=== PATIENT | female | born 1995 | race Caucasian/White ===

== ENCOUNTER 2023-06-29 14:17 | Outpatient (OUT) | payer OTHER, SELFPAY ==
[2023-06-29 15:53] LABS: Free T4 1.02 ng/dL (0.76-1.46)
[2023-06-29 15:54] LABS: HCG Quantitative <1 mIU/mL; Thyroid Stimulating Hormone 2.218 uIU/mL (0.358-3.740)
[2023-06-29 16:06] LABS: Basophils Percent Auto 0.6 % (0.2-2.0); Eosinophils Absolute Auto 0.1 10^3/uL (0.0-0.7); Estimated Average Glucose 94 mg/dL; Glycohemoglobin A1C 4.9 % (4.5-6.2); Immature Granulocytes Abs Auto 0.01 10^3/uL (0.00-0.03); Immature Granulocytes Pct Auto 0.1 % (0.0-0.5); Lymphocytes Percent Auto 27.1 % (20.5-60.0); Mean Corpuscular HGB Conc 34.2 g/dL (29.9-35.2); Mean Corpuscular Hemoglobin 30.4 pg (26.7-34.0); Mean Corpuscular Volume 88.8 fL (81.0-99.0); Mean Platelet Volume 9.2 fL (9.5-13.5); Monocytes Absolute Auto 0.4 10^3/uL (0.3-0.8); Monocytes Percent Auto 4.8 % (1.7-12.0); Neutrophils Absolute Auto 4.8 10^3/uL (1.4-6.5); Neutrophils Percent Auto 66.4 % (43.0-75.0); Platelet Count 302 10^3/uL (150-450); Red Blood Count 4.28 10^6/uL (4.20-5.40); Red Cell Distribution Width 12.9 % (11.0-15.0); White Blood Count 7.2 10^3/uL (4.0-11.0)
[2023-06-30 04:07] LABS: FSH 1.7 mIU/mL (.); Luteinizing Hormone(LH) 6.8 mIU/mL (.)
[2023-07-05 01:09] LABS: DHEA, Serum 222 ng/dL (31-701)
== END 2023-06-29 14:18 | disposition home or self-care (01) ==
PROVIDERS: PCP Nurse Practitioner Family; Visit Provider Obstetrics & Gynecology
DX: E28.2 Polycystic ovarian syndrome (principal); N93.9 Abnormal uterine and vaginal bleeding, unspecified
CPT/HCPCS: 36415; 82626; 82627; 83001; 83002; 83036; 84439; 84443; 84702; 85025

== ENCOUNTER 2023-07-11 07:53 | Outpatient (OUT) | payer OTHER, SELFPAY ==
--- NOTE | 2023-07-11 07:55 | US_ITS ---
The [address] [address] Patient Name: WILMAN MONTENEGRO MRN: [id number] date: 1995 Sex: F Assigned Patient Location: [facility] Current Patient Location: [facility] Accession/Order Number: [id number] Exam Date: 07/11/2023 07:56 Report Date: 07/11/2023 09:01 At the request of: SANJUANA JOYNER Procedure: US pelvis w/ transvaginal EXAMINATION: US pelvis w/ transvaginal HISTORY: POLYCYSTIC OVARY SYNDROME COMPARISON: No relevant comparison available. FINDINGS: The uterus is normal in size, contour and myometrial echotexture measuring 7.2 x 2.8 x 4.2 cm. The uterus is anteverted, anteflexed. No focal myometrial mass The endometrium measures 5 mm, normal. The right ovary measures 3.5 x 2.5 x 2.3 cm. Normal color and Doppler flow. Multiple subcentimeter follicles The left ovary measures 3.1 x 1.9 x 2.3 cm. Normal color and Doppler flow. Multiple subcentimeter follicles No free fluid US/US pelvis w/ transvaginal IMPRESSION: Normal exam with no findings to suggest polycystic ovarian morphology Electronically authenticated by: GAYATRI BROOKS Date: 07/11/2023 09:01
== END 2023-07-11 07:54 | disposition home or self-care (01) ==
LOC: NOMS 07:54
PROVIDERS: PCP Nurse Practitioner Family; Visit Provider Obstetrics & Gynecology
DX: E28.2 Polycystic ovarian syndrome (principal)
CPT/HCPCS: 76830; 76856

== ENCOUNTER 2023-09-05 13:10 | Outpatient (OUT) | payer OTHER, SELFPAY ==
[2023-09-05 14:58] LABS: HCG Quantitative 2481 mIU/mL
== END 2023-09-05 13:11 | disposition home or self-care (01) ==
LOC: LAB 13:10
PROVIDERS: PCP Nurse Practitioner Family; Visit Provider Obstetrics & Gynecology
DX: N92.6 Irregular menstruation, unspecified (principal)
CPT/HCPCS: 36415; 84702

== ENCOUNTER 2023-09-07 15:12 | Outpatient (OUT) | payer OTHER, SELFPAY ==
[2023-09-07 17:18] LABS: HCG Quantitative 5292 mIU/mL
== END 2023-09-07 15:13 | disposition home or self-care (01) ==
LOC: LAB 15:13
PROVIDERS: PCP Nurse Practitioner Family; Visit Provider Obstetrics & Gynecology
DX: N92.6 Irregular menstruation, unspecified (principal)
CPT/HCPCS: 36415; 84702

== ENCOUNTER 2023-10-06 12:55 | Outpatient (OUT) | payer OTHER, SELFPAY ==
--- NOTE | 2023-10-06 12:57 | US_ITS ---
[address] [address] Patient Name: WILMAN MONTENEGRO MRN: [id number] date: 1995 Sex: F Assigned Patient Location: [facility] Current Patient Location: [facility] Accession/Order Number: [id number] Exam Date: 10/06/2023 12:57 Report Date: 10/06/2023 14:02 At the request of: SANJUANA JOYNER Procedure: US OB transvaginal EXAMINATION: US OB transvaginal HISTORY: MISSED MENSES COMPARISON: No relevant comparison available. FINDINGS: Dove intrauterine gestation Gestational sac: 3.50 cm, 8 weeks 4 days CRL: 2.51 cm, 9 weeks 2 days Yolk sac: 5.5 mm Heart rate: 170 beats minute Uterus is normal, anteverted, anteflexed The ovaries are normal. Right corpus luteal cyst Clinical age: 9 weeks 3 days Clinical MICHELLE: 05/07/2024 Ultrasound age: 9 weeks 2 days Ultrasound MICHELLE: 05/08/2024 US/US OB transvaginal IMPRESSION: Viable dove intrauterine gestation measuring 9 weeks 2 days Electronically authenticated by: GAYATRI BROOKS Date: 10/06/2023 14:02
== END 2023-10-06 12:56 | disposition home or self-care (01) ==
LOC: NOMS 12:56
PROVIDERS: PCP Nurse Practitioner Family; Visit Provider Obstetrics & Gynecology
DX: Z34.91 Encounter for supervision of normal pregnancy, unspecified, first trimester (principal); Z3A.09 9 weeks gestation of pregnancy
CPT/HCPCS: 76817

== ENCOUNTER 2023-10-06 15:22 | Outpatient (OUT) | payer OTHER, SELFPAY ==
--- OUTSIDE RECORDS SUMMARY | 2023-10-06 15:30 | XMS_ITS | CCD ---
Author Organization [facility] Care Team Providers Care Preschool Education Director Name Role Phone Dionne Miller Unavailable SANJUANA JOYNER Attending Unavailable Allergies Allergy Classification Reported Allergen(s) Allergy Type Date of Onset Reaction(s) Facility (1 source) Amoxicillin Drug Allergy rash [facility] Other Problems Problem Classification Problem Date Documented Da te Episodic/Chronic Malaise and fatigue (1 source) Other fatigue Onset: 07-07-2021 Resolved: 07-07-2021 Episodic Other skin disorders (1 source) Other skin changes Onset: 07-07-2021 Resolved: 07-07-2021 Episodic Results Test Name Value Interpretation Reference Range Facil ity Coagulation Profileon 2021 aPTT Coag (Bld) [Time] 31.7 s Normal 25.1-36.5 [facility] Comment on above: Result Comment: PERF ORMED BY: [place] [address] PATHOLOGIST BUTTON FACING MACHINE OPERATOR PERCY ROSEN M.D. Performed By: #### C MP, PP, [id number], [id number], LIPID, TSH3, SCAN CBC, FE PRO #### [facility] [address] INR Coag (PPP) [Relative time] 1.1 {INR} Normal [facility] Comment on above: Result Comment: INR Therapeutic Range A) Pre- and Peroperative OAT started two weeks before surgery. NOT HIP SURGERY: 1.5 - 2.5 HIP SURGERY: 2 - 3 B) Primary and secondary prevention of venous THROMBOSIS: 2 - 3 C) Active venous thrombosis, pulmonary embolism and prevention of recurrent venous thrombosis: 2 - 3 D) Prevention of arterial thromboembolism including patients with mechanical heart valves: 3 - 4.5 Performed By: #### C MP, PP, [id number], [id number], LIPID, TSH3, SCAN CBC, FE PRO #### [address] PT Coag (PPP) [Time] 12.3 s Normal 9.0-12.9 [facility] Comment on above: Performed By: #### C MP, PP, [id number], [id number], LIPID, TSH3, SCAN CBC, FE PRO #### [address] Comprehensive Metabolic Pane chacha 07-07-2021 Albumin [Mass/Vol] 4.1 g/dL Normal 3.2-5.5 [facility] Comment on above: Performed By: #### C MP, PP, [id number], [id number], LIPID, TSH3, SCAN CBC, FE PRO #### [address] Albumin/Globulin [Mass ratio] 1.5 {ratio} Normal [facility] Comment on above: Performed By: #### C MP, PP, [id number], [id number], LIPID, TSH3, SCAN CBC, FE PRO #### [address] ALP [Catalytic activity/Vol] 46 U/L Normal 32-92 [facility] Comment on above: Performed By: #### C MP, PP, [id number], [id number], LIPID, TSH3, SCAN CBC, FE PRO #### [address] ALT [Catalytic activity/Vol] 14 U/L Normal 10-60 [facility] Comment on above: Performed By: #### C MP, PP, [id number], [id number], LIPID, TSH3, SCAN CBC, FE PRO #### [address] AST [Catalytic activity/Vol] 19 U/L Normal 10-42 [facility] Comment on above: Performed By: #### C MP, PP, [id number], [id number], LIPID, TSH3, SCAN CBC, FE PRO #### [address] Bilirubin [Mass/Vol] 0.5 mg/dL Normal 0.3-1.2 [facility] Comment on above: Performed By: #### C MP, PP, [id number], [id number], LIPID, TSH3, SCAN CBC, FE PRO #### [address] Calcium [Mass/Vol] 9.4 mg/dL Normal 8.2-10.2 [facility] Comment on above: Performed By: #### C MP, PP, [id number], [id number], LIPID, TSH3, SCAN CBC, FE PRO #### [address] Chloride [Moles/Vol] 105 mmol/L Normal 95-114 [facility] Comment on above: Performed By: #### C MP, PP, [id number], [id number], LIPID, TSH3, SCAN CBC, FE PRO #### [address] CO2 [Moles/Vol] 25.2 mmol/L Normal 22.0-30.0 [facility] Comment on above: Performed By: #### C MP, PP, [id number], [id number], LIPID, TSH3, SCAN CBC, FE PRO #### [address] Creatinine [Mass/Vol] 0.68 mg/dL Normal 0.44-1.03 [facility] Comment on above: Performed By: #### C MP, PP, [id number], [id number], LIPID, TSH3, SCAN CBC, FE PRO #### [address] Estimated GFR ( Elisha > 60 Normal [facility] Comment on above: Result Comment: GFR estimated reference range: According to KDOQI guidelines, <60 ml/min/1.73m2 is sufficient to diagnose a patient with chronic kidney disease. Performed By: #### C MP, PP, [id number], [id number], LIPID, TSH3, SCAN CBC, FE PRO #### [address] Estimated GFR (Non- Am > 60 Normal [facility] Comment on above: Performed By: #### C MP, PP, [id number], [id number], LIPID, TSH3, SCAN CBC, FE PRO #### [address] Globulin (S) [Mass/Vol] 2.8 g/dL Normal [facility] Comment on above: Performed By: #### C MP, PP, [id number], [id number], LIPID, TSH3, SCAN CBC, FE PRO #### [address] Glucose [Mass/Vol] 84 mg/dL Normal 70-100 [facility] Comment on above: Result Comment: [facility] Glucose Reference Range is dependent on time and content of last meal. Glucose of more than 200 mg/dL in a nonstressed, ambulatory subject supports the diagnosis of Diabetes Mellitus. ADA recommended reference range Performed By: #### C MP, PP, [id number], [id number], LIPID, TSH3, SCAN CBC, FE PRO #### [address] Potassium [Moles/Vol] 4.2 mmol/L Normal 3.5-5.1 [facility] Comment on above: Performed By: #### C MP, PP, [id number], [id number], LIPID, TSH3, SCAN CBC, FE PRO #### [address] Protein [Mass/Vol] 6.9 g/dL Normal 6.1-7.9 [facility] Comment on above: Performed By: #### C MP, PP, [id number], [id number], LIPID, TSH3, SCAN CBC, FE PRO #### [address] Sodium [Moles/Vol] 137 mmol/L Normal 136-146 [facility] Comment on above: Performed By: #### C MP, PP, [id number], [id number], LIPID, TSH3, SCAN CBC, FE PRO #### [address] Urea nitrogen [Mass/Vol] 11 mg/dL Normal 9-23 [facility] Comment on above: Performed By: #### C MP, PP, [id number], [id number], LIPID, TSH3, SCAN CBC, FE PRO #### [address] FE PROon 07-07-2021 % Iron Saturation 35.0 % Normal 20-50 [facility] Comment on above: Performed By: #### C MP, PP, [id number], [id number], LIPID, TSH3, SCAN CBC, FE PRO #### [address] Ferritin [Mass/Vol] 23.8 ng/mL Normal 11-306.8 [facility] Comment on above: Performed By: #### C MP, PP, [id number], [id number], LIPID, TSH3, SCAN CBC, FE PRO #### [address] Iron [Mass/Vol] 104 ug/dL Normal 40-150 [facility] Comment on above: Performed By: #### C MP, PP, [id number], [id number], LIPID, TSH3, SCAN CBC, FE PRO #### [address] Total Iron Binding Capacity 294 ug/dL Normal 255-450 [facility] Comment on above: Performed By: #### C MP, PP, [id number], [id number], LIPID, TSH3, SCAN CBC, FE PRO #### [address] Transferrin [Mass/Vol] 210 mg/dL Normal 180-380 [facility] Comment on above: Performed By: #### C MP, PP, [id number], [id number], LIPID, TSH3, SCAN CBC, FE PRO #### [facility] [address] [place] [id number] [facility] Lipid Panelon 07-07-2021 Cholesterol [Mass/Vol] 156 mg/dL Normal 140-200 [facility] Comment on above: Result Comment: Chol less than 200 mg/dl low risk Chol 201-239 mg/dl borderline risk Chol 240 mg/dl and greater high risk Performed By: #### C MP, PP, [id number], [id number], LIPID, TSH3, SCAN CBC, FE PRO #### [facility] [address] Cholesterol in HDL [Mass/Vol] 76 mg/dL Normal 35-85 [facility] Comment on above: Result Comment: HDL CHOL ATP-III CLASSIFICATION Cardiovascular Risk HDL > or equal to 60 mg/dL LOW HDL < 40 mg/dL HIGH Performed By: #### C MP, PP, [id number], [id number], LIPID, TSH3, SCAN CBC, FE PRO #### [facility] [address] [place] [address] [place] Cholesterol.total/C holesterol in HDL [Mass ratio] 2.1 {ratio} Normal <5.0 [facility] Comment on above: Performed By: #### C MP, PP, [id number], [id number], LIPID, TSH3, SCAN CBC, FE PRO #### [facility] [address] [place] [id number] [facility] LDL Cholesterol,Calcula marcia 75 mg/dL Normal 0-100 [facility] Comment on above: Result Comment: LDL ATP III CLASSIFICATION LDL less than 100 mg/dL Optimal LDL 100-129 mg/dL Near or above optimal LDL 130-159 mg/dL Borderline high LDL 160-189 mg/dL High LDL greater than 189 mg/dL Very high Performed By: #### C MP, PP, [id number], [id number], LIPID, TSH3, SCAN CBC, FE PRO #### [address] Triglyceride w/Reflex 25 mg/dL Low 35-149 [facility] Comment on above: Result Comment: TRIG ATP III CLASSIFICATION TRIG less than 150 mg/dL Normal TRIG 150-199 mg/dL Borderline high TRIG 200-500 mg/dL High TRIG greater than 500 mg/dL Very high Standard traceable to the Center for Disease Conrtrol and Prevention (CDC) test method. Performed By: #### C MP, PP, [id number], [id number], LIPID, TSH3, SCAN CBC, FE PRO #### [address] VLDL CHOLESTEROL 5 mg/dL Normal [facility] Comment on above: Performed By: #### C MP, PP, [id number], [id number], LIPID, TSH3, SCAN CBC, FE PRO #### [address] Scan and CBCon 07-07-2021 Basophils (Bld) [#/Vol] 0.1 10*3/uL Normal 0.0-0.2 [facility] Comment on above: Performed By: #### C MP, PP, [id number], [id number], LIPID, TSH3, SCAN CBC, FE PRO #### [address] Basophils/100 WBC (Bld) 1.1 % Normal . [facility] Comment on above: Performed By: #### C MP, PP, [id number], [id number], LIPID, TSH3, SCAN CBC, FE PRO #### [address] Eosinophils (Bld) [#/Vol] 0.1 10*3/uL Normal 0.0-0.45 [facility] Comment on above: Performed By: #### C MP, PP, [id number], [id number], LIPID, TSH3, SCAN CBC, FE PRO #### [address] Eosinophils/100 WBC (Bld) 2.3 % Normal . [facility] Comment on above: Performed By: #### C MP, PP, [id number], [id number], LIPID, TSH3, SCAN CBC, FE PRO #### [address] Erythrocyte distribution width (RBC) [Ratio] 13.2 % Normal 11.9-15.3 [facility] Comment on above: Performed By: #### C MP, PP, [id number], [id number], LIPID, TSH3, SCAN CBC, FE PRO #### [address] Hematocrit (Bld) [Volume fraction] 40.0 % Normal 34.0-46.4 [facility] Comment on above: Performed By: #### C MP, PP, [id number], [id number], LIPID, TSH3, SCAN CBC, FE PRO #### [address] Hemoglobin (Bld) [Mass/Vol] 14.0 g/dL Normal 11.8-15.4 [facility] Comment on above: Performed By: #### C MP, PP, [id number], [id number], LIPID, TSH3, SCAN CBC, FE PRO #### [address] Hypochromasia Slight Normal [facility] Comment on above: Performed By: #### C MP, PP, [id number], [id number], LIPID, TSH3, SCAN CBC, FE PRO #### [address] Lymphocytes (Bld) [#/Vol] 1.5 10*3/uL Normal 1.00-4.8 [facility] Comment on above: Performed By: #### C MP, PP, [id number], [id number], LIPID, TSH3, SCAN CBC, FE PRO #### [address] Lymphocytes/100 WBC (Bld) 32.4 % Normal . [facility] Comment on above: Performed By: #### C MP, PP, [id number], [id number], LIPID, TSH3, SCAN CBC, FE PRO #### [address] MCH (RBC) [Entitic mass] 30.7 pg Normal 24.7-34.3 [facility] Comment on above: Performed By: #### C MP, PP, [id number], [id number], LIPID, TSH3, SCAN CBC, FE PRO #### [address] MCV (RBC) [Entitic vol] 88.0 fL Normal 80-100 [facility] Comment on above: Performed By: #### C MP, PP, [id number], [id number], LIPID, TSH3, SCAN CBC, FE PRO #### [address] Mean Corpuscular HGB Conc 34.9 g/dL Normal 32.0-35.0 [facility] Comment on above: Performed By: #### C MP, PP, [id number], [id number], LIPID, TSH3, SCAN CBC, FE PRO #### [address] Monocytes (Bld) [#/Vol] 0.2 10*3/uL Normal 0.0-0.8 [facility] Comment on above: Performed By: #### C MP, PP, [id number], [id number], LIPID, TSH3, SCAN CBC, FE PRO #### [address] Monocytes/100 WBC (Bld) 4.9 % Normal . [facility] Comment on above: Performed By: #### C MP, PP, [id number], [id number], LIPID, TSH3, SCAN CBC, FE PRO #### [address] Neutrophils (Bld) [#/Vol] 2.7 10*3/uL Normal 1.8-7.7 [facility] Comment on above: Performed By: #### C MP, PP, [id number], [id number], LIPID, TSH3, SCAN CBC, FE PRO #### [address] Neutrophils/100 WBC (Bld) 59.3 % Normal . [facility] Comment on above: Performed By: #### C MP, PP, [id number], [id number], LIPID, TSH3, SCAN CBC, FE PRO #### [address] Nucleated RBC/100 WBC (Bld) [Ratio] 0.3 % Normal 0-0.5 [facility] Comment on above: Performed By: #### C MP, PP, [id number], [id number], LIPID, TSH3, SCAN CBC, FE PRO #### [address] Platelet Clumps Slight Normal [facility] Comment on above: Result Comment: PERF ORMED BY: [place] [address] PATHOLOGIST BUTTON FACING MACHINE OPERATOR PERCY ROSEN M.D. Performed By: #### C MP, PP, [id number], [id number], LIPID, TSH3, SCAN CBC, FE PRO #### [address] Platelet Estimate Normal Normal Normal [facility] Comment on above: Performed By: #### C MP, PP, [id number], [id number], LIPID, TSH3, SCAN CBC, FE PRO #### [address] Platelet mean volume (Bld) [Entitic vol] 8.1 fL Normal 6.3-10.7 [facility] Comment on above: Performed By: #### C MP, PP, [id number], [id number], LIPID, TSH3, SCAN CBC, FE PRO #### [place] [address] [place] Platelets (Bld) [#/Vol] 297 10*3/uL Normal 150-450 [facility] Comment on above: Performed By: #### C MP, PP, [id number], [id number], LIPID, TSH3, SCAN CBC, FE PRO #### [facility] [address] [place] [address] RBC (Bld) [#/Vol] 4.55 10*6/uL Normal 3.60-5.00 [facility] Comment on above: Performed By: #### C MP, PP, [id number], [id number], LIPID, TSH3, SCAN CBC, FE PRO #### [facility] [address] [place] [address] Reactive Lymphs Few Normal [facility] Comment on above: Performed By: #### C MP, PP, [id number], [id number], LIPID, TSH3, SCAN CBC, FE PRO #### [address] Smudge Cells Few Normal [facility] Comment on above: Performed By: #### C MP, PP, [id number], [id number], LIPID, TSH3, SCAN CBC, FE PRO #### [facility] [address] [place] [address] WBC (Bld) [#/Vol] 4.5 10*3/uL Normal 4.5-11.0 [facility] Comment on above: Performed By: #### C MP, PP, [id number], [id number], LIPID, TSH3, SCAN CBC, FE PRO #### [facility] [address] [place] [address] Thyroid Stimulating Hormoneo n 07-07-2021 TSH Qn 1.61 m[IU]/L Normal 0.45-5.33 [facility] Comment on above: Performed By: #### C MP, PP, [id number], [id number], LIPID, TSH3, SCAN CBC, FE PRO #### [address] Vit. B12/Folate Profileon Cobalamin (Vitamin B12) [Mass/Vol] 358 pg/mL Normal 180-914 [facility] Comment on above: Performed By: #### C MP, PP, [id number], [id number], LIPID, TSH3, SCAN CBC, FE PRO #### [facility] [address] [place] [id number] [facility] Folate 10.9 ng/mL Normal >5.9 [facility] Comment on above: Result Comment: Thea te reference range: >5.9 ng/ml The WHO technical consultation on folate and vitamin b12 deficiencies has determined that folate concentrations less than 4 ng/ml are considered deficient. Performed By: #### C MP, PP, [id number], [id number], LIPID, TSH3, SCAN CBC, FE PRO #### [facility] [address] [place] [id number] [facility] Vitamin D 25 Hydroxy Totalon 07-07-2021 Vitamin D 25 Hydroxy Total 27.5 ng/mL Low 30-100 [facility] Comment on above: Result Comment: MAHOG[place] MIN D STATUS 25(OH)VITAMIN D RANGE (ng/mL) Deficient <20 Insufficient 20 to <30 Sufficient 30 to 100 Reference: Rajeev MF,Nate NC, Justine WILSON, et al. Evaluation,treatment, and prevention of vitamin D deficiency; an Endocrine Society clinical practice guideline. JCEM. 2010; 96(7):1911-30. PERFORMED BY: [place] [address] PATHOLOGIST BUTTON FACING MACHINE OPERATOR PERCY ROSEN M.D. Performed By: #### C MP, PP, [id number], [id number], LIPID, TSH3, SCAN CBC, FE PRO #### [facility] [address] [place] [id number] [facility] Vital Signs Date Time Vital Sign Value Performing Clinician Facility 07-07-2021 11:00-0400 Body height 151.13 cm Dionne Miller Other [facility] Other 07-07-2021 11:00-0400 Body mass index (BMI) [Ratio] 25.18 kg/m2 Dionne Miller Other [facility] Other 07-07-2021 11:00-0400 Body temperature 97 [degF] Dionne Miller Other [facility] Other 07-07-2021 11:00-0400 Body weight 57.52 kg Dionne Angela Other [facility] Other 07-07-2021 11:00-0400 Diastolic blood pressure 60 mm[Hg] Dionne Miller Other [facility] Other 07-07-2021 11:00-0400 Respiratory rate 18 /min Dionne Miller Other [facility] Other 07-07-2021 11:00-0400 SaO2% (BldA) [Mass fraction] 99 % Dionne Miller Other [facility] Other 07-07-2021 11:00-0400 Systolic blood pressure 100 mm[Hg] Dionne Miller Other [facility] Other Encounters Encounter Date Encounter Type Care Provider Facility Start: 06-29-2023 End: 06-29-2023 ambulatory SANJUANA AR Not Available Start: 05-30-2023 End: 05-30-2023 ambulatory SANJUANA AR Not Available Start: 07-07-2021 End: 07-07-2021 ambulatory Dionne Miller Other [facility] Other Start: 07-07-2021 Encounter for genera l adult medical examination without abnormal findings Dionne Miller [facility] [place] Start: 07-07-2021 Periodic preventive med est patient 18-39 yrs Dionne Miller [facility] [place] Immunizations Immunization Date Immunization Notes Care Provider Fa cility 08-05-2010 tetanus toxoid, reduced diphtheria toxoid, and acellular pertussis vaccine, adsorbed Dionne Miller Other [facility] Other Payers Date Payer Category Payer Unknown [id number] 1995 Unknown [id number] 1995 Unknown [id number] Social History Date Type Detail Facility Sex Assigned At [facility] Other Evaluation note 07-07-2021 Note Date & Type Note Facility 07-07-2021 Evaluation note Encounter Date Diagnosis Assessment Notes June, Well adult exam (ICD-10 - Z00.00) Routine lab work ordered today. Continue to follow with eye doctor and dentist, [employer]. Patient is advised to work on healthy diet choices and appropriate servings, weight control, regular exercise as directed, reduced fat intake, and salt avoidance. Patient voiced understanding of this and agrees to this plan. June, Fatigue, unspecified type (ICD-10 - R53.83) Has some generalized fatigue complaints. Does work long hours. Will check lab work to rule out abnormality. Further treatment pending results of testing. June, Easy bruising (ICD-10 - R23.8) Does have some complaints of easy bruising at times. Does move a lot of large items at work and there is the potential that she bumps herself on items. Will check lab work to rule out abnormality. Further treatment pending results of testing. June, Other [employer] referral sent today so that she is able to discuss control options with them. Discussed referral process with patient. [facility] Other History general Narrative - Reported Note Date & Type Note Facility History general Narrative - Reported Type Surgical History No know Surgical history Hospitalization History No know Hospitalization history [facility] Other Summary Purpose Family History No Family History Records FoundNo Family History Records Found Advance Directives No Advanced Directives Records FoundNo Advanced Directives Records Found Additional Source Comments INFORMATION SOURCE (unrecogn ized section and content) DATE CREATED AUTHOR 07/25/2021 [facility] DATE CREATED AUTHOR AUTHOR'S FABIOLA PÉREZ 07/01/2023 [facility] EPIC REASON FOR VISIT (unrecogniz ed section and content) 1 year Follow up FOR RECORDS PERTAINING TO PATIENTS WHO ARE OR HAVE BEEN ENROLLED IN A CHEMICAL DEPENDENCY/SUBSTANCEABUSE PROGRAM, SOME INFORMATION MAY BE OMITTED. This clinical summary was aggregated from multiple sources. Caution should be exercised in using it in the provision of clinical care. This summary normalizes information from multiple sources, and as a consequence, information in this document may materially change the coding, format and clinical context of patient data. In addition, data may be omitted in some cases. CLINICAL DECISIONS SHOULD BE BASED ON THE PRIMARY CLINICAL RECORDS. [facility]. provides no warranty or guarantee of the accuracy or completeness of information in this document.
[2023-10-06 15:54] LABS: Basophils Percent Auto 0.5 % (0.2-2.0); Eosinophils Absolute Auto 0.1 10^3/uL (0.0-0.7); Eosinophils Percent Auto 1.2 % (0.9-7.0); Hematocrit 36.1 % (36.0-48.0); Hemoglobin 12.6 g/dL (12.0-16.0); Immature Granulocytes Abs Auto 0.01 10^3/uL (0.00-0.03); Immature Granulocytes Pct Auto 0.1 % (0.0-0.5); Lymphocytes Absolute Auto 2.1 10^3/uL (1.2-3.8); Mean Corpuscular HGB Conc 34.9 g/dL (29.9-35.2); Mean Corpuscular Hemoglobin 30.7 pg (26.7-34.0); Mean Corpuscular Volume 87.8 fL (81.0-99.0); Mean Platelet Volume 8.6 fL (9.5-13.5); Monocytes Absolute Auto 0.5 10^3/uL (0.3-0.8); Monocytes Percent Auto 5.9 % (1.7-12.0); Neutrophils Absolute Auto 5.4 10^3/uL (1.4-6.5); Neutrophils Percent Auto 66.3 % (43.0-75.0); Platelet Count 266 10^3/uL (150-450); Red Blood Count 4.11 10^6/uL (4.20-5.40); Red Cell Distribution Width 12.4 % (11.0-15.0); White Blood Count 8.2 10^3/uL (4.0-11.0)
[2023-10-06 16:05] LABS: Estimated Average Glucose 94 mg/dL; Glycohemoglobin A1C 4.9 % (4.5-6.2)
[2023-10-08 06:10] LABS: HBsAg Screen Negative (Negative); HIV Ab/p24 Ag Screen Non Reactive (Non Reactive)
[2023-10-08 07:08] LABS: HCV Ab Non Reactive (Non Reactive)
[2023-10-08 08:12] LABS: Rubella Antibodies, IgG 2.39 index (Immune >0.99)
[2023-10-08 11:10] LABS: Rapid Plasma Reagin, Quant Non Reactive titer (NonRea<1:1)
== END 2023-10-06 15:23 | disposition home or self-care (01) ==
LOC: LAB 15:23
PROVIDERS: PCP Nurse Practitioner Family; Visit Provider Obstetrics & Gynecology
DX: Z34.91 Encounter for supervision of normal pregnancy, unspecified, first trimester (principal); Z3A.09 9 weeks gestation of pregnancy; N92.6 Irregular menstruation, unspecified
CPT/HCPCS: 36415; 76817; 83036; 85025; 86592; 86762; 86803; 86850; 86900; 86901; 87086; 87340; 87389

== ENCOUNTER 2023-12-05 20:33 | Outpatient (REF) | payer OTHER, SELFPAY ==
--- OUTSIDE RECORDS SUMMARY | 2023-12-05 20:36 | XMS_ITS | CCD ---
Author Organization [facility] Care Team Providers Care Staff Appraiser Name Role Phone AngelaDionne Unavailable SANJUANA JOYNER Attending Unavailable SANJUANA JOYNER Attending Unavailable Allergies Allergy Classification Reported Allergen(s) Allergy Type Date of Onset Reaction(s) Facility (1 source) Amoxicillin Drug Allergy rash [facility] Other Problems Problem Classification Problem Date Documented Da te Episodic/Chronic Malaise and fatigue (1 source) Other fatigue Onset: 07-07-2021 Resolved: 07-07-2021 Episodic Other skin disorders (1 source) Other skin changes Onset: 07-07-2021 Resolved: 07-07-2021 Episodic Results Test Name Value Interpretation Reference Range Facil ity Coagulation Profileon 2021 aPTT Coag (Bld) [Time] 31.7 s Normal 25.1-36.5 [facility] Comment on above: Result Comment: PERF ORMED BY: [place] [address] PATHOLOGIST GREENHOUSE OR NURSERY TRANSPLANTER PERCY ROSEN M.D. Performed By: #### C MP, PP, [id number], [id number], LIPID, TSH3, SCAN CBC, FE PRO #### [facility] [address] INR Coag (PPP) [Relative time] 1.1 {INR} Normal [facility] Comment on above: Result Comment: INR Therapeutic [...] 4.5 Performed By: #### C MP, PP, [id number], [id number], LIPID, TSH3, SCAN CBC, FE PRO #### [address] PT Coag (PPP) [Time] 12.3 s Normal 9.0-12.9 [facility] Comment on above: Performed By: #### C MP, PP, [id number], [id number], LIPID, TSH3, SCAN CBC, FE PRO #### [address] Comprehensive Metabolic Pane chacha 07-07-2021 Albumin [Mass/Vol] 4.1 g/dL Normal 3.2-5.5 [facility] Comment on above: Performed By: #### C MP, PP, [id number], [id number], LIPID, TSH3, SCAN CBC, FE PRO #### [address] Albumin/Globulin [Mass ratio] 1.5 {ratio} Normal [facility] Comment on above: Performed By: #### C MP, PP, [id number], [id number], LIPID, TSH3, SCAN CBC, FE PRO #### [address] ALP [Catalytic activity/Vol] 46 U/L Normal 32-92 [facility] Comment on above: Performed By: #### C MP, PP, [id number], [id number], LIPID, TSH3, SCAN CBC, FE PRO #### [address] ALT [Catalytic activity/Vol] 14 U/L Normal 10-60 [facility] Comment on above: Performed By: #### C MP, PP, [id number], [id number], LIPID, TSH3, SCAN CBC, FE PRO #### [address] AST [Catalytic activity/Vol] 19 U/L Normal 10-42 [facility] Comment on above: Performed By: #### C MP, PP, [id number], [id number], LIPID, TSH3, SCAN CBC, FE PRO #### [address] Bilirubin [Mass/Vol] 0.5 mg/dL Normal 0.3-1.2 [facility] Comment on above: Performed By: #### C MP, PP, [id number], [id number], LIPID, TSH3, SCAN CBC, FE PRO #### [address] Calcium [Mass/Vol] 9.4 mg/dL Normal 8.2-10.2 [facility] Comment on above: Performed By: #### C MP, PP, [id number], [id number], LIPID, TSH3, SCAN CBC, FE PRO #### [address] Chloride [Moles/Vol] 105 mmol/L Normal 95-114 [facility] Comment on above: Performed By: #### C MP, PP, [id number], [id number], LIPID, TSH3, SCAN CBC, FE PRO #### [address] CO2 [Moles/Vol] 25.2 mmol/L Normal 22.0-30.0 [facility] Comment on above: Performed By: #### C MP, PP, [id number], [id number], LIPID, TSH3, SCAN CBC, FE PRO #### [address] Creatinine [Mass/Vol] 0.68 mg/dL Normal 0.44-1.03 [facility] Comment on above: Performed By: #### C MP, PP, [id number], [id number], LIPID, TSH3, SCAN CBC, FE PRO #### [facility] [address] [place] [address] Estimated GFR ( Elisha > 60 Normal [facility] Comment on above: Result Comment: GFR estimated reference range: According to KDOQI guidelines, <60 ml/min/1.73m2 is sufficient to diagnose a patient with chronic kidney disease. Performed By: #### C MP, PP, [id number], [id number], LIPID, TSH3, SCAN CBC, FE PRO #### [address] Estimated GFR (Non- Am > 60 Normal [facility] Comment on above: Performed By: #### C MP, PP, [id number], [id number], LIPID, TSH3, SCAN CBC, FE PRO #### [address] Globulin (S) [Mass/Vol] 2.8 g/dL Normal [facility] Comment on above: Performed By: #### C MP, PP, [id number], [id number], LIPID, TSH3, SCAN CBC, FE PRO #### [address] Glucose [Mass/Vol] 84 mg/dL Normal 70-100 [facility] Comment on above: Result Comment: [place] Glucose Reference Range is dependent on time and content of last meal. Glucose of more than 200 mg/dL in a nonstressed, ambulatory subject supports the diagnosis of Diabetes Mellitus. ADA recommended reference range Performed By: #### C MP, PP, [id number], [id number], LIPID, TSH3, SCAN CBC, FE PRO #### [address] Potassium [Moles/Vol] 4.2 mmol/L Normal 3.5-5.1 [facility] Comment on above: Performed By: #### C MP, PP, [id number], [id number], LIPID, TSH3, SCAN CBC, FE PRO #### [address] Protein [Mass/Vol] 6.9 g/dL Normal 6.1-7.9 [facility] Comment on above: Performed By: #### C MP, PP, [id number], [id number], LIPID, TSH3, SCAN CBC, FE PRO #### [address] Sodium [Moles/Vol] 137 mmol/L Normal 136-146 [facility] Comment on above: Performed By: #### C MP, PP, [id number], [id number], LIPID, TSH3, SCAN CBC, FE PRO #### [address] Urea nitrogen [Mass/Vol] 11 mg/dL Normal 9-23 [facility] Comment on above: Performed By: #### C MP, PP, [id number], [id number], LIPID, TSH3, SCAN CBC, FE PRO #### [address] FE PROon 07-07-2021 % Iron Saturation 35.0 % Normal 20-50 [facility] Comment on above: Performed By: #### C MP, PP, [id number], [id number], LIPID, TSH3, SCAN CBC, FE PRO #### [address] Ferritin [Mass/Vol] 23.8 ng/mL Normal 11-306.8 [facility] Comment on above: Performed By: #### C MP, PP, [id number], [id number], LIPID, TSH3, SCAN CBC, FE PRO #### [address] Iron [Mass/Vol] 104 ug/dL Normal 40-150 [facility] Comment on above: Performed By: #### C MP, PP, [id number], [id number], LIPID, TSH3, SCAN CBC, FE PRO #### [address] Total Iron Binding Capacity 294 ug/dL Normal 255-450 [facility] Comment on above: Performed By: #### C MP, PP, [id number], [id number], LIPID, TSH3, SCAN CBC, FE PRO #### [address] Transferrin [Mass/Vol] 210 mg/dL Normal 180-380 [facility] Comment on above: Performed By: #### C MP, PP, [id number], [id number], LIPID, TSH3, SCAN CBC, FE PRO #### [facility] [address] Lipid Panelon 07-07-2021 Cholesterol [Mass/Vol] 156 mg/dL Normal 140-200 [facility] Comment on above: Result Comment: Chol less than 200 mg/dl low risk Chol 201-239 mg/dl borderline risk Chol 240 mg/dl and greater high risk Performed By: #### C MP, PP, [id number], [id number], LIPID, TSH3, SCAN CBC, FE PRO #### [facility] [address] Cholesterol in HDL [Mass/Vol] 76 mg/dL Normal 35-85 [facility] Comment on above: Result Comment: HDL CHOL ATP-III CLASSIFICATION Cardiovascular Risk HDL > or equal to 60 mg/dL LOW HDL < 40 mg/dL HIGH Performed By: #### C MP, PP, [id number], [id number], LIPID, TSH3, SCAN CBC, FE PRO #### [facility] [address] Cholesterol.total/C holesterol in HDL [Mass ratio] 2.1 {ratio} Normal <5.0 [facility] Comment on above: Performed By: #### C MP, PP, [id number], [id number], LIPID, TSH3, SCAN CBC, FE PRO #### [facility] [address] [place] [id number] [facility] LDL Cholesterol,Calcula marcia 75 mg/dL Normal 0-100 [facility] Comment on above: Result Comment: LDL ATP III CLASSIFICATION LDL less than 100 mg/dL Optimal LDL 100-129 mg/dL Near or above optimal LDL 130-159 mg/dL Borderline high LDL 160-189 mg/dL High LDL greater than 189 mg/dL Very high Performed By: #### C MP, PP, [id number], [id number], LIPID, TSH3, SCAN CBC, FE PRO #### [address] Triglyceride w/Reflex 25 mg/dL Low 35-149 [facility] Comment on above: Result Comment: TRIG ATP III CLASSIFICATION TRIG less than 150 mg/dL Normal TRIG 150-199 mg/dL Borderline high TRIG 200-500 mg/dL High TRIG greater than 500 mg/dL Very high Standard traceable to the Center for Disease Conrtrol and Prevention (CDC) test method. Performed By: #### C MP, PP, [id number], [id number], LIPID, TSH3, SCAN CBC, FE PRO #### [address] VLDL CHOLESTEROL 5 mg/dL Normal [facility] Comment on above: Performed By: #### C MP, PP, [id number], [id number], LIPID, TSH3, SCAN CBC, FE PRO #### [address] Scan and CBCon 07-07-2021 Basophils (Bld) [#/Vol] 0.1 10*3/uL Normal 0.0-0.2 [facility] Comment on above: Performed By: #### C MP, PP, [id number], [id number], LIPID, TSH3, SCAN CBC, FE PRO #### [address] Basophils/100 WBC (Bld) 1.1 % Normal . [facility] Comment on above: Performed By: #### C MP, PP, [id number], [id number], LIPID, TSH3, SCAN CBC, FE PRO #### [address] Eosinophils (Bld) [#/Vol] 0.1 10*3/uL Normal 0.0-0.45 [facility] Comment on above: Performed By: #### C MP, PP, [id number], [id number], LIPID, TSH3, SCAN CBC, FE PRO #### [address] Eosinophils/100 WBC (Bld) 2.3 % Normal . [facility] Comment on above: Performed By: #### C MP, PP, [id number], [id number], LIPID, TSH3, SCAN CBC, FE PRO #### [address] Erythrocyte distribution width (RBC) [Ratio] 13.2 % Normal 11.9-15.3 [facility] Comment on above: Performed By: #### C MP, PP, [id number], [id number], LIPID, TSH3, SCAN CBC, FE PRO #### [address] Hematocrit (Bld) [Volume fraction] 40.0 % Normal 34.0-46.4 [facility] Comment on above: Performed By: #### C MP, PP, [id number], [id number], LIPID, TSH3, SCAN CBC, FE PRO #### [address] Hemoglobin (Bld) [Mass/Vol] 14.0 g/dL Normal 11.8-15.4 [facility] Comment on above: Performed By: #### C MP, PP, [id number], [id number], LIPID, TSH3, SCAN CBC, FE PRO #### [address] Hypochromasia Slight Normal [facility] Comment on above: Performed By: #### C MP, PP, [id number], [id number], LIPID, TSH3, SCAN CBC, FE PRO #### [address] Lymphocytes (Bld) [#/Vol] 1.5 10*3/uL Normal 1.00-4.8 [facility] Comment on above: Performed By: #### C MP, PP, [id number], [id number], LIPID, TSH3, SCAN CBC, FE PRO #### [address] Lymphocytes/100 WBC (Bld) 32.4 % Normal . [facility] Comment on above: Performed By: #### C MP, PP, [id number], [id number], LIPID, TSH3, SCAN CBC, FE PRO #### [address] MCH (RBC) [Entitic mass] 30.7 pg Normal 24.7-34.3 [facility] Comment on above: Performed By: #### C MP, PP, [id number], [id number], LIPID, TSH3, SCAN CBC, FE PRO #### [address] MCV (RBC) [Entitic vol] 88.0 fL Normal 80-100 [facility] Comment on above: Performed By: #### C MP, PP, [id number], [id number], LIPID, TSH3, SCAN CBC, FE PRO #### [address] Mean Corpuscular HGB Conc 34.9 g/dL Normal 32.0-35.0 [facility] Comment on above: Performed By: #### C MP, PP, [id number], [id number], LIPID, TSH3, SCAN CBC, FE PRO #### [address] Monocytes (Bld) [#/Vol] 0.2 10*3/uL Normal 0.0-0.8 [facility] Comment on above: Performed By: #### C MP, PP, [id number], [id number], LIPID, TSH3, SCAN CBC, FE PRO #### [address] Monocytes/100 WBC (Bld) 4.9 % Normal . [facility] Comment on above: Performed By: #### C MP, PP, [id number], [id number], LIPID, TSH3, SCAN CBC, FE PRO #### [address] Neutrophils (Bld) [#/Vol] 2.7 10*3/uL Normal 1.8-7.7 [facility] Comment on above: Performed By: #### C MP, PP, [id number], [id number], LIPID, TSH3, SCAN CBC, FE PRO #### [address] Neutrophils/100 WBC (Bld) 59.3 % Normal . [facility] Comment on above: Performed By: #### C MP, PP, [id number], [id number], LIPID, TSH3, SCAN CBC, FE PRO #### [address] Nucleated RBC/100 WBC (Bld) [Ratio] 0.3 % Normal 0-0.5 [facility] Comment on above: Performed By: #### C MP, PP, [id number], [id number], LIPID, TSH3, SCAN CBC, FE PRO #### [address] Platelet Clumps Slight Normal [facility] Comment on above: Result Comment: PERF ORMED BY: [place] [address] PATHOLOGIST [employer]SE OR NURSERY TRANSPLANTER PERCY ROSEN M.D. Performed By: #### C MP, PP, [id number], [id number], LIPID, TSH3, SCAN CBC, FE PRO #### [address] Platelet Estimate Normal Normal Normal [facility] Comment on above: Performed By: #### C MP, PP, [id number], [id number], LIPID, TSH3, SCAN CBC, FE PRO #### [address] Platelet mean volume (Bld) [Entitic vol] 8.1 fL Normal 6.3-10.7 [facility] Comment on above: Performed By: #### C MP, PP, [id number], [id number], LIPID, TSH3, SCAN CBC, FE PRO #### [place] [address] [place] Platelets (Bld) [#/Vol] 297 10*3/uL Normal 150-450 [facility] Comment on above: Performed By: #### C MP, PP, [id number], [id number], LIPID, TSH3, SCAN CBC, FE PRO #### [address] RBC (Bld) [#/Vol] 4.55 10*6/uL Normal 3.60-5.00 [facility] Comment on above: Performed By: #### C MP, PP, [id number], [id number], LIPID, TSH3, SCAN CBC, FE PRO #### [facility] [address] [place] [address] Reactive Lymphs Few Normal [facility] Comment on above: Performed By: #### C MP, PP, [id number], [id number], LIPID, TSH3, SCAN CBC, FE PRO #### [address] Smudge Cells Few Normal [facility] Comment on above: Performed By: #### C MP, PP, [id number], [id number], LIPID, TSH3, SCAN CBC, FE PRO #### [facility] [address] [place] [address] WBC (Bld) [#/Vol] 4.5 10*3/uL Normal 4.5-11.0 [facility] Comment on above: Performed By: #### C MP, PP, [id number], [id number], LIPID, TSH3, SCAN CBC, FE PRO #### [address] Thyroid Stimulating Hormoneo n 07-07-2021 TSH Qn 1.61 m[IU]/L Normal 0.45-5.33 [facility] Comment on above: Performed By: #### C MP, PP, [id number], [id number], LIPID, TSH3, SCAN CBC, FE PRO #### [address] Vit. B12/Folate Profileon Cobalamin (Vitamin B12) [Mass/Vol] 358 pg/mL Normal 180-914 [facility] Comment on above: Performed By: #### C MP, PP, [id number], [id number], LIPID, TSH3, SCAN CBC, FE PRO #### [facility] [address] [place] [id number] [facility] Folate 10.9 ng/mL Normal >5.9 [facility] Comment on above: Result Comment: Thea te reference range: >5.9 ng/ml The WHO technical consultation on folate and vitamin b12 deficiencies has determined that folate concentrations less than 4 ng/ml are considered deficient. Performed By: #### C MP, PP, [id number], [id number], LIPID, TSH3, SCAN CBC, FE PRO #### [facility] [address] [place] [id number] [facility] Vitamin D 25 Hydroxy Totalon 07-07-2021 Vitamin D 25 Hydroxy Total 27.5 ng/mL Low 30-100 [facility] Comment on above: Result Comment: [place] MIN D STATUS 25(OH)VITAMIN D RANGE (ng/mL) Deficient <20 Insufficient 20 to <30 Sufficient 30 to 100 Reference: Rajeev MF,Nate NC, Justine WILSON, et al. Evaluation,treatment, and prevention of vitamin D deficiency; an Endocrine Society clinical practice guideline. JCEM. 2010; 96(7):1911-30. PERFORMED BY: [place] [address] PATHOLOGIST [employer] OR NURSERY TRANSPLANTER PERCY ROSEN M.D. Performed By: #### C MP, PP, [id number], [id number], LIPID, TSH3, SCAN CBC, FE PRO #### [facility] [address] [place] [id number] [facility] Vital Signs Date Time Vital Sign Value Performing Clinician Facility 07-07-2021 11:00-0400 Body height 151.13 cm Dionne Miller Other [facility] Other 07-07-2021 11:00-0400 Body mass index (BMI) [Ratio] 25.18 kg/m2 Dionne Miller Other [facility] Other 07-07-2021 11:00-0400 Body temperature 97 [degF] Dionne Miller Other [facility] Other 07-07-2021 11:00-0400 Body weight 57.52 kg Dionne Angela Other [facility] Other 07-07-2021 11:00-0400 Diastolic blood pressure 60 mm[Hg] Dionne Miller Other [facility] Other 07-07-2021 11:00-0400 Respiratory rate 18 /min Dionne Miller Other [facility] Other 07-07-2021 11:00-0400 SaO2% (BldA) [Mass fraction] 99 % Dionne Miller Other [facility] Other 07-07-2021 11:00-0400 Systolic blood pressure 100 mm[Hg] Dionne Miller Other [facility] Other Encounters Encounter Date Encounter Type Care Provider Facility Start: 11-07-2023 End: 11-07-2023 ambulatory SANJUANA AR Not Available Start: 10-06-2023 End: 10-06-2023 ambulatory SANJUANA AR Not Available Start: 06-29-2023 End: 06-29-2023 ambulatory SANJUANA AR Not Available Start: 05-30-2023 End: 05-30-2023 ambulatory SANJUANA AR Not Available Start: 07-07-2021 End: 07-07-2021 ambulatory Dionne Miller Other [facility] Other Start: 07-07-2021 Encounter for genera l adult medical examination without abnormal findings Dionne Angela [facility] [place] Start: 07-07-2021 Periodic preventive med est patient 18-39 yrs Dionne Angela [facility] Immunizations Immunization Date Immunization Notes Care Provider Cordell pandey 08-05-2010 tetanus toxoid, reduced diphtheria toxoid, and acellular pertussis vaccine, adsorbed Dionne Gracetiago Other [facility] nooked Other Payers Date Payer Category Payer Unknown [id number] 1997 Unknown [id number] 1997 Unknown [id number] 1997 Unknown [id number] 1997 Unknown [id number] Social History Date Type Detail Facility Sex Assigned At [facility] nooked Other Evaluation note 07-07-2021 Note Date & Type Note Facility 07-07-2021 Evaluation note Encounter Date Diagnosis Assessment Notes June, Well adult exam (ICD-10 - Z00.00) Routine lab work ordered today. Continue to follow with eye doctor and dentist, CELL OPERATOR. Patient is advised to work on healthy [...] treatment pending results of testing. June, Other CELL OPERATOR referral sent today so that she is able to discuss control options with them. Discussed referral process with patient. [facility] Other History general Narrative - Reported Note Date & Type Note Facility History general Narrative - Reported Type Surgical History No know Surgical history Hospitalization History No know Hospitalization history [facility] Other Summary Purpose Family History No Family History Records FoundNo Family History Records Found Advance Directives No Advanced Directives Records FoundNo Advanced Directives Records Found Additional Source Comments INFORMATION SOURCE (unrecogn ized section and content) DATE CREATED AUTHOR 07/25/2021 [facility] DATE CREATED AUTHOR AUTHOR'S ORGANIZ ATION 11/08/2023 [facility] dical Specialists EPIC REASON FOR VISIT (unrecogniz [...] BE BASED ON THE PRIMARY CLINICAL RECORDS. [employer] [facility] provides no warranty or guarantee of the accuracy or completeness of information in this document.
== END 2023-12-05 20:34 | disposition home or self-care (01) ==
LOC: LAB 20:33
PROVIDERS: PCP Nurse Practitioner Family; Visit Provider Physician Assistant
DX: Z01.419 Encounter for gynecological examination (general) (routine) without abnormal findings (principal)
CPT/HCPCS: 88175

== ENCOUNTER 2023-12-20 09:55 | Outpatient (OUT) | payer OTHER, SELFPAY ==
--- NOTE | 2023-12-20 09:54 | US_ITS ---
[address] [address] Patient Name: WILMAN MONTENEGRO MRN: [id number] date: 1995 Sex: F Assigned Patient Location: [facility] Current Patient Location: [facility] Accession/Order Number: [id number] Exam Date: 12/20/2023 09:54 Report Date: 12/20/2023 11:34 At the request of: ELTON ALSTON Procedure: US OB anatomy EXAMINATION: US OB anatomy, US OB transvaginal HISTORY: ANATOMY COMPARISON: No relevant comparison available. TECHNIQUE: Transabdominal sonographic examination was performed for obstetrical and evaluation. FINDINGS: Number: 1 Heart Rate: 142 bpm H.B. /min Amniotic Fluid Volume: Subjectively normal position: Cephalic presentation, longitudinal lie Placental Location: ANTERIOR, the placental edge is 3.3 cm from the internal os Cervix Length: 3.93 cm , closed Normal anatomy: Lateral ventricles, cerebellum, posterior fossa, nose, lips, orbits, four-chamber heart, RVOT, LVOT, diaphragm, stomach, kidneys, abdominal cord insertion, bladder, umbilical arteries, three-vessel cord, spine, extremities BIOMETRY: BPD: 4.62 cm; 20 weeks 0 days; 42.10 % HC: 17.71 cm; 20 weeks 1 day; 44 % AC: 15.06 cm; 20 weeks 2 days; 49.40 % FL: 3.30 cm; 20 weeks 2 days; 48.50 % EFW:336.03 g; 53.40 %, 12 ounces FL/AC: 21.91 FL/BPD: 71.43 HC/AC: 1.18 GESTATIONAL AGE: Age by EDC: 20 weeks 1 day MICHELLE by EDC: 2024-05-07 Age by current US: 20 weeks 1 day MICHELLE by current US: 2024-05-07 US/US OB anatomy IMPRESSION: Low lying placenta, otherwise normal anatomy scan *Reference: [employer] Practice Guideline for the performance of Obstetric Ultrasound Examinations, November 28, 2006. Electronically authenticated by: GAYATRI BROOKS Date: 12/20/2023 11:34
--- NOTE | 2023-12-20 09:54 | US_ITS ---
[address] [address] Patient Name: WILMAN MONTENEGRO MRN: [id number] date: 1995 Sex: F Assigned Patient Location: [facility] Current Patient Location: [facility] Accession/Order Number: [id number] Exam Date: 12/20/2023 09:54 Report Date: 12/20/2023 11:34 At the request of: ELTON ALSTON Procedure: US OB transvaginal EXAMINATION: US OB anatomy, US OB transvaginal HISTORY: ANATOMY COMPARISON: No relevant comparison available. TECHNIQUE: Transabdominal sonographic examination was performed for obstetrical and evaluation. FINDINGS: Number: 1 Heart Rate: 142 bpm H.B. /min Amniotic Fluid Volume: Subjectively normal position: Cephalic presentation, longitudinal lie Placental Location: ANTERIOR, the placental edge is 3.3 cm from the internal os Cervix Length: 3.93 cm , closed Normal anatomy: Lateral ventricles, cerebellum, posterior fossa, nose, lips, orbits, four-chamber heart, RVOT, LVOT, diaphragm, stomach, kidneys, abdominal cord insertion, bladder, umbilical arteries, three-vessel cord, spine, extremities BIOMETRY: BPD: 4.62 cm; 20 weeks 0 days; 42.10 % HC: 17.71 cm; 20 weeks 1 day; 44 % AC: 15.06 cm; 20 weeks 2 days; 49.40 % FL: 3.30 cm; 20 weeks 2 days; 48.50 % EFW:336.03 g; 53.40 %, 12 ounces FL/AC: 21.91 FL/BPD: 71.43 HC/AC: 1.18 GESTATIONAL AGE: Age by EDC: 20 weeks 1 day MICHELLE by EDC: 2024-05-07 Age by current US: 20 weeks 1 day MICHELLE by current US: 2024-05-07 US/US OB transvaginal IMPRESSION: Low lying placenta, otherwise normal anatomy scan *Reference: [employer] Practice Guideline for the performance of Obstetric Ultrasound Examinations, November 28, 2006. Electronically authenticated by: GAYATRI BROOKS Date: 12/20/2023 11:34
--- OUTSIDE RECORDS SUMMARY | 2023-12-20 10:12 | XMS_ITS | CCD ---
Author Organization [facility] InformFormerly [facility] Care Team Providers Care Siebel Consultant Name Role Phone Dionne Miller Unavailable SANJUANA LOVE Attending Unavailable SANJUAAN LOVE Attending Unavailable NATACHA ALSTON Attending Unavailable Dionne Miller NP Primary Care Provider DO Alexandra Kemp Primary Care Provider PAT Alston Attending Provider Natacha Alston Admitting Unavailable Natacha Alston Attending Unavailable Alexandra Kemp Primary Care Unavailable Allergies Allergy Classification Reported Allergen(s) Allergy Type Date of Onset Reaction(s) Facility (6 sources) Amoxicillin Drug Allergy 05-30-2023 rash, Hives [facility] Healthcare (1 source) Amoxicillin Drug Allergy 07-07-2021 [facility] Repository Medications Current Medications Medication Drug Class(es) Dates Sig (Normalized) Sig (Original) multivitamin () 27-0.8 MG tablet (5 sources) Start: 05-30-2023 End: 05-29-2024 take 1 tablet by mouth once daily multivitamin () 27-0.8 MG tablet Indications: Encounter for supervision of normal first in first trimester Take 1 tablet by mouth Daily 30 tablet 11 05/30/2023 05/29/2024 Active Vit-Fe Fumarate-FA (PNV Plus Multivitamin) 27-1 MG tablet (5 sources) Start: 09-20-2023 take 1 tablet by mouth once daily Vit-Fe Fumarate-FA (PNV Plus Multivitamin) 27-1 MG tablet Take 1 tablet by mouth Daily 09/20/2023 Active Problems Active Problems Problem Classification Problem Date Documented Date Episodic/Chronic Immunizations and screening for infectious disease (4 sources) Patient encounter status; Translations: [Encounter for screening for infections with a predominantly sexual mode of transmission] 12-05-2023 Episodic Other female genital disorders (2 sources) Vaginal discharge; Translations: [Other specified noninflammatory disorders of vagina] 12-05-2023 Episodic Other and delivery including normal (3 sources) Second trimester ; Translations: [Encounter for supervision of normal , unspecified, second trimester] Onset: 12-05-2023 12-05-2023 Episodic Residual codes; unclassified (2 sources) Gestation period, 18 weeks; Translations: [18 weeks gestation of ] 12-05-2023 Episodic Past or Other Problems Problem Classification Problem Date Documented Da te Episodic/Chronic Malaise and fatigue (1 source) Other fatigue Onset: 07-07-2021 Resolved: 07-07-2021 Episodic Other skin disorders (1 source) Other skin changes Onset: 07-07-2021 Resolved: 07-07-2021 Episodic Results Test Name Value Interpretation Reference Range Facility IGP,APTIMA HPV,AGE GDLNon AGE GDLN ACOG TESTING Note . [facility] Comment on above: TESTS RESULT FLAG UN ITS REF RANGE LAB Clinician Provided Cytology Information Source.............Cervix Other.............. No. of containers..01 ThinPrep Vial Age Algo ACOG Seble... FLAG LEGEND: L-Low Normal,H-High Normal,LL-Alert Low,HH-Alert High <-Panic Low,>-Panic High,A-Abnormal,AA-Critical Abnormal Performed at: 01 =G [facility] [place] [address] [facility] [place] [address] Norah Samuels MD, IGP, RFX APTIMA HPV ASCU Note . [facility] Comment on above: TESTS RESULT FLAG UN ITS REF RANGE LAB DIAGNOSIS: 02 NEGATIVE FOR INTRAEPITHELIAL LESION OR MALIGNANCY. Specimen adequacy: 02 Satisfactory for evaluation. No endocervical component is identified. An endocervical component is not commonly seen in the patient. Performed by: 02 Denise Watson, Biogeographer ([facility]) . 02 Note: Note 02 The Pap smear is a screening test designed to aid in the detection of premalignant and malignant conditions of the uterine cervix. It is not a diagnostic procedure and should not be used as the sole means of detecting cervical cancer. Both false-positive and false-negative reports do occur. Test Methodology: Note 02 This liquid based ThinPrep(R) pap test was screened with the use of an image guided system. . 02 The HPV DNA reflex criteria were not met with this specimen result therefore, no HPV testing was performed. FLAG LEGEND: L-Low Normal,H-High Normal,LL-Alert Low,HH-Alert High <-Panic Low,>-Panic High,A-Abnormal,AA-Critical Abnormal Performed at: 02 [address] [facility] [address] [place], [place] [address] Norah Samuels MD, Performed at: =[address] [id number] Patient Manager: Norah Samuels MD, Phone: [phone] Performed at: [address] [id number] Patient Manager: Norah Samuels MD, Phone: [phone] SPATULA-ALONE CERVIX [facility] URETHRITIS/DISCHARGE PLUS VA GINITIS (HTRX)on 12-06-2023 ATOPOBIUM VAGINAE 0.000 [facility] ATOPOBIUM VAGINAE Not detected [facility] BVAB 2,3 (BACTERIAL VAGINOSIS ASSOCIATED BACTERIA 2, 3); MOBILUNCUS SPP 0.000 [facility] BVAB 2,3 (BACTERIAL VAGINOSIS ASSOCIATED BACTERIA 2, 3); MOBILUNCUS SPP Not detected [facility] RAMONE ALBICANS, PARAPSILOSIS, TROPICALIS 0.000 [facility] RAMONE ALBICANS, PARAPSILOSIS, TROPICALIS Not detected [facility] RAMONE GLABRATA 0.000 [facility] RAMONE GLABRATA Not detected [facility] RAMONE KRUSEI 0.000 [facility] RAMONE KRUSEI Not detected [facility] CHLAMYDIA TRACHOMATIS 0.000 [facility] CHLAMYDIA TRACHOMATIS Not detected [facility] GARDNERELLA VAGINALIS 0.000 [facility] GARDNERELLA VAGINALIS Not detected [facility] MEGASPHAERA (TYPES 1, 2) 0.000 [facility] MEGASPHAERA (TYPES 1, 2) Not detected [facility] MYCOPLASMA GENITALIUM 0.000 [facility] MYCOPLASMA GENITALIUM Not detected [facility] NEISSERIA GONORRHOEAE 0.000 [facility] NEISSERIA GONORRHOEAE Not detected [facility] TRICHOMONAS VAGINALIS 0.000 [facility] TRICHOMONAS VAGINALIS Not detected [facility] Urinalysis macro (dipstick) panel (U)on 12-05-2023 Bilirubin, UA Negative Negative - 4(70) +++ mg/dL [facility] Blood, UA Negative Negative - 50 Jeremiah/mcL [facility] Clarity, UA Clear [facility] Color, UA Yellow [facility] Glucose, UA Negative Negative - 1999(110) ++++ mg/dL [facility] Interpretation and review of laboratory results Normal [facility] re Ketones, UA Negative Negative - 160(16) ++++ mg/dL [facility] Leukocytes, UA Negative Negative - 500+++ Hitesh/mcL [facility] Nitrite, UA Negative Negative - Positive [facility] pH, UA 7.5 5 - 9 [facility] e Protein, UA Negative Negative - 1999(20) ++++ mg/dL [facility] Spec Grav, UA 1.020 1 - 1.03 [facility] Urobilinogen, UA 0.2 0.2 - 12 mg/dL [facility] Basophils Auto (Bld) [#/Vol] on 10-06-2023 Basophils (Bld) [#/Vol] 0.0 10 3/uL 0.0-0.1 [facility] Basophils/100 WBC Auto (Bld) on 10-06-2023 Basophils/100 WBC (Bld) 0.5 % 0.2-2.0 [facility] Eosinophils/100 WBC Auto (Bl d)on 10-06-2023 Eosinophils/100 WBC (Bld) 1.2 % 0.9-7.0 [facility] Erythrocyte distribution wid th Auto (RBC) [Ratio]on 10-06-2023 Erythrocyte distribution width (RBC) [Ratio] 12.4 % 11.0-15.0 [facility] Glucose mean value [Mass/vol ume] in Blood Estimated from glycated hemoglobinon 10-06-2023 Average glucose Estimated from glycated hemoglobin (Bld) [Mass/Vol] 94 mg/dL [facility] HBV surface Ag IA Qlon 10-05 Hepatitis B Surface Antigen Negative Negative [facility] Comment on above: Performed at: [employer] [address] [id number] Director: Pieter Tyler PhD, Phone: [phone] Performed at: [employer] [id number] Director: Pieter Tyler PhD, Phone: [phone] HCV Ab Signal/Cutoff IA [Rel units/Vol]on 10-06-2023 Hepatitis C Antibody Non-Reactive Non Reactive [facility] HIV 1+2 Ab+HIV1 p24 Ag IA Ql on 10-06-2023 HIV (1&2) Antibody Screen Non-Reactive Non Reactive [facility] Comment on above: HIV-1/HIV-2 antibodi es and HIV-1 p24 antigen were NOTdetected. There is no laboratory evidence of HIV infection.HIV NegativePerformed at: [facility] [id number] Director: Pieter Tyler PhD, Phone: [phone] HIV-1/HIV-2 antibodi es and HIV-1 p24 antigen were NOTdetected. There is no laboratory evidence of HIV infection.HIV NegativePerformed at: [employer] [facility] [id number] Director: Pieter Tyler PhD, Phone: [phone] Hematocrit Auto (Bld) [Volum e fraction]on 10-06-2023 Hematocrit (Bld) [Volume fraction] 36.1 % 36.0-48.0 [facility] Hemoglobin [Mass/volume] in Bloodon 10-06-2023 Hemoglobin (Bld) [Mass/Vol] 12.6 g/dL 12.0-16.0 [facility] Laboratory - Hematology and Cell countson 10-06-2023 HbA1c (Bld) [Mass fraction] 4.9 % 4.5-6.2 [facility] Comment on above: ADA RECOMMENDED LIMI T 4.0 - 6.0ADA THERAPEUTIC TARGET < 7.0ACTION SUGGESTED> 7.0 Immature granulocytes/100 WBC (Bld) 0.1 % 0.0-0.5 [facility] Leukocytes [#/volume] correc marcia for nucleated erythrocytes in Blood by Automated counon 10-06-2023 WBC corrected for nucl RBC Auto (Bld) [#/Vol] 8.2 10 3/uL 4.0-11.0 [facility] Lymphocytes Auto (Bld) [#/Vo l]on 10-06-2023 Lymphocytes (Bld) [#/Vol] 2.1 10 3/uL 1.2-3.8 [facility] Lymphocytes/100 WBC Auto (Bl d)on 10-06-2023 Lymphocytes/100 WBC (Bld) 26.0 % 20.5-60.0 [facility] MCH Auto (RBC) [Entitic mass ]on 10-06-2023 MCH (RBC) [Entitic mass] 30.7 pg 26.7-34.0 [facility] MCHC Auto (RBC) [Mass/Vol]on 10-06-2023 MCHC (RBC) [Mass/Vol] 34.9 g/dL 29.9-35.2 [facility] MCV Auto (RBC) [Entitic vol] on 10-06-2023 MCV (RBC) [Entitic vol] 87.8 fL 81.0-99.0 [facility] Monocytes Auto (Bld) [#/Vol] on 10-06-2023 Monocytes (Bld) [#/Vol] 0.5 10 3/uL 0.3-0.8 [facility] Monocytes/100 WBC Auto (Bld) on 10-06-2023 Monocytes/100 WBC (Bld) 5.9 % 1.7-12.0 [facility] Neutrophils Auto (Bld) [#/Vo l]on 10-06-2023 Neutrophils (Bld) [#/Vol] 5.4 10 3/uL 1.4-6.5 [facility] Neutrophils/100 WBC Auto (Bl d)on 10-06-2023 Neutrophils/100 WBC (Bld) 66.3 % 43.0-75.0 [facility] No Panel Informationon 10-05 Eosinophils # (Auto) 0.1 10 3/uL 0.0-0.7 [facility] Hepatitis C Interpretation Comment . [facility] Comment on above: Not infected with HC V unless early or acute infection issuspected (which may be delayed in an immunocompromisedindividual), or other evidence exists to indicate HCVinfection.Performed at: [employer] [address] [id number] Director: Pieter Tyler PhD, Phone: [phone] Not infected with HC V unless early or acute infection issuspected (which may be delayed in an immunocompromisedindividual), or other evidence exists to indicate HCVinfection.Performed at: [facility] [place], [place] [id number] Director: Pieter Tyler PhD, Phone: [phone] Immature Granulocyte # (Auto) 0.01 10 3/uL 0.00-0.03 [facility] RPR Quantitative Confirmation Non Reactive titer NonRea<1:1 [facility] Comment on above: Please Note: This te st does not meet current guidelines forscreening and diagnosis of syphilis. This test isintended for following treatment response in patients beingtreated for syphilis infection. To screen for syphilisinfection, a reflex cascade that includes both RPR and atreponema-specific assay should be utilized, such asTreponema pallidum (Syphilis) Screening [place] (659081) orRapid Plasma Reagin (RPR) Test With Reflex to QuantitativeRPR and Confirmatory Treponema pallidum Antibodies(550649).Performed at: [employer] [address] [place] [id number] Director: Pieter Tyler PhD, Phone: [phone] Rubella IgG Antibody 2.39 index Immune >0.99 [facility] Comment on above: Non-immune <0.90 Equ ivocal 0.90 - 0.99 Immune >0.99Performed at: [employer] [address] [place], [place] [id number] Director: Pieter Tyler PhD, Phone: [phone] Platelet mean volume Auto (B ld) [Entitic vol]on 10-06-2023 Platelet mean volume (Bld) [Entitic vol] 8.6 fL Low 9.5-13.5 [facility] Platelets Auto (Bld) [#/Vol] on 10-06-2023 Platelets (Bld) [#/Vol] 266 10 3/uL 150-450 [facility] RBC Auto (Bld) [#/Vol]on RBC (Bld) [#/Vol] 4.11 10 6/uL Low 4.20-5.40 [facility] No Panel Informationon 09-06 Human Chorionic Gonadotropin, Quant 5292 mIU/mL [facility] Comment on above: 5-50 0.2-1 PDIS65-04 0 1-2 DEVCN530-9,000 2-3 PUOCJ370-00,000 3-4 WEEKS1,000-50,000 4-5 WEEKS10,000-100,000 5-6 WEEKS15,000-200,000 6-8 WEEKS10,000-100,000 2-3 MONTHS Vital Signs Date Time Vital Sign Value Performing Clinician Facility 12-05-2023 09:41-0400 Body mass index (BMI) [Ratio] 29.33 kg/m2 Natacha DENNEY Work Phone: [facility] 12-05-2023 09:41-0400 Body weight 64.75 kg Natacha DENNEY Work Phone: [facility] 12-05-2023 09:41-0400 Diastolic blood pressure 66 mm[Hg] Natacha DENNEY Work Phone: [facility] 12-05-2023 09:41-0400 Systolic blood pressure 100 mm[Hg] Natacha DENNEY Work Phone: [facility] 07-07-2021 11:00-0400 Body height 151.13 cm Dionne Miller Other [employer] Other 07-07-2021 11:00-0400 Body mass index (BMI) [Ratio] 25.18 kg/m2 Dionne Miller Other [employer] Other 07-07-2021 11:00-0400 Body temperature 97 [degF] Dionne Miller Other [employer] Other 07-07-2021 11:00-0400 Body weight 57.52 kg Dionne Miller Other [employer] Other 07-07-2021 11:00-0400 Diastolic blood pressure 60 mm[Hg] Dionne Miller Other [employer] Other 07-07-2021 11:00-0400 Respiratory rate 18 /min Dionne Miller Other [employer] Other 07-07-2021 11:00-0400 SaO2% (BldA) [Mass fraction] 99 % Dionne Miller Other [employer] Other 07-07-2021 11:00-0400 Systolic blood pressure 100 mm[Hg] Dionne Miller Other [employer] Other Encounters Encounter Date Encounter Type Care Provider Facility Start: 12-05-2023 End: 12-05-2023 Bamboo flowsheet Natacha DENNEY Work Phone: [facility] Start: 12-05-2023 End: 12-10-2023 Bamboo flowsheet Natacha DENNEY Work Phone: [facility] Start: 12-05-2023 End: 12-10-2023 [facility] Result Encounter Natacha DENNEY Work Phone: [facility] Unsolicited Start: 12-05-2023 End: 12-06-2023 External Result Encounter Natacha DENNEY Work Phone: [facility]solicited Start: 12-05-2023 End: 12-05-2023 Patient encounter procedure DO Alexandra DeMeñolde Work Phone: [facility] Start: 12-05-2023 End: 12-05-2023 ambulatory DO Alexandra DeWilde Work Phone: [facility] Work Phone: Start: 12-05-2023 End: 12-05-2023 Patient encounter procedure Natacha DENNEY Work Phone: [facility] Start: 12-05-2023 End: 12-05-2023 Periodic preventive med est patient 18-39 yrs Natacha DENNEY Work Phone: [facility] Comment on above: Screening, , for anatomic survey; 18 weeks gestation of ; Second trimester ; Vaginal discharge; Screen for STD (sexually transmitted disease); Well woman exam with routine gynecological exam Start: 12-05-2023 End: 12-05-2023 ambulatory NATACHA ALSTON Not Available Start: 11-07-2023 End: 11-07-2023 ambulatory SANJUANA AR Not Available Start: 10-06-2023 Non-patient / Non-visit DO Morena Kemp Work Phone: [facility] Work Phone: Start: 10-06-2023 End: 10-06-2023 ambulatory SANJUANA AR Not Available Start: 09-07-2023 Non-patient / Non-visit DO Morena Kemp Work Phone: [facility] Work Phone: Start: 06-29-2023 End: 06-29-2023 ambulatory SANJUANA AR Not Available Start: 05-30-2023 End: 05-30-2023 ambulatory SANJUANA AR Not Available Start: 07-07-2021 End: 07-07-2021 ambulatory Dionne Miller Other [facility] [employer] Other Start: 07-07-2021 Encounter for genera l adult medical examination without abnormal findings Dionne Miller [facility] Start: 07-07-2021 Periodic preventive med est patient 18-39 yrs Dionne Miller [facility] Procedures Date Procedure Procedure Detail Performing Clinician Start: 12-05-2023 Urnls dip stick/tabl et rgnt non-auto w/o micrscp Natacha DENNEY Work Phone: Start: 12-05-2023 IGP,APTIMA HPV,AGE GDLN Natacha DENNEY Work Phone: Start: 12-05-2023 URETHRITIS/DISCHARGE PLUS VAGINITIS (HTRX) Natacha DENNEY Work Phone: Plan of Treatment Date Care Activity Detail Author Start: 01-03-2024 End: 01-03-2024 Patient encounter procedure 01/03/2024 9:40 AM EST Routine [facility] [address] [place] [id number] Sanjuana Love DO [address] [place], [place] [id number] [facility] Start: 12-20-2023 End: 12-20-2023 Professional / ancillary services management 12/20/2023 10:00 AM EDT Ancillary Procedure [facility] [address] [place] [address] [facility] Start: 12-05-2023 End: 12-04-2024 Alpha fetoprotein, maternal Alpha fetoprotein, maternal Lab Routine 18 weeks gestation of Second trimester Expected: 12/05/2023 (Approximate), Expires: 12/04/2024 [facility] Comment on above: Expected: 12/05/2023 (Approximate), Expires: 12/04/2024 Start: 12-05-2023 End: 12-04-2024 US for US OB ANATOMY SINGLE W US OB CERVICAL LENGTH Imaging Routine Screening, , for anatomic survey Expected: 12/05/2023 (Approximate), Expires: 12/04/2024 [facility] Comment on above: Expected: 12/05/2023 (Approximate), Expires: 12/04/2024 Start: 12-05-2023 [facility] Start: 12-05-2023 End: 12-05-2023 Patient encounter procedure 12/05/2023 9:30 AM EDT Routine [facility] [address] [place] [address] Natacha Alston PA [address] [place], [place] [id number] Arrived [facility] Comment on above: Arrived Zntuz-3-Jinqmojmrln [Mass/volume] in Serum or Plasma [facility] Assessment of gestational age [facility] Body weight [facility] CHLAMYDIA TRACHOMATI S (GENITO/STI) CHLAMYDIA TRACHOMATIS (GENITO/STI) Lab Routine Vaginal discharge Screen for STD (sexually transmitted disease) Ordered: 12/05/2023 [facility] Comment on above: Ordered: 12/05/2023 Choriogonadotropin.i ntac t+Beta subunit [Units/volume] in Serum or Plasma [facility] Cytology Cervical or vaginal smear or scraping study Pap Smear Pathology and Cytology Routine Well woman exam with routine gynecological exam Ordered: 12/05/2023 [facility] Work Phone: Comment on above: Ordered: 12/05/2023 Diabetes mellitus screening [facility] Estriol (E3).unconjugated [Mass/volume] in Serum or Plasma [facility] Human chorionic gonadotropin measurement [facility] Inhibin A [Mass/volu me] in Serum or Plasma [facility] Inhibin measurement [facility] Laboratory data interpretation [facility] Neisseria gonorrhoea e DNA [Presence] in Unspecified specimen by ARMAND with probe detection Neisseria gonorrhea DNA probe, direct Lab Routine Vaginal discharge Screen for STD (sexually transmitted disease) Ordered: 12/05/2023 [facility] Comment on above: Ordered: 12/05/2023 Risk assessment [facility] Risk identification: genetic [facility] Serum alpha-fetoprot ein multiple of median measurement [facility] SURESWAB(R) ADVANCED VAGINITIS PLUS, TMA SURESWAB(R) ADVANCED VAGINITIS PLUS, TMA Pathology and Cytology Routine Vaginal discharge Screen for STD (sexually transmitted disease) Ordered: 12/05/2023 [facility] Comment on above: Ordered: 12/05/2023 Unconjugated estriol measurement [facility] Immunizations Immunization Date Immunization Notes Care Provider Cordell pandey 08-05-2010 tetanus toxoid, redu bobby diphtheria toxoid, and acellular pertussis vaccine, adsorbed Dionne Miller Other [facility] Payers Date Payer Category Payer Self-pay [id number] 2022 Unknown [employer] [id number] 2022-Present [address] [place] [address] [id number] 2021 Unknown [id number] 1997 Unknown [id number] 1997 Unknown [id number] 1997 Unknown [id number] 1997 Unknown [id number] 1997 Unknown [id number] Unknown [id number] Social History Date Type Detail Facility Start: 05-30-2023 Sex Assigned At [employer] Other Start: 03-29-2018 End: 05-30-2023 Tobacco smoking status NHIS Never smoked tobacco [facility] Start: 05-30-2023 Tobacco use and exposure Smokeless tobacco non-user [facility] Start: 11-07-2023 End: 12-05-2023 Alcoholic beverage intake Ex-drinker (finding) [facility] Start: 05-30-2023 History of Social function [facility] Start: 11-07-2023 Alcohol Comment Prior to 1-2 drinks per month [facility] Start: 08-15-2023 [facility] Start: 1995 Sex assigned at Female [facility] Start: 05-29-2023 Gender identity Identifies as female gender (finding) [facility] Start: 05-29-2023 Sexual orientation Heterosexual (finding) [facility] History of Present illness Narrative 12-05-2023 JUMANA Trotter - 12/05/2023 9:30 AM EDT Note Date & Type Note Facility 12-05-2023 History of Presen t illness Narrative Reason for Appointment: Patient ID: Sarahi Zhu is a 28 y.o. female who presents for Routine Visit Patient presents today for Return OB appointment. MEDICATIONS Current Outpatient Medications Medication Instructions multivitamin () 27-0.8 MG tablet 1 tablet, Oral, Daily Vit-Fe Fumarate-FA (PNV Plus Multivitamin) 27-1 MG tablet 1 tablet, Oral, Daily ALLERGIES Allergies Allergen Reactions Amoxicillin Hives and Rash PROBLEMS Active Ambulatory Problems Diagnosis Date Noted No Active Ambulatory Problems Resolved Ambulatory Problems Diagnosis Date Noted No Resolved Ambulatory Problems No Additional Past Medical History HISTORY PAST MEDICAL HISTORY SOCIAL HISTORY History reviewed. No pertinent past medical history. Social History Tobacco Use Smoking status: Never Smokeless tobacco: Never Vaping Use Vaping status: Never Used Substance Use Topics Alcohol use: Not Currently Comment: Prior to 1-2 drinks per month Drug use: Never FAMILY HISTORY Family History Problem Relation Name Age of Onset Hyperthyroidism Mother Hypertension Father SURGICAL HISTORY Past Surgical History: Procedure Laterality Date WISDOM TOOTH EXTRACTION REVIEW OF SYSTEMS Review of Systems: Review of Systems Constitutional: Negative. HENT: Negative. Eyes: Negative. Respiratory: Negative. Cardiovascular: Negative. Gastrointestinal: Negative. Genitourinary: Negative. Musculoskeletal: Negative. Skin: Negative. Neurological: Negative. All other systems reviewed and are negative. Hematological: Negative. Endocrine: Negative. Allergic/Immunologic: Negative. OBJECTIVE Objective: Physical Exam Constitutional: Appearance: Normal appearance. She is normal weight. HENT: Head: Normocephalic. Cardiovascular: Rate and Rhythm: Normal rate. Pulses: Normal pulses. Pulmonary: Effort: Pulmonary effort is normal. Breath sounds: Normal breath sounds. Abdominal: Palpations: Abdomen is soft. Musculoskeletal: General: Normal range of motion. Neurological: General: No focal deficit present. Mental Status: She is alert and oriented to person, place, and time. Psychiatric: Mood and Affect: Mood normal. Behavior: Behavior normal. Thought Content: Thought content normal. Judgment: Judgment normal. Vitals and nursing note reviewed. Vitals: Estimated body mass index is 29.33 kg/m as calculated from the following: Height as of 05/24/18: 4' 10.5 . Weight as of this encounter: 142 lb 12 oz. BP: 100/66 Patient's last menstrual period was 08/01/2023. ASSESSMENT & PLAN ICD-10-CM 1. Screening, , for anatomic survey Z36.89 US OB ANATOMY SINGLE W US OB CERVICAL LENGTH 2. 18 weeks gestation of Z3A.18 POCT urinalysis dipstick manually resulted Alpha fetoprotein, maternal Alpha fetoprotein, maternal 3. Second trimester Z34.92 POCT urinalysis dipstick manually resulted Alpha fetoprotein, maternal Alpha fetoprotein, maternal 4. Vaginal discharge N89.8 SURESWAB(R) ADVANCED VAGINITIS PLUS, TMA CHLAMYDIA TRACHOMATIS (GENITO/STI) Neisseria gonorrhea DNA probe, direct 5. Screen for STD (sexually transmitted disease) Z11.3 SURESWAB(R) ADVANCED VAGINITIS PLUS, TMA CHLAMYDIA TRACHOMATIS (GENITO/STI) Neisseria gonorrhea DNA probe, direct 6. Well woman exam with routine gynecological exam Z01.419 Pap Smear Return OB/Annual Exam: Patient presents today for an annual exam/routine obstetrics appointment. Patient is currently 18w0d . Patient is doing well and states she has no complaints. Pap/cultures was obtained without difficulty and patient was given msAFP order to have obtained. Orders Placed This Encounter Procedures US OB ANATOMY SINGLE W US OB CERVICAL LENGTH CHLAMYDIA TRACHOMATIS (GENITO/STI) Neisseria gonorrhea DNA probe, direct Alpha fetoprotein, maternal POCT urinalysis dipstick manually resulted Follow Up: Patient is to return to our office in 4 weeks for routine OB appointment Orders Placed This Encounter Procedures US OB ANATOMY SINGLE W US OB CERVICAL LENGTH CHLAMYDIA TRACHOMATIS (GENITO/STI) Neisseria gonorrhea DNA probe, direct Alpha fetoprotein, maternal POCT urinalysis dipstick manually resulted Follow Up: Patient is to return to office in 4 week for routine OB appointment. Documented by Jane Mustafa on behalf of: JUMANA Trotter documented in this encounter [facility] Evaluation note 07-07-2021 Note Date & Type Note Facility 07-07-2021 Evaluation note Encounter Date Diagnosis Assessment Notes June, Well adult exam (ICD-10 - Z00.00) Routine lab work ordered today. Continue to follow with eye doctor and dentist, [employer]. Patient is advised to work on healthy [...] treatment pending results of testing. June, Other [employer] referral sent today so that she is able to discuss control options with them. Discussed referral process with patient. [employer] Other Evaluation note Note Date & Type Note Facility Evaluation note Diagnosis Screening, , for anatomic survey Encounter for anatomic survey 18 weeks gestation of Second trimester state, incidental Vaginal discharge Leukorrhea, not specified as infective Screen for STD (sexually transmitted disease) Screening examination for venereal disease Well woman exam with routine gynecological exam Routine gynecological examination documented in this encounter [facility] Evaluation note Note Date & Type Note Facility Evaluation note No assessment information availa [facility] Work Phone: History general Narrative - Reported Note Date & Type Note Facility History general Narrative - Reported Type Surgical History No know Surgical history Hospitalization History No know Hospitalization history [employer] Other Summary Purpose Family History No Family History Records Found Relationship Condition Age at Onset Recorded Date/T ce grandparent Hyperlipidemia Unknown grandparent Family history of kidney disease Unknown Unknown grandparent Dementia Unknown Advance Directives No Advanced Directives Records Found Advance Directive Response Recorded Date/ Time Advance Directives No July 07 10:43am Chief Complaint and Reason for Visit Chief Complaint Z3A.92 Additional Source Comments REASON FOR VISIT (unrecogniz ed section and content) Reason Comments Routine Visit INFORMATION SOURCE (unrecogn ized section and content) DATE CREATED AUTHOR 12/06/2023 [facility] EPIC DATE CREATED AUTHOR AUTHOR'S ORGANIZ ATION 12/[facility]2023 [facility] Care Teams (unrecognized sec tion and content) [employer] Consultant Relationship Specialty Start Date End Date Dionne Miller NP [address] [place] [address] PCP - General 05/29/23 [employer] Consultant Relationship Specialty Start Date End Date Dionne Miller [facility] [address] [facility] [place] [address] PCP - General 05/29/23 Team Status: Active Member Role Status Dates Alexandra Kemp DO Primary Care Provider Active Team Status: Active Member Role Status Dates Dionne Miller DNP Primary Care Provider Active Start: September 07, 2023 Sanjuana Love DO Attending Provider Active Start : September 07, 2023 Team Status: Active Member Role Status Dates Dionne Miller DNP Primary Care Provider Active Start: October 06, 2023 Sanjuana Love DO Attending Provider Active Start : October 06, 2023 Team Status: Inactive Member Role Status Dates Alexandra Kemp DO Primary Care Provider Active Start: December 05, 2023 End: December 05, 2023 Natacha Alston PA-C Attending Provider Active Sta rt: December 05, 2023 End: December 05, 2023 [employer] Consultant Relationship Specialty Start Date End Date Dionne Miller NP [address] [facility] [place] [address] PCP - General 05/29/23 Goals (unrecognized section and content) Goals may be documented in a n alternate section FOR RECORDS PERTAINING TO PATIENTS WHO ARE [...] BE BASED ON THE PRIMARY CLINICAL RECORDS. [facility] [employer] [facility]. provides no warranty or guarantee of the accuracy or completeness of information in this document.
== END 2023-12-20 09:56 | disposition home or self-care (01) ==
LOC: NOMS 09:55
PROVIDERS: PCP Nurse Practitioner Family; Visit Provider Physician Assistant
DX: O44.42 Low lying placenta NOS or without hemorrhage, second trimester (principal); Z36.89 Encounter for other specified antenatal screening; Z3A.20 20 weeks gestation of pregnancy
CPT/HCPCS: 76805; 76817

== ENCOUNTER 2024-01-23 08:44 | Outpatient (OUT) | payer OTHER, SELFPAY ==
--- OUTSIDE RECORDS SUMMARY | 2024-01-23 08:56 | XMS_ITS | CCD ---
Author Organization [facility] Inform [facility] Partnership [facility] Care Team Providers Care Revenue Cycle Administrator Name Role Phone Dionne Miller Unavailable DO Alexandra Kemp Primary Care Provider PAT Alston Attending Provider Dionne Miller NP Primary Care Provider [phone] Alexandra Kemp Primary Care Unavailable Natacha Alston Attending Unavailable Natacha Alston Admitting Unavailable SANJUANA LOVE Attending Unavailable SANJUANA LOVE Attending Unavailable NATACHA ALSTON Unavailable SANJUANA LOVE Attending Unavailable Allergies Allergy Classification Reported Allergen(s) Allergy Type Date of Onset Reaction(s) Facility (9 sources) Amoxicillin Drug Allergy 05-30-2023 rash, Hives [facility] (1 source) Amoxicillin Drug Allergy 07-07-2021 [facility] Repository Medications Current Medications Medication Drug Class(es) Dates Sig (Normalized) Sig (Original) multivitamin () 27-0.8 MG tablet (8 sources) Start: 05-30-2023 End: 05-29-2024 take 1 tablet by mouth once daily multivitamin () 27-0.8 MG tablet Indications: Encounter for supervision of normal first in first trimester Take 1 tablet by mouth Daily 30 tablet 11 05/30/2023 05/29/2024 Active Vit-Fe Fumarate-FA (PNV Plus Multivitamin) 27-1 MG tablet (8 sources) Start: 09-20-2023 take 1 tablet by mouth once daily Vit-Fe Fumarate-FA (PNV Plus Multivitamin) 27-1 MG tablet Take 1 tablet by mouth Daily 09/20/2023 Active Problems Active Problems Problem Classification Problem Date Documented Date Episodic/Chronic Immunizations and screening for infectious disease (6 sources) Patient encounter status; Translations: [Encounter for screening for infections with a predominantly sexual mode of transmission] 12-05-2023 Episodic Other female genital disorders (2 sources) Vaginal discharge; Translations: [Other specified noninflammatory disorders of vagina] 12-05-2023 Episodic Other and delivery including normal (5 sources) Second trimester ; Translations: [Encounter for supervision of normal , unspecified, second trimester] Onset: 12-05-2023 12-05-2023 Episodic Residual codes; unclassified (2 sources) Gestation period, 18 weeks; Translations: [18 weeks gestation of ] 12-05-2023 Episodic Residual codes; unclassified (2 sources) Gestation period, 22 weeks; Translations: [22 weeks gestation of ] 01-03-2024 Episodic Past or Other Problems Problem Classification Problem Date Documented Da te Episodic/Chronic Malaise and fatigue (1 source) Other fatigue Onset: 07-07-2021 Resolved: 07-07-2021 Episodic Other skin disorders (1 source) Other skin changes Onset: 07-07-2021 Resolved: 07-07-2021 Episodic Results Test Name Value Interpretation Reference Range Facility Urinalysis macro (dipstick) panel (U)on 01-03-2024 Bilirubin, UA Negative Negative - 4(70) +++ mg/dL [facility] Blood, UA Negative Negative - 50 Jeremiah/mcL [facility] Clarity, UA Clear [facility] re Color, UA Yellow [facility] e Glucose, UA Negative Negative - 1999(110) ++++ mg/dL [facility] Interpretation and review of laboratory results Normal [facility] re Ketones, UA Negative Negative - 160(16) ++++ mg/dL [facility] Leukocytes, UA Negative Negative - 500+++ Hitesh/mcL [facility] Nitrite, UA Negative Negative - Positive [facility] pH, UA 6.5 5 - 9 [facility] Protein, UA Negative Negative - 1999(20) ++++ mg/dL [facility] Spec Grav, UA 1.02 1 - 1.03 [facility] Urobilinogen, UA 1.0 0.2 - 12 mg/dL [facility] IGP,APTIMA HPV,AGE GDLNon AGE GDLN ACOG TESTING Note . [facility] Comment on above: TESTS RESULT FLAG UN ITS REF RANGE LAB Clinician Provided Cytology Information Source.............Cervix Other.............. No. of containers..01 ThinPrep Vial Age Algo ACOG Seble... FLAG LEGEND: L-Low Normal,H-High Normal,LL-Alert Low,HH-Alert High <-Panic Low,>-Panic High,A-Abnormal,AA-Critical Abnormal Performed at: 01 =G [address] [id number] Norah Samuels MD, IGP, RFX APTIMA HPV ASCU Note . [facility] Comment on above: TESTS RESULT FLAG UN ITS REF RANGE LAB DIAGNOSIS: 02 NEGATIVE FOR INTRAEPITHELIAL LESION OR MALIGNANCY. Specimen adequacy: 02 Satisfactory for evaluation. No endocervical component is identified. An endocervical component is not commonly seen in the patient. Performed by: 02 Denise Watson Zoology Teacher ([facility]) . 02 Note: Note 02 [...] <-Panic Low,>-Panic High,A-Abnormal,AA-Critical Abnormal Performed at: [address] [id number] Norah Samuels MD, Performed at: = - [facility] [id number] Manager Support Services: Norah Samuels MD, Phone: [phone] Performed at: [address] [id number] Manager Support Services: Norah Samuels MD, Phone: [phone] [facility] e URETHRITIS/DISCHARGE PLUS VA GINITIS (HTRX)on 12-06-2023 ATOPOBIUM VAGINAE 0.000 [facility] ATOPOBIUM VAGINAE Not detected [facility] BVAB 2,3 (BACTERIAL VAGINOSIS ASSOCIATED BACTERIA 2, 3); MOBILUNCUS SPP 0.000 [facility] BVAB 2,3 (BACTERIAL VAGINOSIS ASSOCIATED BACTERIA 2, 3); MOBILUNCUS SPP Not detected [facility] RAMONE ALBICANS, PARAPSILOSIS, TROPICALIS 0.000 [facility] RAMONE ALBICANS, PARAPSILOSIS, TROPICALIS Not detected [facility] RAMONE GLABRATA 0.000 [facility] RAMONE GLABRATA Not detected [facility] RAMONE KRUSEI 0.000 [facility] RAMONE KRUSEI Not detected [facility] CHLAMYDIA TRACHOMATIS 0.000 [facility] CHLAMYDIA TRACHOMATIS Not detected [facility] GARDNERELLA VAGINALIS 0.000 [facility] GARDNERELLA VAGINALIS Not detected [facility] MEGASPHAERA (TYPES 1, 2) 0.000 [facility] MEGASPHAERA (TYPES 1, 2) Not detected [facility] MYCOPLASMA GENITALIUM 0.000 [facility] MYCOPLASMA GENITALIUM Not detected [facility] NEISSERIA GONORRHOEAE 0.000 [facility] NEISSERIA GONORRHOEAE Not detected [facility] TRICHOMONAS VAGINALIS 0.000 [facility] TRICHOMONAS VAGINALIS Not detected [facility] Alpha Fetoprotein Quad Testo n 12-05-2023 AFP Comments: Comment Normal . The Counts Include 234 Beds At [facility] Comment on above: Order Comment: 18 WE EKS. JKW Is patient >15 week ?: Y Is extra paperwork completed?: Y Result Comment: Iona Carpio, Ph.D., [facility] Director References: Available Upon Request. Multiples Of Median Cutoffs Abbreviation Definitions For AFP Elevations IDD- Insulin Dep Diabetes [place] 2.5 Black 2.8 OSBR- Open Spina Bifida IDD 2.0 Twins 4.5 Risk DSR Cutoff 1:270 DSR- Down Syndrome Risk T18 Cutoff 1:100 T18- Trisomy 18 For further inquiries contact [email or web address] at [phone]. This test was developed and its performance characteristics determined by [email or web address]. It has not been cleared or approved by the Food and Drug Administration. Performed at: - [facility] [address], [place], [place] [id number] Manager Support Services: Jenniffer Veliz [facility], Phone: [phone] PERFORMED BY: [place] [address] [place] [address] PATHOLOGIST MOTOR VEHICLE EMISSIONS INSPECTOR PERCY ROSEN M.D. Performed By: #### A FPQUAD #### [facility] , AFP Interpretation Comment Normal . The [facility] Comment on above: Order Comment: 18 WE EKS. JKW Is patient >15 week ?: Y Is extra paperwork completed?: Y Result Comment: Inte rpretation: An interpretation CANNOT be provided for this patient because necessary patient information was not provided (one or more of: gestational age, weight, or patient age). Please call us with new clinical information. Recalculations are not recommended when gestational dating by LMP and ultrasound are within 10 days. Interpretation: Screen Negative This result is screen negative for OSB, Down Syndrome and Trisomy 18. The AFP MoM and patient specific risks calculated are based on the gestational age and the clinical information provided. This test can identify up to 80% of open neural tube defects. Closed neural tube defects and some open defects may not be detected by this test. The combination of maternal age, AFP, hCG, uE3, and SHAHBAZ identifies 75-80% of Down Syndrome. The combination of maternal age, AFP, hCG and uE3 identifies 60% of Trisomy 18 pregnancies. The [employer] recommends amniocentesis be offered to women age 35 and older. This is a corrected report. The previously reported result(s) were: Test Result Date First Reported Updates reported on: 12/28/2023 2:35 PM AFP MOM VALUE 12/08/2023 10:55 PM See interpretation. DSR (BY AGE) 1 IN 12/08/2023 10:55 PM See interpretation. SHAHBAZ MOM VALUE 12/08/2023 10:55 PM See interpretation. DSR (SECOND TRIMESTER) 1 IN 12/08/2023 10:55 PM See interpretation. HCG MOM 12/08/2023 10:55 PM See interpretation. . 12/08/2023 10:55 PM Interpretation: An interpretation CANNOT be provided for this patient because necessary patient information was not provided (one or more of: gestational age, weight, or patient age). Please call us with new clinical information. OSBR RISK 1 IN 12/08/2023 10:55 PM See interpretation. TEST RESULTS: SCREEN 12/08/2023 10:55 PM See interpretation. T18 RISK 1 IN 12/08/2023 10:55 PM See interpretation. T18 (BY AGE) 1 IN 12/08/2023 10:55 PM UE3 MOM 12/08/2023 10:55 PM See interpretation. Recalculations are not recommended when gestational dating by LMP and ultrasound are within 10 days. --- 12/28/23 150 --- AFP Interpret previously reported as: Comment Interpretation: An interpretation CANNOT be provided for this patient because necessary patient information was not provided (one or more of: gestational age, weight, or patient age). Please call us with new clinical information. Recalculations are not recommended when gestational dating by LMP and ultrasound are within 10 days. Performed By: #### A FPQUAD #### [facility] , AFP Mom 0.94 Normal . The [facility] Comment on above: Order Comment: 18 WE EKS. ShadiaKW Is patient >15 week ?: Y Is extra paperwork completed?: Y Result Comment: --- 12/28/231507 --- AFP Mom previously reported as: See interpretation. Performed By: #### A FPQUAD #### [facility] , AFP Test Results: Negative Normal . The [facility] Comment on above: Order Comment: 18 WE EKS. JKW Is patient >15 week ?: Y Is extra paperwork completed?: Y Result Comment: --- 12/28/231507 --- Test Results: previously reported as: See interpretation. Performed By: #### A FPQUAD #### [facility] , AFP Value 41.5 ng/mL Normal . [facility] Comment on above: Order Comment: 18 WE EKS. JKW Is patient >15 week ?: Y Is extra paperwork completed?: Y Performed By: #### A FPQUAD #### [facility] , SHAHBAZ Mom 1.27 Normal . [facility] Comment on above: Order Comment: 18 WE EKS. JKW Is patient >15 week ?: Y Is extra paperwork completed?: Y Result Comment: --- 12/28/231507 --- SHAHBAZ Mom previously reported as: See interpretation. Performed By: #### A FPQUAD #### [facility] , SHAHBAZ Value 213.50 pg/mL Normal . The [facility] Comment on above: Order Comment: 18 WE EKS. DEEPAKW Is patient >15 week ?: Y Is extra paperwork completed?: Y Performed By: #### A FPQUAD #### [facility] , DSR 2nd Trimester 1 In 1706 Normal . [facility] Comment on above: Order Comment: 18 WE EKS. ShadiaKW Is patient >15 week ?: Y Is extra paperwork completed?: Y Result Comment: --- 12/28/23 1508 --- DSR2nd Tri 1 In previously reported as: See interpretation. Performed By: #### A FPQUAD #### [facility] , DSR By Age 1 In 911 Normal . The [facility] Comment on above: Order Comment: 18 WE EKS. DEEPAKW Is patient >15 week ?: Y Is extra paperwork completed?: Y Result Comment: --- 12/28/23 1508 --- DSR By Age 1 In previously reported as: See interpretation. Performed By: #### A FPQUAD #### [facility] , Gest. Age Based On MICHELLE Normal . [facility] Comment on above: Order Comment: 18 WE EKS. DEEPAKW Is patient >15 week ?: Y Is extra paperwork completed?: Y Result Comment: 04/28 --- 12/28/23 1508 --- Gest Age Based previously reported as: As provided Performed By: #### A FPQUAD #### [facility] , Gest. Age On Collection Date 18.0 Normal . [facility] Comment on above: Order Comment: 18 WE EKS. ShadiaKW Is patient >15 week ?: Y Is extra paperwork completed?: Y Performed By: #### A FPQUAD #### [facility] , HCG Mom 1.09 Normal . [facility] Comment on above: Order Comment: 18 WE EKS. JKW Is patient >15 week ?: Y Is extra paperwork completed?: Y Result Comment: --- 12/28/23 1508 --- HCG Mom previously reported as: See interpretation. Performed By: #### A FPQUAD #### [facility] , HCG Value 05106 m[iU]/mL Normal . The [facility] Comment on above: Order Comment: 18 WE EKS. JKW Is patient >15 week ?: Y Is extra paperwork completed?: Y Performed By: #### A FPQUAD #### [facility] , Insulin Dependent Diabetes No Normal . [facility] Comment on above: Order Comment: 18 WE EKS. JKW Is patient >15 week ?: Y Is extra paperwork completed?: Y Result Comment: Not provided. --- 12/28/23 1508 --- Insulin Dep Shahbaz previously reported as: Comment Not provided. Performed By: #### A FPQUAD #### [facility] , Maternal Age At MICHELLE 27.2 Normal . The [facility] Comment on above: Order Comment: 18 WE EKS. JKW Is patient >15 week ?: Y Is extra paperwork completed?: Y Performed By: #### A FPQUAD #### [facility] , Multiple Gestation No Normal . [facility] Comment on above: Order Comment: 18 WE EKS. JKW Is patient >15 week ?: Y Is extra paperwork completed?: Y Result Comment: Not provided. --- 12/28/23 1508 --- Mult Gest previously reported as: Comment Not provided. Performed By: #### A FPQUAD #### [facility] , OSBR Risk 1 In [address] Normal . The [facility] Comment on above: Order Comment: 18 WE EKS. JKW Is patient >15 week ?: Y Is extra paperwork completed?: Y Result Comment: --- 12/28/23 1508 --- OSBR Risk 1 In previously reported as: See interpretation. Performed By: #### A FPQUAD #### [facility] , Race Normal . [facility] Comment on above: Order Comment: 18 WE EKS. ShadiaKW Is patient >15 week ?: Y Is extra paperwork completed?: Y Result Comment: Not provided. --- 12/28/23 1508 --- Race previously reported as: Comment Not provided. Performed By: #### A FPQUAD #### [facility] , Results Comment Normal . [facility] Comment on above: Order Comment: 18 WE EKSJuan RenoKW Is patient >15 week ?: Y Is extra paperwork completed?: Y Result Comment: The MOM and risk factors of this report have been modified based on new information supplied to us by the client or their designated livestock sales representative. Note that the gestational ages on the original report and this recalculated report differ by less than 10 days. Recalculations are not recommended when gestational dating by LMP and ultrasound are within 10 days. The Gestational Age Based On was changed from As provided to MICHELLE 05/07/2024. The Insulin Dependent Diabetes was changed from Not provided. to No. The Multiple Gestation was changed from Not provided. to No. The Race was changed from Not provided. to . The Weight was changed from Not provided. to 143. --- 12/28/23 1508 --- Results previously reported as: Report Performed By: #### A FPQUAD #### [facility] , T18 By Age 1:3551 Normal . [facility] Comment on above: Order Comment: 18 WE EKSJuan SOTELOW Is patient >15 week ?: Y Is extra paperwork completed?: Y Performed By: #### A FPQUAD #### [facility] , T18 Risk Not increased Normal . The [facility] Comment on above: Order Comment: 18 WE EKS. ShadiaKW Is patient >15 week ?: Y Is extra paperwork completed?: Y Result Comment: --- 12/28/23 1508 --- T18 Risk previously reported as: See interpretation. Performed By: #### A FPQUAD #### [facility] , UE3 Mom 0.77 Normal . The [facility] Comment on above: Order Comment: 18 WE EKS. JKW Is patient >15 week ?: Y Is extra paperwork completed?: Y Result Comment: --- 12/28/23 1508 --- UE3 Mom previously reported as: See interpretation. Performed By: #### A FPQUAD #### [facility] , UE3 Value 1.05 ng/mL Normal . [facility] Comment on above: Order Comment: 18 WE EKS. JKW Is patient >15 week ?: Y Is extra paperwork completed?: Y Performed By: #### A FPQUAD #### [facility] , Weight 143 Normal . [facility] Comment on above: Order Comment: 18 WE EKS. JKW Is patient >15 week ?: Y Is extra paperwork completed?: Y Result Comment: Not provided. --- 12/28/23 1508 --- Weight previously reported as: Comment lbs Not provided. Performed By: #### A FPQUAD #### [facility] , Urinalysis macro (dipstick) panel (U)on 12-05-2023 Bilirubin, UA Negative Negative - 4(70) +++ mg/dL [facility] Blood, UA Negative Negative - 50 Jeremiah/mcL [facility] Clarity, UA Clear [facility] re Color, UA Yellow [facility] e Glucose, UA Negative Negative - 1999(110) ++++ mg/dL [facility] Interpretation and review of laboratory results Normal [facility] re Ketones, UA Negative Negative - 160(16) ++++ mg/dL [facility] Leukocytes, UA Negative Negative - 500+++ Hitesh/mcL [facility] Nitrite, UA Negative Negative - Positive [facility] pH, UA 7.5 5 - 9 [facility] Healthcar e Protein, UA Negative Negative - 1999(20) ++++ mg/dL [facility] Spec Grav, UA 1.020 1 - 1.03 [facility] Urobilinogen, UA 0.2 0.2 - 12 mg/dL [facility] Basophils Auto (Bld) [#/Vol] on 10-06-2023 Basophils (Bld) [#/Vol] 0.0 10 3/uL 0.0-0.1 [facility] Basophils/100 WBC Auto (Bld) on 10-06-2023 Basophils/100 WBC (Bld) 0.5 % 0.2-2.0 [facility] Eosinophils/100 WBC Auto (Bl d)on 10-06-2023 Eosinophils/100 WBC (Bld) 1.2 % 0.9-7.0 [facility] Erythrocyte distribution wid th Auto (RBC) [Ratio]on 10-06-2023 Erythrocyte distribution width (RBC) [Ratio] 12.4 % 11.0-15.0 [facility] Glucose mean value [Mass/vol ume] in Blood Estimated from glycated hemoglobinon 10-06-2023 Average glucose Estimated from glycated hemoglobin (Bld) [Mass/Vol] 94 mg/dL [facility] HBV surface Ag IA Qlon 10-05 Hepatitis B Surface Antigen Negative Negative [facility] Comment on above: Performed at: [address] [place], [place] [id number] Director: Pieter Tyler PhD, Phone: [phone] Performed at: [facility], [place] [id number] Director: Pieter Tyler PhD, Phone: [phone] HCV Ab Signal/Cutoff IA [Rel units/Vol]on 10-06-2023 Hepatitis C Antibody Non-Reactive Non Reactive [facility] HIV 1+2 Ab+HIV1 p24 Ag IA Ql on 10-06-2023 HIV (1&2) Antibody Screen Non-Reactive Non Reactive [facility] Comment on above: HIV-1/HIV-2 antibodi es and HIV-1 p24 antigen were NOTdetected. There is no laboratory evidence of HIV infection.HIV NegativePerformed at: [employer] [place], [place] [id number] Director: Pieter Tyelr PhD, Phone: [phone] HIV-1/HIV-2 antibodi es and HIV-1 p24 antigen were NOTdetected. There is no laboratory evidence of HIV infection.HIV NegativePerformed at: [address], [place], [place] [id number] Director: Pieter Tyler PhD, Phone: [phone] Hematocrit Auto (Bld) [Volum e fraction]on 10-06-2023 Hematocrit (Bld) [Volume fraction] 36.1 % 36.0-48.0 [facility] Hemoglobin [Mass/volume] in Bloodon 10-06-2023 Hemoglobin (Bld) [Mass/Vol] 12.6 g/dL 12.0-16.0 [facility] Laboratory - Hematology and Cell countson 10-06-2023 HbA1c (Bld) [Mass fraction] 4.9 % 4.5-6.2 [facility] Comment on above: ADA RECOMMENDED LIMI T 4.0 - 6.0ADA THERAPEUTIC TARGET < 7.0ACTION SUGGESTED> 7.0 Immature granulocytes/100 WBC (Bld) 0.1 % 0.0-0.5 [facility] Leukocytes [#/volume] correc marcia for nucleated erythrocytes in Blood by Automated counon 10-06-2023 WBC corrected for nucl RBC Auto (Bld) [#/Vol] 8.2 10 3/uL 4.0-11.0 [facility] Lymphocytes Auto (Bld) [#/Vo l]on 10-06-2023 Lymphocytes (Bld) [#/Vol] 2.1 10 3/uL 1.2-3.8 [facility] Lymphocytes/100 WBC Auto (Bl d)on 10-06-2023 Lymphocytes/100 WBC (Bld) 26.0 % 20.5-60.0 [facility] MCH Auto (RBC) [Entitic mass ]on 10-06-2023 MCH (RBC) [Entitic mass] 30.7 pg 26.7-34.0 [facility] MCHC Auto (RBC) [Mass/Vol]on 10-06-2023 MCHC (RBC) [Mass/Vol] 34.9 g/dL 29.9-35.2 [facility] MCV Auto (RBC) [Entitic vol] on 10-06-2023 MCV (RBC) [Entitic vol] 87.8 fL 81.0-99.0 [facility] Monocytes Auto (Bld) [#/Vol] on 10-06-2023 Monocytes (Bld) [#/Vol] 0.5 10 3/uL 0.3-0.8 [facility] Monocytes/100 WBC Auto (Bld) on 10-06-2023 Monocytes/100 WBC (Bld) 5.9 % 1.7-12.0 [facility] Neutrophils Auto (Bld) [#/Vo l]on 10-06-2023 Neutrophils (Bld) [#/Vol] 5.4 10 3/uL 1.4-6.5 [facility] Neutrophils/100 WBC Auto (Bl d)on 10-06-2023 Neutrophils/100 WBC (Bld) 66.3 % 43.0-75.0 [facility] No Panel Informationon 10-05 Eosinophils # (Auto) 0.1 10 3/uL 0.0-0.7 [facility] Hepatitis C Interpretation Comment . [facility] Comment on above: Not infected with HC V unless early or acute infection issuspected (which may be delayed in an immunocompromisedindividual), or other evidence exists to indicate HCVinfection.Performed at: [facility] [id number] Director: Pieter Tyler PhD, Phone: [phone] Not infected with HC V unless early or acute infection issuspected (which may be delayed in an immunocompromisedindividual), or other evidence exists to indicate HCVinfection.Performed at: [facility] [id number] Director: Pieter Tyler PhD, Phone: [phone] Immature Granulocyte # (Auto) 0.01 10 3/uL 0.00-0.03 [facility] RPR Quantitative Confirmation Non Reactive titer NonRea<1:1 [facility] Comment on above: Please Note: This te st does not meet current guidelines forscreening and diagnosis of syphilis. This test isintended for following treatment response in patients beingtreated for syphilis infection. To screen for syphilisinfection, a reflex cascade that includes both RPR and atreponema-specific assay should be utilized, such asTreponema pallidum (Syphilis) Screening [place] (535546) orRapid Plasma Reagin (RPR) Test With Reflex to QuantitativeRPR and Confirmatory Treponema pallidum Antibodies(501345).Performed at: [facility] [id number] [place] [id number] Director: Pieter Tyler PhD, Phone: [phone] Rubella IgG Antibody 2.39 index Immune >0.99 [facility] Comment on above: Non-immune <0.90 Equ ivocal 0.90 - 0.99 Immune >0.99Performed at: [facility] [id number] [place], [place] [id number] Director: Pieter Tyler PhD, Phone: [phone] Platelet mean volume Auto (B ld) [Entitic vol]on 10-06-2023 Platelet mean volume (Bld) [Entitic vol] 8.6 fL Low 9.5-13.5 [facility] Platelets Auto (Bld) [#/Vol] on 10-06-2023 Platelets (Bld) [#/Vol] 266 10 3/uL 150-450 [facility] RBC Auto (Bld) [#/Vol]on RBC (Bld) [#/Vol] 4.11 10 6/uL Low 4.20-5.40 [facility] [facility] No Panel Informationon 09-06 Human Chorionic Gonadotropin, Quant 5292 mIU/mL [facility] Comment on above: 5-50 0.2-1 [id number] 0 1-2 HRSIE678-4,000 2-3 NGJGQ775-32,000 3-4 WEEKS1,000-50,000 4-5 WEEKS10,000-100,000 5-6 WEEKS15,000-200,000 6-8 WEEKS10,000-100,000 2-3 MONTHS Vital Signs Date Time Vital Sign Value Performing Clinician Facility 01-03-2024 10:23-0500 Body mass index (BMI) [Ratio] 31.39 kg/m2 [employer] Phone: [facility] 01-03-2024 10:23-0500 Body weight 69.31 kg [employer] Work Phone: [facility] 11-05-2024 10:23-0500 Diastolic blood pressure 68 mm[Hg] Sanjuana Ivan DO Work Phone: [facility] 01-03-2024 10:23-0500 Systolic blood pressure 102 mm[Hg] Sanjuana Ivan DO Work Phone: [facility] 12-05-2023 09:41-0400 Body mass index (BMI) [Ratio] 29.33 kg/m2 Natacha Alston PA Work Phone: [facility] 12-05-2023 09:41-0400 Body weight 64.75 kg Natacha Gill PA Work Phone: [facility] 12-05-2023 09:41-0400 Diastolic blood pressure 66 mm[Hg] Natacha Gill PA Work Phone: [facility] 12-05-2023 09:41-0400 Systolic blood pressure 100 mm[Hg] Natacha Alston PA Work Phone: [facility] 07-07-2021 11:00-0400 Body height 151.13 cm Dionne Miller Other [employer] Other 07-07-2021 11:00-0400 Body mass index (BMI) [Ratio] 25.18 kg/m2 Dionne Miller Other [employer] Other 07-07-2021 11:00-0400 Body temperature 97 [degF] Dionne Miller Other [employer] Other 07-07-2021 11:00-0400 Body weight 57.52 kg Dionne Miller Other [employer] Other 07-07-2021 11:00-0400 Diastolic blood pressure 60 mm[Hg] Dionne Miller Other [employer] Other 07-07-2021 11:00-0400 Respiratory rate 18 /min Dionne Gracetiago Other [employer] Other 07-07-2021 11:00-0400 SaO2% (BldA) [Mass fraction] 99 % Dionne Miller Other [employer] Other 07-07-2021 11:00-0400 Systolic blood pressure 100 mm[Hg] Dionne Miller Other [employer] Other Encounters Encounter Date Encounter Type Care Provider Facility Start: 01-03-2024 End: 01-03-2024 Bamboo flowsheet Sanjuana Ivan DO Work Phone: [facility] Start: 01-03-2024 End: 01-03-2024 Bamboo flowsheet Sanjuana Ivan DO Work Phone: [facility] Start: 01-03-2024 End: 01-03-2024 ambulatory SANJUANA IVAN Not Available Start: 01-03-2024 End: 01-03-2024 flow sheet Sanjuana Ivan DO Work Phone: [facility] Comment on above: Second trimester pre gnancy; 22 weeks gestation of ; Diabetes mellitus screening Start: 12-05-2023 End: 12-05-2023 Bamboo flowsheet Natacha [...] End: 12-05-2023 Patient encounter procedure DO Alexandra Kemp Work Phone: [facility] Start: 12-05-2023 End: 12-05-2023 ambulatory DO Alexandra Kemp Work Phone: [facility] Work Phone: Start: 12-05-2023 End: 12-05-2023 Patient encounter procedure Natacha DENNEY Work Phone: [facility] Start: 12-05-2023 End: 12-05-2023 Periodic preventive med est patient 18-39 yrs Natacha DENNEY Work Phone: [facility] Comment on above: Screening, , for anatomic survey; 18 weeks gestation of ; Second trimester ; Vaginal discharge; Screen for STD (sexually transmitted disease); Well woman exam with routine gynecological exam Start: 12-05-2023 End: 12-05-2023 ambulatory NATACHA ALSTON Not Available Start: 11-07-2023 End: 11-07-2023 ambulatory SANJUANA IVAN Not Available Start: 10-06-2023 Non-patient / Non-visit DO Morena Kemp Work Phone: [facility] [employer] Work Phone: Start: 10-06-2023 End: 10-06-2023 ambulatory SANJUANA IVAN Not Available Start: 09-07-2023 Non-patient / Non-visit DO Morena Kemp Work Phone: [facility] [employer] Work Phone: Start: 06-29-2023 End: 06-29-2023 ambulatory SANJUANA IVAN Not Available Start: 05-30-2023 End: 05-30-2023 ambulatory SANJUANA IVAN Not Available Start: 07-07-2021 End: 07-07-2021 ambulatory Dionne Miller Other [employer] Other Start: 07-07-2021 Encounter for genera l adult medical examination without abnormal findings Dionne Miller [facility] [place] Start: 07-07-2021 Periodic preventive med est patient 18-39 yrs Dionne Miller [facility] Procedures Date Procedure Procedure Detail Performing Clinician Start: 01-03-2024 Urnls dip stick/tabl et rgnt non-auto w/o micrscp Sanjuana Love DO Work Phone: Start: 12-05-2023 Urnls dip stick/tabl et rgnt non-auto w/o micrscp Natacha DENNEY Work Phone: Start: 12-05-2023 IGP,APTIMA HPV,AGE GDLN Natacha DENNEY Work Phone: Start: 12-05-2023 URETHRITIS/DISCHARGE PLUS VAGINITIS (HTRX) Natacha DENNEY Work Phone: Plan of Treatment Date Care Activity Detail Author Start: 01-31-2024 End: 01-31-2024 Patient encounter procedure 01/31/2024 8:30 AM EST Routine [facility] [address] [place] [address] Natacha Alston PA [address] [place], [place] [id number] [facility] Start: 01-24-2024 End: 01-24-2024 Professional / ancillary services management 01/24/2024 8:30 AM EST Ancillary Procedure [facility] [address] [place] [id number] [facility] Start: 01-03-2024 End: 01-02-2025 CBC panel - Blood by Automated count CBC Lab Routine Diabetes mellitus screening Expected: 01/03/2024 (Approximate), Expires: 01/02/2025 [facility] Work Phone: Comment on above: Expected: 01/03/2024 (Approximate), Expires: 01/02/2025 Start: 01-03-2024 End: 01-02-2025 Measurement of glucose 1 hour after glucose challenge for glucose tolerance test Glucose tolerance, 1 hour Lab Routine Diabetes mellitus screening Expected: 01/03/2024 (Approximate), Expires: 01/02/2025 [facility] Comment on above: Expected: 01/03/2024 (Approximate), Expires: 01/02/2025 Start: 01-03-2024 End: 01-03-2024 Patient encounter procedure 01/03/2024 9:40 AM EST Routine [facility] [address] [place] [phone] Sanjuana Love DO [address] [place], [place] [id number] [facility] Start: 12-20-2023 End: 12-20-2023 Professional / ancillary services management 12/20/2023 10:00 AM EDT Ancillary Procedure [facility] [address] [place] [address] [facility] Start: 12-05-2023 End: 12-04-2024 Alpha fetoprotein, maternal Alpha fetoprotein, maternal Lab Routine 18 weeks gestation of Second trimester Expected: 12/05/2023 (Approximate), Expires: 12/04/2024 [facility] Comment on above: Expected: 12/05/2023 (Approximate), Expires: 12/04/2024 Start: 12-05-2023 End: 12-04-2024 US for US OB ANATOMY SINGLE W US OB CERVICAL LENGTH Imaging Routine Screening, , for anatomic survey Expected: 12/05/2023 (Approximate), Expires: 12/04/2024 [facility] Comment on above: Expected: 12/05/2023 (Approximate), Expires: 12/04/2024 Start: 12-05-2023 [facility] Start: 12-05-2023 End: 12-05-2023 Patient encounter procedure 12/05/2023 9:30 AM EDT Routine [facility] [address] [place] [address] Natacha Alston PA [address] [place] [address] Arrived [facility] Comment on above: Arrived Rjifd-5-Rkgmynejrkt [Mass/volume] in Serum or Plasma [facility] Assessment of gestational age [facility] Body weight [facility] CHLAMYDIA TRACHOMATI S (GENITO/STI) CHLAMYDIA TRACHOMATIS (GENITO/STI) Lab Routine Vaginal discharge Screen for STD (sexually transmitted disease) Ordered: 12/05/2023 [facility] Comment on above: Ordered: 12/05/2023 Choriogonadotropin.i ntac t+Beta subunit [Units/volume] in Serum or Plasma [facility] Cytology Cervical or vaginal smear or scraping study Pap Smear Pathology and Cytology Routine Well woman exam with routine gynecological exam Ordered: 12/05/2023 [facility] Work Phone: Comment on above: Ordered: 12/05/2023 Diabetes mellitus screening [facility] Estriol (E3).unconjugated [Mass/volume] in Serum or Plasma [facility] Human chorionic gonadotropin measurement [facility] Inhibin A [Mass/volu me] in Serum or Plasma [facility] Inhibin measurement [facility] Laboratory data interpretation [facility] Neisseria gonorrhoea e DNA [Presence] in Unspecified specimen by ARMAND with probe detection Neisseria gonorrhea DNA probe, direct Lab Routine Vaginal discharge Screen for STD (sexually transmitted disease) Ordered: 12/05/2023 [facility] Comment on above: Ordered: 12/05/2023 Risk assessment [facility] Risk identification: genetic [facility] Serum alpha-fetoprot ein multiple of median measurement [facility] SURESWAB(R) ADVANCED VAGINITIS PLUS, TMA SURESWAB(R) ADVANCED VAGINITIS PLUS, TMA Pathology and Cytology Routine Vaginal discharge Screen for STD (sexually transmitted disease) Ordered: 12/05/2023 [facility] Comment on above: Ordered: 12/05/2023 Unconjugated estriol measurement [facility] Immunizations Immunization Date Immunization Notes Care Provider Cordell pandey 08-05-2010 tetanus toxoid, redu bobby diphtheria toxoid, and acellular pertussis vaccine, adsorbed Dionne Miller Other [facility] Payers Date Payer Category Payer Self-pay [id number] 2022 Private Health Insurance [employer] [id number] 2022 Unknown [employer] [id number] 2022-Present [address] [place] [address] [id number] 2021 Unknown [id number] 1997 Unknown [id number] 1259 1997 Unknown [id number] 1259 1997 Unknown [id number] 1259 1997 Unknown [id number] 1259 1997 Unknown [id number] 1259 1997 Unknown [id number] 1259 Unknown [id number] 531 Social History Date Type Detail Facility Start: 05-30-2023 Sex Assigned At [employer] Other Start: 03-29-2018 End: 05-30-2023 Tobacco smoking status NHIS Never smoked tobacco [facility] Start: 05-30-2023 Tobacco use and exposure Smokeless tobacco non-user [facility] Start: 11-07-2023 End: 01-03-2024 Alcoholic beverage intake Ex-drinker (finding) [facility] Start: 05-30-2023 History of Social function [facility] Start: 11-07-2023 Alcohol Comment Prior to 1-2 drinks per month [facility] Start: 08-15-2023 [facility] Start: 1995 Sex assigned at Female [facility] Start: 05-29-2023 Gender identity Identifies as female gender (finding) [facility] Start: 05-29-2023 Sexual orientation Heterosexual (finding) [facility] History of Present illness Narrative 01-03-2024 Shira Villa LPN - 01/03/2024 9:40 AM EST Note Date & Type Note Facility 01-03-2024 History of Presen t illness Narrative Reason [...] Exam Constitutional: Appearance: Normal appearance. She is well-developed. Cardiovascular: Rate and Rhythm: Normal rate and regular rhythm. Pulmonary: Effort: Pulmonary effort is normal. Breath sounds: Normal breath sounds. Abdominal: General: Bowel sounds are normal. There is no distension. Palpations: Abdomen is soft. Tenderness: There is no abdominal tenderness. There is no guarding or rebound. Musculoskeletal: General: No swelling. Normal range of motion. Right lower leg: No edema. Left lower leg: No edema. Neurological: Mental Status: She is alert and oriented to person, place, and time. Skin: General: Skin is warm and dry. Psychiatric: Mood and Affect: Mood normal. Behavior: Behavior normal. Vitals and nursing note reviewed. Exam conducted with a senior payroll administrator present. Vitals: Estimated body mass index is 31.39 kg/m as calculated from the following: Height as of 05/24/18: 4' 10.5 . Weight as of this encounter: 152 lb 12.8 oz. BP: 102/68 Patient's last menstrual period was 08/01/2023. ASSESSMENT & PLAN ICD-10-CM 1. Second trimester Z34.92 Urine dip 2. 22 weeks gestation of Z3A.22 Urine dip 3. Diabetes mellitus screening Z13.1 CBC Glucose tolerance, 1 hour Patient presents today for a routine obstetrics appointment. Patient is currently 22w1d with a Estimated Date of Delivery: 05/07/24. Pt given glucola order with instructions to have obtained at 24-28 weeks. Pt to return in 4 weeks for scheduled OB appt. Documented by Shira Villa LPN on behalf of: Sanjuana Love DO documented in this encounter [facility] History of Present illness Narrative 12-05-2023 [...] obtained without difficulty and patient was given [facility] order to have obtained. Orders Placed This [...] of: JUMANA Trotter documented in this encounter [facility] Evaluation note 07-07-2021 Note Date & Type Note Facility 07-07-2021 Evaluation note Encounter Date Diagnosis Assessment Notes June, Well adult exam (ICD-10 - Z00.00) Routine lab work ordered today. Continue to follow with eye doctor and dentist, [employer]. Patient is advised to work on healthy [...] treatment pending results of testing. June, Other [employer] referral sent today so that she is able to discuss control options with them. Discussed referral process with patient. [employer] Other Evaluation note Note Date & Type Note Facility Evaluation note Diagnosis Screening, , for anatomic survey Encounter for anatomic survey 18 weeks gestation of Second trimester state, incidental Vaginal discharge Leukorrhea, not specified as infective Screen for STD (sexually transmitted disease) Screening examination for venereal disease Well woman exam with routine gynecological exam Routine gynecological examination documented in this encounter [facility] Evaluation note Note Date & Type Note Facility Evaluation note [facility] Work Phone: Evaluation note Note Date & Type Note Facility Evaluation note Diagnosis Second trimester state, incidental 22 weeks gestation of Diabetes mellitus screening Screening for diabetes mellitus documented in this encounter [facility] History general Narrative - Reported Note Date & Type Note Facility History general Narrative - Reported Type Surgical History No know Surgical history Hospitalization History No know Hospitalization history [employer] Other Chief Complaint and Reason for Visit Chief Complaint Z3A.92 Family History Relationship Condition Age at Onset Recorded Date/T ce grandparent Hyperlipidemia Unknown grandparent Family history of kidney disease Unknown Unknown grandparent Dementia Unknown Advance Directives Advance Directive Response Recorded Date/ Time Advance Directives No July 07 10:43am Summary Purpose Additional Source Comments REASON FOR VISIT (unrecogniz ed section and content) Reason Comments Routine Visit Care Teams (unrecognized sec tion and content) Revenue [employer] Relationship Specialty Start Date End Date Dionne Miller NP [address] [facility] [address] [place] [address] PCP - General 05/29/23 Revenue Cycle Administrator Relationship Specialty Start Date End Date Dionne Miller NP [address] [place] [address] PCP - General 05/29/23 Team Status: Active [...] December 05, 2023 End: December 05, 2023 Revenue Cycle Administrator Relationship Specialty Start Date End Date Dionne Miller NP [address] [place] [address] PCP - General 05/29/23 Revenue Cycle Administrator Relationship Specialty Start Date End Date Dionne Miller NP [address] [place] [address] PCP - General 05/29/23 Goals (unrecognized section and content) Goals may be documented in a n alternate section INFORMATION SOURCE (unrecogn ized section and content) DATE CREATED AUTHOR 12/30/2023 [facility] DATE CREATED AUTHOR 'S FABIOLA PÉREZ 01/04/2024 [facility] EPIC FOR RECORDS PERTAINING TO PATIENTS WHO ARE [...] BE BASED ON THE PRIMARY CLINICAL RECORDS. [facility] [employer] [facility]. provides no warranty or guarantee of the accuracy or completeness of information in this document.
[2024-01-23 10:02] LABS: Basophils Percent Auto 0.3 % (0.2-2.0); Eosinophils Absolute Auto 0.1 10^3/uL (0.0-0.7); Eosinophils Percent Auto 1.3 % (0.9-7.0); Hematocrit 34.1 % (36.0-48.0); Hemoglobin 11.8 g/dL (12.0-16.0); Immature Granulocytes Abs Auto 0.03 10^3/uL (0.00-0.03); Immature Granulocytes Pct Auto 0.4 % (0.0-0.5); Lymphocytes Absolute Auto 1.5 10^3/uL (1.2-3.8); Lymphocytes Percent Auto 21.1 % (20.5-60.0); Mean Corpuscular HGB Conc 34.6 g/dL (29.9-35.2); Mean Corpuscular Hemoglobin 31.6 pg (26.7-34.0); Mean Corpuscular Volume 91.4 fL (81.0-99.0); Mean Platelet Volume 8.6 fL (9.5-13.5); Monocytes Absolute Auto 0.3 10^3/uL (0.3-0.8); Monocytes Percent Auto 4.6 % (1.7-12.0); Neutrophils Absolute Auto 5.1 10^3/uL (1.4-6.5); Neutrophils Percent Auto 72.3 % (43.0-75.0); Platelet Count 212 10^3/uL (150-450); Red Blood Count 3.73 10^6/uL (4.20-5.40); Red Cell Distribution Width 13.8 % (11.0-15.0)
[2024-01-23 10:08] LABS: Glucose 1 Hour 98 mg/dL (<130)
== END 2024-01-23 08:45 | disposition home or self-care (01) ==
LOC: LAB 08:44
PROVIDERS: PCP Nurse Practitioner Family; Visit Provider Obstetrics & Gynecology
DX: Z13.1 Encounter for screening for diabetes mellitus (principal)
CPT/HCPCS: 36415; 82950; 85025

== ENCOUNTER 2024-02-14 07:44 | Outpatient (RCR) | payer OTHER, SELFPAY ==
[2024-02-14 13:50] VITALS: BP 109/72; PULSE 98; TEMP 36.6; O2SAT 100
[2024-02-14] MEDS: RHO(D) IMMUNE GLOBULIN 1,500 UNIT SYRINGE 1500 UNIT IM (14:25)
== END 2024-02-15 08:21 | disposition home or self-care (01) ==
LOC: INF 07:44
PROVIDERS: PCP Nurse Practitioner Family; Visit Provider Obstetrics & Gynecology
DX: O26.893 Other specified pregnancy related conditions, third trimester (principal); Z67.91 Unspecified blood type, Rh negative; Z3A.00 Weeks of gestation of pregnancy not specified
CPT/HCPCS: 36415; 86850; 86900; 86901; 96372; J2791

== ENCOUNTER 2024-04-10 20:43 | Outpatient (OUT) | payer OTHER, SELFPAY ==
--- OUTSIDE RECORDS SUMMARY | 2024-04-10 20:47 | XMS_ITS | CCD ---
Author Organization [facility] Care Team Providers Care Water And Fire Technician Name Role Phone Dionne Miller Unavailable DO Alexandra Kemp Primary Care Provider PAT Alston Attending Provider [phone] Dionne Miller NP Primary Care Provider [phone] Alexandra Kemp Primary Care Unavailable Natacha Alston Attending Unavailable Natacha Alston Admitting Unavailable Natacha Stafford Unavailable NATACHA ALSTON Attending Unavailable IVANSANJUANA LOCKHART Attending Unavailable IVAN, SANJUANA Attending Unavailable IVAN, SANJUANA Attending Unavailable NATACHA ALSTON Attending Unavailable IVAN, SANJUANA Attending Unavailable NATACHA ALSTON Attending Unavailable IVAN, SANJUANA Attending Unavailable IVAN, SANJUANA Attending Unavailable NATACHA ALSTON Referring Unavailable Allergies Allergy Classification Reported Allergen(s) Allergy Type Date of Onset Reaction(s) Facility (20 sources) Amoxicillin Drug Allergy 05-30-2023 rash, Hives [facility] (1 source) Amoxicillin Drug Allergy 07-07-2021 [facility] Repository Medications Current Medications Medication Drug Class(es) Dates Sig (Normalized) Sig (Original) Vit-Fe Fumarate-FA (PNV Plus Multivitamin) 27-1 MG tablet (20 sources) Start: 09-20-2023 take 1 tablet by mouth once daily Vit-Fe Fumarate-FA (PNV Plus Multivitamin) 27-1 MG tablet Take 1 tablet by mouth Daily 09/20/2023 Active Completed/Discontinued Medications Medication Drug Class(es) Dates Sig (Normalized) Sig (Original) multivitamin () 27-0.8 MG tablet (18 sources) Start: 05-30-2023 End: 02-14-2024 take 1 tablet by mouth once daily multivitamin () 27-0.8 MG tablet Indications: Encounter for supervision of normal first in first trimester Take 1 tablet by mouth Daily 30 tablet 11 05/30/2023 02/14/2024 Discontinued Start: 05-30-2023 End: 05-29-2024 take 1 tablet by mouth once daily multivitamin () 27-0.8 MG tablet Indications: Encounter for supervision of normal first in first trimester Take 1 tablet by mouth Daily 30 tablet 11 05/30/2023 05/29/2024 Active Problems Active Problems Problem Classification Problem Date Documented Date Episodic/Chronic Immunizations and screening for infectious disease (6 sources) Patient encounter status; Translations: [Encounter for screening for infections with a predominantly sexual mode of transmission] 12-05-2023 Episodic Other complications of (2 sources) RhD negative; Translations: [Other specified related conditions, unspecified trimester] 02-14-2024 Episodic Other complications of (2 sources) size does not accord with dates; Translations: [Uterine size-date discrepancy, unspecified trimester] 03-05-2024 Episodic Other female genital disorders (2 sources) Vaginal discharge; Translations: [Other specified noninflammatory disorders of vagina] 12-05-2023 Episodic Other and delivery including normal (20 sources) Second trimester ; Translations: [Encounter for supervision of normal , unspecified, second trimester] Onset: 12-05-2023 12-05-2023 Episodic Residual codes; unclassified (2 sources) Gestation period, 18 weeks; Translations: [18 weeks gestation of ] 12-05-2023 Episodic Residual codes; unclassified (2 sources) Gestation period, 22 weeks; Translations: [22 weeks gestation of ] 01-03-2024 Episodic Residual codes; unclassified (2 sources) Gestation period, 26 weeks; Translations: [26 weeks gestation of ] 01-30-2024 Episodic Residual codes; unclassified (12 sources) Gestation period, 28 weeks; Translations: [28 weeks gestation of ] Onset: 02-14-2024 02-14-2024 Episodic Residual codes; unclassified (2 sources) Gestation period, 31 weeks; Translations: [31 weeks gestation of ] 03-05-2024 Episodic Residual codes; unclassified (2 sources) Gestation period, 33 weeks; Translations: [33 weeks gestation of ] 03-20-2024 Episodic Unclassified (14 sources) OB Reminders Onset: 01-25-2024 01-25-2024 Past or Other Problems Problem Classification Problem Date Documented Da te Episodic/Chronic Malaise and fatigue (1 source) Other fatigue Onset: 07-07-2021 Resolved: 07-07-2021 Episodic Other skin disorders (1 source) Other skin changes Onset: 07-07-2021 Resolved: 07-07-2021 Episodic Results Test Name Value Interpretation Reference Range Facility Urinalysis macro (dipstick) panel (U)on 03-20-2024 Bilirubin, UA Negative Negative - 4(70) +++ mg/dL [facility] Blood, UA Negative Negative - 50 Jeremiah/mcL [facility] Clarity, UA Clear [facility] Color, UA Yellow [facility] Glucose, UA Negative Negative - 2000(110) ++++ mg/dL [facility] Interpretation and review of laboratory results Abnormal [facility] re Ketones, UA Negative Negative - 160(16) ++++ mg/dL [facility] Leukocytes, UA Trace Negative - 500+++ Hitesh/mcL [facility] Nitrite, UA Negative Negative - Positive [facility] pH, UA 7.5 5 - 9 [facility] Protein, UA Negative Negative - 2000(20) ++++ mg/dL [facility] Spec Grav, UA 1.015 1 - 1.03 [facility] Urobilinogen, UA 0.2 0.2 - 12 mg/dL [facility] US OB FOLLOW UP TRANSABDOMIN AL APPROACHon 03-12-2024 US OB FOLLOW UP TRANSABDOMINAL APPROACH TITLE OF EXAM: OB Ultrasound: REASON FOR EXAM: Inconsistent size. COMPARISON: None TECHNIQUE: Grayscale and M-mode Doppler imaging is performed. FINDINGS: heart rate: 176 bpm ROGER: 9.4 cm (8.3-24.5) BPD: 8.3 cm HC: 31.2 cm AC: 28.1 cm FL: 6.1 cm GA for sonogram: 33.0 wk (30.0-36.0) MICHELLE: 04/30/2024 Weight Estimate: Weight: 1956 gm / 4 lbs, 5 oz (9569-2188 gm) [place] Normal: 2162 gm (9200-8278 gm) [place] Wt%: 23% for 33.0 wks Limited for: Growth Presentation: Cephalic Lie: Longitudinal Amniotic Fluid: 9.4 cm Between 5th and 95 percentile. Largest Fluid Pocket: 2.8 cm Placental Location: Anterior Heart Rate: 176 bpm IMPRESSION: 1. Single live intrauterine gestation in cephalic position estimated at 33.0 weeks. 2. Dilated right renal pelvis with AP separation of 9 mm on the right and 7 mm on the left. Ultrasound in 4 weeks would be useful. Ultimately, a renal ultrasound is recommended. Dictated and transcribed 03/12/24/dplucero This report has been electronically signed and approved by the interpreting radiologist. Normal Not Available Comment on above: Order Comment: US OB SCAN FOR GROWTH Estimated Date of Delivery: 05/07/24 Gestational Age as of 03/05/2024: 31w0d Urinalysis macro (dipstick) panel (U)on 03-05-2024 Bilirubin, UA Negative Negative - 4(70) +++ mg/dL [facility] Blood, UA Negative Negative - 50 Jeremiah/mcL [facility] Healthcare Clarity, UA Clear [facility] Color, UA Yellow [facility] Glucose, UA Negative Negative - 1999(110) ++++ mg/dL [facility] Interpretation and review of laboratory results Abnormal [facility] Ketones, UA Positive Negative - 160(16) ++++ mg/dL [facility] Leukocytes, UA Negative Negative - 500+++ Hitesh/mcL [facility] Nitrite, UA Negative Negative - Positive [facility] pH, UA 6.5 5 - 9 [facility] e Protein, UA Negative Negative - 1999(20) ++++ mg/dL [facility] Spec Grav, UA 1.015 1 - 1.03 [facility] care Urobilinogen, UA 0.2 0.2 - 12 mg/dL [facility] Urinalysis macro (dipstick) panel (U)on 02-14-2024 Bilirubin, UA Negative Negative - 4(70) +++ mg/dL [facility] Blood, UA Negative Negative - 50 Jeremiah/mcL [facility] Clarity, UA Clear [facility] Color, UA Yellow [facility] Glucose, UA Negative Negative - 2000(110) ++++ mg/dL [facility] Interpretation and review of laboratory results Normal [facility] Ketones, UA Negative Negative - 160(16) ++++ mg/dL [facility] Leukocytes, UA Negative Negative - 500+++ Hitesh/mcL [facility] Nitrite, UA Negative Negative - Positive [facility] pH, UA 7 5 - 9 [facility] Protein, UA Negative Negative - 1999(20) ++++ mg/dL [facility] Spec Grav, UA 1.02 1 - 1.03 [facility] Urobilinogen, UA 0.2 0.2 - 12 mg/dL [facility] Urinalysis macro (dipstick) panel (U)on 01-30-2024 Bilirubin, UA Negative Negative - 4(70) +++ mg/dL [facility] Blood, UA Negative Negative - 50 Jeremiah/mcL [facility] Clarity, UA Clear [facility] Color, UA Yellow [facility] Glucose, UA Negative Negative - 1999(110) ++++ mg/dL [facility] Interpretation and review of laboratory results Normal [facility] Ketones, UA Negative Negative - 160(16) ++++ mg/dL [facility] Leukocytes, UA Negative Negative - 500+++ Hitesh/mcL [facility] Nitrite, UA Negative Negative - Positive [facility] pH, UA 7 5 - 9 [facility] Protein, UA Negative Negative - 1999(20) ++++ mg/dL [facility] Spec Grav, UA 1.015 1 - 1.03 [facility] Urobilinogen, UA 0.2 0.2 - 12 mg/dL [facility] GLUCOSE 1 HOURon 01-23-2024 Glucose [Mass/Vol] 98 mg/dL NINF - 13 0 mg/dL [facility] Urinalysis macro (dipstick) panel (U)on 01-03-2024 Bilirubin, UA Negative Negative - 4(70) +++ mg/dL [facility] Blood, UA Negative Negative - 50 Jeremiah/mcL [facility] Clarity, UA Clear [facility] Color, UA Yellow [facility] Glucose, UA Negative Negative - 1999(110) ++++ mg/dL [facility] Interpretation and review of laboratory results Normal [facility] re Ketones, UA Negative Negative - 160(16) ++++ mg/dL [facility] Leukocytes, UA Negative Negative - 500+++ Hitesh/mcL [facility] Nitrite, UA Negative Negative - Positive [facility] pH, UA 6.5 5 - 9 [facility] Protein, UA Negative Negative - 2000(20) ++++ mg/dL [facility] Spec Grav, UA 1.02 1 - 1.03 [facility] Urobilinogen, UA 1.0 0.2 - 12 mg/dL [facility] IGP,APTIMA HPV,AGE GDLNon AGE GDLN ACOG TESTING Note . [facility] Comment on above: TESTS RESULT FLAG UN ITS REF RANGE LAB Clinician Provided Cytology Information Source.............Cervix Other.............. No. of containers..01 ThinPrep Vial Age Algo ACOG Seble... -28 03 FLAG LEGEND: L-Low Normal,H-High Normal,LL-Alert Low,HH-Alert High <-Panic Low,>-Panic High,A-Abnormal,AA-Critical Abnormal Performed at: 01 =G [facility] [address] [place] [address] Norah Samuels MD, IGP, RFX APTIMA HPV ASCU Note . [facility] Comment on above: TESTS RESULT FLAG UN ITS REF RANGE LAB DIAGNOSIS: 02 NEGATIVE FOR INTRAEPITHELIAL LESION OR MALIGNANCY. Specimen adequacy: 02 Satisfactory for evaluation. No endocervical component is identified. An endocervical component is not commonly seen in the patient. Performed by: 02 Denise Watson Screedman ([facility]) . 02 Note: Note 02 The Pap [...] High <-Panic Low,>-Panic High,A-Abnormal,AA-Critical Abnormal Performed at: [facility] [place] [address] Norah Samuels MD, Performed at: =[facility] [id number] Care Transport Nurse: Norah Samuels MD, Phone: [phone] Performed at: [address] [id number] Care Transport Nurse: Norah Samuels MD, Phone: [phone] [facility] URETHRITIS/DISCHARGE PLUS VA GINITIS (HTRX)on 12-06-2023 ATOPOBIUM VAGINAE 0.000 [facility] ATOPOBIUM VAGINAE Not detected [facility] BVAB 2,3 (BACTERIAL VAGINOSIS ASSOCIATED BACTERIA 2, 3); MOBILUNCUS SPP 0.000 [facility] BVAB 2,3 (BACTERIAL VAGINOSIS ASSOCIATED BACTERIA 2, 3); MOBILUNCUS SPP Not detected [facility] RAMONE ALBICANS, PARAPSILOSIS, TROPICALIS 0.000 [facility] [...] 12-05-2023 AFP Comments: Comment Normal . The [facility] Comment on above: Order Comment: 18 WE EKS. JKW Is patient >15 week ?: Y Is extra paperwork completed?: Y Result Comment: Iona Carpio, Ph.D., [facility] Director References: Available Upon Request. Multiples Of Median Cutoffs Abbreviation Definitions For AFP Elevations IDD- Insulin Dep Diabetes [place] 2.5 Black 2.8 OSBR- Open Spina Bifida IDD 2.0 Twins 4.5 Risk DSR Cutoff 1:270 DSR- Down Syndrome Risk T18 Cutoff 1:100 T18- Trisomy 18 For further inquiries contact [employer] [facility] at [phone]. This test was developed and its performance characteristics determined by [employer]. It has not been cleared or approved by the Food and Drug Administration. Performed at: [facility] [address], [place] [id number] Care Transport Nurse: Jenniffer Veliz [facility], Phone: [phone] PERFORMED BY: [place] [address] [place] [address] PATHOLOGIST DIAMOND DIE DRILLER PERCY ROSEN M.D. Performed By: #### A FPQUAD #### [facility] , AFP Interpretation Comment Normal . The [facility] Comment on above: [...] identifies 60% of Trisomy 18 pregnancies. The [place] [employer] recommends amniocentesis [...] ultrasound are within 10 days. --- 12/28/23 1508 --- AFP Interpret previously reported as: Comment [...] , AFP Mom 0.94 Normal . The [facility] Comment on above: Order Comment: 18 WE EKJeremiah RenoKW Is patient >15 week ?: Y Is extra paperwork completed?: Y Result Comment: --- 12/28/23 1508 --- AFP Mom previously reported as: See interpretation. Performed By: #### A FPQUAD #### [facility] , AFP Test Results: Negative Normal . The [facility] Comment on above: Order Comment: 18 WE EKS. JKW Is patient >15 week ?: Y Is extra paperwork completed?: Y Result Comment: --- 12/28/23 1508 --- Test Results: previously reported as: See interpretation. Performed By: #### A FPQUAD #### [facility] , AFP Value 41.5 ng/mL Normal . The [facility] Comment on above: Order Comment: 18 WE EKS. ShadiaKW Is patient >15 week ?: Y Is extra paperwork completed?: Y Performed By: #### A FPQUAD #### [facility] , SHAHBAZ Mom 1.27 Normal . The [facility] Comment on above: Order Comment: 18 WE EKS. ShadiaKW Is patient >15 week ?: Y Is extra paperwork completed?: Y Result Comment: --- 12/28/23 1508 --- SHAHBAZ Mom previously reported as: See interpretation. Performed By: #### A FPQUAD #### [facility] , SHAHBAZ Value 213.50 pg/mL Normal . The [facility] Comment on above: Order Comment: 18 WE EKS. ShadiaKW Is patient >15 week ?: Y Is extra paperwork completed?: Y Performed By: #### A FPQUAD #### [facility] , DSR 2nd Trimester 1 In 1706 Normal . The [facility] Comment on above: Order Comment: 18 WE EKS. ShadiaKW Is patient >15 week ?: Y Is extra paperwork completed?: Y Result Comment: --- 12/28/23 1508 --- DSR2nd Tri 1 In previously reported as: See interpretation. Performed By: #### A FPQUAD #### [facility] , DSR By Age 1 In 911 Normal . The [facility] Comment on above: Order Comment: 18 WE EKS. ShadiaKW Is patient >15 week ?: Y Is extra paperwork completed?: Y Result Comment: --- 12/28/23 1508 --- DSR By Age 1 In previously reported as: See interpretation. Performed By: #### A FPQUAD #### [facility] , Gest. Age Based On MICHELLE Normal . The [facility] Comment on above: Order Comment: 18 WE EKSJuan RenoKW Is patient >15 week ?: Y Is extra paperwork completed?: Y Result Comment: 04/28 --- 12/28/23 1508 --- Gest Age Based previously reported as: As provided Performed By: #### A FPQUAD #### [facility] , Gest. Age On Collection Date 18.0 Normal . The [facility] Comment on above: Order Comment: 18 WE EKS. JKW Is patient >15 week ?: Y Is extra paperwork completed?: Y Performed By: #### A FPQUAD #### [facility] , HCG Mom 1.09 Normal . The [facility] Comment on above: Order Comment: 18 WE EKS. JKW Is patient >15 week ?: Y Is extra paperwork completed?: Y Result Comment: --- 12/28/23 150 --- HCG Mom previously reported as: See interpretation. Performed By: #### A FPQUAD #### [facility] , HCG Value 66862 m[iU]/mL Normal . The [facility] Comment on above: Order Comment: 18 WE EKS. JKW Is patient >15 week ?: Y Is extra paperwork completed?: Y Performed By: #### A FPQUAD #### [facility] , Insulin Dependent Diabetes No Normal . The [facility] Comment on above: Order Comment: 18 WE EKS. JKW Is patient >15 week ?: Y Is extra paperwork completed?: Y Result Comment: Not provided. --- 12/28/23 1508 --- Insulin Dep Shahbaz previously reported as: Comment Not provided. Performed By: #### A FPQUAD #### [facility] , Maternal Age At MICHELLE 27.2 Normal . The [facility] Comment on above: Order Comment: 18 WE EKS. JKW Is patient >15 week ?: Y Is extra paperwork completed?: Y Performed By: #### A FPQUAD #### [facility] , Multiple Gestation No Normal . The [facility] Comment on above: Order Comment: 18 WE EKS. JKW Is patient >15 week ?: Y Is extra paperwork completed?: Y Result Comment: Not provided. --- 12/28/23 150 --- Mult Gest previously reported as: Comment Not provided. Performed By: #### A FPQUAD #### [facility] , OSBR Risk 1 In [address] Normal . The [facility] Comment on above: Order Comment: 18 WE EKS. JKW Is patient >15 week ?: Y Is extra paperwork completed?: Y Result Comment: --- 12/28/231507 --- OSBR Risk 1 In previously reported as: See interpretation. Performed By: #### A FPQUAD #### [facility] , Race Normal . The [facility] Comment on above: Order Comment: 18 WE EKS. JKW Is patient >15 week ?: Y Is extra paperwork completed?: Y Result Comment: Not provided. --- 12/28/231507 --- Race previously reported as: Comment Not provided. Performed By: #### A FPQUAD #### [facility] , Results Comment Normal . The [facility] Comment on above: Order Comment: 18 WE EKS. JKW Is patient >15 week ?: Y Is extra paperwork completed?: Y Result Comment: The MOM and risk factors of this report have been modified based on new information supplied to us by the client or their designated agency sales representative. Note that the gestational ages [...] changed from Not provided. to 143. --- 12/28/231507 --- Results previously reported as: Report Performed By: #### A FPQUAD #### [facility] , T18 By Age 1:3551 Normal . The [facility] Comment on above: Order Comment: 18 WE EKS. JKW Is patient >15 week ?: Y Is extra paperwork completed?: Y Performed By: #### A FPQUAD #### [facility] , T18 Risk Not increased Normal . The [facility] Comment on above: Order Comment: 18 WE EKS. JKW Is patient >15 week ?: Y Is extra paperwork completed?: Y Result Comment: --- 12/28/23 1508 --- T18 Risk previously reported as: See interpretation. Performed By: #### A FPQUAD #### [facility] , UE3 Mom 0.77 Normal . The [facility] Comment on above: Order Comment: 18 WE EKS. JKW Is patient >15 week ?: Y Is extra paperwork completed?: Y Result Comment: --- 12/28/23 1508 --- UE3 Mom previously reported as: See interpretation. Performed By: #### A FPQUAD #### [facility] , UE3 Value 1.05 ng/mL Normal . [facility] Comment on above: Order Comment: 18 WE EKS. JKW Is patient >15 week ?: Y Is extra paperwork completed?: Y Performed By: #### A FPQUAD #### [facility] , Weight 143 Normal . The [facility] Comment on above: Order Comment: 18 WE EKS. JKW Is patient >15 week ?: Y Is extra paperwork completed?: Y Result Comment: Not provided. --- 12/28/23 1508 --- Weight previously reported as: Comment lbs Not provided. Performed By: #### A FPQUAD #### [facility] , Urinalysis macro (dipstick) panel (U)on 12-05-2023 Bilirubin, UA Negative Negative - 4(70) +++ mg/dL [facility] Blood, UA Negative Negative - 50 Jeremiah/mcL [facility] Clarity, UA Clear [facility] Color, UA Yellow [facility] Glucose, UA Negative Negative - 2000(110) ++++ mg/dL [facility] Interpretation and review of laboratory results Normal [facility] Ketones, UA Negative Negative - 160(16) ++++ mg/dL [facility] Leukocytes, UA Negative Negative - 500+++ Hitesh/mcL [facility] Nitrite, UA Negative Negative - Positive [facility] pH, UA 7.5 5 - 9 [facility] Protein, UA Negative Negative - 1999(20) ++++ mg/dL [facility] Spec Grav, UA 1.020 1 - 1.03 [facility] Urobilinogen, UA 0.2 0.2 - 12 mg/dL [facility] Urinalysis macro (dipstick) panel (U)on 11-07-2023 Bilirubin, UA Negative Negative - 4(70) +++ mg/dL [facility] Blood, UA Positive Negative - 50 Jeremiah/mcL [facility] Comment on above: trace-intact Clarity, UA Clear [facility] Color, UA Yellow [facility] Glucose, UA Negative Negative - 1999(110) ++++ mg/dL [facility] Interpretation and review of laboratory results Abnormal [facility] Ketones, UA Negative Negative - 160(16) ++++ mg/dL [facility] Leukocytes, UA Trace Negative - 500+++ Hitesh/mcL [facility] Nitrite, UA Negative Negative - Positive [facility] pH, UA 7.0 5 - 9 [facility] Protein, UA Negative Negative - 1999(20) ++++ mg/dL [facility] Spec Grav, UA 1.020 1 - 1.03 [facility] Urobilinogen, UA 0.2 0.2 - 12 mg/dL [facility] Basophils Auto (Bld) [#/Vol] on 10-06-2023 Basophils (Bld) [#/Vol] 0.0 10 3/uL 0.0-0.1 [facility] Basophils/100 WBC Auto (Bld) on 10-06-2023 Basophils/100 WBC (Bld) 0.5 % 0.2-2.0 [facility] Eosinophils/100 WBC Auto (Bl d)on 10-06-2023 Eosinophils/100 WBC (Bld) 1.2 % 0.9-7.0 [facility] Erythrocyte distribution wid th Auto (RBC) [Ratio]on 10-06-2023 Erythrocyte distribution width (RBC) [Ratio] 12.4 % 11.0-15.0 [facility] Glucose mean value [Mass/vol ume] in Blood Estimated from glycated hemoglobinon 10-06-2023 Average glucose Estimated from glycated hemoglobin (Bld) [Mass/Vol] 94 mg/dL [facility] HBV surface Ag IA Qlon 10-05 Hepatitis B Surface Antigen Negative Negative [facility] Comment on above: Performed at: [facility] [place], [place] [id number] Director: Pieter Tyler PhD, Phone: [phone] Performed at: [facility] [place], [place] [id number] Director: Pieter Tyler PhD, Phone: [phone] HCV Ab Signal/Cutoff IA [Rel units/Vol]on 10-06-2023 Hepatitis C Antibody Non-Reactive Non Reactive [facility] HIV 1+2 Ab+HIV1 p24 Ag IA Ql on 10-06-2023 HIV (1&2) Antibody Screen Non-Reactive Non Reactive [facility] Comment on above: HIV-1/HIV-2 antibodi es and HIV-1 p24 antigen were NOTdetected. There is no laboratory evidence of HIV infection.HIV NegativePerformed at: [facility] [place], [place] [id number] Director: Pieter Tyler PhD, Phone: [phone] HIV-1/HIV-2 antibodi es and HIV-1 p24 antigen were NOTdetected. There is no laboratory evidence of HIV infection.HIV NegativePerformed at: [facility] [place], [place] [id number] Director: Pieter Tyler PhD, Phone: [phone] Hematocrit Auto (Bld) [Volum e fraction]on 10-06-2023 Hematocrit (Bld) [Volume fraction] 36.1 % 36.0-48.0 [facility] Hemoglobin [Mass/volume] in Bloodon 10-06-2023 Hemoglobin (Bld) [Mass/Vol] 12.6 g/dL 12.0-16.0 [facility] Laboratory - Hematology and Cell countson 10-06-2023 HbA1c (Bld) [Mass fraction] 4.9 % 4.5-6.2 [facility] Comment on above: ADA RECOMMENDED LIMI T 4.0 - 6.0ADA THERAPEUTIC TARGET < 7.0ACTION SUGGESTED> 7.0 Immature granulocytes/100 WBC (Bld) 0.1 % 0.0-0.5 [facility] Leukocytes [#/volume] correc marcia for nucleated erythrocytes in Blood by Automated counon 10-06-2023 WBC corrected for nucl RBC Auto (Bld) [#/Vol] 8.2 10 3/uL 4.0-11.0 [facility] Lymphocytes Auto (Bld) [#/Vo l]on 10-06-2023 Lymphocytes (Bld) [#/Vol] 2.1 10 3/uL 1.2-3.8 [facility] Lymphocytes/100 WBC Auto (Bl d)on 10-06-2023 Lymphocytes/100 WBC (Bld) 26.0 % 20.5-60.0 [facility] MCH Auto (RBC) [Entitic mass ]on 10-06-2023 MCH (RBC) [Entitic mass] 30.7 pg 26.7-34.0 [facility] MCHC Auto (RBC) [Mass/Vol]on 10-06-2023 MCHC (RBC) [Mass/Vol] 34.9 g/dL 29.9-35.2 [facility] MCV Auto (RBC) [Entitic vol] on 10-06-2023 MCV (RBC) [Entitic vol] 87.8 fL 81.0-99.0 [facility] Monocytes Auto (Bld) [#/Vol] on 10-06-2023 Monocytes (Bld) [#/Vol] 0.5 10 3/uL 0.3-0.8 [facility] Monocytes/100 WBC Auto (Bld) on 10-06-2023 Monocytes/100 WBC (Bld) 5.9 % 1.7-12.0 [facility] Neutrophils Auto (Bld) [#/Vo l]on 10-06-2023 Neutrophils (Bld) [#/Vol] 5.4 10 3/uL 1.4-6.5 [facility] Neutrophils/100 WBC Auto (Bl d)on 10-06-2023 Neutrophils/100 WBC (Bld) 66.3 % 43.0-75.0 [facility] No Panel Informationon 10-05 Eosinophils # (Auto) 0.1 10 3/uL 0.0-0.7 [facility] Hepatitis C Interpretation Comment . [facility] Comment on above: Not infected with HC V unless early or acute infection issuspected (which may be delayed in an immunocompromisedindividual), or other evidence exists to indicate HCVinfection.Performed at: [facility] [place], [place] [id number] Director: Pieter Tyler PhD, Phone: [phone] Not infected with HC V unless early or acute infection issuspected (which may be delayed in an immunocompromisedindividual), or other evidence exists to indicate HCVinfection.Performed at: [facility] [place], [place] [id number] Director: Pieter Tyler PhD, Phone: [phone] Immature Granulocyte # (Auto) 0.01 10 3/uL 0.00-0.03 [facility] RPR Quantitative Confirmation Non Reactive titer NonRea<1:1 [facility] Comment on above: Please Note: This te st does not meet current guidelines forscreening and diagnosis of syphilis. This test isintended for following treatment response in patients beingtreated for syphilis infection. To screen for syphilisinfection, a reflex cascade that includes both RPR and atreponema-specific assay should be utilized, such asTreponema pallidum (Syphilis) Screening [place] (973887) orRapid Plasma Reagin (RPR) Test With Reflex to QuantitativeRPR and Confirmatory Treponema pallidum Antibodies(358920).Performed at: [facility] [place], [place] [id number] Director: Pieter Tyler PhD, Phone: [phone] Rubella IgG Antibody 2.39 index Immune >0.99 [facility] Comment on above: Non-immune <0.90 Equ ivocal 0.90 - 0.99 Immune >0.99Performed at: [facility] [address] [place], [place] [id number] Director: Pieter Tyler PhD, Phone: [phone] Platelet mean volume Auto (B ld) [Entitic vol]on 10-06-2023 Platelet mean volume (Bld) [Entitic vol] 8.6 fL Low 9.5-13.5 [facility] Platelets Auto (Bld) [#/Vol] on 10-06-2023 Platelets (Bld) [#/Vol] 266 10 3/uL 150-450 [facility] RBC Auto (Bld) [#/Vol]on RBC (Bld) [#/Vol] 4.11 10 6/uL Low 4.20-5.40 [facility] No Panel Informationon 09-06 Human Chorionic Gonadotropin, Quant 5292 mIU/mL [facility] Comment on above: 5-50 0.2-1 EQQF70-26 0 1-2 TQRFE705-7,000 2-3 GEWGM229-91,000 3-4 WEEKS1,000-50,000 4-5 WEEKS10,000-100,000 5-6 WEEKS15,000-200,000 6-8 WEEKS10,000-100,000 2-3 MONTHS Vital Signs Date Time Vital Sign Value Performing Clinician Facility 03-20-2024 09:29-0500 Body mass index (BMI) [Ratio] 34.31 kg/m2 Natacha DENNEY Work Phone: [facility] 03-20-2024 09:29-0500 Body weight 75.75 kg Natacha DENNEY Work Phone: [facility] 03-20-2024 09:29-0500 Diastolic blood pressure 72 mm[Hg] Natacha DENNEY Work Phone: [facility] 03-20-2024 09:29-0500 Systolic blood pressure 120 mm[Hg] Natacha DENNEY Work Phone: [facility] 03-05-2024 14:00-0500 Body mass index (BMI) [Ratio] 34.27 kg/m2 Sanjuana Love DO Work Phone: [facility] 03-05-2024 14:00-0500 Body weight 75.66 kg Sanjuana Ivan DO Work Phone: [facility] 03-05-2024 14:00-0500 Diastolic blood pressure 68 mm[Hg] Sanjuana Ivan DO Work Phone: [facility] 03-05-2024 14:00-0500 Systolic blood pressure 110 mm[Hg] Sanjuana Ivan DO Work Phone: [facility] 02-14-2024 12:48-0500 Body mass index (BMI) [Ratio] 32.87 kg/m2 Sanjuana Ivan DO Work Phone: [facility] 02-14-2024 12:48-0500 Body weight 72.58 kg Sanjuana Ivan DO Work Phone: [facility] 02-14-2024 12:48-0500 Diastolic blood pressure 60 mm[Hg] Sanjuana Ivan DO Work Phone: [facility] 02-14-2024 12:48-0500 Systolic blood pressure 100 mm[Hg] Sanjuana Ivan DO Work Phone: [facility] 01-30-2024 09:03-0500 Body mass index (BMI) [Ratio] 32.07 kg/m2 Natacha DENNEY Work Phone: [facility] 01-30-2024 09:03-0500 Body weight 70.82 kg Natacha DENNEY Work Phone: [facility] 01-30-2024 09:03-0500 Diastolic blood pressure 68 mm[Hg] Natacha DENNEY Work Phone: [facility] 01-30-2024 09:03-0500 Systolic blood pressure 108 mm[Hg] Natacha DENNEY Work Phone: [facility] 01-03-2024 10:23-0500 Body mass index (BMI) [Ratio] 31.39 kg/m2 Sanjuana Ivan DO Work Phone: [facility] 01-03-2024 10:23-0500 Body weight 69.31 kg Sanjuana Ivan DO Work Phone: [facility] 01-03-2024 10:23-0500 Diastolic blood pressure 68 mm[Hg] Sanjuana Ivan DO Work Phone: [facility] 01-03-2024 10:23-0500 Systolic blood pressure 102 mm[Hg] Sanjuana Ivan DO Work Phone: [facility] 12-05-2023 09:41-0400 Body mass index (BMI) [Ratio] 29.33 kg/m2 Natacha DENNEY Work Phone: [facility] 12-05-2023 09:41-0400 Body weight 64.75 kg Natacha DENNEY Work Phone: [facility] 12-05-2023 09:41-0400 Diastolic blood pressure 66 mm[Hg] Natacha Alston PA Work Phone: [facility] 12-05-2023 09:41-0400 Systolic blood pressure 100 mm[Hg] Natacha Alston PA Work Phone: [facility] 11-07-2023 09:53-0400 Body mass index (BMI) [Ratio] 28.45 kg/m2 Sanjuana Ivan DO Work Phone: [facility] 11-07-2023 09:53-0400 Body weight 62.82 kg Sanjuana Ivan DO Work Phone: [facility] 11-07-2023 09:53-0400 Diastolic blood pressure 64 mm[Hg] Sanjuana Ivan DO Work Phone: [facility] 11-07-2023 09:53-0400 Systolic blood pressure 106 mm[Hg] Sanjuana Ivan DO Work Phone: [facility] 07-07-2021 11:00-0400 Body height 151.13 cm Dionne Miller Other [facility] Other 07-07-2021 11:00-0400 Body mass index (BMI) [Ratio] 25.18 kg/m2 Dionne Angela Other [facility] Other 07-07-2021 11:00-0400 Body temperature 97 [degF] Dionne Angela Other [facility] Other 07-07-2021 11:00-0400 Body weight 57.52 kg Dionne Angela Other [facility] Other 07-07-2021 11:00-0400 Diastolic blood pressure 60 mm[Hg] Dionne Angela Other [facility] Other 07-07-2021 11:00-0400 Respiratory rate 18 /min Dionne Angela Other [facility] Other 07-07-2021 11:00-0400 SaO2% (BldA) [Mass fraction] 99 % Dionne Angela Other [facility] Other 07-07-2021 11:00-0400 Systolic blood pressure 100 mm[Hg] Dionne Miller Other [facility] Other Encounters Encounter Date Encounter Type Care Provider Facility Start: 04-10-2024 End: 04-10-2024 Bamboo flowsheet Natacha DENNEY Work Phone: [facility] Start: 04-10-2024 End: 04-10-2024 Bamboo flowsheet Natacha DENNEY Work Phone: [facility] Start: 04-02-2024 End: 04-02-2024 Bamboo flowsheet Sanjuana Ivan DO Work Phone: [facility] Start: 04-02-2024 End: 04-02-2024 Bamboo flowsheet Sanjuana Ivan DO Work Phone: [facility] Start: 04-02-2024 End: 04-02-2024 ambulatory SANJUANA IVAN Not Available Start: 03-20-2024 End: 03-20-2024 Bamboo flowsheet Natacha Alston PA Work Phone: [facility] Start: 03-20-2024 End: 03-20-2024 Bamboo flowsheet Natacha DENNEY Work Phone: [facility] Start: 03-20-2024 End: 03-20-2024 flow sheet Natacha Alston PA Work Phone: [facility] Comment on above: Third trimester preg hortensia; 33 weeks gestation of Start: 03-20-2024 End: 03-20-2024 ambulatory NATACHA ALSTON Not Available Start: 03-12-2024 End: 03-12-2024 ambulatory NATACHA ALSTON Not Available Start: 03-05-2024 End: 03-05-2024 Bamboo flowsheet Sanjuana Ivan DO Work Phone: [facility] Start: 03-05-2024 End: 03-05-2024 Bamboo flowsheet Sanjuana Ivan DO Work Phone: [facility] Start: 03-05-2024 End: 03-05-2024 flow sheet Sanjuana Ivan DO Work Phone: [facility] Comment on above: size inconsist ent with dates (Primary Dx); 31 weeks gestation of ; Third trimester Start: 03-05-2024 End: 03-05-2024 ambulatory SANJUANA IVAN Not Available Start: 02-14-2024 End: 02-14-2024 Bamboo flowsheet Sanjuana Ivan DO Work Phone: [facility] Start: 02-14-2024 End: 02-14-2024 Bamboo flowsheet Sanjuana Ivan DO Work Phone: [facility] Start: 02-14-2024 End: 02-14-2024 flow sheet Sanjuana Ivan DO Work Phone: [facility] Comment on above: 28 weeks gestation o f ; Third trimester ; Rh negative state in antepartum period Start: 02-14-2024 End: 02-14-2024 ambulatory SANJUANA IVAN Not Available Start: 01-30-2024 End: 01-30-2024 Bamboo flowsheet Natacha DENNEY Work Phone: [facility] Start: 01-30-2024 End: 01-30-2024 Bamboo flowsheet Natacha DENNEY Work Phone: [facility] Start: 01-30-2024 End: 01-30-2024 ambulatory NATACHA ALSTON Not Available Start: 01-30-2024 End: 01-30-2024 flow sheet Natacha DENNEY Work Phone: [facility] Comment on above: 26 weeks gestation o f ; Second trimester Start: 01-23-2024 End: 01-23-2024 Clinisync Result Encounter Sanjunaa Ivan DO Work Phone: [facility] Unsolicited Start: 01-23-2024 End: 01-23-2024 Clinisync Result Encounter Sanjuana Ivan DO Work Phone: [facility] Unsolicited Start: 01-03-2024 End: 01-03-2024 Bamboo flowsheet Sanjuana [...] End: 12-05-2023 Patient encounter procedure DO Alexandra Hulle Work Phone: [facility] Start: 12-05-2023 End: 12-05-2023 ambulatory DO Alexandra Kemp Work Phone: [facility] Work Phone: Start: 12-05-2023 End: 12-05-2023 Patient encounter procedure Natacha DENNEY Work Phone: [facility] Start: 12-05-2023 End: 12-05-2023 Periodic preventive med est patient 18-39 yrs Natacha DENNEY Work Phone: [facility] Comment on above: Screening, , for anatomic survey; 18 weeks gestation of ; Second trimester ; Vaginal discharge; Screen for STD (sexually transmitted disease); Well woman exam with routine gynecological exam Start: 12-05-2023 End: 12-05-2023 ambulatory NATACHA ALSTON Not Available Start: 11-07-2023 End: 11-07-2023 Bamboo flowsheet Sanjuana Ivan DO Work Phone: [facility] Start: 11-07-2023 End: 11-07-2023 Bamboo flowsheet Sanjuana Ivan DO Work Phone: [facility] Start: 11-07-2023 End: 11-07-2023 flow sheet Sanjuana Ivan DO Work Phone: [facility] Comment on above: Second trimester pre gnancy Start: 11-07-2023 End: 11-07-2023 ambulatory SANJUANA IVAN Not Available Start: 10-06-2023 Non-patient / Non-visit DO Morena Kemp Work Phone: [facility] [employer] Work Phone: Start: 10-06-2023 End: 10-06-2023 ambulatory NATACHA ALSTON Not Available Start: 09-07-2023 Non-patient / Non-visit DO Morena Kemp Work Phone: [facility] [employer] Work Phone: Start: 06-29-2023 End: 06-29-2023 ambulatory SANJUANA IVAN Not Available Start: 05-30-2023 End: 05-30-2023 ambulatory NATACHA ALSTON Not Available Start: 07-07-2021 End: 07-07-2021 ambulatory Dionne Miller Other [facility] [employer] Other Start: 07-07-2021 Encounter for genera l adult medical examination without abnormal findings Dionne Miller [facility] [place] Start: 07-07-2021 Periodic preventive med est patient 18-39 yrs Dionne Miller [facility] [place] Procedures Date Procedure Procedure Detail Performing Clinician Start: 03-20-2024 Urnls dip stick/tabl et rgnt non-auto w/o micrscp Natacha DENNEY Work Phone: Start: 03-05-2024 Urnls dip stick/tabl et rgnt non-auto w/o micrscp Sanjuana Ivan DO Work Phone: Start: 02-14-2024 Urnls dip stick/tabl et rgnt non-auto w/o micrscp Sanjuana Ivan DO Work Phone: Start: 01-30-2024 Urnls dip stick/tabl et rgnt non-auto w/o micrscp Natacha DENNEY Work Phone: Start: 01-23-2024 GLUCOSE 1 HOUR Sanjuana Fa zio DO Work Phone: Start: 01-03-2024 Urnls dip stick/tabl et rgnt non-auto w/o micrscp Sanjuana Ivan DO Work Phone: Start: 12-05-2023 Urnls dip stick/tabl et rgnt non-auto w/o micrscp Natacha DENNEY Work Phone: Start: 12-05-2023 IGP,APTIMA HPV,AGE GDLN Natacha DENNEY Work Phone: Start: 12-05-2023 URETHRITIS/DISCHARGE PLUS VAGINITIS (HTRX) Natacha DENNEY Work Phone: Start: 11-07-2023 Urnls dip stick/tabl et rgnt non-auto w/o micrscp Sanjuana Ivan DO Work Phone: Plan of Treatment Date Care Activity Detail Author Start: 04-16-2024 End: 04-16-2024 Professional / ancillary services management 04/16/2024 8:30 AM EST Ancillary Procedure [facility] [address] [place] [place] [address] [facility] Start: 04-11-2024 End: 04-11-2024 Professional / ancillary services management 04/11/2024 9:00 AM EST Ancillary Procedure [facility] [address] [place] [place] [id number] [facility] Start: 04-10-2024 End: 04-10-2024 Patient encounter procedure 04/10/2024 11:20 AM EST Routine [facility] [address] [place] [address] Natacha Alston PA [address] [place] [address] Arrived [facility] Comment on above: Arrived Start: 04-02-2024 End: 04-02-2024 Patient encounter procedure [facility] Comment on above: Arrived Start: 03-20-2024 End: 03-20-2024 Patient encounter procedure [facility] Comment on above: Arrived Start: 03-12-2024 End: 03-12-2024 Professional / ancillary services management 03/12/2024 10:00 AM EST Ancillary Procedure [facility] [address] [place] [address] [facility] Start: 03-05-2024 End: 03-05-2025 US for US OB follow up transabdominal approach Imaging Routine size inconsistent with dates Expected: 03/05/2024, Expires: 03/05/2025 [facility] Work Phone: Comment on above: Expected: 03/05/2024 , Expires: 03/05/2025 Start: 03-05-2024 End: 03-05-2024 Patient encounter procedure [facility] Comment on above: Arrived Start: 02-14-2024 End: 02-14-2024 Patient encounter procedure 02/14/2024 1:10 PM EST Routine [facility] [address] [place] [address] Sanjuana Love DO [address] [place] [address] Arrived [facility] Comment on above: Arrived Start: 02-13-2024 End: 02-13-2024 Patient encounter procedure 02/13/2024 8:30 AM EST Routine [facility] [address] [place] [address] Sanjuana Love, [address] [place] [address] [facility] Start: 01-31-2024 End: 01-31-2024 Patient encounter procedure 01/31/2024 8:30 AM EST Routine [facility] [address] [place] [address] Natacha Alston PA [address] [place] [address] [facility] Start: 01-30-2024 End: 01-30-2024 Patient encounter procedure 01/30/2024 8:50 AM EST Routine [facility] [address] [phone] Natacha Alston PA [address] [place] [address] [facility] Start: 01-24-2024 End: 01-24-2024 Professional / ancillary services management 01/24/2024 8:30 AM EST Ancillary Procedure [facility] [address] [id number] [facility] Start: 01-03-2024 End: 01-02-2025 CBC panel - Blood by Automated count CBC Lab Routine Diabetes mellitus screening Expected: 01/03/2024 (Approximate), Expires: 01/02/2025 [facility] Work Phone: Comment on above: Expected: 01/03/2024 (Approximate), Expires: 01/02/2025 Start: 01-03-2024 End: 01-02-2025 Measurement of glucose 1 hour after glucose challenge for glucose tolerance test Glucose tolerance, 1 hour Lab Routine Diabetes mellitus screening Expected: 01/03/2024 (Approximate), Expires: 01/02/2025 [facility] Comment on above: Expected: 01/03/2024 (Approximate), Expires: 01/02/2025 Start: 01-03-2024 End: 01-03-2024 Patient encounter procedure 01/03/2024 9:40 AM EST Routine [facility] [address] [phone] Sanjuana Love DO [address] [place] [address] [facility] Start: 12-20-2023 End: 12-20-2023 Professional / ancillary services management 12/20/2023 10:00 AM EDT Ancillary Procedure [facility] [address] [place] [address] [facility] Start: 12-05-2023 End: 12-04-2024 [...] Expected: 12/05/2023 (Approximate), Expires: 12/04/2024 Start: 12-05-2023 [facility] Start: 12-05-2023 End: 12-05-2023 Patient encounter procedure [facility] Comment on above: Arrived Start: 11-07-2023 End: 11-07-2023 Patient encounter procedure 11/07/2023 9:40 AM EDT Routine [facility] [address] [place] [address] Sanjuana Love, [address] [facility] [place] [address] Arrived [facility] Comment on above: Arrived Start: 10-30-2023 Influenza vaccination Influenza Vacc ine (#1) [facility] Qgwys-3-Erwanxkmjit [Mass/volume] in Serum or Plasma [facility] Assessment of gestational age [facility] Body weight [facility] CHLAMYDIA TRACHOMATI S (GENITO/STI) CHLAMYDIA TRACHOMATIS (GENITO/STI) Lab Routine Vaginal discharge Screen for STD (sexually transmitted disease) Ordered: 12/05/2023 [facility] Comment on above: Ordered: 12/05/2023 Choriogonadotropin.i ntac t+Beta subunit [Units/volume] in Serum or Plasma [facility] Cytology Cervical or vaginal smear or scraping study Pap Smear Pathology and Cytology Routine Well woman exam with routine gynecological exam Ordered: 12/05/2023 [facility] Work Phone: Comment on above: Ordered: 12/05/2023 Diabetes mellitus screening [facility] Estriol (E3).unconjugated [Mass/volume] in Serum or Plasma [facility] Human chorionic gonadotropin measurement [facility] Inhibin A [Mass/volu me] in Serum or Plasma [facility] Inhibin measurement [facility] data interpretation [facility] Neisseria gonorrhoea e DNA [Presence] in Unspecified specimen by ARMAND with probe detection Neisseria gonorrhea DNA probe, direct Lab Routine Vaginal discharge Screen for STD (sexually transmitted disease) Ordered: 12/05/2023 [facility] Comment on above: Ordered: 12/05/2023 Risk assessment [facility] Risk identification: genetic [facility] Serum alpha-fetoprot ein multiple of median measurement [facility] SURESWAB(R) ADVANCED VAGINITIS PLUS, TMA SURESWAB(R) ADVANCED VAGINITIS PLUS, TMA Pathology and Cytology Routine Vaginal discharge Screen for STD (sexually transmitted disease) Ordered: 12/05/2023 [facility] Comment on above: Ordered: 12/05/2023 Unconjugated estriol measurement [facility] Immunizations Immunization Date Immunization Notes Care Provider Cordell pandey 08-05-2010 tetanus toxoid, redu bobby diphtheria toxoid, and acellular pertussis vaccine, adsorbed Dionne Miller Other [facility] Payers Date Payer Category Payer Self-pay [id number] 2022 Private Health Insurance [employer] [id number] 2022 Unknown [employer] [id number] 2022-Present [address] [place] [address] [id number] 2021 Unknown [id number] 1997 Unknown [id number] 2.16.840.1.661535.3.579.2. 1258 1997 Unknown [id number] 2.16.840.1.200569.3.579.2. 1258 1997 Unknown [id number] 2.16.840.1.614016.3.579.2. 1258 1997 Unknown [id number] 2.16.840.1.365115.3.579.2. 1258 1997 Unknown [id number] 2.16.840.1.246085.3.579.2. 1258 1997 Unknown [id number] 2.16.840.1.224597.3.579.2. 1258 1997 Unknown [id number] 2.16.840.1.805583.3.579.2. 1258 1997 Unknown [id number] 2.16.840.1.779097.3.579.2. 9 1997 Unknown [id number] 2.16.840.1.797153.3.579.2. 1258 1997 Unknown [id number] 2.16.840.1.541394.3.579.2. 9 1997 Unknown [id number] 2.16.840.1.061922.3.579.2. 1258 1997 Unknown [id number] 2.16.840.1.904425.3.579.2. 1259 Unknown [id number] 2.16.840.1.541166.3.579.2. 531 Social History Date Type Detail Facility Start: 05-30-2023 Sex Assigned At [facility] Other Start: 03-29-2018 End: 05-30-2023 Tobacco smoking status NHIS Never smoked tobacco [facility] Start: 05-30-2023 Tobacco use and exposure Smokeless tobacco non-user [facility] Start: 11-07-2023 End: 03-05-2024 Alcoholic beverage intake Ex-drinker (finding) [facility] Start: 05-30-2023 History of Social function [facility] Start: 11-07-2023 Alcohol Comment Prior to 1-2 drinks per month [facility] Start: 08-15-2023 [facility] Start: 1995 Sex assigned at Female [facility] Start: 05-29-2023 Gender identity Identifies as female gender (finding) [facility] Start: 05-29-2023 Sexual orientation Heterosexual (finding) [facility] Start: 05-30-2023 Alcohol Comment Caffeine intake: 1-2 cups/day [facility] Goals Date Patient Goal Desired Activity /State Personal health goal Clinical Notes 07-07-2021 to 03-20-2024 JUMANA Trotter - 03/20/2024 9:30 AM Kalyani Root NP - 03/05/2024 1:40 PM Mee Jacobs LPN - 02/14/2024 1:10 PM JUMANA Gonzalez - 01/30/2024 8:50 AM EST Note Date & Type Note Facility 03-20-2024 History of Presen t illness Narrative Reason for Appointment: Patient ID: Sarahi Zhu is a 29 y.o. female who presents for Routine Visit Patient presents today for Return OB appointment. MEDICATIONS Current Outpatient Medications Medication Instructions Vit-Fe Fumarate-FA (PNV Plus Multivitamin) 27-1 MG tablet 1 tablet, Daily ALLERGIES Allergies Allergen Reactions Amoxicillin Hives and Rash PROBLEMS Active Ambulatory Problems Diagnosis Date Noted 28 weeks gestation of 02/14/2024 Third trimester 02/14/2024 Resolved Ambulatory Problems Diagnosis Date Noted No Resolved Ambulatory Problems No Additional Past Medical History HISTORY PAST MEDICAL HISTORY SOCIAL HISTORY No past medical history on file. Social History Tobacco Use Smoking status: Never [...] reviewed. Vitals: Estimated body mass index is 34.31 kg/m as calculated from the following: Height as of 05/24/18: 4' 10.5 . Weight as of this encounter: 167 lb. BP: 120/72 Patient's last menstrual period was 08/01/2023. ASSESSMENT & PLAN ICD-10-CM 1. Third trimester Z34.93 POCT urinalysis dipstick manually resulted 2. 33 weeks gestation of Z3A.33 Return OB: Patient presents today for a routine obstetrics appointment. Patient is currently 33w1d . Patient states she is doing well but has complaints of being tired due to current . Patient has verbalizes frequent movement. labor precautions was discussed/given and patient was instructed to perform kick counts three times a day. Orders Placed This Encounter Procedures POCT urinalysis dipstick manually resulted Follow Up: Patient is to return to office in 2 week for routine OB appointment. Documented by JUMANA Trotter on behalf of: JUMANA Trotter documented in this encounter [facility] 03-05-2024 History of Presen t illness Narrative Reason for Appointment: Patient ID: Sarahi Zhu is a 29 y.o. female who presents for Routine Visit Patient presents today for Return OB appointment. MEDICATIONS Current Outpatient Medications Medication Instructions Vit-Fe Fumarate-FA (PNV Plus Multivitamin) 27-1 MG tablet 1 tablet, Daily ALLERGIES Allergies Allergen Reactions Amoxicillin Hives and Rash PROBLEMS Active Ambulatory Problems Diagnosis Date Noted 28 weeks gestation of 02/14/2024 Third trimester 02/14/2024 Resolved Ambulatory Problems Diagnosis Date Noted No [...] SYSTEMS Review of Systems: Review of Systems OBJECTIVE Objective: OBGyn Exam Vitals: Estimated body mass index is 34.27 kg/m as calculated from the following: Height as of 05/24/18: 4' 10.5 . Weight as of this encounter: 166 lb 12.8 oz. BP: 110/68 Patient's last menstrual period was 08/01/2023. ASSESSMENT & PLAN ICD-10-CM 1. size inconsistent with dates O26.849 US OB follow up transabdominal approach 2. 31 weeks gestation of Z3A.31 POCT urinalysis dipstick manually resulted 3. Third trimester Z34.93 POCT urinalysis dipstick manually resulted Patient presents today for a routine obstetrics appointment. Patient is currently 31w0d with a Estimated Date of Delivery: 05/07/24. Return in 2 weeks. Documented by Jazzy Root NP on behalf of: Sanjuana Love DO documented in this encounter [facility] 02-14-2024 History of Presen t illness Narrative Reason for Appointment: Patient ID: Sarahi Zhu is a 29 y.o. female who presents for Routine Visit Patient presents today for Return OB appointment. MEDICATIONS Current Outpatient Medications Medication Instructions Vit-Fe Fumarate-FA (PNV Plus Multivitamin) 27-1 MG tablet 1 tablet, Daily ALLERGIES Allergies Allergen Reactions Amoxicillin Hives [...] SYSTEMS Review of Systems: Review of Systems All other systems reviewed and are negative. OBJECTIVE Objective: Physical Exam Constitutional: Appearance: Normal [...] nursing note reviewed. Exam conducted with a state wildlife officer present. Vitals: Estimated body mass index is 32.87 kg/m as calculated from the following: Height as of 05/24/18: 4' 10.5 . Weight as of this encounter: 160 lb. BP: 100/60 Patient's last menstrual period was 08/01/2023. ASSESSMENT & PLAN ICD-10-CM 1. 28 weeks gestation of Z3A.28 POCT urinalysis dipstick manually resulted 2. Third trimester Z34.93 POCT urinalysis dipstick manually resulted Patient presents today for a routine obstetrics appointment. Patient is currently 28w1d with a Estimated Date of Delivery: 05/07/24. Patient is going to [facility] for her Rhogam injection. Patient to return to clinic 2-3 weeks. Documented by Yris Jacobs LPN on behalf of: Natacha Alston PA-C/Jazzy Root NP documented in this encounter [facility] 01-30-2024 History of Presen t illness Narrative Reason for Appointment: Patient ID: Sarahi Zhu is a 29 y.o. female who presents for Routine Visit Patient presents today for Return OB appointment. MEDICATIONS Current Outpatient Medications Medication Instructions multivitamin () 27-0.8 MG tablet 1 tablet, Oral, Daily Vit-Fe Fumarate-FA (PNV Plus Multivitamin) 27-1 MG tablet 1 tablet, Daily ALLERGIES Allergies Allergen Reactions Amoxicillin Hives [...] place, and time. Skin: General: Skin is warm. Psychiatric: Mood and Affect: Mood normal. Behavior: Behavior normal. Thought Content: Thought content normal. Judgment: Judgment normal. Vitals and nursing note reviewed. Vitals: Estimated body mass index is 32.07 kg/m as calculated from the following: Height as of 05/24/18: 4' 10.5 . Weight as of this encounter: 156 lb 1.9 oz. BP: 108/68 Patient's last menstrual period was 08/01/2023. ASSESSMENT & PLAN ICD-10-CM 1. 26 weeks gestation of Z3A.26 POCT urinalysis dipstick manually resulted 2. Second trimester Z34.92 POCT urinalysis dipstick manually resulted Return OB: Patient presents today for a routine obstetrics appointment. Patient is currently 26w0d . Patient states she is doing well but has complaints of being tired due to current . Patient has verbalizes frequent movement. Orders Placed This Encounter Procedures POCT urinalysis dipstick manually resulted Follow Up: Patient is to return to office in 2 week for routine OB appointment. Documented by JUMANA Trotter on behalf of: JUMANA Trotter documented in this encounter [facility] 01-03-2024 History of Presen t illness Narrative [...] nursing note reviewed. Exam conducted with a state wildlife officer present. Vitals: Estimated body mass index is [...] Sanjuana Love DO documented in this encounter [facility] 12-05-2023 History of Presen t illness Narrative [...] obtained without difficulty and patient was given [facility] order to have obtained. Orders Placed [...] of: JUMANA Trotter documented in this encounter [facility] 11-07-2023 History of Presen t illness Narrative Reason [...] SYSTEMS Review of Systems: Review of Systems All other systems reviewed and are negative. OBJECTIVE Objective: Physical Exam Constitutional: Appearance: Normal [...] nursing note reviewed. Exam conducted with a state wildlife officer present. Vitals: Estimated body mass index is 28.45 kg/m as calculated from the following: Height as of 05/24/18: 4' 10.5 . Weight as of this encounter: 138 lb 8 oz. BP: 106/64 Patient's last menstrual period was 08/01/2023. ASSESSMENT & PLAN ICD-10-CM 1. Second trimester Z34.92 POCT urinalysis dipstick manually resulted New OB: Patient and spouse presents today for 1st time obstetrics appointment with provider. Patient is currently 14w0d . Patients history has been reviewed in great detail including any potential risks. Patient stated she currently has no complaints. Expectations throughout regarding labs, ultrasounds, and appointments have been discussed with the patient in detail. It was reiterated that the patient is to drink 6-8 glasses of water a day, eat 6 small meals a day, do not consume raw or undercooked meat, and stay away from [facility]. Patient has been consulted regarding any further do's and don'ts of . Patient voiced understanding and all questions and concerns were answered. Discussed that patient is NEGATIVE blood type and will require Rhogam injection at 28 weeks gestation, order has already been faxed to [facility] Scheduling dept. Discussed Tdap and scheduling for that is they desire to have obtained. Orders Placed This Encounter Procedures POCT urinalysis dipstick manually resulted Follow Up: Patient is to return in 4 weeks for routine OB/ANNUAL appointment. Documented by Yris Jacobs LPN on behalf of: Sanjuana Love DO documented in this encounter [facility] 07-07-2021 Evaluation note Encounter Date Diagnosis Assessment Notes June, Well adult exam (ICD-10 - Z00.00) Routine lab work ordered today. Continue to follow with eye doctor and dentist, [employer]. Patient is advised to work on healthy [...] treatment pending results of testing. June, Other [employer] referral sent today so that she is able to discuss control options with them. Discussed referral process with patient. [facility] Other Evaluation note* Diagnosis Screening, , for anatomic survey Encounter for anatomic survey 18 weeks gestation of Second trimester state, incidental Vaginal discharge Leukorrhea, not specified as infective Screen for STD (sexually transmitted disease) Screening examination for venereal disease Well woman exam with routine gynecological exam Routine gynecological examination [facility] Work Phone: Evaluation note* Diagnosis Second trimester state, incidental 22 weeks gestation of Diabetes mellitus screening Screening for diabetes mellitus documented [facility]* Diagnosis 26 weeks gestation of Second trimester state, incidental [facility]* Diagnosis 28 weeks gestation of Third trimester state, incidental Rh negative state in antepartum period [facility]* Diagnosis Second trimester state, incidental [facility]* Diagnosis size inconsistent with dates- Primary 31 weeks gestation of Third trimester state, incidental [facility]* Diagnosis Third trimester state, incidental 33 weeks gestation of documented in this [facility] Narrative - Reported* Type Description Date Surgical History No know Surgical history Hospitalization History No know Hospitalization history [employer] Other Chief Complaint and Reason for Visit Chief Complaint Z3A.92 Family History Relationship Condition Age at Onset Recorded Date/T ce grandparent Hyperlipidemia Unknown grandparent Family history of kidney disease Unknown Unknown grandparent Dementia Unknown Advance Directives Advance Directive Response Recorded Date/ Time Advance Directives No July 07 2 10:43am Summary Purpose Additional Source Comments REASON FOR VISIT (unrecogniz ed section and content) Reason Comments Routine Visit Care Teams (unrecognized sec tion and content) [employer] Relationship Specialty Start Date End Date Dionne Miller NP [address] [facility] [place] [address] PCP - General 05/29/23 Water And Fire Technician Relationship Specialty Start Date End Date Dionne Miller NP [address] [facility] [place] [address] PCP - General 05/29/23 Team Status: Active Member Role Status Dates Alexandrazeynep Crockettmatazachery DO Primary Care Provider Active Team Status: Active Member Role Status Dates Dionne MARION Miller Primary Care Provider Active Start: September 07, 2023 Sanjuana Ivan , DO Attending Provider Active Start : September 07, 2023 Team Status: Active Member Role Status Dates Dionne Miller DNP Primary Care Provider Active Start: October 06, 2023 Sanjuana Ivan , DO Attending Provider Active Start : October 06, 2023 Team Status: Inactive Member Role Status Dates Alexandra DO Justo Primary Care Provider Active Start: December 05, 2023 End: December 05, 2023 DEWAYNE BlackwellC Attending Provider Active Sta rt: December 05, 2023 End: December 05, 2023 Water And Fire Technician Relationship Specialty Start Date End Date Dionne Miller NP [address] [facility] [place] [address] PCP - General 05/29/23 Water And Fire Technician Relationship Specialty Start Date End Date Dionne Miller NP [address] [facility] [place] [address] PCP - General 05/29/23 Water And Fire Technician Relationship Specialty Start Date End Date Dionne Miller NP [address] [facility] [place] [address] PCP - General 05/29/23 Water And Fire Technician Relationship Specialty Start Date End Date Dionne Miller NP [address] [facility] [place] [address] PCP - General 05/29/23 Natacha Alston PA [address] [place] [address] [place] [address] PCP - Medical [employer] 02/28/22 02/27/99 Water And Fire Technician Relationship Specialty Start Date End Date Dionne Miller NP [address] [place] [address] PCP - General 05/29/23 Natacha Alston PA [address] [place] [address] [place] [address] PCP - Medical [employer] 02/28/22 02/27/99 Water And Fire Technician Relationship Specialty Start Date End Date Dionne Miller NP [address] [place] [id number] PCP - General 05/29/23 Water And Fire Technician Relationship Specialty Start Date End Date Dionne Miller NP [address] [place] [address] PCP - General 05/29/23 Natacha Alston PA [address] [place] [address] [place] [address] PCP - Medical [employer] 02/28/22 02/27/99 [employer] And [employer] Technician Relationship Specialty Start Date End Date Dionne Miller NP [address] [place] [address] PCP - General 05/29/23 Natacha Alston PA [address] [place] [address] [place] [address] PCP - Medical [employer] 02/28/22 02/27/99 Goals (unrecognized section and content) Goals may be documented in a n alternate section INFORMATION SOURCE (unrecogn ized section and content) DATE CREATED AUTHOR 12/30/2023 [facility] DATE CREATED AUTHOR 'Alia PÉREZ 04/03/2024 [facility] d[facility] FOR RECORDS PERTAINING TO PATIENTS WHO ARE [...] BE BASED ON THE PRIMARY CLINICAL RECORDS. [facility] [employer] [facility]. provides no warranty or guarantee of the accuracy or completeness of information in this document.
== END 2024-04-10 20:44 | disposition home or self-care (01) ==
LOC: LAB 20:44
PROVIDERS: PCP Nurse Practitioner Family; Visit Provider Physician Assistant
DX: Z34.93 Encounter for supervision of normal pregnancy, unspecified, third trimester (principal)
CPT/HCPCS: 36415; 87081

== ENCOUNTER 2024-04-26 00:37 | Outpatient (OUT) | payer OTHER, SELFPAY ==
--- NOTE | 2024-04-26 | US_ITS ---
[address] [address] Patient Name: WILMAN MONTENEGRO MRN: [id number] date: 1995 Sex: F Assigned Patient Location: [facility] Current Patient Location: [facility] Accession/Order Number: [id number] Exam Date: 04/26/2024 11:28 Report Date: 04/26/2024 11:32 At the request of: SANJUANA JOYNER DO Procedure: US OB BPP w non-stress BIOPHYSICAL PROFILE: CLINICAL INFORMATION: hydronephrosis during O35.EXX1 COMPARISON: OB anatomy scan 12/20/2023 There is a single live intrauterine gestation in cephalic presentation. The reported gestational age is 38 weeks 3 days. The heart rate [id number] beats per minute. Dilatation of the renal pelvis is noted on both sides, right greater than left. FINDINGS: TONE: 1 or more episodes of activity extension and flexion of extremity or opening and closing of the hand [Y] 2/2 GROSS BODY MOVEMENTS: 3 or more discrete body or limb movements [Y] 2/2 BREATHING MOVEMENTS: 1 or more episodes of breathing lasting at least 30 seconds [Y] 2/2 ROGER: A single deepest vertical pocket of amniotic fluid greater than 2 cm [Y] 2/2 ROGER: 11.0 cm . This is in low-normal range. Total score: 8/8 US/US OB BPP w non-stress IMPRESSION: NORMAL BIOPHYSICAL PROFILE. BILATERAL RENAL PELVIECTASIS. Impression dictated by: Shira Bradley M.D.04/26/2024 11:32 AM Dictation Location: [employer] Electronically authenticated by: [id number] Y Date: 04/26/2024 11:32
--- OUTSIDE RECORDS SUMMARY | 2024-04-26 00:40 | XMS_ITS | CCD ---
Author Organization [facility] Care Team Providers Care Drama Professor Name Role Phone Dionne Miller Unavailable DO Alexandra Kemp Primary Care Provider PAT Alston Attending Provider Dionne Miller NP Primary Care Provider Alexandra Kemp Primary Care Unavailable Natacha Alston Attending Unavailable Natacha Alston Admitting Unavailable Natacha Stafford Unavailable NATACHA ALSTON Attending Unavailable IVAN, SANJUANA Attending Unavailable ALECIANATACHA Attending Unavailable IVAN, SANJUANA Referring Unavailable IVAN, SANJUANA Attending Unavailable IVAN, SANJUANA Attending Unavailable IVAN, SANJUANA Attending Unavailable IVAN, SANJUANA Attending Unavailable ALECIA, NATACHA Attending Unavailable IVAN, SANJUANA Attending Unavailable ALECIA, NATACHA Attending Unavailable IVAN, SANJUANA Attending Unavailable IVAN, SANJUANA Attending Unavailable ALECIA, NATACHA Referring Unavailable Allergies Allergy Classification Reported Allergen(s) Allergy Type Date of Onset Reaction(s) Facility (20 sources) Amoxicillin Drug Allergy 05-30-2023 rash, Hives [facility] (1 source) Amoxicillin Drug Allergy 07-07-2021 [facility] Repository Medications Current Medications Medication Drug Class(es) [...] of ] 01-30-2024 Episodic Residual codes; unclassified (20 sources) Gestation period, 28 weeks; Translations: [28 weeks gestation of ] Onset: 02-14-2024 02-14-2024 Episodic Residual codes; unclassified (2 sources) Gestation period, 31 weeks; Translations: [31 weeks gestation of ] 03-05-2024 Episodic Residual codes; unclassified (2 sources) Gestation period, 33 weeks; Translations: [33 weeks gestation of ] 03-20-2024 Episodic Residual codes; unclassified (2 sources) Gestation period, 36 weeks; Translations: [36 weeks gestation of ] 04-10-2024 Episodic Residual codes; unclassified (2 sources) Gestation period, 35 weeks; Translations: [35 weeks gestation of ] 04-02-2024 Episodic Residual codes; unclassified (5 sources) Gestation period, 37 weeks; Translations: [37 weeks gestation of ] Onset: 04-16-2024 04-16-2024 Episodic Unclassified (20 sources) OB Reminders Onset: 01-25-2024 01-25-2024 Past or Other Problems Problem Classification Problem Date Documented Da te Episodic/Chronic Malaise and fatigue (1 source) Other fatigue Onset: 07-07-2021 Resolved: 07-07-2021 Episodic Other skin disorders (1 source) Other skin changes Onset: 07-07-2021 Resolved: 07-07-2021 Episodic Results Test Name Value Interpretation Reference Range Facility US OB FOLLOW UP TRANSABDOMIN AL APPROACHon 04-16-2024 US OB FOLLOW UP TRANSABDOMINAL APPROACH TITLE OF EXAM: OB Ultrasound: REASON FOR EXAM: Inconsistent size. COMPARISON: 03/12/2024 TECHNIQUE: Grayscale and M-mode Doppler imaging is performed. FINDINGS: heart rate: 141 bpm ROGER: 10.3 cm (7.3-23.9) BPD: 9.0 cm HC: 33.7 cm AC: 33.7 cm FL: 7.1 cm GA for sonogram: 36.9 wk (34.6-39.2) MICHELLE: 04/30/2024 Weight Estimate: Weight: 3170 gm / 6 lbs, 15 oz (1059-9130 gm) Hadlock Normal: 3236 gm (2612-4200 gm) Hadlock Wt%: 44% for 38.0 wks Limited for: Growth Presentation: Cephalic Amniotic Fluid: 10.2 cm Between 5th and 95 percentile. Largest Fluid Pocket: 4.0 cm Heart Rate: 141 bpm Somatic motion: Yes There is AP separation of the right renal pelvis now measuring 1.2 cm. AP separation of the left renal pelvis measures 0.6 cm. Fluid-filled stomach is noted. Bladder is not specifically demonstrated. Amnionic fluid volume is subjectively normal. IMPRESSION: 1. Single live intrauterine gestation in cephalic position estimated sonographically at 36.9 weeks. This is approximately 1 week from prior ultrasound dating. 2. Progression in right renal hydronephrosis. Mild distention of the left renal pelvis persists to a lesser degree. renal ultrasound will be required to further assess. Dictated and transcribed 04/16/24/dpd This report has been electronically signed and approved by the interpreting radiologist. Normal Not Available Urinalysis macro (dipstick) panel (U)on 04-16-2024 Bilirubin, UA Negative Negative - 4(70) +++ mg/dL [facility] Blood, UA Negative Negative - 50 Jeremiah/mcL [facility] Clarity, UA Clear [facility] re Color, UA Yellow [facility] e Glucose, UA Negative Negative - 2000(110) ++++ mg/dL [facility] Interpretation and review of laboratory results Abnormal [facility] re Ketones, UA Negative Negative - 160(16) ++++ mg/dL [facility] Leukocytes, UA Trace Negative - 500+++ Hitesh/mcL [facility] Nitrite, UA Negative Negative - Positive [facility] pH, UA 7 5 - 9 [facility] e Protein, UA Negative Negative - 2000(20) ++++ mg/dL [facility] Spec Grav, UA 1.015 1 - 1.03 [facility] Urobilinogen, UA 0.2 0.2 - 12 mg/dL [facility] e ALL MISCELLANEOUS TESTon MISCELLANEOUS TEST COMMENT . [facility] H ealthcare Comment on above: Test Ordered: [id number] Strep Gp B Culture+Rflx Strep Gp B Culture+Rflx Negative CB Reference Range: Negative Centers for Disease Control and Prevention (CDC) and [place] [employer] of [employer]stetric[employer] and Gynecologists (ACOG) guidelines for prevention of group B streptococcal (GBS) disease specify co-collection of a vaginal and rectal swab specimen to maximize sensitivity of GBS detection. Per the CDC and ACOG, swabbing both the lower vagina and rectum substantially increases the yield of detection compared with sampling the vagina alone. Penicillin G, ampicillin, or cefazolin are indicated for intrapartum prophylaxis of GBS colonization. Reflex susceptibility testing should be performed prior to use of clindamycin only on GBS isolates from penicillin- allergic women who are considered a high risk for anaphylaxis. Treatment with vancomycin without additional testing is warranted if resistance to clindamycin is noted. Performed at: [facility] [address] [id number] Museum Docent: Pieter Tyler PhD, Phone: [phone] [id number] Group B Streptococcus Colonization Detection Culture With Re [facility] Urinalysis macro (dipstick) panel (U)on 04-10-2024 Bilirubin, UA Negative Negative - 4(70) +++ mg/dL [facility] Blood, UA Positive Negative - 50 Jeremiah/mcL [facility] Healthcare Clarity, UA Clear [facility] re Color, UA Yellow [facility] e Glucose, UA Negative Negative - 1999(110) ++++ mg/dL [facility] Interpretation and review of laboratory results Abnormal [facility] Health[facility] re Ketones, UA Negative Negative - 160(16) ++++ mg/dL [facility] Leukocytes, UA Trace Negative - 500+++ Hitesh/mcL [facility] Healthcare Nitrite, UA Negative Negative - Positive [facility] pH, UA 7 5 - 9 [facility] e Protein, UA Negative Negative - 1999(20) ++++ mg/dL [facility] Spec Grav, UA 1.015 1 - 1.03 [facility] Urobilinogen, UA 0.2 0.2 - 12 mg/dL [facility] Urinalysis macro (dipstick) panel (U)on 04-02-2024 Bilirubin, UA Negative Negative - 4(70) +++ mg/dL [facility] Blood, UA Negative Negative - 50 Jeremaih/mcL [facility] Healthcare Clarity, UA Clear [facility] re Color, UA Yellow [facility] Glucose, UA Negative Negative - 1999(110) ++++ mg/dL [facility] Interpretation and review of laboratory results Abnormal [facility] re Ketones, UA Negative Negative - 160(16) ++++ mg/dL [facility] Leukocytes, UA Trace Negative - 500+++ Hitesh/mcL [facility] Nitrite, UA Negative Negative - Positive [facility] pH, UA 7 5 - 9 [facility] e Protein, UA Negative Negative - 1999(20) ++++ mg/dL [facility] Spec Grav, UA 1.015 1 - 1.03 [facility] Urobilinogen, UA 0.2 0.2 - 12 mg/dL [facility] Urinalysis macro (dipstick) panel (U)on 03-20-2024 Bilirubin, UA Negative Negative - 4(70) +++ mg/dL [facility] Blood, UA Negative Negative - 50 Jeremiah/mcL [facility] Clarity, UA Clear [facility] re Color, UA Yellow [facility] e Glucose, UA Negative Negative - 1999(110) ++++ mg/dL [facility] Interpretation and review of laboratory results Abnormal [facility] Ketones, UA Negative Negative - 160(16) ++++ mg/dL [facility] Leukocytes, UA Trace Negative - 500+++ Hitesh/mcL [facility] Nitrite, UA Negative Negative - Positive [facility] pH, UA 7.5 5 - 9 [facility] e Protein, UA Negative Negative - 1999(20) ++++ mg/dL [facility] Spec Grav, UA 1.015 1 - 1.03 [facility] Urobilinogen, UA 0.2 0.2 - 12 mg/dL [facility] e US OB FOLLOW UP TRANSABDOMIN [...] 1956 gm / 4 lbs, 5 oz (3258-8967 gm) Hadlock Normal: 2162 gm (0845-1867 gm) Hadlock Wt%: 23% for 33.0 wks [...] renal ultrasound is recommended. Dictated and transcribed 03/12/24/dpd This report has been electronically signed and approved by the interpreting radiologist. Normal Not Available Comment on above: Order Comment: US OB SCAN FOR GROWTH Estimated Date of Delivery: 05/07/24 Gestational Age as of 03/05/2024: 31w0d Urinalysis macro (dipstick) panel (U)on 03-05-2024 Bilirubin, UA Negative Negative - 4(70) +++ mg/dL [facility] Blood, UA Negative Negative - 50 Jeremiah/mcL [facility] Clarity, UA Clear [facility] re Color, UA Yellow [facility] e Glucose, UA Negative Negative - 1999(110) ++++ mg/dL [facility] Interpretation and review of laboratory results Abnormal [facility] re Ketones, UA Positive Negative - 160(16) ++++ mg/dL [facility] Leukocytes, UA Negative Negative - 500+++ Hitesh/mcL [facility] Nitrite, UA Negative Negative - Positive [facility] pH, UA 6.5 5 - 9 [facility] e Protein, UA Negative Negative - 1999(20) ++++ mg/dL [facility] Spec Grav, UA 1.015 1 - 1.03 [facility] Urobilinogen, UA 0.2 0.2 - 12 mg/dL [facility] Urinalysis macro (dipstick) panel (U)on 02-14-2024 Bilirubin, UA Negative Negative - 4(70) +++ mg/dL [facility] Blood, UA Negative Negative - 50 Jeremiah/mcL [facility] Clarity, UA Clear [facility] re Color, UA Yellow [facility] e Glucose, UA Negative Negative - 1999(110) ++++ mg/dL [facility] Interpretation and review of laboratory results Normal [facility] re Ketones, UA Negative Negative - 160(16) ++++ mg/dL [facility] Leukocytes, UA Negative Negative - 500+++ Hitesh/mcL [facility] Healthcare Nitrite, UA Negative Negative - Positive [facility] pH, UA 7 5 - 9 [facility] e Protein, UA Negative Negative - 1999(20) ++++ mg/dL [facility] Spec Grav, UA 1.02 1 - 1.03 [facility] Urobilinogen, UA 0.2 0.2 - 12 mg/dL [facility] Urinalysis macro (dipstick) panel (U)on 01-30-2024 Bilirubin, UA Negative Negative - 4(70) +++ mg/dL [facility] Blood, UA Negative Negative - 50 Jeremiah/mcL [facility] Healthcare Clarity, UA Clear [facility] re Color, UA Yellow [facility] e Glucose, UA Negative Negative - 1999(110) ++++ mg/dL [facility] Interpretation and review of laboratory results Normal [facility] re Ketones, UA Negative Negative - 160(16) ++++ mg/dL [facility] Leukocytes, UA Negative Negative - 500+++ Hitesh/mcL [facility] Nitrite, UA Negative Negative - Positive [facility] pH, UA 7 5 - 9 [facility] e Protein, UA Negative Negative - 1999(20) ++++ mg/dL [facility] Spec Grav, UA 1.015 1 - 1.03 [facility] Urobilinogen, UA 0.2 0.2 - 12 mg/dL [facility] GLUCOSE 1 HOURon 01-23-2024 Glucose [Mass/Vol] 98 mg/dL NINF - 13 0 mg/dL [facility] e Urinalysis macro (dipstick) panel (U)on 01-03-2024 Bilirubin, UA Negative Negative - 4(70) +++ mg/dL [facility] Blood, UA Negative Negative - 50 Jeremiah/mcL [facility] Healthcare Clarity, UA Clear [facility] re Color, UA Yellow [facility] e Glucose, UA Negative Negative - 1999(110) ++++ mg/dL [facility] Interpretation and review of laboratory results Normal [facility] re Ketones, UA Negative Negative - 160(16) ++++ mg/dL [facility] Leukocytes, UA Negative Negative - 500+++ Hitesh/mcL [facility] Nitrite, UA Negative Negative - Positive [facility] pH, UA 6.5 5 - 9 [facility] [employer] e Protein, UA Negative Negative - 1999(20) ++++ mg/dL [facility] Spec Grav, UA 1.02 1 - 1.03 [facility] Urobilinogen, UA 1.0 0.2 - 12 mg/dL [facility] [employer] e IGP,APTIMA HPV,AGE GDLNon AGE GDLN ACOG TESTING Note . [facility] Comment on above: TESTS RESULT FLAG UN [facility] REF RANGE LAB Clinician Provided Cytology Information Source.............Cervix Other.............. No. of containers..01 ThinPrep Vial Age Algo ACOG Seble... - 01 FLAG LEGEND: L-Low Normal,H-High Normal,LL-Alert Low,HH-Alert High <-Panic Low,>-Panic High,A-Abnormal,AA-Critical Abnormal Performed at: 01 =G [facility] [address] [place] [address] Norah Samuels MD, IGP, RFX APTIMA HPV ASCU Note . [facility] Comment on above: TESTS RESULT FLAG UN ITS REF RANGE LAB DIAGNOSIS: 02 NEGATIVE FOR INTRAEPITHELIAL LESION OR MALIGNANCY. Specimen adequacy: 02 Satisfactory for evaluation. No endocervical component is identified. An endocervical component is not commonly seen in the patient. Performed by: Mario Watson Bowling Ball Grader ([facility]) . 02 Note: Note 02 [...] <-Panic Low,>-Panic High,A-Abnormal,AA-Critical Abnormal Performed at: [address] [id number] Norah Samuels MD, Performed at: = - [facility] [id number] Museum Docent: Norah Samuels MD, Phone: [phone] Performed at: [facility] [id number] Museum Docent: Norah Samuels MD, Phone: [phone] SPATULA-ALONE CERVIX [facility] URETHRITIS/DISCHARGE PLUS [facility]on 12-06-2023 ATOPOBIUM VAGINAE 0.000 [facility] He althcare [...] 12-05-2023 AFP Comments: Comment Normal . [facility] Comment on above: Order Comment: 18 WE EKS. JKW Is patient >15 week ?: Y Is extra paperwork completed?: Y Result Comment: Iona Carpio, Ph.D., [facility] Director References: Available Upon Request. Multiples Of Median Cutoffs Abbreviation Definitions For AFP Elevations IDD- Insulin Dep Diabetes [place] 2.5 Black 2.8 OSBR- Open Spina Bifida IDD 2.0 Twins 4.5 Risk DSR Cutoff 1:270 DSR- Down Syndrome Risk T18 Cutoff 1:100 T18- Trisomy 18 For further inquiries contact [facility] at [phone]. This test was developed and its performance characteristics determined by [facility]. It has not been cleared or approved by the Food and Drug Administration. Performed at: - [facility] [address] [place], [place] [id number] Museum Docent: Jenniffer Veliz [facility], Phone: [phone] PERFORMED BY: [facility] [place] [address] PATHOLOGIST SALESPERSON FLORIST [employer] PERCY ROSEN M.D. Performed By: #### A FPQUAD #### [facility] , AFP Interpretation Comment Normal . [facility] Comment on above: Order [...] identifies 60% of Trisomy 18 pregnancies. The [place] [employer] recommends amniocentesis [...] , AFP Mom 0.94 Normal . [facility] Comment on above: Order Comment: 18 WE EKSJuan ShadiaKW Is patient >15 week ?: Y Is extra paperwork completed?: Y Result Comment: --- 12/28/23 1508 --- AFP Mom previously reported as: See interpretation. Performed By: #### A FPQUAD #### [facility] , AFP Test Results: Negative Normal . [facility] Comment on above: Order Comment: 18 WE EKS. JKW Is patient >15 week ?: Y Is extra paperwork completed?: Y Result Comment: --- 12/28/23 1508 --- Test Results: previously reported as: See interpretation. Performed By: #### A FPQUAD #### [facility] , AFP Value 41.5 ng/mL Normal . [facility] Comment on above: Order Comment: 18 WE EKS. JKW Is patient >15 week ?: Y Is extra paperwork completed?: Y Performed By: #### A FPQUAD #### [facility] , SHAHBAZ Mom 1.27 Normal . [facility] Comment on above: Order Comment: 18 WE EKS. ShadiaKW Is patient >15 week ?: Y Is extra paperwork completed?: Y Result Comment: --- 12/28/23 1508 --- SHAHBAZ Mom previously reported as: See interpretation. Performed By: #### A FPQUAD #### [facility] , SHAHBAZ Value 213.50 pg/mL Normal . [facility] Comment on above: Order Comment: 18 WE EKS. ShadiaKW Is patient >15 week ?: Y Is extra paperwork completed?: Y Performed By: #### A FPQUAD #### [facility] , DSR 2nd Trimester 1 In 1706 Normal . [facility] Comment on above: Order Comment: 18 WE EKS. ShadiaKW Is patient >15 week ?: Y Is extra paperwork completed?: Y Result Comment: --- 12/28/23 150 --- DSR2nd Tri 1 In previously reported as: See interpretation. Performed By: #### A FPQUAD #### [facility] , DSR By Age 1 In 911 Normal . The [facility] Comment on above: Order Comment: 18 WE EKS. DEEPAKW Is patient >15 week ?: Y Is extra paperwork completed?: Y Result Comment: --- 12/28/23 150 --- DSR By Age 1 In previously reported as: See interpretation. Performed By: #### A FPQUAD #### [facility] , Gest. Age Based On MICHELLE Normal . [facility] Comment on above: Order Comment: 18 WE EKS. ShadiaKW Is patient >15 week ?: Y Is extra paperwork completed?: Y Result Comment: 04/28 --- 12/28/23 1508 --- Gest Age Based previously reported as: As provided Performed By: #### A FPQUAD #### [facility] , Gest. Age On Collection Date 18.0 Normal . [facility] Comment on above: Order Comment: 18 WE EKS. JKW Is patient >15 week ?: Y Is extra paperwork completed?: Y Performed By: #### A FPQUAD #### [facility] , HCG Mom 1.09 Normal . [facility] Comment on above: Order Comment: 18 WE EKS. JKW Is patient >15 week ?: Y Is extra paperwork completed?: Y Result Comment: --- 12/28/23 1508 --- HCG Mom previously reported as: See interpretation. Performed By: #### A FPQUAD #### [facility] , HCG Value 91458 m[iU]/mL Normal . [facility] Comment on above: Order Comment: 18 WE EKS. JKW Is patient >15 week ?: Y Is extra paperwork completed?: Y Performed By: #### A FPQUAD #### [facility] , Insulin Dependent Diabetes No Normal . [facility] Comment on above: Order [...] , Multiple Gestation No Normal . [facility] Comment on above: Order Comment: 18 WE EKS. JKW Is patient >15 week ?: Y Is extra paperwork completed?: Y Result Comment: Not provided. --- 12/28/23 1508 --- Mult Gest previously reported as: Comment Not provided. Performed By: #### A FPQUAD #### [facility] , OSBR Risk 1 In [id number] Normal . [facility] Comment on above: Order Comment: 18 WE EKJeremiah RenoKW Is patient >15 week ?: Y Is extra paperwork completed?: Y Result Comment: --- 12/28/23 1508 --- OSBR Risk 1 In previously reported as: See interpretation. Performed By: #### A FPQUAD #### [facility] , Race Normal . [facility] Comment on above: Order Comment: 18 WE EKS. ShadiaKW Is patient >15 week ?: Y Is extra paperwork completed?: Y Result Comment: Not provided. --- 12/28/23 150 --- Race previously reported as: Comment Not provided. Performed By: #### A FPQUAD #### [facility] , Results Comment Normal . [facility] Comment on above: Order Comment: 18 WE EKS. ShadiaKW Is patient >15 week ?: Y Is extra paperwork completed?: Y Result Comment: The MOM and risk factors of this report have been modified based on new information supplied to us by the client or their designated merchandising representative. Note that the gestational ages on [...] T18 By Age 1:3551 Normal . [facility] Comment on above: Order Comment: 18 WE EKSJuan RenoKW Is patient >15 week ?: Y Is extra paperwork completed?: Y Performed By: #### A FPQUAD #### [facility] , T18 Risk Not increased Normal . [facility] Comment on above: Order Comment: 18 WE EKS. JKW Is patient >15 week ?: Y Is extra paperwork completed?: Y Result Comment: --- 12/28/23 1508 --- T18 Risk previously reported as: See interpretation. Performed By: #### A FPQUAD #### [facility] , UE3 Mom 0.77 Normal . [facility] Comment on above: Order Comment: 18 WE EKS. JKW Is patient >15 week ?: Y Is extra paperwork completed?: Y Result Comment: --- 12/28/23 1508 --- UE3 Mom previously reported as: See interpretation. Performed By: #### A FPQUAD #### [facility] , UE3 Value 1.05 ng/mL Normal . [facility] Comment on above: Order Comment: 18 WE EKS. ShadiaKW Is patient >15 week ?: Y Is extra paperwork completed?: Y Performed By: #### A FPQUAD #### [facility] , Weight 143 Normal . [facility] Comment on above: Order Comment: 18 WE EKS. ShadiaKW Is patient >15 week ?: Y Is extra paperwork completed?: Y Result Comment: Not provided. --- 12/28/23 1508 --- Weight previously reported as: Comment lbs Not provided. Performed By: #### A FPQUAD #### [facility] , Urinalysis macro (dipstick) panel (U)on 12-05-2023 Bilirubin, UA Negative Negative - 4(70) +++ mg/dL [facility] Blood, UA Negative Negative - 50 Jeremiah/mcL [facility] Clarity, UA Clear [facility] re Color, UA Yellow [facility] Glucose, UA Negative Negative - 2000(110) ++++ mg/dL [facility] Interpretation and review of laboratory results Normal [facility] Ketones, UA Negative Negative - 160(16) ++++ mg/dL [facility] Leukocytes, UA Negative Negative - 500+++ Hitesh/mcL [facility] Nitrite, UA Negative Negative - Positive [facility] pH, UA 7.5 5 - 9 [facility] Protein, UA Negative Negative - 1999(20) ++++ mg/dL [facility] Health Care Spec Grav, UA 1.020 1 - 1.03 [facility] Urobilinogen, UA 0.2 0.2 - 12 mg/dL [facility] macro (dipstick) panel (U)on 11-07-2023 Bilirubin, UA Negative Negative - 4(70) +++ mg/dL [facility] Blood, UA Positive Negative - 50 Jeremiah/mcL [facility] Comment on above: trace-intact Clarity, UA Clear [facility] Color, UA Yellow [facility] Glucose, UA Negative Negative - 1999(110) ++++ mg/dL [facility] Interpretation and review of laboratory results Abnormal [facility] Ketones, UA Negative Negative - 160(16) ++++ mg/dL [facility] Leukocytes, UA Trace Negative - 500+++ Hitesh/mcL [facility] Nitrite, UA Negative Negative - Positive [facility] pH, UA 7.0 5 - 9 [facility] Protein, UA Negative Negative - 1999(20) ++++ mg/dL [facility] Spec Grav, UA 1.020 1 - 1.03 [facility] Urobilinogen, UA 0.2 0.2 - 12 mg/dL [facility] Basophils Auto (Bld) [#/Vol] on 10-06-2023 Basophils (Bld) [#/Vol] 0.0 10 3/uL 0.0-0.1 [facility] Basophils/100 WBC Auto (Bld) on 10-06-2023 Basophils/100 WBC (Bld) 0.5 % 0.2-2.0 [facility] Eosinophils/100 WBC Auto (Bl d)on 10-06-2023 Eosinophils/100 WBC (Bld) 1.2 % 0.9-7.0 [facility] Erythrocyte distribution wid th Auto (RBC) [Ratio]on 10-06-2023 Erythrocyte distribution width (RBC) [Ratio] 12.4 % 11.0-15.0 [facility] Glucose mean value [Mass/vol ume] in Blood Estimated from glycated hemoglobinon 10-06-2023 Average glucose Estimated from glycated hemoglobin (Bld) [Mass/Vol] 94 mg/dL [facility] HBV surface Ag IA Qlon 10-05 Hepatitis B Surface Antigen Negative Negative [facility] Comment on above: Performed at: [facility] [address] [id number] Director: Pieter Tyler PhD, Phone: [phone] Performed at: [facility] [place] [address] [id number] Director: Pieter Tyler PhD, Phone: [phone] HCV Ab Signal/Cutoff IA [Rel units/Vol]on 10-06-2023 Hepatitis C Antibody Non-Reactive Non Reactive [facility] HIV 1+2 Ab+HIV1 p24 Ag IA Ql on 10-06-2023 HIV (1&2) Antibody Screen Non-Reactive Non Reactive [facility] Comment on above: HIV-1/HIV-2 antibodi es and HIV-1 p24 antigen were NOTdetected. There is no laboratory evidence of HIV infection.HIV NegativePerformed at: [facility] [place] [address] [id number] Director: Pieter Tyler PhD, Phone: [phone] HIV-1/HIV-2 antibodi es and HIV-1 p24 antigen were NOTdetected. There is no laboratory evidence of HIV infection.HIV NegativePerformed at: [facility] [place] [address] [id number] Director: Pieter Tyler PhD, Phone: [phone] Hematocrit Auto (Bld) [Volum e fraction]on 10-06-2023 Hematocrit (Bld) [Volume fraction] 36.1 % 36.0-48.0 [facility] Hemoglobin [Mass/volume] in Bloodon 10-06-2023 Hemoglobin (Bld) [Mass/Vol] 12.6 g/dL 12.0-16.0 [facility] Laboratory - Hematology and Cell countson 10-06-2023 HbA1c (Bld) [Mass fraction] 4.9 % 4.5-6.2 [facility] Comment on above: ADA RECOMMENDED LIMI T 4.0 - 6.0ADA THERAPEUTIC TARGET < 7.0ACTION SUGGESTED> 7.0 Immature granulocytes/100 WBC (Bld) 0.1 % 0.0-0.5 [facility] Leukocytes [#/volume] correc marcia for nucleated erythrocytes in Blood by Automated counon 10-06-2023 WBC corrected for nucl RBC Auto (Bld) [#/Vol] 8.2 10 3/uL 4.0-11.0 [facility] Lymphocytes Auto (Bld) [#/Vo l]on 10-06-2023 Lymphocytes (Bld) [#/Vol] 2.1 10 3/uL 1.2-3.8 [facility] Lymphocytes/100 WBC Auto (Bl d)on 10-06-2023 Lymphocytes/100 WBC (Bld) 26.0 % 20.5-60.0 [facility] MCH Auto (RBC) [Entitic mass ]on 10-06-2023 MCH (RBC) [Entitic mass] 30.7 pg 26.7-34.0 [facility] MCHC Auto (RBC) [Mass/Vol]on 10-06-2023 MCHC (RBC) [Mass/Vol] 34.9 g/dL 29.9-35.2 [facility] MCV Auto (RBC) [Entitic vol] on 10-06-2023 MCV (RBC) [Entitic vol] 87.8 fL 81.0-99.0 [facility] Monocytes Auto (Bld) [#/Vol] on 10-06-2023 Monocytes (Bld) [#/Vol] 0.5 10 3/uL 0.3-0.8 [facility] Monocytes/100 WBC Auto (Bld) on 10-06-2023 Monocytes/100 WBC (Bld) 5.9 % 1.7-12.0 [facility] Neutrophils Auto (Bld) [#/Vo l]on 10-06-2023 Neutrophils (Bld) [#/Vol] 5.4 10 3/uL 1.4-6.5 [facility] Neutrophils/100 WBC Auto (Bl d)on 10-06-2023 Neutrophils/100 WBC (Bld) 66.3 % 43.0-75.0 [facility] No Panel Informationon 10-05 Eosinophils # (Auto) 0.1 10 3/uL 0.0-0.7 [facility] Hepatitis C Interpretation Comment . [facility] Comment on above: Not infected with HC V unless early or acute infection issuspected (which may be delayed in an immunocompromisedindividual), or other evidence exists to indicate HCVinfection.Performed at: [address] [id number] Director: Pieter Tyler PhD, Phone: [phone] Not infected with HC V unless early or acute infection issuspected (which may be delayed in an immunocompromisedindividual), or other evidence exists to indicate HCVinfection.Performed at: [address] [id number] Director: Pieter Tyler PhD, Phone: [phone] Immature Granulocyte # (Auto) 0.01 10 3/uL 0.00-0.03 [facility] RPR Quantitative Confirmation Non Reactive titer NonRea<1:1 [facility] Comment on above: Please Note: This te st does not meet current guidelines forscreening and diagnosis of syphilis. This test isintended for following treatment response in patients beingtreated for syphilis infection. To screen for syphilisinfection, a reflex cascade that includes both RPR and atreponema-specific assay should be utilized, such asTreponema pallidum (Syphilis) Screening [place] (830444) orRapid Plasma Reagin (RPR) Test With Reflex to QuantitativeRPR and Confirmatory Treponema pallidum Antibodies(974325).Performed at: [facility] [place] [address] [id number] Director: Pieter Tyler PhD, Phone: [phone] Rubella IgG Antibody 2.39 index Immune >0.99 [facility] Comment on above: Non-immune <0.90 Equ ivocal 0.90 - 0.99 Immune >0.99Performed at: [address] [id number] Director: Pieter Tyler PhD, Phone: [phone] Platelet mean volume Auto (B ld) [Entitic vol]on 10-06-2023 Platelet mean volume (Bld) [Entitic vol] 8.6 fL Low 9.5-13.5 [facility] Platelets Auto (Bld) [#/Vol] on 10-06-2023 Platelets (Bld) [#/Vol] 266 10 3/uL 150-450 [facility] RBC Auto (Bld) [#/Vol]on RBC (Bld) [#/Vol] 4.11 10 6/uL Low 4.20-5.40 [facility] No Panel Informationon 09-06 Human Chorionic Gonadotropin, Quant 5292 mIU/mL [facility] Comment on above: 5-50 0.2-1 OPMD52-87 0 1-2 JLHVF021-2,000 2-3 PRACF437-38,000 3-4 WEEKS1,000-50,000 4-5 WEEKS10,000-100,000 5-6 WEEKS15,000-200,000 6-8 WEEKS10,000-100,000 2-3 MONTHS Vital Signs Date Time Vital Sign Value Performing Clinician Facility 04-16-2024 10:39-0500 Body mass index (BMI) [Ratio] 35.54 kg/m2 [facility] Work Phone: [facility] 04-16-2024 10:39-0500 Body weight 78.47 kg [facility] Work Phone: [facility] 04-16-2024 10:39-0500 Diastolic blood pressure 64 mm[Hg] [facility] Work Phone: [facility] 04-16-2024 10:39-0500 Systolic blood pressure 110 mm[Hg] [facility] Work Phone: [facility] 04-10-2024 11:15-0500 Body mass index (BMI) [Ratio] 35.57 kg/m2 Natacha DENNEY Work Phone: [facility] 04-10-2024 11:15-0500 Body weight 78.53 kg Natacha DENNEY Work Phone: [facility] 04-10-2024 11:15-0500 Diastolic blood pressure 70 mm[Hg] Natacha Alston PA Work Phone: [facility] 04-10-2024 11:15-0500 Systolic blood pressure 112 mm[Hg] Natacha Alston PA Work Phone: [facility] 04-02-2024 09:35-0500 Body mass index (BMI) [Ratio] 34.95 kg/m2 Sanjuana Ivan DO Work Phone: [facility] 04-02-2024 09:35-0500 Body weight 77.17 kg Sanjuana Ivan DO Work Phone: [facility] 04-02-2024 09:35-0500 Diastolic blood pressure 72 mm[Hg] Sanjuana Ivan DO Work Phone: [facility] 04-02-2024 09:35-0500 Systolic blood pressure 98 mm[Hg] Sanjuana Ivan DO Work Phone: [facility] 03-20-2024 09:29-0500 Body mass index (BMI) [Ratio] 34.31 kg/m2 Natacha Alston PA Work Phone: [facility] 03-20-2024 09:29-0500 Body weight 75.75 kg Natacha Alston PA Work Phone: [facility] 03-20-2024 09:29-0500 Diastolic blood pressure 72 mm[Hg] Natacha Alston PA Work Phone: [facility] 03-20-2024 09:29-0500 Systolic blood pressure 120 mm[Hg] Natacha Alston PA Work Phone: [facility] 03-05-2024 14:00-0500 Body mass index (BMI) [Ratio] 34.27 kg/m2 Sanjuana Ivan DO Work Phone: [facility] 03-05-2024 14:00-0500 Body weight 75.66 kg Sanjuana Ivan DO Work Phone: [facility] 03-05-2024 14:00-0500 Diastolic blood pressure 68 mm[Hg] Sanjuana Ivan DO Work Phone: [facility] 03-05-2024 14:00-0500 Systolic blood pressure 110 mm[Hg] Sanjuana Ivan DO Work Phone: [facility] 02-14-2024 12:48-0500 Body mass index (BMI) [Ratio] 32.87 kg/m2 Sanjuana Ivan DO Work Phone: [facility] 02-14-2024 12:48-0500 Body weight 72.58 kg Sanjuana Ivan DO Work Phone: [facility] 02-14-2024 12:48-0500 Diastolic blood pressure 60 mm[Hg] Sanjuana Ivan DO Work Phone: [facility] 02-14-2024 12:48-0500 Systolic blood pressure 100 mm[Hg] Sanjuana Ivan DO Work Phone: [facility] 01-30-2024 09:03-0500 Body mass index (BMI) [Ratio] 32.07 kg/m2 Natacha DENNEY Work Phone: [facility] 01-30-2024 09:03-0500 Body weight 70.82 kg Natacha DENNEY Work Phone: [facility] 01-30-2024 09:03-0500 Diastolic blood pressure 68 mm[Hg] Natacha DENNEY Work Phone: [facility] 01-30-2024 09:03-0500 Systolic blood pressure 108 mm[Hg] Natacha DENNEY Work Phone: [facility] 01-03-2024 10:23-0500 Body mass index (BMI) [Ratio] 31.39 kg/m2 Sanjuana Ivan DO Work Phone: [facility] 01-03-2024 10:23-0500 Body weight 69.31 kg Sanjuana Ivan DO Work Phone: [facility] 01-03-2024 10:23-0500 Diastolic blood pressure 68 mm[Hg] Sanjuana Ivan DO Work Phone: [facility] 01-03-2024 10:23-0500 Systolic blood pressure 102 mm[Hg] Sanjuana Ivan DO Work Phone: [facility] 12-05-2023 09:41-0400 Body mass index (BMI) [Ratio] 29.33 kg/m2 Natacha Alecia PA Work Phone: [facility] 12-05-2023 09:41-0400 Body weight 64.75 kg Natacha Alston PA Work Phone: [facility] 12-05-2023 09:41-0400 Diastolic blood pressure 66 mm[Hg] Natacha Rankin PA Work Phone: [facility] 12-05-2023 09:41-0400 Systolic blood pressure 100 mm[Hg] Natacha Alecia PA Work Phone: [facility] 11-07-2023 09:53-0400 Body mass index (BMI) [Ratio] 28.45 kg/m2 Sanjuana Ivan DO Work Phone: [facility] 11-07-2023 09:53-0400 Body weight 62.82 kg Sanjuana Ivan DO Work Phone: [facility] 11-07-2023 09:53-0400 Diastolic blood pressure 64 mm[Hg] Sanjuana Ivan DO Work Phone: [facility] 11-07-2023 09:53-0400 Systolic blood pressure 106 mm[Hg] Sanjuana Ivan DO Work Phone: [facility] 07-07-2021 11:00-0400 Body height 151.13 cm Dionne Miller Other [facility] Other 07-07-2021 11:00-0400 Body mass index (BMI) [Ratio] 25.18 kg/m2 Dionne Miller Other [facility] Other 07-07-2021 11:00-0400 Body temperature 97 [degF] Dionne Miller Other [facility] Other 07-07-2021 11:00-0400 Body weight 57.52 kg Dionne Angela Other [facility] Other 07-07-2021 11:00-0400 Diastolic blood pressure 60 mm[Hg] Dionne Miller Other [facility] Other 07-07-2021 11:00-0400 Respiratory rate 18 /min Dionne Miller Other [facility] Other 07-07-2021 11:00-0400 SaO2% (BldA) [Mass fraction] 99 % Dionne Miller Other [facility] Other 07-07-2021 11:00-0400 Systolic blood pressure 100 mm[Hg] Dionne Miller Other [facility] Other Encounters Encounter Date Encounter Type Care Provider Facility Start: 04-23-2024 End: 04-23-2024 Bamboo flowsheet Sanjuana Ivan DO Work Phone: [facility] Start: 04-23-2024 End: 04-23-2024 Bamboo flowsheet Sanjuana Ivan DO Work Phone: [facility] Start: 04-23-2024 End: 04-23-2024 ambulatory SANJUANA IVAN Not Available Start: 04-16-2024 End: 04-16-2024 ambulatory SANJUANA IVAN Not Available Start: 04-16-2024 End: 04-16-2024 flow sheet Sanjuana Ivan DO Work Phone: [facility] Comment on above: 37 weeks gestation o f ; Third trimester Start: 04-16-2024 End: 04-16-2024 ambulatory SANJUANA IVAN Not Available Start: 04-10-2024 End: 04-10-2024 Bamboo flowsheet Natacha DENNEY Work Phone: [facility] Start: 04-10-2024 End: 04-15-2024 Bamboo flowsheet Natacha DENNEY Work Phone: [facility] Start: 04-10-2024 End: 04-15-2024 Clinisync Result Encounter Natacha DENNEY Work Phone: [facility] Unsolicited Start: 04-10-2024 End: 04-10-2024 flow sheet Natacha DENNEY Work Phone: [facility] Comment on above: Third trimester preg hortensia; 36 weeks gestation of Start: 04-10-2024 End: 04-10-2024 ambulatory NATACHA ALSTON Not Available Start: 04-02-2024 End: 04-02-2024 Bamboo flowsheet Sanjuana Ivan DO Work Phone: [facility] Start: 04-02-2024 End: 04-02-2024 Bamboo flowsheet Sanjuana Ivan DO Work Phone: [facility] Start: 04-02-2024 End: 04-02-2024 flow sheet Sanjuana Ivan DO Work Phone: [facility] Comment on above: Third trimester preg hortensia; 35 weeks gestation of Start: 04-02-2024 End: 04-02-2024 ambulatory SANJUANA IVAN Not Available Start: 03-20-2024 End: 03-20-2024 Bamboo flowsheet Natacha DENNEY Work Phone: [facility] Start: 03-20-2024 End: 03-20-2024 Bamboo flowsheet Natacha DENNEY Work Phone: [facility] Start: 03-20-2024 End: 03-20-2024 flow sheet Natacha DENNEY Work Phone: [facility] Comment on above: Third trimester preg hortensia; 33 weeks gestation of Start: 03-20-2024 End: 03-20-2024 ambulatory NATACHA ALECIA Not Available Start: 03-12-2024 End: 03-12-2024 ambulatory NATACHA RAMIREZEY Not Available Start: 03-05-2024 End: 03-05-2024 Bamboo [...] encounter procedure DO Alexandra Kemp Work Phone: [facility] Start: 12-05-2023 End: 12-05-2023 ambulatory DO Alexandra Kemp Work Phone: [facility] Work Phone: Start: 12-05-2023 End: 12-05-2023 Patient encounter procedure Natacha DENNEY Work Phone: [facility] Start: 12-05-2023 End: 12-05-2023 Periodic preventive med est patient 18-39 yrs Naatcha DENNEY Work Phone: [facility] Comment [...] / Non-visit DO Morena Kemp Work Phone: [facility] Work Phone: Start: 10-06-2023 End: 10-06-2023 ambulatory NATACHA ALSTON Not Available Start: 09-07-2023 Non-patient / Non-visit DO Morena Kemp Work Phone: [facility] Work Phone: Start: 06-29-2023 End: 06-29-2023 ambulatory SANJUANA IVAN Not Available Start: 05-30-2023 End: 05-30-2023 ambulatory NATACHA ALSTON Not Available Start: 07-07-2021 End: 07-07-2021 ambulatory Dionne Miller Other [place] [facility] Other Start: 07-07-2021 Encounter for genera l adult medical examination without abnormal findings Dionne Miller [facility] [place] Start: 07-07-2021 Periodic preventive med est patient 18-39 yrs Dionne Miller [facility] [place] Procedures Date Procedure Procedure Detail Performing Clinician Start: 04-16-2024 Urnls dip stick/tabl et rgnt non-auto w/o micrscp Sanjuana Ivan DO Work Phone: Start: 04-10-2024 ALL MISCELLANEOUS TEST Natacha DENNEY Work Phone: Start: 04-10-2024 Urnls dip stick/tabl et rgnt non-auto w/o micrscp Natacha DENNEY Work Phone: Start: 04-02-2024 Urnls dip stick/tabl et rgnt non-auto w/o micrscp Sanjuana Ivan DO Work Phone: Start: 03-20-2024 Urnls dip stick/tabl et rgnt [...] Treatment Date Care Activity Detail Author Start: 04-23-2024 End: 04-23-2024 Patient encounter procedure [facility] Comment on above: Arrived Start: 04-16-2024 End: 04-16-2024 Patient encounter procedure 04/16/2024 10:20 AM EST Routine [facility] [address] [facility] [place] [phone] Sanjuana Love, DO [address] [place] [address] [facility] Start: 04-16-2024 End: 04-16-2024 Professional / ancillary services management 04/16/2024 8:30 AM EST Ancillary Procedure [facility] [address] [place] [phone] [facility] Start: 04-11-2024 End: 04-11-2024 Professional / ancillary services management 04/11/2024 9:00 AM EST Ancillary Procedure [facility] [address] [place] [phone] [facility] Start: 04-10-2024 End: 04-10-2025 CULTURE, GROUP B STREP WITH SUSCEPTIBLITY CULTURE, GROUP B STREP WITH SUSCEPTIBLITY Lab Routine Third trimester Expected: 04/10/2024, Expires: 04/10/2025 [facility] Work Phone: Comment on above: Expected: 04/10/2024 , Expires: 04/10/2025 Start: 04-10-2024 End: 04-10-2024 Patient encounter procedure 04/10/2024 11:20 AM EST Routine [facility] [address] [place] [address] Natacha Alston PA [address] [place], [place] [phone] Arrived [facility] Comment on above: Arrived Start: 04-02-2024 End: 04-02-2024 Patient encounter procedure [facility] Comment on above: Arrived Start: 03-20-2024 End: 03-20-2024 Patient encounter procedure [facility] Comment on above: Arrived Start: 03-12-2024 End: 03-12-2024 Professional / ancillary services management 03/12/2024 10:00 AM EST Ancillary Procedure [facility] [address] [place] [address] [facility] Start: 03-05-2024 End: 03-05-2025 [...] Routine [facility] [address] [place] [address] Sanjuana Love, [address] [place] [address] Arrived [facility] Comment on above: Arrived Start: 02-13-2024 End: 02-13-2024 Patient encounter procedure 02/13/2024 8:30 AM EST Routine [facility] [address] [facility] [place] [phone] Sanjuana Love DO [address] [facility] [place] [address] [facility] Start: 01-31-2024 End: 01-31-2024 Patient encounter procedure 01/31/2024 8:30 AM EST Routine [facility] [address] [facility] [place] [address] Natacha Alston, PA [address] [facility] [place] [address] [facility] Start: 01-30-2024 End: 01-30-2024 Patient encounter procedure 01/30/2024 8:50 AM EST Routine [facility] [address] [facility] [place] [phone] Natacha Alston, PA [address] [facility] [place] [address] [facility] Start: 01-24-2024 End: 01-24-2024 Professional / ancillary services management 01/24/2024 8:30 AM EST Ancillary Procedure [facility] [address] [place] [phone] [facility] Start: 01-03-2024 End: 01-02-2025 CBC panel - Blood by Automated count CBC Lab Routine Diabetes mellitus screening Expected: 01/03/2024 (Approximate), Expires: 01/02/2025 [facility] Work Phone: Comment on above: Expected: 01/03/2024 (Approximate), Expires: 01/02/2025 Start: 01-03-2024 End: 01-02-2025 Measurement of glucose 1 hour after glucose challenge for glucose tolerance test Glucose tolerance, 1 hour Lab Routine Diabetes mellitus screening Expected: 01/03/2024 (Approximate), Expires: 01/02/2025 [facility] Comment on above: Expected: 01/03/2024 (Approximate), Expires: 01/02/2025 Start: 01-03-2024 End: 01-03-2024 Patient encounter procedure 01/03/2024 9:40 AM EST Routine [facility] [address] [facility] [place] [phone] Sanjuana Love, DO [address] [place], [place] [phone] [facility] Start: 12-20-2023 End: 12-20-2023 Professional / ancillary services management 12/20/2023 10:00 AM EDT Ancillary Procedure [facility] [address] [place] [phone] [facility] Start: 12-05-2023 End: 12-04-2024 Alpha fetoprotein, maternal Alpha fetoprotein, maternal Lab Routine 18 weeks gestation of Second trimester Expected: 12/05/2023 (Approximate), Expires: 12/04/2024 [facility] Comment on above: Expected: 12/05/2023 (Approximate), Expires: 12/04/2024 Start: 12-05-2023 End: 12-04-2024 US for US OB ANATOMY SINGLE W US OB CERVICAL LENGTH Imaging Routine Screening, , for anatomic survey Expected: 12/05/2023 (Approximate), Expires: 12/04/2024 [facility] Comment on above: Expected: 12/05/2023 (Approximate), Expires: 12/04/2024 Start: 12-05-2023 [facility] Start: 12-05-2023 End: 12-05-2023 Patient encounter procedure [facility] Comment on above: Arrived Start: 11-07-2023 End: 11-07-2023 Patient encounter procedure 11/07/2023 9:40 AM EDT Routine [facility] [address] [facility] [address] [place] [address] Sanjuana Love, DO [address] [facility] [place] [address] Arrived [facility] Comment on above: Arrived Start: 10-30-2023 Influenza vaccination Influenza Vacc ine (#1) [facility] [id number] [Mass/volume] in Serum or Plasma [facility] Assessment of gestational age [facility] Body weight [facility] CHLAMYDIA TRACHOMATI S (GENITO/STI) CHLAMYDIA TRACHOMATIS (GENITO/STI) Lab Routine Vaginal discharge Screen for STD (sexually transmitted disease) Ordered: 12/05/2023 [facility] Comment on above: Ordered: 12/05/2023 Choriogonadotropin.i ntac t+Beta subunit [Units/volume] in Serum or Plasma [facility] Cytology Cervical or vaginal smear or scraping study Pap Smear Pathology and Cytology Routine Well woman exam with routine gynecological exam Ordered: 12/05/2023 [facility] Work Phone: Comment on above: Ordered: 12/05/2023 Diabetes mellitus screening [facility] Estriol (E3).unconjugated [Mass/volume] in Serum or Plasma [facility] Human chorionic gonadotropin measurement [facility] Inhibin A [Mass/volu me] in Serum or Plasma [facility] Inhibin measurement [facility] Laboratory data interpretation [facility] Neisseria gonorrhoea e DNA [Presence] in Unspecified specimen by ARMAND with probe detection Neisseria gonorrhea DNA probe, direct Lab Routine Vaginal discharge Screen for STD (sexually transmitted disease) Ordered: 12/05/2023 [facility] Comment on above: Ordered: 12/05/2023 Risk assessment [facility] Risk identification: genetic [facility] Serum alpha-fetoprot ein multiple of median measurement [facility] [facility] SURESWAB(R) ADVANCED VAGINITIS PLUS, TMA SURESWAB(R) ADVANCED VAGINITIS PLUS, TMA Pathology and Cytology Routine Vaginal discharge Screen for STD (sexually transmitted disease) Ordered: 12/05/2023 [facility] Comment on above: Ordered: 12/05/2023 Unconjugated estriol measurement [facility] Immunizations Immunization Date Immunization Notes Care Provider Cordell pandey 08-05-2010 tetanus toxoid, redu bobby diphtheria toxoid, and acellular pertussis vaccine, adsorbed Dionne Miller Other [facility] Payers Date Payer Category Payer Self-pay [id number] 2022 Private Health Insurance [employer] [id number] 2022 Unknown [employer] [id number] 2022-Present [address] [place] [address] [id number]. [id number] 2021 Unknown [id number] 2.16.840.1.532745.19 1997 Unknown [id number] 2.16.840.1.612803.3.579.2. 9 1997 Unknown [id number] 2.16.840.1.443605.3.579.2. 1258 1997 Unknown [id number] 2.16.840.1.074841.3.579.2. 9 1997 Unknown [id number] 2.16.840.1.575310.3.579.2. 9 1997 Unknown [id number] 2.16.840.1.605112.3.579.2. 9 1997 Unknown [id number] 2.16.840.1.431660.3.579.2. 9 1997 Unknown [id number] 2.16.840.1.921755.3.579.2. 9 1997 Unknown [id number] 2.16.840.1.484460.3.579.2. 1258 1997 Unknown [id number] 2.16.840.1.961946.3.579.2. 9 1997 Unknown [id number] 2.16.840.1.333768.3.579.2. 1258 1997 Unknown [id number] 2.16.840.1.426921.3.579.2. 9 1997 Unknown [id number] 2.16.840.1.885316.3.579.2. 1258 1997 Unknown [id number] 2.16.840.1.157185.3.579.2. 9 1997 Unknown [id number] 2.16.840.1.287381.3.579.2. 9 1997 Unknown [id number] 2.16.840.1.458420.3.579.2. 9 1997 Unknown [id number] 2.16.840.1.932009.3.579.2. 1258 Unknown [id number] 2.16.840.1.450425.3.579.2. 531 Social History Date Type Detail Facility Start: 05-30-2023 Sex Assigned At Patient Feed Other Start: 03-29-2018 End: 05-30-2023 Tobacco smoking status VAIS Never smoked tobacco [facility] Start: 05-30-2023 Tobacco use and exposure Smokeless tobacco non-user [facility] Start: 11-07-2023 End: 03-05-2024 Alcoholic beverage intake Ex-drinker (finding) [facility] Start: 05-30-2023 History of Social function [facility] Start: 11-07-2023 Alcohol Comment Prior to 1-2 drinks per month [facility] Start: 08-15-2023 [facility] Start: 1995 Sex assigned at Female [facility] Start: 05-29-2023 Gender identity Identifies as female gender (finding) [facility] Start: 05-29-2023 Sexual orientation Heterosexual (finding) [facility] Start: 05-30-2023 Alcohol Comment Caffeine intake: 1-2 cups/day [facility] Goals Date Patient Goal Desired Activity /State Personal health goal Clinical Notes 07-07-2021 to 04-16-2024 Sanjuana Love, DO - 04/16/2024 10:20 AM JUMANA Gonzalez - 04/10/2024 11:20 AM Aidee Love DO - 04/02/2024 9:30 AM JUMANA Gonzalez - 03/20/2024 9:30 AM JUMANA Gonzalez - 01/30/2024 8:50 AM EST Note Date & Type Note Facility 04-16-2024 History of Presen t illness Narrative Reason [...] weeks gestation of 02/14/2024 Third trimester 02/14/2024 37 weeks gestation of 04/16/2024 Resolved Ambulatory Problems Diagnosis Date Noted No [...] nursing note reviewed. Exam conducted with a business systems administrator present. Vitals: Estimated body mass index is 35.54 kg/m as calculated from the following: Height as of 05/24/18: 4' 10.5 . Weight as of this encounter: 173 lb. BP: 110/64 Patient's last menstrual period was 08/01/2023. ASSESSMENT & PLAN ICD-10-CM 1. 37 weeks gestation of Z3A.37 POCT urinalysis dipstick manually resulted 2. Third trimester Z34.93 Patient presents today for a routine obstetrics appointment. Patient is currently 37w0d with a Estimated Date of Delivery: 05/07/24. Patient to return to clinic in 1 week. Documented by Yris Jacobs LPN on behalf of: Sanjuana Love DO documented in this encounter [facility] 04-10-2024 History of Presen t illness Narrative Reason [...] reviewed. Vitals: Estimated body mass index is 35.57 kg/m as calculated from the following: Height as of 05/24/18: 4' 10.5 . Weight as of this encounter: 173 lb 1.9 oz. BP: 112/70 Patient's last menstrual period was 08/01/2023. ASSESSMENT & PLAN ICD-10-CM 1. Third trimester Z34.93 CULTURE, GROUP B STREP WITH SUSCEPTIBLITY CULTURE, GROUP B STREP WITH SUSCEPTIBLITY 2. 36 weeks gestation of Z3A.36 Patient is doing well but has complaints of being tired and having maternal discomfort due to . Patient verbalized frequent movement and was instructed to perform kick counts three times per day. labor precautions were given, LARC consent was signed/declined, and GBS was obtained. Cervical check was performed and patient is 1cm dilated. Orders Placed This Encounter Procedures CULTURE, GROUP B STREP WITH SUSCEPTIBLITY Follow Up: Patient is to return to office in 1 week for routine OB appointment Documented by Janelle Carlos MA on behalf of: JUMANA Trotter documented in this encounter [facility] 04-02-2024 History of Presen t illness Narrative Reason for Appointment: Patient ID: Sarahi Zhu is a 29 y.o. female who presents for Routine Visit Patient presents today for Return OB appointment. Current Medications: has a current medication list which includes the following prescription(s): pnv plus multivitamin. Medical History: Active Ambulatory Problems Diagnosis Date Noted 28 weeks gestation of 02/14/2024 Third trimester 02/14/2024 Resolved Ambulatory Problems Diagnosis Date Noted No Resolved Ambulatory Problems No Additional Past Medical History Family History Problem Relation Name Age of Onset Hyperthyroidism Mother Hypertension Father Social History Tobacco Use Smoking status: Never Smokeless tobacco: Never Vaping Use Vaping status: Never Used Substance Use Topics Alcohol use: Not Currently Comment: Prior to 1-2 drinks per month Drug use: Never Past Surgical History: Procedure Laterality Date WISDOM TOOTH EXTRACTION Allergies Allergen Reactions Amoxicillin Hives and Rash Review of Systems: Review of Systems All other systems reviewed and are negative. Objective Physical Exam Constitutional: Appearance: Normal appearance. She [...] nursing note reviewed. Exam conducted with a business systems administrator present. Vitals: Estimated body mass index is 34.95 kg/m as calculated from the following: Height as of 05/24/18: 4' 10.5 . Weight as of this encounter: 170 lb 1.9 oz. BP: 98/72 Patient's last menstrual period was 08/01/2023. Assessment/Plan Encounter Diagnosis: ICD-10-CM 1. Third trimester Z34.93 POCT urinalysis dipstick manually resulted 2. 35 weeks gestation of Z3A.35 Return OB: Patient presents today for a routine obstetrics appointment. Patient is currently 35w0d . Patient states she is doing well but has complaints of being tired due to current . Patient has verbalizes frequent movement. labor precautions was discussed/given and patient was instructed to perform kick counts three times a day. Orders Placed This Encounter Procedures POCT urinalysis dipstick manually resulted Follow Up: Patient is to return to office in 1 week for routine OB appointment. Documented by Sanjuana Love DO on behalf of: Sanjuana Love DO documented in this encounter [facility] 03-20-2024 History of Presen t illness Narrative [...] of: JUMANA Trotter documented in this encounter [facility] 03-05-2024 History of Presen t illness Narrative [...] Sanjuana Love DO documented in this encounter [facility] 02-14-2024 History of Presen t illness Narrative [...] nursing note reviewed. Exam conducted with a business systems administrator present. Vitals: Estimated body mass index [...] of Delivery: 05/07/24. Patient is going to [facility] for her Rhogam injection. Patient to return to clinic 2-3 weeks. Documented by Yris Jacobs LPN on behalf of: Natacha Alston PA-C/Jazzy Root NP documented in this encounter [facility] 01-30-2024 History of Presen t illness Narrative [...] of: JUMANA Trotter documented in this encounter [facility] 01-03-2024 History of Presen t illness Narrative [...] nursing note reviewed. Exam conducted with a business systems administrator present. Vitals: Estimated body mass index [...] Sanjuana Love DO documented in this encounter [facility] 12-05-2023 History of Presen t illness Narrative [...] of: JUMANA Trotter documented in this encounter [facility] 11-07-2023 History of Presen t illness Narrative [...] nursing note reviewed. Exam conducted with a business systems administrator present. Vitals: Estimated body mass index [...] or undercooked meat, and stay away from [facility]. Patient has been consulted regarding any further do's and don'ts of . Patient voiced understanding and all questions and concerns were answered. Discussed that patient is NEGATIVE blood type and will require Rhogam injection at 28 weeks gestation, order has already been faxed to [facility] Scheduling dept. Discussed Tdap and scheduling for that is they desire to have obtained. Orders Placed This Encounter Procedures POCT urinalysis dipstick manually resulted Follow Up: Patient is to return in 4 weeks for routine OB/ANNUAL appointment. Documented by Yris Jacobs LPN on behalf of: Sanjuana Love DO documented in this encounter [facility] 07-07-2021 Evaluation note Encounter Date Diagnosis Assessment Notes June, Well adult exam (ICD-10 - Z00.00) Routine lab work ordered today. Continue to follow with eye doctor and dentist, [facility]. Patient is advised to work on healthy diet choices and appropriate servings, weight control, regular exercise as directed, reduced fat intake, and salt avoidance. Patient voiced understanding of this and agrees to this plan. 10 Jun, 2021 Fatigue, unspecified type (ICD-10 - R53.83) Has [...] treatment pending results of testing. June, Other [facility] referral sent today so that she is able to discuss control options with them. Discussed referral process with patient. Patient Feed Other Evaluation note* Diagnosis Screening, , for anatomic survey Encounter for anatomic survey 18 weeks gestation of Second trimester state, incidental Vaginal discharge Leukorrhea, not specified as infective Screen for STD (sexually transmitted disease) Screening examination for venereal disease Well woman exam with routine gynecological exam Routine gynecological examination [facility]No assessment information [facility] Work Phone: Evaluation note* Diagnosis Second trimester state, incidental 22 weeks gestation of Diabetes mellitus screening Screening for diabetes mellitus documented in this encounter [facility]* Diagnosis 26 weeks gestation of Second trimester state, incidental documented in this encounter [facility]* Diagnosis 28 weeks gestation of Third trimester state, incidental Rh negative state in antepartum period documented in this encounter [facility]* Diagnosis Second trimester state, incidental documented in this encounter [facility]* Diagnosis size inconsistent with dates- Primary 31 weeks gestation of Third trimester state, incidental [facility] Diagnosis Third trimester state, incidental 33 weeks gestation of [facility]* Diagnosis Third trimester state, incidental 36 weeks gestation of [facility]* Diagnosis Third trimester state, incidental 35 weeks gestation of [facility]* Diagnosis 37 weeks gestation of Third trimester state, incidental [facility] Narrative - Reported* Type Description Date Surgical History No know Surgical history Hospitalization History No know Hospitalization history Patient Feed Other Chief Complaint and Reason for Visit Chief Complaint Z3A.92 Family History No Family History Records Found [...] Care Teams (unrecognized sec tion and content) Drama Professor Relationship Specialty Start Date End Date Dionne Miller NP [address] [facility] [place] [address] PCP - General 05/29/23 Drama Professor Relationship Specialty Start Date End Date Dionne Miller NP [address] [facility] [place] [address] PCP - General 05/29/23 Team Status: Active Member Role Status Dates Alexandra Kemp DO Primary Care Provider Active Team Status: Active Member Role Status Dates Dionne Millre DNP Primary Care Provider Active Start: September 07, 2023 Sanjuana Love DO Attending Provider Active Start : September 07, 2023 Team Status: Active Member Role Status Dates Dionne Kaple , DNP Primary Care Provider Active Start: October 06, 2023 Sanjuana Love Attending Provider Active Start : October 06, 2023 Team Status: Inactive Member Role Status Dates Alexandra Kemp Primary Care Provider Active Start: December 05, 2023 End: December 05, 2023 Natacha Alston PA-C Attending Provider Active Sta rt: December 05, 2023 End: December 05, 2023 Drama Professor Relationship Specialty Start Date End Date Dionne Miller SALES REPRESENTATIVE [employer] [address] [place] [address] PCP - General 05/29/23 Drama Professor Relationship Specialty Start Date End Date Dionne Miller NP [address] [place] [address] PCP - General 05/29/23 Drama Professor Relationship Specialty Start Date End Date Dionne Miller SALES REPRESENTATIVE [employer] [address] [place] [id number] PCP - General 05/29/23 Drama Professor Relationship Specialty Start Date End Date Dionne Miller SALES REPRESENTATIVE [employer] [address] [place] [address] PCP - General 05/29/23 Natacha Alston PA [address] [place] [address] [place] [address] PCP - Medical [employer] 02/28/22 02/27/99 Drama Professor Relationship Specialty Start Date End Date Dionne Miller SALES REPRESENTATIVE [employer] [address] [facility] [place] [address] PCP - General 05/29/23 Natacha Alston PA [address] [place] [address] [place] [address] PCP - Medical [employer] 02/28/22 02/27/99 Drama Professor Relationship Specialty Start Date End Date Dionne Miller NP [address] [facility] [place] [id number] PCP - General 05/29/23 Drama Professor Relationship Specialty Start Date End Date Dionne Miller NP [address] [facility] [place] [address] PCP - General 05/29/23 Natacha Alston PA [address] [place] [address] [place] [address] PCP - Medical [employer] 02/28/22 02/27/99 Drama Professor Relationship Specialty Start Date End Date Dionne Miller NP [address] [facility] [place] [address] PCP - General 05/29/23 Natacha Alston PA [address] [place] [address] [place] [address] PCP - Medical [employer] 02/28/22 02/27/99 Drama Professor Relationship Specialty Start Date End Date Dionne Miller NP [address] [place] [address] PCP - General 05/29/23 Natacha Alston PA [address] [place] [address] [place] [address] PCP - Medical [employer] 02/28/22 02/27/99 Goals (unrecognized section and content) Goals may be documented in a n alternate section INFORMATION SOURCE (unrecogn ized section and content) DATE CREATED AUTHOR 12/30/2023 [facility] DATE CREATED AUTHOR AUTHOR'S FABIOLA ATSHEREE 04/24/2024 [facility] FOR RECORDS PERTAINING TO PATIENTS WHO [...] BE BASED ON THE PRIMARY CLINICAL RECORDS. [facility] [employer] provides no warranty or guarantee of the accuracy or completeness of information in this document.
[2024-04-26 11:11] VITALS: BP 111/66; PULSE 85
== END 2024-04-26 11:38 | disposition home or self-care (01) ==
LOC: US 00:37 → FBC 10:37
PROVIDERS: PCP Nurse Practitioner Family; Visit Provider Obstetrics & Gynecology
DX: O35.EXX1 Maternal care for other (suspected) fetal abnormality and damage, fetal genitourinary anomalies, fetus 1 (principal); Z3A.38 38 weeks gestation of pregnancy
CPT/HCPCS: 76818

== ENCOUNTER 2024-04-30 02:30 | Outpatient (OUT) | payer OTHER, SELFPAY ==
--- OUTSIDE RECORDS SUMMARY | 2024-04-30 02:34 | XMS_ITS | CCD ---
Author Organization [facility] Care Team Providers Care Soloist Dancer Name Role Phone Dionne Miller Unavailable DO Alexandra Kemp Primary Care Provider PAT Alston Attending Provider Dionne Miller NP Primary Care Provider [phone] Alexandra Kemp Primary Care Unavailable Natacha Alston [...] sources) Amoxicillin Drug Allergy 05-30-2023 rash, Hives [facility] (1 source) Amoxicillin Drug Allergy 07-07-2021 [facility] Repository Medications Current Medications Medication Drug [...] of transmission] 12-05-2023 Episodic Other complications of ; puerperium affecting management of mother (2 sources) hydronephrosis; Translations: [ hydronephrosis during , antepartum, fetus 1] 04-23-2024 Episodic Other complications of (2 sources) RhD [...] of ] 04-02-2024 Episodic Residual codes; unclassified (8 sources) Gestation period, 37 weeks; Translations: [37 weeks gestation of ] Onset: 04-16-2024 04-16-2024 Episodic Residual codes; unclassified (2 sources) Gestation period, 38 weeks; Translations: [38 weeks gestation of ] 04-23-2024 Episodic Unclassified (20 sources) OB Reminders Onset: 01-25-2024 01-25-2024 Past or Other Problems Problem Classification Problem Date Documented Da te Episodic/Chronic Malaise and fatigue (1 source) Other fatigue Onset: 07-07-2021 Resolved: 07-07-2021 Episodic Other skin disorders (1 source) Other skin changes Onset: 07-07-2021 Resolved: 07-07-2021 Episodic Results Test Name Value Interpretation Reference Range Facility OB BPP W NON-STRESS on 04-26-2024 [place] [address] Ultrasound Report Signed Patient: SARAHI MONTENEGRO MR#: [id number] : 1995 Acct:[id number] Age/Sex: 29 / F ADM Date: 04/26/24 Loc: [facility] 254-[address]: Sanjuana Love D.O. Ordering Physician: Sanjuana Love D.O. Date of Service: 04/26/24 Procedure(s): OB BPP w non-stress Accession Number(s): [id number] cc: Sanjuana Love D.O.; DIONNE MILLER The [address] [address] Patient Name: SARAHI MONTENEGRO MRN: [facility]:[id number] date: 1995 Sex: F Assigned Patient Location: [facility] Current Patient Location: [facility] Accession/Order Number: [id number] Exam Date: 04/26/2024 11:28 Report Date: 04/26/2024 11:32 At the request of: SANJUANA LOVE DO Procedure: US OB BPP w non-stress BIOPHYSICAL PROFILE: CLINICAL INFORMATION: hydronephrosis during O35.EXX1 COMPARISON: OB anatomy scan 12/20/2023 There is a single live intrauterine gestation in cephalic presentation. The reported gestational age is 38 weeks 3 days. The heart rate [id number] beats per minute. Dilatation of the renal pelvis is noted on both sides, right greater than left. FINDINGS: TONE: 1 or more episodes of activity extension and flexion of extremity or opening and closing of the hand [Y] 2/2 GROSS BODY MOVEMENTS: 3 or more discrete body or limb movements [Y] 2/2 BREATHING MOVEMENTS: 1 or more episodes of breathing lasting at least 30 seconds [Y] 2/2 ROGER: A single deepest vertical pocket of amniotic fluid greater than 2 cm [Y] 2/2 ROGER: 11.0 cm . This is in low-normal range. Total score: 8/8 US/US OB BPP w non-stress IMPRESSION: NORMAL BIOPHYSICAL PROFILE. BILATERAL RENAL PELVIECTASIS. Impression dictated by: Shira Bradley M.D.04/26/2024 11:32 AM Dictation Location: [place] [address] Electronically authenticated by: [id number] Y Date: 04/26/2024 11:32 Dictated By: Shira Bradley M.D. Signed By: 04/26/24 1134 DD/ 1132 TD/TT: Christmas Tree Grader: [facility] Radiology, Radiologist, - 04/26/2024 The [place] [id number] Ultrasound Report Signed Patient: SARAHI MONTENEGRO MR#: [id number] : 1995 Acct:[id number] Age/Sex: 29 / F ADM Date: 04/26/24 Loc: [facility] 254-[address]: Sanjuana Love D.O. Ordering Physician: Sanjuana Love D.O. Date of Service: 04/26/24 Procedure(s): US OB BPP w non-stress Accession Number(s): [id number] cc: Sanjuana Love D.O.; DIONNE MILLER [place] [address] Patient Name: SARAHI MONTENEGRO MRN: [facility]:[id number] date: 1995 Sex: F Assigned Patient Location: [facility] Current Patient Location: [facility] Accession/Order Number: [id number] Exam Date: 04/26/2024 11:28 Report Date: 04/26/2024 11:32 At the request of: SANJUANA LOVE DO Procedure: US OB BPP w non-stress BIOPHYSICAL PROFILE: CLINICAL INFORMATION: hydronephrosis during O35.EXX1 COMPARISON: OB anatomy scan 12/20/2023 There is a single live intrauterine gestation in cephalic presentation. The reported gestational age is 38 weeks 3 days. The heart rate [id number] beats per minute. Dilatation of the renal pelvis is noted on both sides, right greater than left. FINDINGS: TONE: 1 or more episodes of activity extension and flexion of extremity or opening and closing of the hand [Y] 2/2 GROSS BODY MOVEMENTS: 3 or more discrete body or limb movements [Y] 2/2 BREATHING MOVEMENTS: 1 or more episodes of breathing lasting at least 30 seconds [Y] 2/2 ROGER: A single deepest vertical pocket of amniotic fluid greater than 2 cm [Y] 2/2 ROGER: 11.0 cm . This is in low-normal range. Total score: 8/8 US/US OB BPP w non-stress IMPRESSION: NORMAL BIOPHYSICAL PROFILE. BILATERAL RENAL PELVIECTASIS. Impression dictated by: Shira Bradley M.D.04/26/2024 11:32 AM Dictation Location: [place] [address] Electronically authenticated by: [id number] Y Date: 04/26/2024 11:32 Dictated By: Shira Bradley M.D. Signed By: 04/26/24 1134 DD/ 1132 TD/TT: Christmas Tree Grader: [facility] [employer] Radiology Study observation (narrative) [facility] US OB BPP W NON-STRESS Ordered By: Radiologist Radiology on 04-26-2024 [facility] [employer] Work Phone: US OB FOLLOW UP TRANSABDOMIN AL APPROACHon [...] 3170 gm / 6 lbs, 15 oz (4538-3516 gm) Hadlock Normal: 3236 gm (9407-1508 gm) Hadlock Wt%: 44% for 38.0 wks [...] UA Negative Negative - 4(70) +++ mg/dL [facility] Blood, UA Negative Negative - 50 Jeremiah/mcL [facility] Clarity, UA Clear [facility] re Color, UA Yellow [facility] Healthcar e Glucose, UA Negative Negative - 1999(110) ++++ mg/dL [facility] Interpretation and review of laboratory results Abnormal [facility] re Ketones, UA Negative Negative - 160(16) ++++ mg/dL [facility] Leukocytes, UA Trace Negative - 500+++ Hitesh/mcL [facility] Nitrite, UA Negative Negative - Positive [facility] pH, UA 7 5 - 9 [facility] e Protein, UA Negative Negative - 1999(20) ++++ mg/dL [facility] Spec Grav, UA 1.015 1 - 1.[address] [facility] Urobilinogen, UA 0.2 0.2 - 12 mg/dL [facility] Healthcar e ALL MISCELLANEOUS TESTon MISCELLANEOUS TEST COMMENT . [facility] ealthcare Comment on above: Test Ordered: [id number] Strep Gp B Culture+Rflx Strep Gp B Culture+Rflx Negative CB Reference Range: Negative Centers for Disease Control and Prevention (CDC) and [place] [employer] of Obstetricians and Gynecologists (ACOG) guidelines [...] to clindamycin is noted. Performed at: [facility] [address] [id number] Orthotist/Prosthetist: Pieter Tyler PhD, Phone: [phone] [id number] Group B Streptococcus Colonization Detection Culture With Re [facility] Urinalysis macro (dipstick) panel (U)on 04-10-2024 Bilirubin, UA Negative Negative - 4(70) +++ mg/dL [facility] Healthcare Blood, UA Positive Negative - 50 Jeremiah/mcL [facility] Healthcare Clarity, UA Clear [facility] re Color, UA Yellow [facility] Glucose, UA Negative Negative - 1999(110) ++++ mg/dL [facility] Interpretation and review of laboratory results Abnormal [facility] re Ketones, UA Negative Negative - 160(16) ++++ mg/dL [facility] Healthcare Leukocytes, UA Trace Negative - 500+++ Hitesh/mcL [facility] Healthcare Nitrite, UA Negative Negative - Positive [facility] pH, UA 7 5 - 9 [facility] Protein, UA Negative Negative - 1999(20) ++++ mg/dL [facility] Healthcare Spec Grav, UA 1.015 1 - 1.03 [facility] Health care Urobilinogen, UA 0.2 0.2 - 12 mg/dL [facility] Urinalysis macro (dipstick) panel (U)on 04-02-2024 Bilirubin, UA Negative Negative - 4(70) +++ mg/dL [facility] Blood, UA Negative Negative - 50 Jeremiah/mcL [facility] Healthcare Clarity, UA Clear [facility] re Color, UA Yellow [facility] Healthcar e Glucose, UA Negative Negative - 1999(110) ++++ mg/dL [facility] Interpretation and review of laboratory results Abnormal [facility] re Ketones, UA Negative Negative - 160(16) ++++ mg/dL [facility] Healthcare Leukocytes, UA Trace Negative - 500+++ Hitesh/mcL [facility] Healthcare Nitrite, UA Negative Negative - Positive [facility] pH, UA 7 5 - 9 [facility] Protein, UA Negative Negative - 1999(20) ++++ mg/dL [facility] Healthcare Spec Grav, UA 1.015 1 - 1.03 [facility] care Urobilinogen, UA 0.2 0.2 - 12 mg/dL [facility] Urinalysis macro (dipstick) panel (U)on 03-20-2024 Bilirubin, UA Negative Negative - 4(70) +++ mg/dL [facility] Healthcare Blood, UA Negative Negative - 50 Jeremiah/mcL [facility] Healthcare Clarity, UA Clear [facility] re Color, UA Yellow [facility] Glucose, UA Negative Negative - 1999(110) ++++ mg/dL [facility] Interpretation and review of laboratory results Abnormal [facility] re Ketones, UA Negative Negative - 160(16) ++++ mg/dL [facility] Leukocytes, UA Trace Negative - 500+++ Hitesh/mcL [facility] Nitrite, UA Negative Negative - Positive [facility] pH, UA 7.5 5 - 9 [facility], UA Negative Negative - 1999(20) ++++ mg/dL [facility] Spec Grav, UA 1.015 1 - 1.[address] [facility] Urobilinogen, UA 0.2 0.2 - 12 mg/dL [facility] US OB FOLLOW UP TRANSABDOMIN [...] 1956 gm / 4 lbs, 5 oz (2997-3612 gm) Hadlock Normal: 2162 gm (4191-1608 gm) Hadlock Wt%: 23% for 33.0 wks [...] UA Negative Negative - 4(70) +++ mg/dL [facility] Blood, UA Negative Negative - 50 Jeremiah/mcL [facility] Healthcare Clarity, UA Clear [facility] re Color, UA Yellow [facility] Glucose, UA Negative Negative - 1999(110) ++++ mg/dL [facility] Interpretation and review of laboratory results Abnormal [facility] re Ketones, UA Positive Negative - 160(16) ++++ mg/dL [facility] Leukocytes, UA Negative Negative - 500+++ Hitesh/mcL [facility] Healthcare Nitrite, UA Negative Negative - Positive [facility] pH, UA 6.5 5 - 9 [facility] Protein, UA Negative Negative - 1999(20) ++++ mg/dL [facility] Healthcare Spec Grav, UA 1.015 1 - 1.03 [facility] care Urobilinogen, UA 0.2 0.2 - 12 mg/dL [facility] Urinalysis macro (dipstick) panel (U)on 02-14-2024 Bilirubin, UA Negative Negative - 4(70) +++ mg/dL [facility] Blood, UA Negative Negative - 50 Jeremiah/mcL [facility] Healthcare Clarity, UA Clear [facility] re Color, UA Yellow [facility] Healthcar e Glucose, UA Negative Negative - 1999(110) ++++ mg/dL [facility] Interpretation and review of laboratory results Normal [facility] re Ketones, UA Negative Negative - 160(16) ++++ mg/dL [facility] Leukocytes, UA Negative Negative - 500+++ Hitesh/mcL [facility] Healthcare Nitrite, UA Negative Negative - Positive [facility] pH, UA 7 5 - 9 [facility] Healthcar e Protein, UA Negative Negative - 1999(20) ++++ mg/dL [facility] Healthcare Spec Grav, UA 1.02 1 - 1.03 [facility] care Urobilinogen, UA 0.2 0.2 - 12 mg/dL [facility] Urinalysis macro (dipstick) panel (U)on 01-30-2024 Bilirubin, UA Negative Negative - 4(70) +++ mg/dL [facility] Blood, UA Negative Negative - 50 Jeremiah/mcL [facility] Healthcare Clarity, UA Clear [facility] Healthca re Color, UA Yellow [facility] Healthcar e Glucose, UA Negative Negative - 1999(110) ++++ mg/dL [facility] Interpretation and review of laboratory results Normal [facility] re Ketones, UA Negative Negative - 160(16) ++++ mg/dL [facility] Leukocytes, UA Negative Negative - 500+++ Hitesh/mcL [facility] Nitrite, UA Negative Negative - Positive [facility] pH, UA 7 5 - 9 [facility] Healthcar e Protein, UA Negative Negative - 1999(20) ++++ mg/dL [facility] Spec Grav, UA 1.015 1 - 1.[address] [facility] Urobilinogen, UA 0.2 0.2 - 12 mg/dL [facility] GLUCOSE 1 HOURon 01-23-2024 Glucose [Mass/Vol] 98 mg/dL NINF - 13 0 mg/dL [facility] Health[facility] e Urinalysis macro (dipstick) panel (U)on 01-03-2024 Bilirubin, UA Negative Negative - 4(70) +++ mg/dL [facility] Blood, UA Negative Negative - 50 Jeremiah/mcL [facility] Clarity, UA Clear [facility] Healthca re Color, UA Yellow [facility] Health[facility] e Glucose, UA Negative Negative - 1999(110) ++++ mg/dL [facility] Interpretation and review of laboratory results Normal [facility] Health[facility] re Ketones, UA Negative Negative - 160(16) ++++ mg/dL [facility] Leukocytes, UA Negative Negative - 500+++ Hitesh/mcL [facility] Nitrite, UA Negative Negative - Positive [facility] pH, UA 6.5 5 - 9 [facility] Healthcar e Protein, UA Negative Negative - 1999(20) ++++ mg/dL [facility] Spec Grav, UA 1.02 1 - 1.[address] [facility] Urobilinogen, UA 1.0 0.2 - 12 mg/dL [facility] Health[facility] IGP,APTIMA HPV,AGE GDLNon AGE GDLN ACOG TESTING Note . [facility] Comment on above: TESTS RESULT FLAG UN ITS REF RANGE LAB Clinician Provided Cytology Information Source.............Cervix Other.............. No. of containers..01 ThinPrep Vial Age Francisca BERNARDO Seble... FLAG LEGEND: L-Low Normal,H-High Normal,LL-Alert Low,HH-Alert High <-Panic Low,>-Panic High,A-Abnormal,AA-Critical Abnormal Performed at: 01 [facility] [address] [facility] [place] [address] Norah Samuels MD, IGP, RFX APTIMA HPV ASCU Note . [facility] Comment on above: TESTS RESULT FLAG UN ITS REF RANGE LAB DIAGNOSIS: 02 NEGATIVE FOR INTRAEPITHELIAL LESION OR MALIGNANCY. Specimen adequacy: 02 Satisfactory for evaluation. No endocervical component is identified. An endocervical component is not commonly seen in the patient. Performed by: Mario Watson Hardboard Supervisor ([facility]) . 02 Note: Note 02 The Pap [...] <-Panic Low,>-Panic High,A-Abnormal,AA-Critical Abnormal Performed at: [address] [address] Norah Samuels MD, Performed at: =[facility] Lab[address] [id number] Orthotist/Prosthetist: Norah Samuels MD, Phone: [phone] Performed at: [address] [id number] Orthotist/Prosthetist: Norah Samuels MD, Phone: [phone] SPATULA-ALONE CERVIX [facility] Health[facility] e URETHRITIS/DISCHARGE PLUS VA GINITIS (HTRX)on 12-06-2023 ATOPOBIUM VAGINAE 0.000 [facility] ATOPOBIUM VAGINAE Not detected [facility] BVAB 2,3 (BACTERIAL VAGINOSIS ASSOCIATED BACTERIA 2, 3); MOBILUNCUS SPP 0.000 [facility] BVAB 2,3 (BACTERIAL VAGINOSIS ASSOCIATED BACTERIA 2, 3); MOBILUNCUS SPP Not detected [facility] Healthcare RAMONE ALBICANS, PARAPSILOSIS, TROPICALIS 0.000 [facility] RAMONE ALBICANS, PARAPSILOSIS, TROPICALIS Not detected [facility] RAMONE GLABRATA 0.000 [facility] lthcare RAMONE GLABRATA Not detected [facility] H [...] 12-05-2023 AFP Comments: Comment Normal . [facility] Comment on above: Order Comment: 18 WE EKAlia. ShadiaKW Is patient >15 week ?: Y Is extra paperwork completed?: Y Result Comment: Iona Carpio, Ph.D., [facility] Director References: Available Upon Request. Multiples Of Median Cutoffs Abbreviation Definitions For AFP Elevations IDD- Insulin Dep Diabetes Newton 2.5 Black 2.8 OSBR- Open Spina Bifida IDD 2.0 Twins 4.5 Risk DSR Cutoff 1:270 DSR- Down Syndrome Risk T18 Cutoff 1:100 T18- Trisomy 18 For further inquiries contact [facility] at [phone]. This test was developed and its performance characteristics determined by [employer]. It has not been cleared or approved by the Food and Drug Administration. Performed at: [facility] [place], [place] [id number] Orthotist/Prosthetist: Jenniffer Veliz [facility], Phone: [phone] PERFORMED BY: [address] [place] [address] PATHOLOGIST QUALITY CLOTH TESTER PERCY ROSEN M.D. Performed By: #### A FPQUAD #### [facility] , AFP Interpretation Comment Normal . [facility] Comment on above: Order Comment: 18 WE EKAlia. JKW Is patient >15 week ?: Y [...] identifies 60% of Trisomy 18 pregnancies. The [place] [employer]nec[employer] recommends amniocentesis [...] and ultrasound are within 10 days. --- 12/28/231507 --- AFP Interpret previously reported as: Comment [...] , AFP Mom 0.94 Normal . [facility] Comment on above: Order Comment: 18 WE EKS. JKW Is patient >15 week ?: Y Is extra paperwork completed?: Y Result Comment: --- 12/28/231507 --- AFP Mom previously reported as: See interpretation. Performed By: #### A FPQUAD #### [facility] , AFP Test Results: Negative Normal . [facility] Comment on above: Order Comment: 18 WE EKS. JKW Is patient >15 week ?: Y Is extra paperwork completed?: Y Result Comment: --- 12/28/231507 --- Test Results: previously reported as: See interpretation. Performed By: #### A FPQUAD #### [facility] , AFP Value 41.5 ng/mL Normal . [facility] Comment on above: Order Comment: 18 WE EKS. JKW Is patient >15 week ?: Y Is extra paperwork completed?: Y Performed By: #### A FPQUAD #### [facility] , SHAHBAZ Mom 1.27 Normal . [facility] Comment on above: Order Comment: 18 WE EKS. JKW Is patient >15 week ?: Y Is extra paperwork completed?: Y Result Comment: --- 12/28/231507 --- SHAHBAZ Mom previously reported as: See interpretation. Performed By: #### A FPQUAD #### [facility] , SHAHBAZ Value 213.50 pg/mL Normal . [facility] Comment on above: Order Comment: 18 WE EKS. JKW Is patient >15 week ?: Y Is extra paperwork completed?: Y Performed By: #### A FPQUAD #### [facility] , DSR 2nd Trimester 1 In 1706 Normal . [facility] Comment on above: Order Comment: 18 WE EKS. JKW Is patient >15 week ?: Y Is extra paperwork completed?: Y Result Comment: --- 12/28/23 1508 --- DSR2nd Tri 1 In previously reported as: See interpretation. Performed By: #### A FPQUAD #### [facility] , DSR By Age 1 In 911 Normal . [facility] Comment on above: Order Comment: 18 WE EKS. JKW Is patient >15 week ?: Y Is extra paperwork completed?: Y Result Comment: --- 12/28/23 1508 --- DSR By Age 1 In previously reported as: See interpretation. Performed By: #### A FPQUAD #### [facility] , Gest. Age Based On MICHELLE Normal . The [facility] Comment on above: Order Comment: 18 WE EKS. JKW Is patient >15 week ?: Y Is extra paperwork completed?: Y Result Comment: 04/28 --- 12/28/23 1508 --- Gest Age Based previously reported as: As provided Performed By: #### A FPQUAD #### [facility] , Gest. Age On Collection Date 18.0 Normal . [facility] Comment on above: Order Comment: 18 WE EKS. JKW Is patient >15 week ?: Y Is extra paperwork completed?: Y Performed By: #### A FPQUAD #### [facility] , HCG Mom 1.09 Normal . [facility] Comment on above: Order Comment: 18 WE EKS. JKW Is patient >15 week ?: Y Is extra paperwork completed?: Y Result Comment: --- 12/28/23 1508 --- HCG Mom previously reported as: See interpretation. Performed By: #### A FPQUAD #### [facility] , HCG Value 83314 m[iU]/mL Normal . The [facility] Comment on above: Order Comment: 18 WE EKS. ShadiaKW Is patient >15 week ?: Y Is extra paperwork completed?: Y Performed By: #### A FPQUAD #### [facility] , Insulin Dependent Diabetes No Normal . [facility] Comment on above: Order Comment: 18 WE EKS. JKW Is patient >15 week ?: Y Is extra paperwork completed?: Y Result Comment: Not provided. --- 12/28/23 150 --- Insulin Dep Shahbaz previously reported as: Comment Not provided. Performed By: #### A FPQUAD #### [facility] , Maternal Age At MICHELLE 27.2 Normal . The [facility] Comment on above: Order Comment: 18 WE EKS. JKW Is patient >15 week ?: Y Is extra paperwork completed?: Y Performed By: #### A FPQUAD #### [facility] , Multiple Gestation No Normal . The [facility] Comment on above: Order Comment: 18 WE EKS. ShadiaKW Is patient >15 week ?: Y Is extra paperwork completed?: Y Result Comment: Not provided. --- 12/28/23 1508 --- Mult Gest previously reported as: Comment Not provided. Performed By: #### A FPQUAD #### [facility] , OSBR Risk 1 In [address] Normal . The [facility] Comment on above: Order Comment: 18 WE EKS. ShadiaKW Is patient >15 week ?: Y Is extra paperwork completed?: Y Result Comment: --- 12/28/23 150 --- OSBR Risk 1 In previously reported as: See interpretation. Performed By: #### A FPQUAD #### [facility] , Race Normal . [facility] Comment on above: Order Comment: 18 WE EKS. ShadiaKW Is patient >15 week ?: Y Is extra paperwork completed?: Y Result Comment: Not provided. --- 12/28/23 1508 --- Race previously reported as: Comment Not provided. Performed By: #### A FPQUAD #### [facility] , Results Comment Normal . [facility] Comment on above: Order Comment: 18 WE EKS. JKW Is patient >15 week ?: Y Is extra paperwork completed?: Y Result Comment: The MOM and risk factors of this report have been modified based on new information supplied to us by the client or their designated event representative. Note that the gestational ages on [...] from Not provided. to 143. --- 12/28/23 150 --- Results previously reported as: Report Performed By: #### A FPQUAD #### [facility] , T18 By Age 1:3551 Normal . [facility] Comment on above: Order Comment: 18 WE EKS. JKW Is patient >15 week ?: Y Is extra paperwork completed?: Y Performed By: #### A FPQUAD #### [facility] , T18 Risk Not increased Normal . [facility] Comment on above: Order Comment: 18 WE EKS. JKW Is patient >15 week ?: Y Is extra paperwork completed?: Y Result Comment: --- 12/28/23 1508 --- T18 Risk previously reported as: See interpretation. Performed By: #### A FPQUAD #### [facility] , UE3 Mom 0.77 Normal . [facility] Comment on above: Order Comment: 18 WE EKS. JKW Is patient >15 week ?: Y Is extra paperwork completed?: Y Result Comment: --- 12/28/23 1508 --- UE3 Mom previously reported as: See interpretation. Performed By: #### A FPQUAD #### [facility] , UE3 Value 1.05 ng/mL Normal . [facility] Comment on above: Order Comment: 18 WE EKS. JKW Is patient >15 week ?: Y Is extra paperwork completed?: Y Performed By: #### A FPQUAD #### [facility] , Weight 143 Normal . [facility] Comment on above: Order Comment: 18 WE EKS. JKW Is patient >15 week ?: Y Is extra paperwork completed?: Y Result Comment: Not provided. --- 12/28/23 1508 --- Weight previously reported as: Comment lbs Not provided. Performed By: #### A FPQUAD #### [facility] , Urinalysis macro (dipstick) panel (U)on 12-05-2023 Bilirubin, UA Negative Negative - 4(70) +++ mg/dL [facility] Blood, UA Negative Negative - 50 Jeremiah/mcL [facility] Clarity, UA Clear [facility] Color, UA Yellow [facility] Glucose, UA Negative Negative - 1999(110) ++++ mg/dL [facility] Interpretation and review of laboratory results Normal [facility] Ketones, UA Negative Negative - 160(16) ++++ mg/dL [facility] Leukocytes, UA Negative Negative - 500+++ Hitesh/mcL [facility] Nitrite, UA Negative Negative - Positive [facility] pH, UA 7.5 5 - 9 [facility] Protein, UA Negative Negative - 1999(20) ++++ mg/dL [facility] Spec Grav, UA 1.020 1 - 1.[address] [facility] Urobilinogen, UA 0.2 0.2 - 12 mg/dL [facility]inal[facility] macro (dipstick) panel (U)on 11-07-2023 Bilirubin, UA Negative Negative - 4(70) +++ mg/dL [facility] Blood, UA Positive Negative - 50 Jeremiah/mcL [facility] Comment on above: trace-intact Clarity, UA Clear [facility] re Color, UA Yellow [facility] Glucose, UA Negative Negative - 1999(110) ++++ mg/dL [facility] Interpretation and review of laboratory results Abnormal [facility] re Ketones, UA Negative Negative - 160(16) ++++ mg/dL [facility] Leukocytes, UA Trace Negative - 500+++ Hitesh/mcL [facility] Nitrite, UA Negative Negative - Positive [facility] pH, UA 7.0 5 - 9 [facility] Protein, UA Negative Negative - 1999(20) ++++ mg/dL [facility] Spec Grav, UA 1.020 1 - 1.[address] [facility] Urobilinogen, UA 0.2 0.2 - 12 mg/dL [facility] Basophils Auto (Bld) [#/Vol] on 10-06-2023 Basophils (Bld) [#/Vol] 0.0 10 3/uL 0.0-0.1 [facility] Basophils/100 WBC Auto (Bld) on 10-06-2023 Basophils/100 WBC (Bld) 0.5 % 0.2-2.0 [facility] Eosinophils/100 WBC Auto (Bl d)on 10-06-2023 Eosinophils/100 WBC (Bld) 1.2 % 0.9-7.0 [facility] Erythrocyte distribution wid th Auto (RBC) [Ratio]on 10-06-2023 Erythrocyte distribution width (RBC) [Ratio] 12.4 % 11.0-15.0 [facility] Glucose mean value [Mass/vol ume] in Blood Estimated from glycated hemoglobinon 10-06-2023 Average glucose Estimated from glycated hemoglobin (Bld) [Mass/Vol] 94 mg/dL [facility] HBV surface Ag IA Qlon 10-05 Hepatitis B Surface Antigen Negative Negative [facility] Comment on above: Performed at: [facility] [address] [id number] Director: Pieter Tyler PhD, Phone: [phone] Performed at: [facility] [address] [id number] Director: Pieter Tyler PhD, Phone: [phone] HCV Ab Signal/Cutoff IA [Rel units/Vol]on 10-06-2023 Hepatitis C Antibody Non-Reactive Non Reactive [facility] HIV 1+2 Ab+HIV1 p24 Ag IA Ql on 10-06-2023 HIV (1&2) Antibody Screen Non-Reactive Non Reactive [facility] Comment on above: HIV-1/HIV-2 antibodi es and HIV-1 p24 antigen were NOTdetected. There is no laboratory evidence of HIV infection.HIV NegativePerformed at: [facility] [id number] Director: Pieter Tyler PhD, Phone: [phone] HIV-1/HIV-2 antibodi es and HIV-1 p24 antigen were NOTdetected. There is no laboratory evidence of HIV infection.HIV NegativePerformed at: [facility] [id number] Director: Pieter Tyler PhD, Phone: [phone] Hematocrit Auto (Bld) [Volum e fraction]on 10-06-2023 Hematocrit (Bld) [Volume fraction] 36.1 % 36.0-48.0 [facility] Hemoglobin [Mass/volume] in Bloodon 10-06-2023 Hemoglobin (Bld) [Mass/Vol] 12.6 g/dL 12.0-16.0 [facility] Laboratory - Hematology and Cell countson 10-06-2023 HbA1c (Bld) [Mass fraction] 4.9 % 4.5-6.2 [facility] Comment on above: ADA RECOMMENDED LIMI T 4.0 - 6.0ADA THERAPEUTIC TARGET < 7.0ACTION SUGGESTED> 7.0 Immature granulocytes/100 WBC (Bld) 0.1 % 0.0-0.5 [facility] Leukocytes [#/volume] correc marcia for nucleated erythrocytes in Blood by Automated counon 10-06-2023 WBC corrected for nucl RBC Auto (Bld) [#/Vol] 8.2 10 3/uL 4.0-11.0 [facility] Lymphocytes Auto (Bld) [#/Vo l]on 10-06-2023 Lymphocytes (Bld) [#/Vol] 2.1 10 3/uL 1.2-3.8 [facility] Lymphocytes/100 WBC Auto (Bl d)on 10-06-2023 Lymphocytes/100 WBC (Bld) 26.0 % 20.5-60.0 [facility] MCH Auto (RBC) [Entitic mass ]on 10-06-2023 MCH (RBC) [Entitic mass] 30.7 pg 26.7-34.0 [facility] MCHC Auto (RBC) [Mass/Vol]on 10-06-2023 MCHC (RBC) [Mass/Vol] 34.9 g/dL 29.9-35.2 [facility] MCV Auto (RBC) [Entitic vol] on 10-06-2023 MCV (RBC) [Entitic vol] 87.8 fL 81.0-99.0 [facility] Monocytes Auto (Bld) [#/Vol] on 10-06-2023 Monocytes (Bld) [#/Vol] 0.5 10 3/uL 0.3-0.8 [facility] Monocytes/100 WBC Auto (Bld) on 10-06-2023 Monocytes/100 WBC (Bld) 5.9 % 1.7-12.0 [facility] Neutrophils Auto (Bld) [#/Vo l]on 10-06-2023 Neutrophils (Bld) [#/Vol] 5.4 10 3/uL 1.4-6.5 [facility] Neutrophils/100 WBC Auto (Bl d)on 10-06-2023 Neutrophils/100 WBC (Bld) 66.3 % 43.0-75.0 [facility] No Panel Informationon 10-05 Eosinophils # (Auto) 0.1 10 3/uL 0.0-0.7 [facility] Hepatitis C Interpretation Comment . [facility] Comment on above: Not infected with HC V unless early or acute infection issuspected (which may be delayed in an immunocompromisedindividual), or other evidence exists to indicate HCVinfection.Performed at: [facility] [id number] Director: Pieter Tyler PhD, Phone: [phone] Not infected with HC V unless early or acute infection issuspected (which may be delayed in an immunocompromisedindividual), or other evidence exists to indicate HCVinfection.Performed at: [facility] [id number] [place], [place] [id number] Director: Pieter Tyler PhD, Phone: [phone] Immature Granulocyte # (Auto) 0.01 10 3/uL 0.00-0.03 [facility] RPR Quantitative Confirmation Non Reactive titer NonRea<1:1 [facility] Comment on above: Please Note: This te st does not meet current guidelines forscreening and diagnosis of syphilis. This test isintended for following treatment response in patients beingtreated for syphilis infection. To screen for syphilisinfection, a reflex cascade that includes both RPR and atreponema-specific assay should be utilized, such asTreponema pallidum (Syphilis) Screening [place] (276568) orRapid Plasma Reagin (RPR) Test With Reflex to QuantitativeRPR and Confirmatory Treponema pallidum Antibodies(292098).Performed at: [employer] [place], [place] [id number] Director: Pieter Tyler PhD, Phone: [phone] Rubella IgG Antibody 2.39 index Immune >0.99 [facility] Comment on above: Non-immune <0.90 Equ ivocal 0.90 - 0.99 Immune >0.99Performed at: [facility] [id number] [place], [place] [id number] Director: Pieter Tyler PhD, Phone: [phone] Platelet mean volume Auto (B ld) [Entitic vol]on 10-06-2023 Platelet mean volume (Bld) [Entitic vol] 8.6 fL Low 9.5-13.5 [facility] Platelets Auto (Bld) [#/Vol] on 10-06-2023 Platelets (Bld) [#/Vol] 266 10 3/uL 150-450 [facility] RBC Auto (Bld) [#/Vol]on RBC (Bld) [#/Vol] 4.11 10 6/uL Low 4.20-5.40 [facility] No Panel Informationon 09-06 Human Chorionic Gonadotropin, Quant 5292 mIU/mL [facility] Comment on above: 5-50 0.2-1 [id number] 0 1-2 ZMACH023-1,000 2-3 SQPAX058-75,000 3-4 WEEKS1,000-50,000 4-5 WEEKS10,000-100,000 5-6 WEEKS15,000-200,000 6-8 WEEKS10,000-100,000 2-3 MONTHS Vital Signs Date Time Vital Sign Value Performing Clinician Facility 04-23-2024 09:42-0500 Body mass index (BMI) [Ratio] 36.32 kg/m2 Sanjuana Ivan DO Work Phone: [facility] 04-23-2024 09:42-0500 Body weight 80.2 kg Sanjuana Ivan DO Work Phone: [facility] 04-23-2024 09:42-0500 Diastolic blood pressure 62 mm[Hg] Sanjuana Ivan DO Work Phone: [facility] 04-23-2024 09:42-0500 Systolic blood pressure 106 mm[Hg] Sanjuana Ivan DO Work Phone: [facility] 04-16-2024 10:39-0500 Body mass index (BMI) [Ratio] 35.54 kg/m2 Sanjuana Ivan DO Work Phone: [facility] 04-16-2024 10:39-0500 Body weight 78.47 kg Sanjuana Ivan DO Work Phone: [facility] 04-16-2024 10:39-0500 Diastolic blood pressure 64 mm[Hg] Sanjuana Ivan DO Work Phone: [facility] 04-16-2024 10:39-0500 Systolic blood pressure 110 mm[Hg] Sanjuana Ivan DO Work Phone: [facility] 04-10-2024 11:15-0500 Body mass index (BMI) [Ratio] 35.57 kg/m2 Natacha DENNEY Work Phone: [facility] 04-10-2024 11:15-0500 Body weight 78.53 kg Natacha DENNEY Work Phone: [facility] 04-10-2024 11:15-0500 Diastolic blood pressure 70 mm[Hg] Natacha Alecia PA Work Phone: [facility] 04-10-2024 11:15-0500 Systolic blood pressure 112 mm[Hg] Natacha Alecia PA Work Phone: [facility] 04-02-2024 09:35-0500 Body mass index (BMI) [Ratio] 34.95 kg/m2 Sanjuana Ivan DO Work Phone: [facility] 04-02-2024 09:35-0500 Body weight 77.17 kg Sanjuana Ivan DO Work Phone: [facility] 04-02-2024 09:35-0500 Diastolic blood pressure 72 mm[Hg] Sanjuana Ivan DO Work Phone: [facility] 04-02-2024 09:35-0500 Systolic blood pressure 98 mm[Hg] Sanjuana Ivan DO Work Phone: [facility] 03-20-2024 09:29-0500 Body mass index (BMI) [Ratio] 34.31 kg/m2 Natacha Alecia PA Work Phone: [facility] 03-20-2024 09:29-0500 Body weight 75.75 kg Natacha Alecia PA Work Phone: [facility] 03-20-2024 09:29-0500 Diastolic blood pressure 72 mm[Hg] Natacha Alecia PA Work Phone: [facility] 03-20-2024 09:29-0500 Systolic blood pressure 120 mm[Hg] Natacha Lamar PA Work Phone: [facility] 03-05-2024 14:00-0500 Body mass index (BMI) [Ratio] 34.27 kg/m2 Sanjuana Ivan DO Work Phone: [facility] 03-05-2024 14:00-0500 Body weight 75.66 kg Sanjuana Ivan DO Work Phone: [facility] 03-05-2024 14:00-0500 Diastolic blood pressure 68 mm[Hg] Sanjuana Ivan DO Work Phone: [facility] 03-05-2024 14:00-0500 Systolic blood pressure 110 mm[Hg] Sanjuana Ivan DO Work Phone: [facility] 02-14-2024 12:48-0500 Body mass index (BMI) [Ratio] 32.87 kg/m2 Sanjuana Ivan DO Work Phone: [facility] 02-14-2024 12:48-0500 Body weight 72.58 kg Sanjuana Ivan DO Work Phone: [facility] 02-14-2024 12:48-0500 Diastolic blood pressure 60 mm[Hg] Sanjuana Ivan DO Work Phone: [facility] 02-14-2024 12:48-0500 Systolic blood pressure 100 mm[Hg] Sanjuana Ivan DO Work Phone: [facility] 01-30-2024 09:03-0500 Body mass index (BMI) [Ratio] 32.07 kg/m2 Natacha Alston PA Work Phone: [facility] 01-30-2024 09:03-0500 Body weight 70.82 kg Natacha Alecia PA Work Phone: [facility] 01-30-2024 09:03-0500 Diastolic blood pressure 68 mm[Hg] Natacha Alecia PA Work Phone: [facility] 01-30-2024 09:03-0500 Systolic blood pressure 108 mm[Hg] Natacha Alecia PA Work Phone: [facility] 01-03-2024 10:23-0500 Body mass index (BMI) [Ratio] 31.39 kg/m2 Sanjuana Iavn DO Work Phone: [facility] 01-03-2024 10:23-0500 Body weight 69.31 kg Sanjuana Ivan DO Work Phone: [facility] 01-03-2024 10:23-0500 Diastolic blood pressure 68 mm[Hg] Sanjuana Ivan DO Work Phone: [facility] 01-03-2024 10:23-0500 Systolic blood pressure 102 mm[Hg] Sanjuana Ivan DO Work Phone: [facility] 12-05-2023 09:41-0400 Body mass index (BMI) [Ratio] 29.33 kg/m2 Natacha Alston PA Work Phone: [facility] 12-05-2023 09:41-0400 Body weight 64.75 kg Natacha Alecia PA Work Phone: [facility] 12-05-2023 09:41-0400 Diastolic blood pressure 66 mm[Hg] Natacha Alecia PA Work Phone: [facility] 12-05-2023 09:41-0400 Systolic blood pressure 100 mm[Hg] Natacha Alecia PA Work Phone: [facility] 11-07-2023 09:53-0400 Body mass index (BMI) [Ratio] 28.45 kg/m2 Sanjuana Ivan DO Work Phone: [facility] 11-07-2023 09:53-0400 Body weight 62.82 kg Sanjuana Ivan DO Work Phone: [facility] 11-07-2023 09:53-0400 Diastolic blood pressure 64 mm[Hg] Sanjuana Ivan DO Work Phone: [facility] 11-07-2023 09:53-0400 Systolic blood pressure 106 mm[Hg] Sanjuana Ivan DO Work Phone: [facility] 07-07-2021 11:00-0400 Body height 151.13 cm Dionne [place] Other [facility] Other 07-07-2021 11:00-0400 Body mass index (BMI) [Ratio] 25.18 kg/m2 [place]ne [place] Other [facility] Other 07-07-2021 11:00-0400 Body temperature 97 [degF] Dionen Gracetiago Other [facility] Other 07-07-2021 11:00-0400 Body weight 57.52 kg Dionne Gracetiago Other [facility] Other 07-07-2021 11:00-0400 Diastolic blood pressure 60 mm[Hg] Dionne Angela Other [facility] Other 07-07-2021 11:00-0400 Respiratory rate 18 /min Dionne Angela Other [facility] Other 07-07-2021 11:00-0400 SaO2% (BldA) [Mass fraction] 99 % Dionne Gracetiago Other [facility] Other 07-07-2021 11:00-0400 Systolic blood pressure 100 mm[Hg] Dionne Gracetiago Other [facility] Other Encounters Encounter Date Encounter Type Care Provider Facility Start: 04-26-2024 End: 04-26-2024 Clinisync Result Encounter Sanjuana Ivan DO Work Phone: [facility] Unsolicited Start: 04-26-2024 End: 04-26-2024 Clinisync Result Encounter Sanjuana Ivan DO Work Phone: [facility] Unsolicited Start: 04-23-2024 End: 04-23-2024 Bamboo flowsheet Sanjuana Ivan DO Work Phone: [facility] Start: 04-23-2024 End: 04-23-2024 Bamboo flowsheet Sanjuana Ivan DO Work Phone: [facility] Start: 04-23-2024 End: 04-23-2024 flow sheet Sanjuana Ivan DO Work Phone: [facility] Comment on above: Third trimester preg hortensia; 38 weeks gestation of ; hydronephrosis during , antepartum, fetus 1 Start: 04-23-2024 End: 04-23-2024 ambulatory SANJUANA IVAN Not Available Start: 04-16-2024 End: 04-16-2024 ambulatory SANJUNAA IVAN Not Available Start: 04-16-2024 End: 04-16-2024 flow sheet Sanjuana Ivan DO Work Phone: [facility] Comment on above: 37 weeks gestation o f ; Third trimester Start: 04-16-2024 End: 04-16-2024 ambulatory SANJUANA IVAN Not Available Start: 04-10-2024 End: 04-10-2024 Bamboo flowsheet Natacha DENNEY Work Phone: [facility] Start: 04-10-2024 End: 04-15-2024 Bamboo flowsheet Natacha DENNEY Work Phone: [facility] Start: 04-10-2024 End: 04-15-2024 Clinisync Result Encounter Natacha DENNEY Work Phone: [facility] External Department Unsolicited Start: 04-10-2024 End: 04-10-2024 [...] 01-30-2024 Bamboo flowsheet Natacha DENNEY Work Phone: [facility] Start: 01-30-2024 End: 01-30-2024 ambulatory NATACHA ALSTON Not Available Start: 01-30-2024 End: 01-30-2024 flow sheet Natacha DENNEY Work Phone: [facility] Comment on above: 26 weeks gestation o f ; Second trimester Start: 01-23-2024 End: 01-23-2024 Clinisync Result Encounter Sanjuana Ivan DO Work Phone: [facility] External Department Unsolicited Start: 01-23-2024 End: 01-23-2024 Clinisync Result Encounter Sanjuana Ivan DO Work Phone: [facility] External Department Unsolicited Start: 01-03-2024 End: 01-03-2024 Bamboo flowsheet Sanjuana Ivan DO Work Phone: [facility] Start: 01-03-2024 End: 01-03-2024 Bamboo flowsheet Sanjuana Ivan DO Work Phone: [facility] Start: 01-03-2024 End: 01-03-2024 ambulatory SANJUANA IVAN Not Available Start: 01-03-2024 End: 01-03-2024 flow sheet Sanjuana Ivan DO Work Phone: [facility] Comment on above: Second trimester pre gnancy; 22 weeks gestation of ; Diabetes mellitus screening Start: 12-05-2023 End: 12-05-2023 Bamboo flowsheet Natacha DENNEY Work Phone: [facility] Start: 12-05-2023 End: 12-10-2023 Bamboo flowsheet Natacha DENNEY Work Phone: [facility] Start: 12-05-2023 End: 12-10-2023 Clinisync Result Encounter Natacha DENNEY Work Phone: [facility] Unsolicited Start: 12-05-2023 End: 12-06-2023 External Result Encounter Natacha DENNEY Work Phone: [facility] Unsolicited Start: 12-05-2023 End: 12-05-2023 Patient encounter procedure DO Alexandra Kemp Work Phone: [facility] Start: 12-05-2023 End: 12-05-2023 ambulatory DO Alexandra Kemp Work Phone: [facility] Work Phone: Start: 12-05-2023 End: 12-05-2023 [...] / Non-visit DO Morena Kemp Work Phone: [facility] Work Phone: Start: 10-06-2023 End: 10-06-2023 ambulatory NATACHA ALSTON Not Available Start: 09-07-2023 Non-patient / Non-visit DO Morena Kemp Work Phone: [facility] Work Phone: Start: 06-29-2023 End: 06-29-2023 ambulatory SANJUANA IVAN Not Available Start: 05-30-2023 End: 05-30-2023 ambulatory NATACHA ALSTON Not Available Start: 07-07-2021 End: 07-07-2021 ambulatory [place]ne [place] Other [facility] [employer] Other Start: 07-07-2021 Encounter for genera l adult medical examination without abnormal findings Dionne [place] [facility] [place] Start: 07-07-2021 Periodic preventive med est patient 18-39 yrs Dionne [place] [facility] [place] Procedures Date Procedure Procedure Detail Performing Clinician Start: 04-26-2024 US OB BPP W NON-STRESS Sanjuana Ivan DO Work Phone: Start: 04-16-2024 Urnls dip stick/tabl et rgnt [...] Treatment Date Care Activity Detail Author Start: 04-30-2024 End: 04-30-2024 Patient encounter procedure 04/30/2024 9:30 AM EST Routine [facility] [address] [place] [address] Sanjuana Love DO [address] [place] [address] [facility] Start: 04-23-2024 End: 04-23-2025 US biophysical profile w non stress test US biophysical profile w non stress test Imaging Routine hydronephrosis during , antepartum, fetus 1 Expected: 04/23/2024 (Approximate), Expires: 04/23/2025 [facility] Work Phone: Comment on above: Expected: 04/23/2024 (Approximate), Expires: 04/23/2025 Start: 04-23-2024 End: 04-23-2024 Patient encounter procedure [facility] Comment on above: Arrived Start: 04-16-2024 End: 04-16-2024 Patient encounter procedure 04/16/2024 10:20 AM EST Routine [facility] [address] [facility] [place] [phone] Sanjuana Love, DO [address] [place] [address] [place] [address] [facility] Start: 04-16-2024 End: 04-16-2024 Professional / ancillary services management 04/16/2024 8:30 AM EST Ancillary Procedure [facility] [address] [facility] [place] [phone] [facility] Start: 04-11-2024 End: 04-11-2024 Professional / ancillary services management 04/11/2024 9:00 AM EST Ancillary Procedure [facility] [address] [facility] [place] [phone] [facility] Start: 04-10-2024 End: 04-10-2025 CULTURE, GROUP B STREP WITH SUSCEPTIBLITY CULTURE, GROUP B STREP WITH SUSCEPTIBLITY Lab Routine Third trimester Expected: 04/10/2024, Expires: 04/10/2025 [facility] Work Phone: Comment on above: Expected: 04/10/2024 , Expires: 04/10/2025 Start: 04-10-2024 End: 04-10-2024 Patient encounter procedure 04/10/2024 11:20 AM EST Routine [facility] [address] [facility] [place] [phone] Natacha Alston PA [address] [facility] [address] [place], [place] [id number] Arrived [facility] Comment on above: Arrived Start: 04-02-2024 End: 04-02-2024 Patient encounter procedure [facility] Comment on above: Arrived Start: 03-20-2024 End: 03-20-2024 Patient encounter procedure [facility] Comment on above: Arrived Start: 03-12-2024 End: 03-12-2024 Professional / ancillary services management 03/12/2024 10:00 AM EST Ancillary Procedure [facility] [address] [facility] [place] [id number] [facility] Start: 03-05-2024 End: 03-05-2025 [...] PM EST Routine [facility] [address] [facility] [phone] Sanjuana Love DO [address] [place], [place] [id number] Arrived [facility] Comment on above: Arrived Start: 02-13-2024 End: 02-13-2024 Patient encounter procedure 02/13/2024 8:30 AM EST Routine [facility] [address] [place] [address] Sanjuana Love DO [address] [facility] [place] [address] [facility] Start: 01-31-2024 End: 01-31-2024 Patient encounter procedure 01/31/2024 8:30 AM EST Routine [facility] [address] [facility] [place] [phone] Natacha Alston, PA [address] [facility] [address] [place], [place] [id number] [facility] Start: 01-30-2024 End: 01-30-2024 Patient encounter procedure 01/30/2024 8:50 AM EST Routine [facility] [address] [facility] [place] [phone] Natacha Alston, PA [address] [facility] [place] [address] [facility] Start: 01-24-2024 End: 01-24-2024 Professional / ancillary services management 01/24/2024 8:30 AM EST Ancillary Procedure [facility] [address] [facility] [place] [phone] [facility] Start: 01-03-2024 End: 01-02-2025 CBC panel - Blood by Automated count CBC Lab Routine Diabetes mellitus screening Expected: 01/03/2024 (Approximate), Expires: 01/02/2025 [facility] Work Phone: Comment on above: Expected: 01/03/2024 (Approximate), Expires: 01/02/2025 Start: 01-03-2024 End: 01-02-2025 Measurement of glucose 1 hour after glucose challenge for glucose tolerance test Glucose tolerance, 1 hour Lab Routine Diabetes mellitus screening Expected: 01/03/2024 (Approximate), Expires: 01/02/2025 [facility] Comment on above: Expected: 01/03/2024 (Approximate), Expires: 01/02/2025 Start: 01-03-2024 End: 01-03-2024 Patient encounter procedure 01/03/2024 9:40 AM EST Routine [facility] [address] [facility] [place] [address] Sanjuana Love, DO [address] [place] [address] [facility] Start: 12-20-2023 End: 12-20-2023 Professional / ancillary services management 12/20/2023 10:00 AM EDT Ancillary Procedure [facility] [address] [facility] [place] [phone] [facility] Start: 12-05-2023 End: 12-04-2024 [...] Expected: 12/05/2023 (Approximate), Expires: 12/04/2024 Start: 12-05-2023 [facility] Start: 12-05-2023 End: 12-05-2023 Patient encounter procedure [facility] Comment on above: Arrived Start: 11-07-2023 End: 11-07-2023 Patient encounter procedure 11/07/2023 9:40 AM EDT Routine [facility] [address] [place] [address] Sanjuana Love, DO [address] [place] [address] Arrived [facility] Comment on above: Arrived Start: 10-30-2023 Influenza vaccination Influenza Vacc ine (#1) [facility] Apccv-3-Rspfmmqttyg [Mass/volume] in Serum or Plasma [facility] Assessment of gestational age [facility] Body weight [facility] CHLAMYDIA TRACHOMATI S (GENITO/STI) CHLAMYDIA TRACHOMATIS (GENITO/STI) Lab Routine Vaginal discharge Screen for STD (sexually transmitted disease) Ordered: 12/05/2023 [facility] Comment on above: Ordered: 12/05/2023 Choriogonadotropin.i ntac t+Beta subunit [Units/volume] in Serum or Plasma [facility] Cytology Cervical or vaginal smear or scraping study Pap Smear Pathology and Cytology Routine Well woman exam with routine gynecological exam Ordered: 12/05/2023 [facility] Work Phone: Comment on above: Ordered: 12/05/2023 Diabetes mellitus screening [facility] Estriol (E3).unconjugated [Mass/volume] in Serum or Plasma [facility] Human chorionic gonadotropin measurement [facility] Inhibin A [Mass/volu me] in Serum or Plasma [facility] Inhibin measurement [facility] Laboratory data interpretation [facility] Neisseria gonorrhoea e DNA [Presence] in Unspecified specimen by ARMAND with probe detection Neisseria gonorrhea DNA probe, direct Lab Routine Vaginal discharge Screen for STD (sexually transmitted disease) Ordered: 12/05/2023 [facility] Comment on above: Ordered: 12/05/2023 Risk assessment [facility] Risk identification: genetic [facility] Serum alpha-fetoprot ein multiple of median measurement [facility] SURESWAB(R) ADVANCED VAGINITIS PLUS, TMA SURESWAB(R) ADVANCED VAGINITIS PLUS, TMA Pathology and Cytology Routine Vaginal discharge Screen for STD (sexually transmitted disease) Ordered: 12/05/2023 [facility] Comment on above: Ordered: 12/05/2023 Unconjugated estriol measurement [facility] Immunizations Immunization Date Immunization Notes Care Provider Cordell pandey 08-05-2010 tetanus toxoid, redu bobby diphtheria toxoid, and acellular pertussis vaccine, adsorbed Dionne Miller Other [facility] Payers Date Payer Category Payer Self-pay [id number] 2022 Private Health Insurance [employer] [id number] 2022 Unknown [employer] [id number] 2022-Present [address] [place] [address] [id number] 2021 Unknown [id number] 2.16.840.1.923896.19 1997 Unknown [id number] 2.16.840.1.056015.3.579.2. 9 1997 Unknown [id number] 2.16.840.1.786719.3.579.2. 9 1997 Unknown [id number] 2.16.840.1.135355.3.579.2. 9 1997 Unknown [id number] 2.16.840.1.218843.3.579.2. 9 1997 Unknown [id number] 2.16.840.1.679082.3.579.2. 9 1997 Unknown [id number] 2.16.840.1.822454.3.579.2. 9 1997 Unknown [id number] 2.16.840.1.809702.3.579.2. 1258 1997 Unknown [id number] 2.16.840.1.626083.3.579.2. 1259 1997 Unknown [id number] 2.16.840.1.244422.3.579.2. 9 1997 Unknown [id number] 2.16.840.1.394982.3.579.2. 9 1997 Unknown [id number] 2.16.840.1.782485.3.579.2. 9 1997 Unknown [id number] 2.16.840.1.142043.3.579.2. 1259 1997 Unknown [id number] 2.16.840.1.406782.3.579.2. 9 1997 Unknown [id number] 2.16.840.1.531460.3.579.2. 9 1997 Unknown [id number] 2.16.840.1.633605.3.579.2. 9 1997 Unknown [id number] 2.16.840.1.923041.3.579.2. 125 Unknown [id number] 2.16.840.1.444724.3.579.2. 531 Social History Date Type Detail Facility Start: 05-30-2023 Sex Assigned At [facility] Other Start: 03-29-2018 End: 05-30-2023 Tobacco smoking status [facility] Never smoked tobacco [facility] Start: 05-30-2023 Tobacco use and exposure Smokeless tobacco non-user [facility] Start: 11-07-2023 End: 04-23-2024 Alcoholic beverage intake Ex-drinker (finding) [facility] Start: 05-30-2023 History of Social function [facility] Start: 11-07-2023 Alcohol Comment Prior to 1-2 drinks per month [facility] Start: 08-15-2023 [facility] Start: 1995 Sex assigned at Female [facility] Start: 05-29-2023 Gender identity Identifies as female gender (finding) [facility] Start: 05-29-2023 Sexual orientation Heterosexual (finding) [facility] Start: 05-30-2023 Alcohol Comment Caffeine intake: 1-2 cups/day [facility] Goals Date Patient Goal Desired Activity /State Personal health goal Clinical Notes 07-07-2021 to 04-23-2024 Yris CorderoRICARDO lei - 04/23/2024 9:30 AM Aidee Landazio, DO - 04/16/2024 10:20 AM JUMANA Gonzalez - 04/10/2024 11:20 AM Aidee Love, DO - 04/02/2024 9:30 AM EST Note Date & Type Note Facility 04-23-2024 History of Presen t illness Narrative Reason for Appointment: Patient ID: Sarahi Montenegro is a 29 y.o. female who presents [...] nursing note reviewed. Exam conducted with a manager e learning present. Vitals: Estimated body mass index is 36.32 kg/m as calculated from the following: Height as of 05/24/18: 4' 10.5 . Weight as of this encounter: 176 lb 12.8 oz. BP: 106/62 Patient's last menstrual period was 08/01/2023. ASSESSMENT & PLAN ICD-10-CM 1. Third trimester Z34.93 2. 38 weeks gestation of Z3A.38 3. hydronephrosis during , antepartum, fetus 1 O35.EXX1 US biophysical profile w non stress test Patient presents today for a routine obstetrics appointment. Patient is currently 38w0d with a Estimated Date of Delivery: 05/07/24. Patient to return to clinic in 1 week and will have cervical length performed at that time. Reviewed recent ultrasound results with patient and spouse as well. Patient given order to have NST/BPP obtained twice weekly until delivery. Orders sent to [facility] scheduling and [facility] FBC Documented by Yris Jacobs LPN on behalf of: Sanjuana Love DO documented in this encounter [facility] 04-16-2024 History of Presen t illness Narrative Reason for Appointment: Patient ID: Sarahi Montenegro is a 29 y.o. female who presents [...] nursing note reviewed. Exam conducted with a manager e learning present. Vitals: Estimated body mass index is [...] Sanjuana Love DO documented in this encounter [facility] 04-10-2024 History of Presen t illness Narrative Reason for Appointment: Patient ID: Sarahi Montenegro is a 29 y.o. female who presents [...] of: JUMANA Trotter documented in this encounter [facility] 04-02-2024 History of Presen t illness Narrative Reason for Appointment: Patient ID: Sarahi Montenegro is a 29 y.o. female who presents [...] nursing note reviewed. Exam conducted with a manager e learning present. Vitals: Estimated body mass index is [...] Sanjuana Love DO documented in this encounter [facility] 03-20-2024 History of Presen t illness Narrative Reason for Appointment: Patient ID: Sarahi Montenegro is a 29 y.o. female who presents [...] of: JUMANA Trotter documented in this encounter [facility] 03-05-2024 History of Presen t illness Narrative Reason for Appointment: Patient ID: Sarahi Montenegro is a 29 y.o. female who presents [...] Sanjuana Love DO documented in this encounter [facility] 02-14-2024 History of Presen t illness Narrative Reason for Appointment: Patient ID: Sarahi Montenegro is a 29 y.o. female who presents [...] nursing note reviewed. Exam conducted with a manager e learning present. Vitals: Estimated body mass index is [...] of Delivery: 05/07/24. Patient is going to [facility] for her Rhogam injection. Patient to return to clinic 2-3 weeks. Documented by Yris Jacobs LPN on behalf of: Natacha Alston PA-C/Jazzy Root NP documented in this encounter [facility] 01-30-2024 History of Presen t illness Narrative Reason for Appointment: Patient ID: Sarahi Montenegro is a 29 y.o. female who presents [...] calculated from the following: Height as of 19: 4' 10.5 . Weight as of this [...] of: JUMANA Trotter documented in this encounter [facility] 01-03-2024 History of Presen t illness Narrative Reason for Appointment: Patient ID: Sarahi Montenegro is a 28 y.o. female who presents [...] nursing note reviewed. Exam conducted with a manager e learning present. Vitals: Estimated body mass index is [...] Sanjuana Love DO documented in this encounter [facility] 12-05-2023 History of Presen t illness Narrative Reason for Appointment: Patient ID: Sarahi Montenegro is a 28 y.o. female who presents [...] obtained without difficulty and patient was given [facility] order to have obtained. Orders Placed [...] of: JUMANA Trotter documented in this encounter [facility] 11-07-2023 History of Presen t illness Narrative Reason for Appointment: Patient ID: Sarahi Montenegro is a 28 y.o. female who presents [...] nursing note reviewed. Exam conducted with a manager e learning present. Vitals: Estimated body mass index is [...] or undercooked meat, and stay away from [facility]. Patient has been consulted regarding any further do's and don'ts of . Patient voiced understanding and all questions and concerns were answered. Discussed that patient is NEGATIVE blood type and will require Rhogam injection at 28 weeks gestation, order has already been faxed to [facility] Scheduling dept. Discussed Tdap and scheduling for that is they desire to have obtained. Orders Placed This Encounter Procedures POCT urinalysis dipstick manually resulted Follow Up: Patient is to return in 4 weeks for routine OB/ANNUAL appointment. Documented by Yris Jacobs LPN on behalf of: Sanjuana Love DO documented in this encounter [facility] 07-07-2021 Evaluation note Encounter Date Diagnosis Assessment Notes June, Well adult exam (ICD-10 - Z00.00) Routine lab work ordered today. Continue to follow with eye doctor and dentist, [employer]. Patient is advised to work on [...] treatment pending results of testing. June, Other [employer] referral sent today so that she is able to discuss control options with them. Discussed referral process with patient. [facility] Other Evaluation note* Diagnosis Screening, , for anatomic survey Encounter for anatomic survey 18 weeks gestation of Second trimester state, incidental Vaginal discharge Leukorrhea, not specified as infective Screen for STD (sexually transmitted disease) Screening examination for venereal disease Well woman exam with routine gynecological exam Routine gynecological examination documented [facility] this encounter [facility] Work Phone: Evaluation note* Diagnosis Second [...] HealthcareEvaluation note* Diagnosis Third trimester state, incidental 38 weeks gestation of hydronephrosis during , antepartum, fetus 1 documented in this encounter [facility] N[facility]ative - Reported* Type Description Date Surgical History No know Surgical history Hospitalization History No know Hospitalization history [facility] Other Chief Complaint and Reason for Visit [...] Care Teams (unrecognized sec tion and content) Soloist Dancer Relationship Specialty Start Date End Date Dionne Miller NP [address] [facility] [place] [phone] PCP - General 05/29/23 Soloist Dancer Relationship Specialty Start Date End Date Dionne Miller NP [address] [place] [address] PCP - General 05/29/23 Team Status: Active Member Role Status Dates Alexandrazeynep Kemp DO Primary Care Provider Active Team Status: Active Member Role Status Dates Dionne MARION Miller Primary Care Provider Active Start: September 07, 2023 Sanjuana Love , DO Attending Provider Active Start : September 07, 2023 Team Status: Active Member Role Status Dates Dionne Miller DNP Primary Care Provider Active Start: October 06, 2023 Sanjuana Love , DO Attending Provider Active Start : October 06, 2023 Team Status: Inactive Member Role Status Dates Alexandra AlistairGary DO Primary Care Provider Active Start: December 05, 2023 End: December 05, 2023 Natacha Alston PA-C Attending Provider Active Sta rt: December 05, 2023 End: December 05, 2023 Soloist Dancer Relationship Specialty Start Date End Date Dionne Miller NP [address] [facility] [place] [address] PCP - General 05/29/23 Soloist Dancer Relationship Specialty Start Date End Date Dionne Miller NP [address] [facility] [place] [address] PCP - General 05/29/23 Soloist Dancer Relationship Specialty Start Date End Date Dionne Miller NP [address] [facility] [place] [address] PCP - General 05/29/23 Soloist Dancer Relationship Specialty Start Date End Date Dionne Miller NP [address] [facility] [place] [place] [address] PCP - General 05/29/23 Natacha Alston PA [address] [place] [address] [place] [address] PCP - [facility] 02/28/22 02/27/99 Soloist Dancer Relationship Specialty Start Date End Date Dionne iMller NP [address] [place] [phone] PCP - General 05/29/23 Natacha Alston PA [address] [place] [address] [place] [address] PCP - [facility] [employer] 02/28/22 02/27/99 Soloist Dancer Relationship Specialty Start Date End Date Dionne Miller NP [address] [place] [phone] PCP - General 05/29/23 Soloist Dancer Relationship Specialty Start Date End Date Dionne Miller NP [address] [place] [address] PCP - General 05/29/23 Natacha Alston PA [address] [place] [address] [place] [address] PCP - [facility] [employer] 02/28/22 02/27/99 Soloist Dancer Relationship Specialty Start Date End Date Dionne Miller NP [address] [place] [address] PCP - General 05/29/23 Natacha Alston PA [address] [place] [address] [place] [address] PCP - [facility] [employer] 02/28/22 02/27/99 Soloist Dancer Relationship Specialty Start Date End Date Dionne Miller NP [address] [place] [phone] PCP - General 05/29/23 Natacha Alston PA [address] [place] [address] [place] [address] PCP - [facility] [employer] 02/28/22 02/27/99 Goals (unrecognized section and content) Goals may be documented in a n alternate section INFORMATION SOURCE (unrecogn ized section and content) DATE CREATED AUTHOR 12/30/2023 [facility] DATE CREATED AUTHOR AUTHOR'S FABIOLA PÉREZ 04/24/2024 [facility] FOR RECORDS PERTAINING TO PATIENTS WHO ARE [...] BE BASED ON THE PRIMARY CLINICAL RECORDS. [facility] [employer] provides no warranty or guarantee of the accuracy or completeness of information in this document.
[2024-04-30 10:16] VITALS: BP 121/76; PULSE 94
== END 2024-04-30 11:07 | disposition home or self-care (01) ==
LOC: FBCO 02:31 → FBC 10:07
PROVIDERS: PCP Nurse Practitioner Family; Visit Provider Obstetrics & Gynecology
DX: O26.893 Other specified pregnancy related conditions, third trimester (principal); Z3A.39 39 weeks gestation of pregnancy
CPT/HCPCS: 59025

== ENCOUNTER 2024-05-03 01:52 | Outpatient (OUT) | payer OTHER, SELFPAY ==
--- NOTE | 2024-05-03 | US_ITS ---
[address] [address] Patient Name: WILMAN MONTENEGRO MRN: [id number] date: 1995 Sex: F Assigned Patient Location: [facility] Current Patient Location: Accession/Order Number: [id number] Exam Date: 05/03/2024 22:52 Report Date: 05/03/2024 22:53 At the request of: SANJUANA JOYNER DO Procedure: US OB BPP w non-stress Biophysical profile. Reason for exam: hydronephrosis during . COMPARISON: Biophysical profile 04/26/2024. TECHNIQUE: Transabdominal imaging of the gravid uterus was obtained. FINDINGS: Cattle Feeder reports a BPP of 8 out of 8. ROGER is normal at 11.7 cm. heart rate 130 bpm. US/US OB BPP w non-stress Impression: BPP 8 out of 8. Impression dictated by: Inder Recinos Jr., D.O.05/03/2024 10:53 PM Dictation Location: [facility] ([employer]) Electronically authenticated by: [id number] Date: 05/03/2024 22:53
--- OUTSIDE RECORDS SUMMARY | 2024-05-03 01:55 | XMS_ITS | CCD ---
Author Organization [facility] Care Team Providers Care Services Engineer Name Role Phone Dionne Miller Unavailable DO Alexandra Kemp Primary Care Provider PAT [place] Attending Provider [phone] Dionne Miller NP Primary Care Provider Alexandra [...] sources) Amoxicillin Drug Allergy 05-30-2023 rash, Hives [facility] (1 source) Amoxicillin Drug Allergy 07-07-2021 [facility] Repository Medications Current Medications Medication Drug [...] of ] 04-02-2024 Episodic Residual codes; unclassified (11 sources) Gestation period, 37 weeks; Translations: [37 weeks gestation of ] Onset: 04-16-2024 04-16-2024 Episodic Residual codes; unclassified (2 sources) Gestation period, 38 weeks; Translations: [38 weeks gestation of ] 04-23-2024 Episodic Residual codes; unclassified (2 sources) Gestation period, 39 weeks; Translations: [39 weeks gestation of ] 04-30-2024 Episodic Unclassified (20 sources) OB Reminders Onset: 01-25-2024 01-25-2024 Past or Other Problems Problem Classification Problem Date Documented Da te Episodic/Chronic Malaise and fatigue (1 source) Other fatigue Onset: 07-07-2021 Resolved: 07-07-2021 Episodic Other skin disorders (1 source) Other skin changes Onset: 07-07-2021 Resolved: 07-07-2021 Episodic Results Test Name Value Interpretation Reference Range Facility Urinalysis macro (dipstick) panel (U)on 04-30-2024 Bilirubin, UA Negative Negative - 4(70) +++ mg/dL [facility] Blood, UA Negative Negative - 50 Jeremiah/mcL [facility] Clarity, UA Clear [facility] re Color, UA Yellow [facility] Healthcar e Glucose, UA Negative Negative - 2000(110) ++++ mg/dL [facility] Interpretation and review of laboratory results Abnormal [facility] Health[facility] re Ketones, UA Negative Negative - 160(16) ++++ mg/dL [facility] Leukocytes, UA Negative Negative - 500+++ Hitesh/mcL [facility] Nitrite, UA Negative Negative - Positive [facility] pH, UA 6.5 5 - 9 [facility] Healthcar e Protein, UA Trace Negative - 1999(20) ++++ mg/dL [facility] Spec Grav, UA 1.025 1 - 1.03 [facility] care Urobilinogen, UA 0.2 0.2 - 12 mg/dL [facility] US OB BPP W NON-STRESS on 04-26-2024 [place] [address] Ultrasound Report Signed Patient: SARAHI MONTENEGRO MR#: [id number] : 1995 Acct:[id number] Age/Sex: 29 / F ADM Date: 04/26/24 Loc: [facility] 254-[address]: Sanjuana Love D.O. Ordering Physician: Sanjuana Love D.O. Date of Service: 04/26/24 Procedure(s): US OB BPP w non-stress Accession Number(s): [id number] cc: Sanjuana Love D.O.; DIONNE MILLER [place] [address] Patient Name: SARAHI MONTENEGRO MRN: [id number] date: 1995 Sex: F Assigned Patient Location: [facility] Current Patient Location: [facility] Accession/Order Number: [id number] Exam Date: 04/26/2024 11:28 Report Date: 04/26/2024 11:32 At the request of: SANJUANA LOVE DO Procedure: US OB BPP w non-stress BIOPHYSICAL PROFILE: CLINICAL INFORMATION: hydronephrosis during O35.EXX1 COMPARISON: OB anatomy scan 12/20/2023 There is a single live intrauterine gestation in cephalic presentation. The reported gestational age is 38 weeks 3 days. The heart rate [id number] beats per minute. Dilatation of the renal [...] Shira Bradley M.D.04/26/2024 11:32 AM Dictation Location: [place] [address] Electronically authenticated by: [id number] Y Date: 04/26/2024 11:32 Dictated By: Shira Bradley M.D. Signed By: 04/26/24 1134 DD/ 1132 TD/TT: Open Hearth Worker: [facility] Radiology, Radiologist, MD - 04/26/2024 [place] [address] Ultrasound Report Signed Patient: SARAHI MONTENEGRO MR#: [id number] : 1995 Acct:[id number] Age/Sex: 29 / F ADM Date: 04/26/24 Loc: [facility] 254-[address]: Sanjuana Love D.O. Ordering Physician: Sanjuana Love D.O. Date of Service: 04/26/24 Procedure(s): US OB BPP w non-stress Accession Number(s): [id number] cc: Sanjuana Love D.O.; DIONNE MILLER The [place] [address] Patient Name: SARAHI OMNTENEGRO MRN: [facility]:[id number] date: 1995 Sex: F Assigned Patient Location: [facility] Current Patient Location: [facility] Accession/Order Number: [id number] Exam Date: 04/26/2024 11:28 Report Date: 04/26/2024 11:32 At the request of: SANJUANA IVAN DO Procedure: US OB BPP w non-stress BIOPHYSICAL PROFILE: CLINICAL INFORMATION: hydronephrosis during O35.EXX1 COMPARISON: OB anatomy scan 12/20/2023 There is a single live intrauterine gestation in cephalic presentation. The reported gestational age is 38 weeks 3 days. The heart rate [id number] beats per minute. Dilatation of the renal [...] Shira Bradley M.D.04/26/2024 11:32 AM Dictation Location: [place] [address] Electronically authenticated by: [id number] Y Date: 04/26/2024 11:32 Dictated By: Shira Bradley M.D. Signed By: 04/26/24 1134 DD/ 1132 TD/TT: Open Hearth Worker: [facility] Radiology Study observation (narrative) [facility] OB BPP W NON-STRESS Ordered By: Radiologist Radiology on 04-26-2024 [facility] AOLcar e Work Phone: US OB FOLLOW UP [...] 3170 gm / 6 lbs, 15 oz (0811-0343 gm) [place] Normal: 3236 gm (9776-7319 gm) [place] Wt%: 44% for 38.0 wks [...] UA Negative Negative - 4(70) +++ mg/dL [facility] Blood, UA Negative Negative - 50 Jeremiah/mcL [facility] Clarity, UA Clear [facility] re Color, UA Yellow [facility] e Glucose, UA Negative Negative - 1999(110) ++++ mg/dL [facility] Interpretation and review of laboratory results Abnormal [facility] re Ketones, UA Negative Negative - 160(16) ++++ mg/dL [facility] Leukocytes, UA Trace Negative - 500+++ Hitesh/mcL [facility] Nitrite, UA Negative Negative - Positive [facility] pH, UA 7 5 - 9 [facility] e Protein, UA Negative Negative - 1999(20) ++++ mg/dL [facility] Spec Grav, UA 1.015 1 - 1.03 [facility] Urobilinogen, UA 0.2 0.2 - 12 mg/dL [facility] Health[facility] e ALL MISCELLANEOUS TESTon MISCELLANEOUS TEST COMMENT . [facility] Comment on above: Test Ordered: [id number] Strep Gp B Culture+Rflx Strep Gp B [...] resistance to clindamycin is noted. Performed at: [facility] [address] [id number] Aquatics Manager: Pieter Tyler PhD, Phone: [phone] [id number] Group B Streptococcus Colonization Detection Culture With Re [facility] Urinalysis macro (dipstick) panel (U)on 04-10-2024 Bilirubin, UA Negative Negative - 4(70) +++ mg/dL [facility] Blood, UA Positive Negative - 50 Jeremiah/mcL [facility] Clarity, UA Clear [facility] re Color, UA Yellow [facility] Health[facility] e Glucose, UA Negative Negative - 1999(110) ++++ mg/dL [facility] Interpretation and review of laboratory results Abnormal [facility] re Ketones, UA Negative Negative - 160(16) ++++ mg/dL [facility] Leukocytes, UA Trace Negative - 500+++ Hitesh/mcL [facility] Nitrite, UA Negative Negative - Positive [facility] pH, UA 7 5 - 9 [facility] Healthcar e Protein, UA Negative Negative - 1999(20) ++++ mg/dL [facility] Spec Grav, UA 1.015 1 - 1.03 [facility] Urobilinogen, UA 0.2 0.2 - 12 mg/dL [facility] Urinalysis macro (dipstick) panel (U)on 04-02-2024 Bilirubin, UA Negative Negative - 4(70) +++ mg/dL [facility] Healthcare Blood, UA Negative Negative - 50 Jeremiah/mcL [facility] Healthcare Clarity, UA Clear [facility] Color, UA Yellow [facility] Glucose, UA Negative Negative - 1999(110) ++++ mg/dL [facility] Interpretation and review of laboratory results Abnormal [facility] Ketones, UA Negative Negative - 160(16) ++++ mg/dL [facility] Leukocytes, UA Trace Negative - 500+++ Hitesh/mcL [facility] Healthcare Nitrite, UA Negative Negative - Positive [facility] pH, UA 7 5 - 9 [facility] Protein, UA Negative Negative - 1999(20) ++++ mg/dL [facility] Spec Grav, UA 1.015 1 - 1.03 [facility] care Urobilinogen, UA 0.2 0.2 - 12 mg/dL [facility] Urinalysis macro (dipstick) panel (U)on 03-20-2024 Bilirubin, UA Negative Negative - 4(70) +++ mg/dL [facility] Blood, UA Negative Negative - 50 Jeremiah/mcL [facility] Healthcare Clarity, UA Clear [facility] Color, UA Yellow [facility] Glucose, UA Negative Negative - 1999(110) ++++ mg/dL [facility] Interpretation and review of laboratory results Abnormal [facility] Ketones, UA Negative Negative - 160(16) ++++ mg/dL [facility] Leukocytes, UA Trace Negative - 500+++ Hitesh/mcL [facility] Healthcare Nitrite, UA Negative Negative - Positive [facility] pH, UA 7.5 5 - 9 [facility] Protein, UA Negative Negative - 1999(20) ++++ mg/dL [facility] Spec Grav, UA 1.015 1 - 1.03 [facility] Health care Urobilinogen, UA 0.2 0.2 - 12 mg/dL [facility] US OB FOLLOW UP TRANSABDOMIN [...] 1956 gm / 4 lbs, 5 oz (9772-4068 gm) Hadlock Normal: 2162 gm (9231-2338 gm) [place] Wt%: 23% for 33.0 wks [...] UA Negative Negative - 4(70) +++ mg/dL [facility] Blood, UA Negative Negative - 50 Jeremiah/mcL [facility] Clarity, UA Clear [facility] re Color, UA Yellow [facility] Glucose, UA Negative Negative - 1999(110) ++++ mg/dL [facility] Interpretation and review of laboratory results Abnormal [facility] Healthaz re Ketones, UA Positive Negative - 160(16) ++++ mg/dL [facility] Leukocytes, UA Negative Negative - 500+++ Hitesh/mcL [facility] Nitrite, UA Negative Negative - Positive [facility] pH, UA 6.5 5 - 9 [facility] Healthcar e Protein, UA Negative Negative - 1999(20) ++++ mg/dL [facility] Spec Grav, UA 1.015 1 - 1.03 [facility] Urobilinogen, UA 0.2 0.2 - 12 mg/dL [facility] Urinalysis macro (dipstick) panel (U)on 02-14-2024 Bilirubin, UA Negative Negative - 4(70) +++ mg/dL [facility] Blood, UA Negative Negative - 50 Jeremiah/mcL [facility] Healthcare Clarity, UA Clear [facility] Color, UA Yellow [facility] Glucose, UA Negative Negative - 1999(110) ++++ mg/dL [facility] Interpretation and review of laboratory results Normal [facility] Healthca re Ketones, UA Negative Negative - 160(16) ++++ mg/dL [facility] Leukocytes, UA Negative Negative - 500+++ Hitesh/mcL [facility] Nitrite, UA Negative Negative - Positive [facility] pH, UA 7 5 - 9 [facility] Healthcar e Protein, UA Negative Negative - 1999(20) ++++ mg/dL [facility] Spec Grav, UA 1.02 1 - 1.03 [facility] Urobilinogen, UA 0.2 0.2 - 12 mg/dL [facility] Urinalysis macro (dipstick) panel (U)on 01-30-2024 Bilirubin, UA Negative Negative - 4(70) +++ mg/dL [facility] Blood, UA Negative Negative - 50 Jeremiah/mcL [facility] Healthcare Clarity, UA Clear [facility] Healthca re Color, UA Yellow [facility] Healthcar e Glucose, UA Negative Negative - 1999(110) ++++ mg/dL [facility] Interpretation and review of laboratory results Normal [facility] Healthca re Ketones, UA Negative Negative - 160(16) ++++ mg/dL [facility] Leukocytes, UA Negative Negative - 500+++ Hitesh/mcL [facility] Healthcare Nitrite, UA Negative Negative - Positive [facility] pH, UA 7 5 - 9 [facility] Health[facility] e Protein, UA Negative Negative - 1999(20) ++++ mg/dL [facility] Spec Grav, UA 1.015 1 - 1.03 [facility] care Urobilinogen, UA 0.2 0.2 - 12 mg/dL [facility] GLUCOSE 1 HOURon 01-23-2024 Glucose [Mass/Vol] 98 mg/dL NINF - 13 0 mg/dL [facility] Health[facility] e Urinalysis macro (dipstick) panel (U)on 11-05-2024 Bilirubin, UA Negative Negative - 4(70) +++ mg/dL [facility] Blood, UA Negative Negative - 50 Jeremiah/mcL [facility] Clarity, UA Clear [facility] AOLca re Color, UA Yellow [facility] AOL[facility] e Glucose, UA Negative Negative - 1999(110) ++++ mg/dL [facility] Interpretation and review of laboratory results Normal [facility] re Ketones, UA Negative Negative - 160(16) ++++ mg/dL [facility] Leukocytes, UA Negative Negative - 500+++ Hitesh/mcL [facility] Nitrite, UA Negative Negative - Positive [facility] pH, UA 6.5 5 - 9 [facility] Protein, UA Negative Negative - 1999(20) ++++ mg/dL [facility] Spec Grav, UA 1.02 1 - 1.03 [facility] Urobilinogen, UA 1.0 0.2 - 12 mg/dL [facility] HealthAvuxi e IGP,APTIMA HPV,AGE GDLNon AGE GDLN ACOG TESTING Note . [facility] Comment on above: TESTS RESULT FLAG UN ITS REF RANGE LAB Clinician Provided Cytology Information Source.............Cervix Other.............. No. of containers..01 ThinPrep Vial Age Algo ACOG Seble... FLAG LEGEND: L-Low Normal,H-High Normal,LL-Alert Low,HH-Alert High <-Panic Low,>-Panic High,A-Abnormal,AA-Critical Abnormal Performed at: 01 =G [facility] [address] [facility] [place] [address] Norah Samuels MD, IGP, RFX APTIMA HPV ASCU Note . [facility] Comment on above: TESTS RESULT FLAG UN ITS REF RANGE LAB DIAGNOSIS: 02 NEGATIVE FOR INTRAEPITHELIAL LESION OR MALIGNANCY. Specimen adequacy: 02 Satisfactory for evaluation. No endocervical component is identified. An endocervical component is not commonly seen in the patient. Performed by: 02 Denise Watson, Garment Folder ([facility]) . 02 Note: Note 02 The Pap [...] High,A-Abnormal,AA-Critical Abnormal Performed at: 02 WB [facility] [address] [address] Norah Samuels MD, Performed at: = - [facility], [place] [id number] Aquatics Manager: Norah Samuels MD, Phone: [phone] Performed at: - [facility], [place] [id number] Aquatics Manager: Norah Samuels MD, Phone: [phone] SPATULA-ALONE CERVIX [facility] URETHRITIS/DISCHARGE [...] 12-05-2023 AFP Comments: Comment Normal . [facility] Comment on above: Order [...] T18- Trisomy 18 For further inquiries contact [employer] at [phone]. This test was developed and its performance characteristics determined by [employer]. It has not been cleared or approved by the Food and Drug Administration. Performed at: - [facility] [address], [place] [id number] Aquatics Manager: Jenniffer Veliz [facility], Phone: [phone] PERFORMED BY: [address] [place] [address] PATHOLOGIST CERTIFIED FLIGHT INSTRUCTOR PERCY ROSEN M.D. Performed By: #### A FPQUAD #### [facility] , AFP Interpretation Comment Normal . [facility] Comment on above: [...] , AFP Mom 0.94 Normal . [facility] Comment on above: Order Comment: 18 WE EKAlia. JKW Is patient >15 week ?: Y Is extra paperwork completed?: Y Result Comment: --- 12/28/23 1508 --- AFP Mom previously reported as: See interpretation. Performed By: #### A FPQUAD #### [facility] , AFP Test Results: Negative Normal . The [facility] Comment on above: Order Comment: 18 WE EKS. ShadiaKW Is patient >15 week ?: Y Is extra paperwork completed?: Y Result Comment: --- 12/28/231507 --- Test Results: previously reported as: See interpretation. Performed By: #### A FPQUAD #### [facility] , AFP Value 41.5 ng/mL Normal . [facility] Comment on above: Order Comment: 18 WE EKS. ShadiaKW Is patient >15 week ?: Y Is extra paperwork completed?: Y Performed By: #### A FPQUAD #### [facility] , SHAHBAZ Mom 1.27 Normal . [facility] Comment on above: Order Comment: 18 WE EKS. ShadiaKW Is patient >15 week ?: Y Is extra paperwork completed?: Y Result Comment: --- 12/28/231507 --- SHAHBAZ Mom previously reported as: See interpretation. Performed By: #### A FPQUAD #### [facility] , SHAHBAZ Value 213.50 pg/mL Normal . [facility] Comment on above: Order Comment: 18 WE EKS. ShadiaKW Is patient >15 week ?: Y Is extra paperwork completed?: Y Performed By: #### A FPQUAD #### [facility] , DSR 2nd Trimester 1 In 1706 Normal . [facility] Comment on above: Order Comment: 18 WE EKS. DEEPAKW Is patient >15 week ?: Y Is extra paperwork completed?: Y Result Comment: --- 12/28/231507 --- DSR2nd Tri 1 In previously reported as: See interpretation. Performed By: #### A FPQUAD #### [facility] , DSR By Age 1 In 911 Normal . The [facility] Comment on above: Order Comment: 18 WE EKS. ShadiaKW Is patient >15 week ?: Y Is extra paperwork completed?: Y Result Comment: --- 12/28/231507 --- DSR By Age 1 In previously reported as: See interpretation. Performed By: #### A FPQUAD #### [facility] , Gest. Age Based On MICHELLE Normal . [facility] Comment on above: Order Comment: 18 WE EKS. JKW Is patient >15 week ?: Y Is extra paperwork completed?: Y Result Comment: 04/28 --- 12/28/23 1508 --- Gest Age Based previously reported as: As provided Performed By: #### A FPQUAD #### [facility] , Gest. Age On Collection Date 18.0 Normal . [facility] Comment on above: Order Comment: 18 WE EKS. JKW Is patient >15 week ?: Y Is extra paperwork completed?: Y Performed By: #### A FPQUAD #### [facility] , HCG Mom 1.09 Normal . [facility] Comment on above: Order Comment: 18 WE EKS. JKW Is patient >15 week ?: Y Is extra paperwork completed?: Y Result Comment: --- 12/28/23 1508 --- HCG Mom previously reported as: See interpretation. Performed By: #### A FPQUAD #### [facility] , HCG Value 33232 m[iU]/mL Normal . [facility] Comment on above: Order Comment: 18 WE EKS. JKW Is patient >15 week ?: Y Is extra paperwork completed?: Y Performed By: #### A FPQUAD #### [facility] , Insulin Dependent Diabetes No Normal . [facility] Comment on above: Order Comment: 18 WE EKS. JKW Is patient >15 week ?: Y Is extra paperwork completed?: Y Result Comment: Not provided. --- 12/28/23 1508 --- Insulin Dep Shahbaz previously reported as: Comment Not provided. Performed By: #### A FPQUAD #### [facility] , Maternal Age At MICHELLE 27.2 Normal . The [facility] Comment on above: Order Comment: 18 WE EKS. JKW Is patient >15 week ?: Y Is extra paperwork completed?: Y Performed By: #### A FPQUAD #### [facility] , Multiple Gestation No Normal . [facility] Comment on above: Order Comment: 18 WE EKS. SOTELOW Is patient >15 week ?: Y Is extra paperwork completed?: Y Result Comment: Not provided. --- 12/28/23 1508 --- Mult Gest previously reported as: Comment Not provided. Performed By: #### A FPQUAD #### [facility] , OSBR Risk 1 [place] [address] Normal . [facility] Comment on above: Order Comment: 18 WE EKS. SOTELOW Is patient >15 week ?: Y Is extra paperwork completed?: Y Result Comment: --- 12/28/23 1508 --- OSBR Risk 1 In previously reported as: See interpretation. Performed By: #### A FPQUAD #### [facility] , Race Normal . [facility] Comment on above: Order Comment: 18 WE EKJeremiah SOTELOW Is patient >15 week ?: Y Is extra paperwork completed?: Y Result Comment: Not provided. --- 12/28/23 1508 --- Race previously reported as: Comment Not provided. Performed By: #### A FPQUAD #### [facility] , Results Comment Normal . [facility] Comment on above: Order Comment: 18 WE EKS. SOTELOW Is patient >15 week ?: Y Is extra paperwork completed?: Y Result Comment: The MOM and risk factors of this report have been modified based on new information supplied to us by the client or their designated loan representative. Note that the gestational ages on [...] T18 By Age 1:3551 Normal . [facility] Comment on above: Order Comment: 18 WE EKS. JKW Is patient >15 week ?: Y Is extra paperwork completed?: Y Performed By: #### A FPQUAD #### [facility] , T18 Risk Not increased Normal . The [facility] Comment on above: Order Comment: 18 WE EKS. JKW Is patient >15 week ?: Y Is extra paperwork completed?: Y Result Comment: --- 12/28/23 1508 --- T18 Risk previously reported as: See interpretation. Performed By: #### A FPQUAD #### [facility] , UE3 Mom 0.77 Normal . [facility] Comment on above: Order Comment: 18 WE EKS. JKW Is patient >15 week ?: Y Is extra paperwork completed?: Y Result Comment: --- 12/28/23 150 --- UE3 Mom previously reported as: See interpretation. Performed By: #### A FPQUAD #### [facility] , UE3 Value 1.05 ng/mL Normal . [facility] Comment on above: Order Comment: 18 WE EKS. JKW Is patient >15 week ?: Y Is extra paperwork completed?: Y Performed By: #### A FPQUAD #### [facility] , Weight 143 Normal . [facility] Comment on above: Order Comment: 18 WE EKS. JKW Is patient >15 week ?: Y Is extra paperwork completed?: Y Result Comment: Not provided. --- 12/28/23 1508 --- Weight previously reported as: Comment lbs Not provided. Performed By: #### A FPQUAD #### [facility] , Urinalysis macro (dipstick) panel (U)on 12-05-2023 Bilirubin, UA Negative Negative - 4(70) +++ mg/dL [facility] Blood, UA Negative Negative - 50 Jeremiah/mcL [facility] Healthcare Clarity, UA Clear [facility] Color, UA Yellow [facility] Health[facility] e Glucose, UA Negative Negative - 1999(110) ++++ mg/dL [facility] Interpretation and review of laboratory results Normal [facility] Ketones, UA Negative Negative - 160(16) ++++ mg/dL [facility] Leukocytes, UA Negative Negative - 500+++ Hitesh/mcL [facility] Nitrite, UA Negative Negative - Positive [facility] pH, UA 7.5 5 - 9 [facility] Health[facility] e Protein, UA Negative Negative - 1999(20) ++++ mg/dL [facility] Spec Grav, UA 1.020 1 - 1.03 [facility] Urobilinogen, UA 0.2 0.2 - 12 mg/dL [facility] Urinalysis macro (dipstick) panel (U)on 11-07-2023 Bilirubin, UA Negative Negative - 4(70) +++ mg/dL [facility] Blood, UA Positive Negative - 50 Jeremiah/mcL [facility] Healthcare Comment on above: trace-intact Clarity, UA Clear [facility] Color, UA Yellow [facility] Glucose, UA Negative Negative - 1999(110) ++++ mg/dL [facility] Interpretation and review of laboratory results Abnormal [facility] Ketones, UA Negative Negative - 160(16) ++++ mg/dL [facility] Leukocytes, UA Trace Negative - 500+++ Hitesh/mcL [facility] Nitrite, UA Negative Negative - Positive [facility] pH, UA 7.0 5 - 9 [facility] Protein, UA Negative Negative - 1999(20) ++++ mg/dL [facility] Healthcare Spec Grav, UA 1.020 1 - 1.03 [facility] care Urobilinogen, UA 0.2 0.2 - 12 mg/dL [facility] Healthcare [facility] Basophils Auto (Bld) [#/Vol] on 10-06-2023 Basophils (Bld) [#/Vol] 0.0 10 3/uL 0.0-0.1 [facility] Basophils/100 WBC Auto (Bld) on 10-06-2023 Basophils/100 WBC (Bld) 0.5 % 0.2-2.0 [facility] Eosinophils/100 WBC Auto (Bl d)on 10-06-2023 Eosinophils/100 WBC (Bld) 1.2 % 0.9-7.0 [facility] Erythrocyte distribution wid th Auto (RBC) [Ratio]on 10-06-2023 Erythrocyte distribution width (RBC) [Ratio] 12.4 % 11.0-15.0 [facility] Glucose mean value [Mass/vol ume] in Blood Estimated from glycated hemoglobinon 10-06-2023 Average glucose Estimated from glycated hemoglobin (Bld) [Mass/Vol] 94 mg/dL [facility] HBV surface Ag IA Qlon 10-05 Hepatitis B Surface Antigen Negative Negative [facility] Comment on above: Performed at: [facility] [id number] Director: Pieter Tyler PhD, Phone: [phone] Performed at: [employer] [place], [place] [id number] Director: Pieter Tyler PhD, Phone: [employer] [facility] [employer] HCV Ab Signal/Cutoff IA [Rel units/Vol]on 10-06-2023 Hepatitis C Antibody Non-Reactive Non Reactive [facility] HIV 1+2 Ab+HIV1 p24 Ag IA Ql on 10-06-2023 HIV (1&2) Antibody Screen Non-Reactive Non Reactive [facility] Comment on above: HIV-1/HIV-2 antibodi es and HIV-1 p24 antigen were NOTdetected. There is no laboratory evidence of HIV infection.HIV NegativePerformed at: [employer] [place], [place] [id number] Director: Pieter Tyler PhD, Phone: [phone] HIV-1/HIV-2 antibodi es and HIV-1 p24 antigen were NOTdetected. There is no laboratory evidence of HIV infection.HIV NegativePerformed at: [employer] [place], [place] [id number] Director: Pieter Tyler PhD, Phone: [phone] Hematocrit Auto (Bld) [Volum e fraction]on 10-06-2023 Hematocrit (Bld) [Volume fraction] 36.1 % 36.0-48.0 [facility] Hemoglobin [Mass/volume] in Bloodon 10-06-2023 Hemoglobin (Bld) [Mass/Vol] 12.6 g/dL 12.0-16.0 [facility] Laboratory - Hematology and Cell countson 10-06-2023 HbA1c (Bld) [Mass fraction] 4.9 % 4.5-6.2 [facility] Comment on above: ADA RECOMMENDED LIMI T 4.0 - 6.0ADA THERAPEUTIC TARGET < 7.0ACTION SUGGESTED> 7.0 Immature granulocytes/100 WBC (Bld) 0.1 % 0.0-0.5 [facility] Leukocytes [#/volume] correc marcia for nucleated erythrocytes in Blood by Automated counon 10-06-2023 WBC corrected for nucl RBC Auto (Bld) [#/Vol] 8.2 10 3/uL 4.0-11.0 [facility] Lymphocytes Auto (Bld) [#/Vo l]on 10-06-2023 Lymphocytes (Bld) [#/Vol] 2.1 10 3/uL 1.2-3.8 [facility] Lymphocytes/100 WBC Auto (Bl d)on 10-06-2023 Lymphocytes/100 WBC (Bld) 26.0 % 20.5-60.0 [facility] MCH Auto (RBC) [Entitic mass ]on 10-06-2023 MCH (RBC) [Entitic mass] 30.7 pg 26.7-34.0 [facility] MCHC Auto (RBC) [Mass/Vol]on 10-06-2023 MCHC (RBC) [Mass/Vol] 34.9 g/dL 29.9-35.2 [facility] MCV Auto (RBC) [Entitic vol] on 10-06-2023 MCV (RBC) [Entitic vol] 87.8 fL 81.0-99.0 [facility] Monocytes Auto (Bld) [#/Vol] on 10-06-2023 Monocytes (Bld) [#/Vol] 0.5 10 3/uL 0.3-0.8 [facility] Monocytes/100 WBC Auto (Bld) on 10-06-2023 Monocytes/100 WBC (Bld) 5.9 % 1.7-12.0 [facility] Neutrophils Auto (Bld) [#/Vo l]on 10-06-2023 Neutrophils (Bld) [#/Vol] 5.4 10 3/uL 1.4-6.5 [facility] Neutrophils/100 WBC Auto (Bl d)on 10-06-2023 Neutrophils/100 WBC (Bld) 66.3 % 43.0-75.0 [facility] No Panel Informationon 10-05 Eosinophils # (Auto) 0.1 10 3/uL 0.0-0.7 [facility] Hepatitis C Interpretation Comment . [facility] Comment on above: Not infected with HC V unless early or acute infection issuspected (which may be delayed in an immunocompromisedindividual), or other evidence exists to indicate HCVinfection.Performed at: [facility] [place] [id number] Director: Pieter Tyler PhD, Phone: [phone] Not infected with HC V unless early or acute infection issuspected (which may be delayed in an immunocompromisedindividual), or other evidence exists to indicate HCVinfection.Performed at: [employer] [place], [place] [id number] Director: Pieter Tyler PhD, Phone: [phone] Immature Granulocyte # (Auto) 0.01 10 3/uL 0.00-0.03 [facility] RPR Quantitative Confirmation Non Reactive titer NonRea<1:1 [facility] Comment on above: Please Note: This te st does not meet current guidelines forscreening and diagnosis of syphilis. This test isintended for following treatment response in patients beingtreated for syphilis infection. To screen for syphilisinfection, a reflex cascade that includes both RPR and atreponema-specific assay should be utilized, such asTreponema pallidum (Syphilis) Screening [place] (611035) orRapid Plasma Reagin (RPR) Test With Reflex to QuantitativeRPR and Confirmatory Treponema pallidum Antibodies(417853).Performed at: [facility] [place], [place] [id number] Director: Pieter Tyler PhD, Phone: [phone] Rubella IgG Antibody 2.39 index Immune >0.99 [facility] Comment on above: Non-immune <0.90 Equ ivocal 0.90 - 0.99 Immune >0.99Performed at: CB - [facility] [address] [id number] Director: Pieter Tyler PhD, Phone: [phone] Platelet mean volume Auto (B ld) [Entitic vol]on 10-06-2023 Platelet mean volume (Bld) [Entitic vol] 8.6 fL Low 9.5-13.5 [facility] Platelets Auto (Bld) [#/Vol] on 10-06-2023 Platelets (Bld) [#/Vol] 266 10 3/uL 150-450 [facility] RBC Auto (Bld) [#/Vol]on RBC (Bld) [#/Vol] 4.11 10 6/uL Low 4.20-5.40 [facility] No Panel Informationon 09-06 Human Chorionic Gonadotropin, Quant 5292 mIU/mL [facility] Comment on above: 5-50 0.2-1 ZXTX40-04 0 1-2 VLRYP519-2,000 2-3 JBWTT787-95,000 3-4 WEEKS1,000-50,000 4-5 WEEKS10,000-100,000 5-6 WEEKS15,000-200,000 6-8 WEEKS10,000-100,000 2-3 MONTHS Vital Signs Date Time Vital Sign Value Performing Clinician Facility 04-30-2024 09:32-0500 Body mass index (BMI) [Ratio] 36.18 kg/m2 [employer] Work Phone: [facility] 04-30-2024 09:32-0500 Body weight 79.89 kg [employer] Work Phone: [facility] 04-30-2024 09:32-0500 Diastolic blood pressure 82 mm[Hg] [employer] Work Phone: [facility] 04-30-2024 09:32-0500 Systolic blood pressure 114 mm[Hg] Sanjuana Ivan DO Work Phone: [facility] 04-23-2024 09:42-0500 Body mass index (BMI) [Ratio] 36.32 kg/m2 Sanjuana Ivan DO Work Phone: [facility] 04-23-2024 09:42-0500 Body weight 80.2 kg Sanjuana Ivan DO Work Phone: [facility] 04-23-2024 09:42-0500 Diastolic blood pressure 62 mm[Hg] Sanjuana Ivan DO Work Phone: [facility] 04-23-2024 09:42-0500 Systolic blood pressure 106 mm[Hg] Sanjuana Ivan DO Work Phone: [facility] 04-16-2024 10:39-0500 Body mass index (BMI) [Ratio] 35.54 kg/m2 Sanjuana Ivan DO Work Phone: [facility] 04-16-2024 10:39-0500 Body weight 78.47 kg Sanjuana Ivan DO Work Phone: [facility] 04-16-2024 10:39-0500 Diastolic blood pressure 64 mm[Hg] Sanjuana Ivan DO Work Phone: [facility] 04-16-2024 10:39-0500 Systolic blood pressure 110 mm[Hg] Sanjuana Ivan DO Work Phone: [facility] 04-10-2024 11:15-0500 Body mass index (BMI) [Ratio] 35.57 kg/m2 Natacha DENNEY Work Phone: [facility] 04-10-2024 11:15-0500 Body weight 78.53 kg Natacha DENNEY Work Phone: [facility] 04-10-2024 11:15-0500 Diastolic blood pressure 70 mm[Hg] Natacha DENNEY Work Phone: [facility] 04-10-2024 11:15-0500 Systolic blood pressure 112 mm[Hg] Natacha DENNEY Work Phone: [facility] 04-02-2024 09:35-0500 Body mass index (BMI) [Ratio] 34.95 kg/m2 Sanjuana Ivan DO Work Phone: [facility] 04-02-2024 09:35-0500 Body weight 77.17 kg Sanjuana Ivan DO Work Phone: [facility] 04-02-2024 09:35-0500 Diastolic blood pressure 72 mm[Hg] Sanjuana Ivan DO Work Phone: [facility] 04-02-2024 09:35-0500 Systolic blood pressure 98 mm[Hg] Sanjuana Ivan DO Work Phone: [facility] 03-20-2024 09:29-0500 Body mass index (BMI) [Ratio] 34.31 kg/m2 Natacha DENNEY Work Phone: [facility] 03-20-2024 09:29-0500 Body weight 75.75 kg Natacha DENNEY Work Phone: [facility] 03-20-2024 09:29-0500 Diastolic blood pressure 72 mm[Hg] Natacha DENNEY Work Phone: [facility] 03-20-2024 09:29-0500 Systolic blood pressure 120 mm[Hg] Natacha DENNEY Work Phone: [facility] 03-05-2024 14:00-0500 Body mass index (BMI) [Ratio] 34.27 kg/m2 Sanjuana Ivan DO Work Phone: [facility] 03-05-2024 14:00-0500 Body weight 75.66 kg Sanjuana Ivan DO Work Phone: [facility] 03-05-2024 14:00-0500 Diastolic blood pressure 68 mm[Hg] Sanjuana Iavn DO Work Phone: [facility] 03-05-2024 14:00-0500 Systolic blood pressure 110 mm[Hg] Sanjuana Ivan DO Work Phone: [facility] 02-14-2024 12:48-0500 Body mass index (BMI) [Ratio] 32.87 kg/m2 Sanjuana Ivan DO Work Phone: [facility] 02-14-2024 12:48-0500 Body weight 72.58 kg Sanjuana Ivan DO Work Phone: [facility] 02-14-2024 12:48-0500 Diastolic blood pressure 60 mm[Hg] Sanjuana Ivan DO Work Phone: [facility] 02-14-2024 12:48-0500 Systolic blood pressure 100 mm[Hg] Sanjuana Ivan DO Work Phone: [facility] 01-30-2024 09:03-0500 Body mass index (BMI) [Ratio] 32.07 kg/m2 Natacha DENNEY Work Phone: [facility] 01-30-2024 09:03-0500 Body weight 70.82 kg Natacha DENNEY Work Phone: [facility] 01-30-2024 09:03-0500 Diastolic blood pressure 68 mm[Hg] Natacha DENNEY Work Phone: [facility] 01-30-2024 09:03-0500 Systolic blood pressure 108 mm[Hg] Natacha DENNEY Work Phone: [facility] 01-03-2024 10:23-0500 Body mass index (BMI) [Ratio] 31.39 kg/m2 Sanjuana Ivan DO Work Phone: [facility] 01-03-2024 10:23-0500 Body weight 69.31 kg Sanjuana Ivan DO Work Phone: [facility] 01-03-2024 10:23-0500 Diastolic blood pressure 68 mm[Hg] Sanjuana Ivan DO Work Phone: [facility] 01-03-2024 10:23-0500 Systolic blood pressure 102 mm[Hg] Sanjuana Ivan DO Work Phone: [facility] 12-05-2023 09:41-0400 Body mass index (BMI) [Ratio] 29.33 kg/m2 Natacha Alston PA Work Phone: [facility] 12-05-2023 09:41-0400 Body weight 64.75 kg Natacha Alston PA Work Phone: [facility] 12-05-2023 09:41-0400 Diastolic blood pressure 66 mm[Hg] Natacha Alston PA Work Phone: [facility] 12-05-2023 09:41-0400 Systolic blood pressure 100 mm[Hg] Natacha Alston PA Work Phone: [facility] 11-07-2023 09:53-0400 Body mass index (BMI) [Ratio] 28.45 kg/m2 Sanjuana Ivan DO Work Phone: [facility] 11-07-2023 09:53-0400 Body weight 62.82 kg Sanjuana Ivan DO Work Phone: [facility] 11-07-2023 09:53-0400 Diastolic blood pressure 64 mm[Hg] Sanjuana Ivan DO Work Phone: [facility] 11-07-2023 09:53-0400 Systolic blood pressure 106 mm[Hg] Sanjuana Ivan DO Work Phone: [facility] 07-07-2021 11:00-0400 Body height 151.13 cm Dionne Miller Other [employer] Other 07-07-2021 11:00-0400 Body mass index (BMI) [Ratio] 25.18 kg/m2 Dionne Miller Other [facility] Other 07-07-2021 11:00-0400 Body temperature 97 [degF] Dionne Miller Other [facility] Other 07-07-2021 11:00-0400 Body weight 57.52 kg Dionne Miller Other [facility] Other 07-07-2021 11:00-0400 Diastolic blood pressure 60 mm[Hg] Dionne Angela Other [facility] Other 07-07-2021 11:00-0400 Respiratory rate 18 /min Dionne Angela Other [facility] Other 07-07-2021 11:00-0400 SaO2% (BldA) [Mass fraction] 99 % Dionne Angela Other [facility] Other 07-07-2021 11:00-0400 Systolic blood pressure 100 mm[Hg] Dionne Angela Other [facility] Other Encounters Encounter Date Encounter Type Care Provider Facility Start: 04-30-2024 End: 04-30-2024 Bamboo flowsheet Sanjuana Ivan DO Work Phone: [facility] Start: 04-30-2024 End: 04-30-2024 Bamboo flowsheet Sanjuana Ivan DO Work Phone: [facility] Start: 04-30-2024 End: 04-30-2024 flow sheet Sanjuana Ivan DO Work Phone: [facility] Comment on above: Third trimester preg hortensia; 39 weeks gestation of Start: 04-30-2024 End: 04-30-2024 ambulatory SANJUANA IVAN Not Available Start: 04-26-2024 End: 04-26-2024 Clinisync Result Encounter [...] Clinisync Result Encounter Natacha DENNEY Work Phone: [facility] External Department Unsolicited Start: 04-10-2024 End: 04-10-2024 [...] gestation of Start: 04-02-2024 End: 04-02-2024 ambulatory SANUJANA IVAN Not Available Start: 03-20-2024 End: 03-20-2024 [...] flow sheet Sanjuana Ivan DO Work Phone: [facility] Comment on above: Second trimester pre gnancy; 22 weeks gestation of ; Diabetes mellitus screening Start: 12-05-2023 End: 12-05-2023 Bamboo flowsheet Natacha DENNEY Work Phone: [facility] Start: 12-05-2023 End: 12-10-2023 Bamboo flowsheet Natacha DENNEY Work Phone: [facility] Start: 12-05-2023 End: 12-10-2023 Clinisync Result Encounter Natacha DENNEY Work Phone: [facility] External Department Unsolicited Start: 12-05-2023 End: 12-06-2023 External Result Encounter Natacha DENNEY Work Phone: [facility] External Department Unsolicited Start: 12-05-2023 End: 12-05-2023 Patient encounter procedure DO Alexandra Kemp Work Phone: [facility] Start: 12-05-2023 End: 12-05-2023 ambulatory DO Alexandra Kemp Work Phone: [facility] Work Phone: Start: 12-05-2023 End: 12-05-2023 Patient encounter procedure Natacha DENNEY Work Phone: [facility] Start: 12-05-2023 End: 12-05-2023 Periodic preventive med est patient 18-39 yrs Natacha DENNEY Work Phone: [facility] Comment on above: Screening, [...] Start: 10-06-2023 Non-patient / Non-visit DO Morena [employer] Work Phone: [facility] Work Phone: Start: 10-06-2023 End: 10-06-2023 ambulatory NATACHA ALECIA Not Available Start: 09-07-2023 Non-patient / Non-visit DO Morena Kemp Work Phone: [facility] Work Phone: Start: 06-29-2023 End: 06-29-2023 ambulatory SANJUANA IVAN Not Available Start: 05-30-2023 End: 05-30-2023 ambulatory NATACHA ALECIA Not Available Start: 07-07-2021 End: 07-07-2021 ambulatory Dionne Miller Other [facility] [employer] Other Start: 07-07-2021 Encounter for genera l adult medical examination without abnormal findings Dionne Miller [facility] [place] Start: 07-07-2021 Periodic preventive med est patient 18-39 yrs Dionne Miller [facility] [place] Procedures Date Procedure Procedure Detail Performing Clinician Start: 04-30-2024 Urnls dip stick/tabl et rgnt non-auto w/o micrscp Sanjuana Ivan DO Work Phone: Start: 04-26-2024 OB BPP W NON-STRESS Sanjuana Ivan DO [...] w/o micrscp Sanjuana Love DO Work Phone: Plan of Treatment Date Care Activity Detail Author Start: 05-07-2024 End: 05-07-2024 Patient encounter procedure 05/07/2024 10:30 AM EDT Routine [facility] [address] [place] [address] Natacha Alston PA [address] [facility] [address] [place], [place] [id number] [facility] Start: 04-30-2024 End: 04-30-2024 Patient encounter procedure [facility] Comment on above: Arrived Start: 04-23-2024 End: 04-23-2025 US biophysical profile [...] AM EST Routine [facility] [address] [place] [address] Sanjuana Love, DO [address] [place], [place] [id number] [facility] Start: 04-16-2024 End: 04-16-2024 Professional / ancillary services management 04/16/2024 8:30 AM EST Ancillary Procedure [facility] [address] [place] [address] [facility] Start: 04-11-2024 End: 04-11-2024 Professional / ancillary services management 04/11/2024 9:00 AM EST Ancillary Procedure [facility] [address] [place] [id number] [facility] Start: 04-10-2024 End: 04-10-2025 CULTURE, GROUP B STREP WITH SUSCEPTIBLITY CULTURE, GROUP B STREP WITH SUSCEPTIBLITY Lab Routine Third trimester Expected: 04/10/2024, Expires: 04/10/2025 [facility] Work Phone: Comment on above: Expected: 04/10/2024 , Expires: 04/10/2025 Start: 04-10-2024 End: 04-10-2024 Patient encounter procedure 04/10/2024 11:20 AM EST Routine [facility] [address] [place] [address] Natacha Alston PA [address] [facility] [place] [address] Arrived [facility] Comment on above: Arrived Start: 04-02-2024 End: 04-02-2024 Patient encounter procedure [facility] Comment on above: Arrived Start: 03-20-2024 End: 03-20-2024 Patient encounter procedure [facility] Comment on above: Arrived Start: 03-12-2024 End: 03-12-2024 Professional / ancillary services management 03/12/2024 10:00 AM EST Ancillary Procedure [facility] [address] [place] [phone] [facility] Start: 03-05-2024 End: 03-05-2025 [...] PM EST Routine [facility] [address] [place] [address] Sanjuana Love, DO [address] [place] [address] Arrived [facility] Comment on above: Arrived Start: 02-13-2024 End: 02-13-2024 Patient encounter procedure 02/13/2024 8:30 AM EST Routine [facility] [address] [place] [address] Sanjuana Love, DO [address] [place] [address] [facility] Start: 01-31-2024 End: 01-31-2024 Patient encounter procedure 01/31/2024 8:30 AM EST Routine [facility] [address] [place] [address] Natacha Alston PA [address] [place] [address] [facility] Start: 01-30-2024 End: 01-30-2024 Patient encounter procedure 01/30/2024 8:50 AM EST Routine [facility] [address] [place] [address] Natacha Alston, PA [address] [place] [address] [facility] Start: 01-24-2024 End: 01-24-2024 Professional / ancillary services management 01/24/2024 8:30 AM EST Ancillary Procedure [facility] [address] [place] [address] [facility] Start: 01-03-2024 End: 01-02-2025 CBC panel - Blood by Automated count CBC Lab Routine Diabetes mellitus screening Expected: 01/03/2024 (Approximate), Expires: 01/02/2025 [facility] Work Phone: Comment on above: Expected: 01/03/2024 (Approximate), Expires: 01/02/2025 Start: 01-03-2024 End: 01-02-2025 Measurement of glucose 1 hour after glucose challenge for glucose tolerance test Glucose tolerance, 1 hour Lab Routine Diabetes mellitus screening Expected: 01/03/2024 (Approximate), Expires: 01/02/2025 [facility] Comment on above: Expected: 01/03/2024 (Approximate), Expires: 01/02/2025 Start: 01-03-2024 End: 01-03-2024 Patient encounter procedure 01/03/2024 9:40 AM EST Routine [facility] [address] [place] [address] Sanjuana Love, DO [address] [facility] [place] [address] [facility] Start: 12-20-2023 End: 12-20-2023 Professional / ancillary services management 12/20/2023 10:00 AM EDT Ancillary Procedure [facility] [address] [place] [address] [facility] Start: 12-05-2023 End: 12-04-2024 Alpha fetoprotein, maternal Alpha fetoprotein, maternal Lab Routine 18 weeks gestation of Second trimester Expected: 12/05/2023 (Approximate), Expires: 12/04/2024 [facility] Comment on above: Expected: 12/05/2023 (Approximate), Expires: 12/04/2024 Start: 12-05-2023 End: 12-04-2024 US for US OB ANATOMY SINGLE W US OB CERVICAL LENGTH Imaging Routine Screening, , for anatomic survey Expected: 12/05/2023 (Approximate), Expires: 12/04/2024 [facility] Comment on above: Expected: 12/05/2023 (Approximate), Expires: 12/04/2024 Start: 12-05-2023 [facility] Start: 12-05-2023 End: 12-05-2023 Patient encounter procedure [facility] Comment on above: Arrived Start: 11-07-2023 End: 11-07-2023 Patient encounter procedure 11/07/2023 9:40 AM EDT Routine [facility] [address] [place] [address] Sanjuana Love, DO [address] [facility] [place] [address] Arrived [facility] Comment on above: Arrived Start: 10-30-2023 Influenza vaccination Influenza Vacc ine (#1) [facility] Ckopk-0-Pkyncjcqadg [Mass/volume] in Serum or Plasma [facility] Assessment of gestational age [facility] Body weight [facility] CHLAMYDIA TRACHOMATI S (GENITO/STI) CHLAMYDIA TRACHOMATIS (GENITO/STI) Lab Routine Vaginal discharge Screen for STD (sexually transmitted disease) Ordered: 12/05/2023 [facility] Comment on above: Ordered: 12/05/2023 Choriogonadotropin.i ntac t+Beta subunit [Units/volume] in Serum or Plasma [facility] Cytology Cervical or vaginal smear or scraping study Pap Smear Pathology and Cytology Routine Well woman exam with routine gynecological exam Ordered: 12/05/2023 [facility] Work Phone: Comment on above: Ordered: 12/05/2023 Diabetes mellitus screening [facility] Estriol (E3).unconjugated [Mass/volume] in Serum or Plasma [facility] Human chorionic gonadotropin measurement [facility] Inhibin A [Mass/volu me] in Serum or Plasma [facility] Inhibin measurement [facility] Laboratory data interpretation [facility] Neisseria gonorrhoea e DNA [Presence] in Unspecified specimen by ARMAND with probe detection Neisseria gonorrhea DNA probe, direct Lab Routine Vaginal discharge Screen for STD (sexually transmitted disease) Ordered: 12/05/2023 [facility] Comment on above: Ordered: 12/05/2023 Risk assessment [facility] Risk identification: genetic [facility] Serum alpha-fetoprot ein multiple of median measurement [facility] SURESWAB(R) ADVANCED VAGINITIS PLUS, TMA SURESWAB(R) ADVANCED VAGINITIS PLUS, TMA Pathology and Cytology Routine Vaginal discharge Screen for STD (sexually transmitted disease) Ordered: 12/05/2023 [facility] Comment on above: Ordered: 12/05/2023 Unconjugated estriol measurement [facility] Immunizations Immunization Date Immunization Notes Care Provider Cordell pandey 08[birth year]2010 tetanus toxoid, redu bobby diphtheria toxoid, and acellular pertussis vaccine, adsorbed Dionne Miller Other [facility] Payers Date Payer Category Payer Self-pay [id number] 2022 Private Health Insurance [employer] [id number] 2022 Unknown [employer] [id number] 2022-Present [address] [place] [address] [id number] 2021 Unknown [id number] 1997 Unknown [id number] 2.16.840.1.204236.3.579.2. 1259 1997 Unknown [id number] 2.16.840.1.164831.3.579.2. 9 1997 Unknown [id number] 2.16.840.1.509733.3.579.2. 1258 1997 Unknown [id number] 2.16.840.1.482844.3.579.2. 1258 1997 Unknown [id number] 2.16.840.1.048380.3.579.2. 1258 1997 Unknown [id number] 2.16.840.1.405466.3.579.2. 1258 1997 Unknown [id number] 2.16.840.1.882871.3.579.2. 1258 1997 Unknown [id number] 2.16.840.1.568540.3.579.2. 1258 1997 Unknown [id number] 2.16.840.1.895885.3.579.2. 1258 1997 Unknown [id number] 2.16.840.1.973748.3.579.2. 1258 1997 Unknown [id number] 2.16.840.1.198056.3.579.2. 1258 1997 Unknown [id number] 2.16.840.1.687461.3.579.2. 1258 1997 Unknown [id number] [id number] 1997 Unknown [id number] 1258 1997 Unknown [id number] 1258 1997 Unknown [id number] 1258 1997 Unknown [id number] 1259 Unknown [id number] 531 Social History Date Type Detail Facility Start: 05-30-2023 Sex Assigned At [facility] Start: 03-29-2018 End: 05-30-2023 Tobacco smoking status NHIS Never smoked tobacco [facility] Start: 05-30-2023 Tobacco use and exposure Smokeless tobacco non-user [facility] Start: 11-07-2023 End: 04-23-2024 Alcoholic beverage [...] 05-30-2023 Alcohol Comment Caffeine intake: 1-2 cups/day [facility] Goals Date Patient Goal Desired Activity /State Personal health goal Clinical Notes 07-07-2021 to 04-30-2024 Sanjuana Love, DO - 04/30/2024 9:30 AM Mee Jacobs LPN - 04/23/2024 9:30 AM Aidee Love, DO - 04/16/2024 10:20 AM JUMANA Gonzalez - 04/10/2024 11:20 AM EST Note Date & Type Note Facility 04-30-2024 History of Presen t illness Narrative Reason [...] note reviewed. Exam conducted with a senior marketing associate present. Vitals: Estimated body mass index is 36.18 kg/m as calculated from the following: Height as of 05/24/18: 4' 10.5 . Weight as of this encounter: 176 lb 1.9 oz. BP: 114/82 Patient's last menstrual period was 08/01/2023. Assessment/Plan Encounter Diagnosis: ICD-10-CM 1. Third trimester Z34.93 POCT urinalysis dipstick manually resulted 2. 39 weeks gestation of Z3A.39 Return OB: Patient presents today for a routine obstetrics appointment. Patient is currently 39w0d . Patient states she is doing well [...] Sanjuana Love DO documented in this encounter [facility] 04-23-2024 History of Presen t illness Narrative [...] note reviewed. Exam conducted with a senior marketing associate present. Vitals: Estimated body mass index is [...] twice weekly until delivery. Orders sent to [facility] scheduling and [facility] Documented by Yris Jacobs LPN on behalf of: Sanjuana Love DO documented in this encounter [facility] 04-16-2024 History of Presen t illness [...] note reviewed. Exam conducted with a senior marketing associate present. Vitals: Estimated body mass index is [...] Sanjuana Love DO documented in this encounter [facility] 04-10-2024 History of Presen t illness [...] of: JUMANA Trotter documented in this encounter [facility] 04-02-2024 History of Presen t illness [...] note reviewed. Exam conducted with a senior marketing associate present. Vitals: Estimated body mass index is [...] Sanjuana Love DO documented in this encounter [facility] 03-20-2024 History of Presen t illness [...] of: JUMANA Trotter documented in this encounter [facility] 03-05-2024 History of Presen t illness [...] Sanjuana Love DO documented in this encounter [facility] 02-14-2024 History of Presen t illness [...] note reviewed. Exam conducted with a senior marketing associate present. Vitals: Estimated body mass index is [...] of Delivery: 05/07/24. Patient is going to [facility] for her Rhogam injection. Patient to return to clinic 2-3 weeks. Documented by Yris Jacobs LPN on behalf of: Natacha Alston PA-C/Jazzy Root NP documented in this encounter [facility] 01-30-2024 History of Presen t illness [...] of: JUMANA Trotter documented in this encounter [facility] 01-03-2024 History of Presen t illness [...] note reviewed. Exam conducted with a senior marketing associate present. Vitals: Estimated body mass index is [...] Sanjuana Love DO documented in this encounter [facility] 12-05-2023 History of Presen t illness [...] [facility] without difficulty [facility]. Orders Pl[facility] This [...] of: JUMANA Trotter documented in this encounter [facility] 11-07-2023 History of Presen t illness [...] note reviewed. Exam conducted with a senior marketing associate present. Vitals: Estimated body mass index is [...] or undercooked meat, and stay away from [facility]. Patient has been consulted regarding any further do's and don'ts of . Patient voiced understanding and all questions and concerns were answered. Discussed that patient is NEGATIVE blood type and will require Rhogam injection at 28 weeks gestation, order has already been faxed to [facility] Scheduling dept. Discussed Tdap and scheduling for that is they desire to have obtained. Orders Placed This Encounter Procedures POCT urinalysis dipstick manually resulted Follow Up: Patient is to return in 4 weeks for routine OB/ANNUAL appointment. Documented by Yris Jacobs LPN on behalf of: Sanjuana Love DO documented in this encounter [facility] 07-07-2021 Evaluation note Encounter Date Diagnosis Assessment Notes June, Well adult exam (ICD-10 - Z00.00) Routine lab work ordered today. Continue to follow with eye doctor and dentist, [facility]. Patient is advised to work on healthy [...] treatment pending results of testing. June, Other [facility] referral sent today so that she is able to discuss control options with them. Discussed referral process with patient. [facility] Other Evaluation note* Diagnosis Screening, , for anatomic survey Encounter for anatomic survey 18 weeks gestation of Second trimester state, incidental Vaginal discharge Leukorrhea, not specified as infective Screen for STD (sexually transmitted disease) Screening examination for venereal disease Well woman exam with routine gynecological exam Routine gynecological examination [facility] Phone: Evaluation note* Diagnosis [...] fetus 1 [facility] Diagnosis Third trimester state, incidental 39 weeks gestation of [facility] - Reported* Type Description Date Surgical History No know Surgical history Hospitalization History No know Hospitalization history [facility] Other Chief Complaint and Reason for Visit [...] Care Teams (unrecognized sec tion and content) Services Engineer Relationship Specialty Start Date End Date Dionne Miller NP [address] [place] [address] PCP - General 05/29/23 Services Engineer Relationship Specialty Start Date End Date Dionne Miller NP [address] [place] [address] PCP - General 05/29/23 Team Status: Active [...] Care Provider Active Start: October 06, 2023 Sanjuanaquinton Love DO Attending Provider Active Start : October 06, 2023 Team Status: Inactive Member Role Status Dates Alexandra Kurtiszachery DO Primary Care Provider Active Start: December 05, 2023 End: December 05, 2023 Natacha Alston PA-C Attending Provider Active Sta rt: December 05, 2023 End: December 05, 2023 Services Engineer Relationship Specialty Start Date End Date Dionne Miller NP [address] [place] [address] PCP - General 05/29/23 Services Engineer Relationship Specialty Start Date End Date Dionne Miller NP [address] [place] [address] PCP - General 05/29/23 Services Engineer Relationship Specialty Start Date End Date Dionne Miller NP [address] [place] [address] PCP - General 05/29/23 Services Engineer Relationship Specialty Start Date End Date Dionne Miller NP [address] [place] [phone] PCP - General 05/29/23 Natacha Alston PA [address] [place] [address] [place] [address] PCP - Medical [employer] 02/28/22 02/27/99 Services Engineer Relationship Specialty Start Date End Date Dionne Miller POISER [address] [place] [id number] PCP - General 05/29/23 Natacha Alston PA [address] [place] [address] [place] [address] PCP - Medical [employer] 02/28/22 02/27/99 Services Engineer Relationship Specialty Start Date End Date Dionne Miller NP [address] [place] [address] PCP - General 05/29/23 Services Engineer Relationship Specialty Start Date End Date Dionne Miller NP [address] [place] [address] PCP - General 05/29/23 Natacha Alston PA [address] [place] [address] [place] [address] PCP - Medical [employer] 02/28/22 02/27/99 Services Engineer Relationship Specialty Start Date End Date Dionne Miller NP [address] [place] [address] PCP - General 05/29/23 Natacha Alston PA [address] [place] [address] [place] [address] PCP - Medical [employer] 02/28/22 02/27/99 Services Engineer Relationship Specialty Start Date End Date Dionne Miller NP [address] [place] [address] PCP - General 05/29/23 Natacha Alston PA [address] [place] [address] [place] [address] PCP - Medical [employer] 02/28/22 02/27/99 Goals (unrecognized section and content) Goals may be documented in a n alternate section INFORMATION SOURCE (unrecogn ized section and content) DATE CREATED AUTHOR 12/30/2023 [facility] DATE CREATED AUTHOR AUTHOR'S ORGANIZ ATION 05/01/2024 [facility] FOR RECORDS PERTAINING TO PATIENTS WHO [...] BE BASED ON THE PRIMARY CLINICAL RECORDS. [employer] provides no warranty or guarantee of the accuracy or completeness of information in this document.
[2024-05-03 10:18] VITALS: BP 118/73; PULSE 85
== END 2024-05-03 10:44 | disposition home or self-care (01) ==
LOC: US 01:52 → FBC 09:56
PROVIDERS: PCP Nurse Practitioner Family; Visit Provider Obstetrics & Gynecology
DX: O35.EXX1 Maternal care for other (suspected) fetal abnormality and damage, fetal genitourinary anomalies, fetus 1 (principal)
CPT/HCPCS: 76818

== ENCOUNTER 2024-05-07 12:09 | Outpatient (OUT) | payer OTHER, SELFPAY ==
--- OUTSIDE RECORDS SUMMARY | 2024-05-07 12:18 | XMS_ITS | CCD ---
Author Organization [facility] Care Team Providers Care Tar Roofer Name Role Phone Dionne Miller Unavailable DO Alexandra Kemp Primary Care Provider PAT Alston Attending Provider [phone] Dionne Miller NP Primary Care Provider Alexandra [...] sources) Amoxicillin Drug Allergy 05-30-2023 rash, Hives [facility] (1 source) Amoxicillin Drug Allergy 07-07-2021 [facility] Repository Medications Current Medications Medication Drug Class(es) [...] UA Negative Negative - 4(70) +++ mg/dL [facility] Blood, UA Negative Negative - 50 Jeremiah/mcL [facility] Clarity, UA Clear [facility] re Color, UA Yellow [facility] Glucose, UA Negative Negative - 2000(110) ++++ mg/dL [facility] Interpretation and review of laboratory results Abnormal [facility] Ketones, UA Negative Negative - 160(16) ++++ mg/dL [facility] Leukocytes, UA Negative Negative - 500+++ Hitesh/mcL [facility] Nitrite, UA Negative Negative - Positive [facility] pH, UA 6.5 5 - 9 [facility] Protein, UA Trace Negative - 1999(20) ++++ mg/dL [facility] Spec Grav, UA 1.025 1 - 1.03 [facility] care Urobilinogen, UA 0.2 0.2 - 12 mg/dL [facility] US OB BPP W NON-STRESS on 04-26-2024 [place] [address] Ultrasound Report Signed Patient: SARAHI MONTENEGRO MR#: [id number] : 1995 Acct:[id number] Age/Sex: 29 / F ADM Date: 04/26/24 Loc: [facility] 254-[address]: Sanjuana Love D.O. Ordering Physician: Sanjuana Love D.O. Date of Service: 04/26/24 Procedure(s): US OB BPP w non-stress Accession Number(s): [id number] cc: Sanjuana Love D.O.; DIONNE MILLER [place] [address] Patient Name: SARAHI MONTENEGRO MRN: [id number] date: 1995 Sex: F Assigned Patient Location: [facility] Current Patient Location: [facility] Accession/Order Number: [id number] Exam Date: 04/26/2024 11:28 Report Date: 04/26/2024 11:32 At the request of: SANJUANA LOVE DO Procedure: US OB BPP w non-stress BIOPHYSICAL PROFILE: CLINICAL INFORMATION: hydronephrosis during O35.EXX1 COMPARISON: OB anatomy scan 12/20/2023 There is a single live intrauterine gestation in cephalic presentation. The reported gestational age is 38 weeks 3 days. The heart rate atcpdzte969 beats per minute. Dilatation of the renal [...] Shira Bradley M.D.04/26/2024 11:32 AM Dictation Location: [place] [address] Electronically authenticated by: [id number] Y Date: 04/26/2024 11:32 Dictated By: Shira Bradley M.D. Signed By: 04/26/24 1134 DD/ 1132 TD/TT: Managing Consultant: [facility] Radiology, Radiologist, MD - 04/26/2024 [place] [address] Ultrasound Report Signed Patient: SARAHI MONTENEGRO MR#: [id number] : 1995 Acct:[id number] Age/Sex: 29 / F ADM Date: 04/26/24 Loc: [facility] 254-[address]: Sanjuana Love D.O. Ordering Physician: Sanjuana Love D.O. Date of Service: 04/26/24 Procedure(s): US OB BPP w non-stress Accession Number(s): [id number] cc: Sanjuana Love D.O.; DIONNE MILLER [place] [address] Patient Name: SARAHI MONTENEGRO MRN: [facility]:[id number] date: 1995 Sex: F Assigned Patient Location: [facility] Current Patient Location: [facility] Accession/Order Number: [id number] Exam Date: 04/26/2024 11:28 Report Date: 04/26/2024 11:32 At the request of: SANJUANA IVAN DO Procedure: US OB BPP w non-stress BIOPHYSICAL PROFILE: CLINICAL INFORMATION: hydronephrosis during O35.EXX1 COMPARISON: OB anatomy scan 12/20/2023 There is a single live intrauterine gestation in cephalic presentation. The reported gestational age is 38 weeks 3 days. The heart rate bomxbwrh085 beats per minute. Dilatation of the renal [...] Shira Bradley M.D.04/26/2024 11:32 AM Dictation Location: [place] [address] Electronically authenticated by: [id number] Y Date: 04/26/2024 11:32 Dictated By: Shira Bradley M.D. Signed By: 04/26/24 1134 DD/ 1132 TD/TT: Managing Consultant: [facility] Radiology Study observation (narrative) [facility] OB BPP W NON-STRESS Ordered By: Radiologist Radiology on 04-26-2024 [facility] Work Phone: US OB FOLLOW UP [...] 3170 gm / 6 lbs, 15 oz (1641-6803 gm) [place] Normal: 3236 gm (8498-8125 gm) [place] Wt%: 44% for 38.0 wks [...] UA Negative Negative - 4(70) +++ mg/dL [facility] Blood, UA Negative Negative - 50 Jeremiah/mcL [facility] Clarity, UA Clear [facility] re Color, UA Yellow Located [facility] e Glucose, UA Negative Negative - 1999(110) ++++ mg/dL [facility] Interpretation and review of laboratory results Abnormal [facility] re Ketones, UA Negative Negative - 160(16) ++++ mg/dL [facility] Leukocytes, UA Trace Negative - 500+++ Hitesh/mcL [facility] Nitrite, UA Negative Negative - Positive [facility] pH, UA 7 5 - 9 [facility] e Protein, UA Negative Negative - 1999(20) ++++ mg/dL [facility] Spec Grav, UA 1.015 1 - 1.03 [facility] Urobilinogen, UA 0.2 0.2 - 12 mg/dL [facility] ALL MISCELLANEOUS TESTon MISCELLANEOUS TEST COMMENT . [facility] Comment on above: Test Ordered: [id number] Strep Gp B Culture+Rflx Strep Gp B Culture+Rflx Negative CB Reference Range: Negative Centers for Disease Control and Prevention (CDC) and [place] [employer] of Obstetricians and Gynecologists (ACOG) guidelines [...] resistance to clindamycin is noted. Performed at: [facility] [address] [id number] Grey Stock Recorder: Pieter Tyler PhD, Phone: [phone] [id number] Group B Streptococcus Colonization Detection Culture With Re [facility] Urinalysis macro (dipstick) panel (U)on 04-10-2024 Bilirubin, UA Negative Negative - 4(70) +++ mg/dL [facility] Blood, UA Positive Negative - 50 Jeremiah/mcL [facility] Clarity, UA Clear [facility] re Color, UA Yellow [facility] Glucose, UA Negative Negative - 1999(110) ++++ mg/dL [facility] Interpretation and review of laboratory results Abnormal [facility] re Ketones, UA Negative Negative - 160(16) ++++ mg/dL [facility] Leukocytes, UA Trace Negative - 500+++ Hitesh/mcL [facility] Nitrite, UA Negative Negative - Positive [facility] pH, UA 7 5 - 9 [facility] Protein, UA Negative Negative - 1999(20) ++++ mg/dL [facility] Spec Grav, UA 1.015 1 - 1.03 [facility] Urobilinogen, UA 0.2 0.2 - 12 mg/dL [facility] Urinalysis macro (dipstick) panel (U)on 04-02-2024 Bilirubin, UA Negative Negative - 4(70) +++ mg/dL [facility] Healthcare Blood, UA Negative Negative - 50 Jeremiah/mcL [facility] Healthcare Clarity, UA Clear [facility] Color, UA Yellow [facility] Glucose, UA Negative Negative - 1999(110) ++++ mg/dL [facility] Interpretation and review of laboratory results Abnormal [facility] Ketones, UA Negative Negative - 160(16) ++++ mg/dL [facility] Leukocytes, UA Trace Negative - 500+++ Hitesh/mcL [facility] Healthcare Nitrite, UA Negative Negative - Positive [facility] pH, UA 7 5 - 9 [facility] Protein, UA Negative Negative - 1999(20) ++++ mg/dL [facility] Spec Grav, UA 1.015 1 - 1.03 [facility] Urobilinogen, UA 0.2 0.2 - 12 mg/dL [facility] Urinalysis macro (dipstick) panel (U)on 03-20-2024 Bilirubin, UA Negative Negative - 4(70) +++ mg/dL [facility] Blood, UA Negative Negative - 50 Jeremiah/mcL [facility] Healthcare Clarity, UA Clear [facility] Color, UA Yellow [facility] Glucose, UA Negative Negative - 1999(110) ++++ mg/dL [facility] Interpretation and review of laboratory results Abnormal [facility] Ketones, UA Negative Negative - 160(16) ++++ mg/dL [facility] Leukocytes, UA Trace Negative - 500+++ Hitesh/mcL [facility] Healthcare Nitrite, UA Negative Negative - Positive [facility] pH, UA 7.5 5 - 9 [facility] Protein, UA Negative Negative - 1999(20) ++++ mg/dL [facility] Spec Grav, UA 1.015 1 - 1.03 [facility] Health care Urobilinogen, UA 0.2 0.2 - 12 mg/dL [facility] US OB FOLLOW UP [...] 1956 gm / 4 lbs, 5 oz (0655-4344 gm) Hadlock Normal: 2162 gm (4276-0259 gm) [place] Wt%: 23% for 33.0 wks [...] UA Negative Negative - 4(70) +++ mg/dL [facility] Blood, UA Negative Negative - 50 Jeremiah/mcL [facility] Clarity, UA Clear [facility] re Color, UA Yellow [facility] e Glucose, UA Negative Negative - 1999(110) ++++ mg/dL [facility] Interpretation and review of laboratory results Abnormal [facility] Health[facility] re Ketones, UA Positive Negative - 160(16) ++++ mg/dL [facility] Leukocytes, UA Negative Negative - 500+++ Hitesh/mcL [facility] Nitrite, UA Negative Negative - Positive [facility] pH, UA 6.5 5 - 9 [facility] Protein, UA Negative Negative - 1999(20) ++++ mg/dL [facility] Spec Grav, UA 1.015 1 - 1.03 [facility] Urobilinogen, UA 0.2 0.2 - 12 mg/dL [facility] Urinalysis macro (dipstick) panel (U)on 02-14-2024 Bilirubin, UA Negative Negative - 4(70) +++ mg/dL [facility] Blood, UA Negative Negative - 50 Jeremiah/mcL [facility] Healthcare Clarity, UA Clear [facility] Color, UA Yellow [facility] Glucose, UA Negative Negative - 1999(110) ++++ mg/dL [facility] Interpretation and review of laboratory results Normal [facility] re Ketones, UA Negative Negative - 160(16) ++++ mg/dL [facility] Leukocytes, UA Negative Negative - 500+++ Hitehs/mcL [facility] Nitrite, UA Negative Negative - Positive [facility] pH, UA 7 5 - 9 [facility] Health[facility] e Protein, UA Negative Negative - 1999(20) ++++ mg/dL [facility] Spec Grav, UA 1.02 1 - 1.03 [facility] Urobilinogen, UA 0.2 0.2 - 12 mg/dL [facility] Urinalysis macro (dipstick) panel (U)on 01-30-2024 Bilirubin, UA Negative Negative - 4(70) +++ mg/dL [facility] Blood, UA Negative Negative - 50 Jeremiah/mcL [facility] Healthcare Clarity, UA Clear [facility] Healthca re Color, UA Yellow [facility] Health[facility] e Glucose, UA Negative Negative - 1999(110) ++++ mg/dL [facility] Interpretation and review of laboratory results Normal [facility] re Ketones, UA Negative Negative - 160(16) ++++ mg/dL [facility] Leukocytes, UA Negative Negative - 500+++ Hitesh/mcL [facility] Healthcare Nitrite, UA Negative Negative - Positive [facility] pH, UA 7 5 - 9 [facility] Health[facility] e Protein, UA Negative Negative - 1999(20) ++++ mg/dL [facility] Spec Grav, UA 1.015 1 - 1.03 [facility] care Urobilinogen, UA 0.2 0.2 - 12 mg/dL [facility] GLUCOSE 1 HOURon 01-23-2024 Glucose [Mass/Vol] 98 mg/dL NINF - 13 0 mg/dL [facility] e Urinalysis macro (dipstick) panel (U)on 11-05-2024 Bilirubin, UA Negative Negative - 4(70) +++ mg/dL [facility] Blood, UA Negative Negative - 50 Jeremiah/mcL [facility] Clarity, UA Clear [facility] re Color, UA Yellow [facility] Glucose, UA Negative Negative - 1999(110) ++++ mg/dL [facility] Interpretation and review of laboratory results Normal [facility] re Ketones, UA Negative Negative - 160(16) ++++ mg/dL [facility] Leukocytes, UA Negative Negative - 500+++ Hitesh/mcL [facility] Nitrite, UA Negative Negative - Positive [facility] pH, UA 6.5 5 - 9 [facility] Protein, UA Negative Negative - 1999(20) ++++ mg/dL [facility] Spec Grav, UA 1.02 1 - 1.03 [facility] Urobilinogen, UA 1.0 0.2 - 12 mg/dL [facility] e IGP,APTIMA HPV,AGE GDLNon AGE GDLN ACOG TESTING Note . [facility] Comment on above: TESTS RESULT FLAG UN ITS REF RANGE LAB Clinician Provided Cytology Information Source.............Cervix Other.............. No. of containers..01 ThinPrep Vial Age Algo ACOG Seble... FLAG LEGEND: L-Low Normal,H-High Normal,LL-Alert Low,HH-Alert High <-Panic Low,>-Panic High,A-Abnormal,AA-Critical Abnormal Performed at: 01 =G [facility] [address] [facility] [place] [address] Norah Samuels MD, IGP, RFX APTIMA HPV ASCU Note . [facility] Comment on above: TESTS RESULT FLAG UN ITS REF RANGE LAB DIAGNOSIS: 02 NEGATIVE FOR INTRAEPITHELIAL LESION OR MALIGNANCY. Specimen adequacy: 02 Satisfactory for evaluation. No endocervical component is identified. An endocervical component is not commonly seen in the patient. Performed by: 02 Denise Watson, Benefits Administrator ([facility]) . 02 Note: Note 02 The [...] High,A-Abnormal,AA-Critical Abnormal Performed at: 02 WB [facility] [address] [place] [place] [address] Norah Samuels MD, Performed at: = - [facility], [place] [id number] Grey Stock Recorder: Norah Samuels MD, Phone: [phone] Performed at: - [facility], [place] [id number] Grey Stock Recorder: Norah Samuels MD, Phone: [phone] SPATULA-ALONE CERVIX [facility] URETHRITIS/DISCHARGE [...] 12-05-2023 AFP Comments: Comment Normal . [facility] Comment on above: Order Comment: 18 WE EKS. JKW Is patient >15 week ?: Y Is extra paperwork completed?: Y Result Comment: Iona Carpio, Ph.D., [facility] Director References: Available Upon Request. Multiples Of Median Cutoffs Abbreviation Definitions For AFP Elevations IDD- Insulin Dep Diabetes Newton 2.5 Black 2.8 OSBR- Open Spina Bifida IDD 2.0 Twins 4.5 Risk DSR Cutoff 1:270 DSR- Down Syndrome Risk T18 Cutoff 1:100 T18- Trisomy 18 For further inquiries contact [employer] at [phone]. This test was developed and its performance characteristics determined by [employer]. It has not been cleared or approved by the Food and Drug Administration. Performed at: - [facility] [address] [place], [place] [id number] Grey Stock Recorder: Jenniffer Veliz [facility], Phone: [phone] PERFORMED BY: [address] [place] [address] PATHOLOGIST PLATING AND POINT ASSEMBLY SUPERVISOR PERCY ROSEN M.D. Performed By: #### A FPQUAD #### [facility] , AFP Interpretation Comment Normal . [facility] Comment on above: Order Comment: [...] identifies 60% of Trisomy 18 pregnancies. The [place] [employer]stetricians and Gynecologists recommends amniocentesis [...] , AFP Mom 0.94 Normal . [facility] Comment on above: Order Comment: 18 WE EKAlia. JKW Is patient >15 week ?: Y Is extra paperwork completed?: Y Result Comment: --- 12/28/23 1508 --- AFP Mom previously reported as: See interpretation. Performed By: #### A FPQUAD #### [facility] , AFP Test Results: Negative Normal . [facility] Comment on above: Order Comment: 18 WE EKS. ShadiaKW Is patient >15 week ?: Y Is extra paperwork completed?: Y Result Comment: --- 12/28/231507 --- Test Results: previously reported as: See interpretation. Performed By: #### A FPQUAD #### [facility] , AFP Value 41.5 ng/mL Normal . [facility] Comment on above: Order Comment: 18 WE EKS. ShadiaKW Is patient >15 week ?: Y Is extra paperwork completed?: Y Performed By: #### A FPQUAD #### [facility] , SHAHBAZ Mom 1.27 Normal . [facility] Comment on above: Order Comment: 18 WE EKS. ShadiaKW Is patient >15 week ?: Y Is extra paperwork completed?: Y Result Comment: --- 12/28/231507 --- SHAHBAZ Mom previously reported as: See interpretation. Performed By: #### A FPQUAD #### [facility] , SHAHBAZ Value 213.50 pg/mL Normal . [facility] Comment on above: Order Comment: 18 WE EKS. ShadiaKW Is patient >15 week ?: Y Is extra paperwork completed?: Y Performed By: #### A FPQUAD #### [facility] , DSR 2nd Trimester 1 In 1706 Normal . [facility] Comment on above: Order Comment: 18 WE EKS. DEEPAKW Is patient >15 week ?: Y Is extra paperwork completed?: Y Result Comment: --- 12/28/231507 --- DSR2nd Tri 1 In previously reported as: See interpretation. Performed By: #### A FPQUAD #### [facility] , DSR By Age 1 In 911 Normal . The [facility] Comment on above: Order Comment: 18 WE EKS. ShadiaKW Is patient >15 week ?: Y Is extra paperwork completed?: Y Result Comment: --- 12/28/231507 --- DSR By Age 1 In previously reported as: See interpretation. Performed By: #### A FPQUAD #### [facility] , Gest. Age Based On MICHELLE Normal . [facility] Comment on above: Order Comment: 18 WE EKS. JKW Is patient >15 week ?: Y Is extra paperwork completed?: Y Result Comment: 04/28 --- 12/28/23 1508 --- Gest Age Based previously reported as: As provided Performed By: #### A FPQUAD #### [facility] , Gest. Age On Collection Date 18.0 Normal . [facility] Comment on above: Order Comment: 18 WE EKS. JKW Is patient >15 week ?: Y Is extra paperwork completed?: Y Performed By: #### A FPQUAD #### [facility] , HCG Mom 1.09 Normal . [facility] Comment on above: Order Comment: 18 WE EKS. JKW Is patient >15 week ?: Y Is extra paperwork completed?: Y Result Comment: --- 12/28/23 1508 --- HCG Mom previously reported as: See interpretation. Performed By: #### A FPQUAD #### [facility] , HCG Value 28828 m[iU]/mL Normal . [facility] Comment on above: Order Comment: 18 WE EKS. JKW Is patient >15 week ?: Y Is extra paperwork completed?: Y Performed By: #### A FPQUAD #### [facility] , Insulin Dependent Diabetes No Normal . [facility] Comment on above: Order Comment: 18 WE EKS. JKW Is patient >15 week ?: Y Is extra paperwork completed?: Y Result Comment: Not provided. --- 12/28/23 1508 --- Insulin Dep Shahbaz previously reported as: Comment Not provided. Performed By: #### A FPQUAD #### [facility] , Maternal Age At MICHELLE 27.2 Normal . [facility] Comment on above: Order Comment: 18 WE EKS. JKW Is patient >15 week ?: Y Is extra paperwork completed?: Y Performed By: #### A FPQUAD #### [facility] , Multiple Gestation No Normal . [facility] Comment on above: Order Comment: 18 WE EKS. SOTELOW Is patient >15 week ?: Y Is extra paperwork completed?: Y Result Comment: Not provided. --- 12/28/23 1508 --- Mult Gest previously reported as: Comment Not provided. Performed By: #### A FPQUAD #### [facility] , OSBR Risk [address] [place] [address] [facility] Comment on above: Order Comment: 18 WE EKS. SOTELOW Is patient >15 week ?: Y Is extra paperwork completed?: Y Result Comment: --- 12/28/23 1508 --- OSBR Risk 1 In previously reported as: See interpretation. Performed By: #### A FPQUAD #### [facility] , Race Normal . [facility] Comment on above: Order Comment: 18 WE EKJeremiah SOTELOW Is patient >15 week ?: Y Is extra paperwork completed?: Y Result Comment: Not provided. --- 12/28/23 1508 --- Race previously reported as: Comment Not provided. Performed By: #### A FPQUAD #### [facility] , Results Comment Normal . [facility] Comment on above: Order Comment: 18 WE EKS. SOTELOW Is patient >15 week ?: Y Is extra paperwork completed?: Y Result Comment: The MOM and risk factors of this report have been modified based on new information supplied to us by the client or their designated real estate representative. Note that the gestational ages on [...] T18 By Age 1:3551 Normal . [facility] Comment on above: Order Comment: 18 WE EKS. JKW Is patient >15 week ?: Y Is extra paperwork completed?: Y Performed By: #### A FPQUAD #### [facility] , T18 Risk Not increased Normal . [facility] Comment on above: Order Comment: 18 WE EKS. JKW Is patient >15 week ?: Y Is extra paperwork completed?: Y Result Comment: --- 12/28/23 1508 --- T18 Risk previously reported as: See interpretation. Performed By: #### A FPQUAD #### [facility] , UE3 Mom 0.77 Normal . [facility] Comment on above: Order Comment: 18 WE EKS. JKW Is patient >15 week ?: Y Is extra paperwork completed?: Y Result Comment: --- 12/28/23 150 --- UE3 Mom previously reported as: See interpretation. Performed By: #### A FPQUAD #### [facility] , UE3 Value 1.05 ng/mL Normal . [facility] Comment on above: Order Comment: 18 WE EKS. JKW Is patient >15 week ?: Y Is extra paperwork completed?: Y Performed By: #### A FPQUAD #### [facility] , Weight 143 Normal . [facility] Comment on above: Order Comment: 18 WE EKS. JKW Is patient >15 week ?: Y Is extra paperwork completed?: Y Result Comment: Not provided. --- 12/28/23 1508 --- Weight previously reported as: Comment lbs Not provided. Performed By: #### A FPQUAD #### [facility] , Urinalysis macro (dipstick) panel (U)on 12-05-2023 Bilirubin, UA Negative Negative - 4(70) +++ mg/dL [facility] Blood, UA Negative Negative - 50 Jeremiah/mcL [facility] Healthcare Clarity, UA Clear [facility] Color, UA Yellow [facility] e Glucose, UA Negative Negative - 1999(110) ++++ mg/dL [facility] Interpretation and review of laboratory results Normal [facility] Ketones, UA Negative Negative - 160(16) ++++ mg/dL [facility] Leukocytes, UA Negative Negative - 500+++ Hitesh/mcL [facility] Nitrite, UA Negative Negative - Positive [facility] pH, UA 7.5 5 - 9 [facility] Healthcar e Protein, UA Negative Negative - 1999(20) ++++ mg/dL [facility] Spec Grav, UA 1.020 1 - 1.03 [facility] Urobilinogen, UA 0.2 0.2 - 12 mg/dL [facility] Urinalysis macro (dipstick) panel (U)on 11-07-2023 Bilirubin, UA Negative Negative - 4(70) +++ mg/dL [facility] Blood, UA Positive Negative - 50 Jeremiah/mcL [facility] Healthcare Comment on above: trace-intact Clarity, UA Clear [facility] Color, UA Yellow [facility] Glucose, UA Negative Negative - 1999(110) ++++ mg/dL [facility] Interpretation and review of laboratory results Abnormal [facility] Ketones, UA Negative Negative - 160(16) ++++ mg/dL [facility] Leukocytes, UA Trace Negative - 500+++ Hitesh/mcL [facility] Nitrite, UA Negative Negative - Positive [facility] pH, UA 7.0 5 - 9 [facility] Protein, UA Negative Negative - 1999(20) ++++ mg/dL [facility] Healthcare Spec Grav, UA 1.020 1 - 1.03 [facility] care Urobilinogen, UA 0.2 0.2 - 12 mg/dL [facility] Healthcare [facility] Basophils Auto (Bld) [#/Vol] on 10-06-2023 Basophils (Bld) [#/Vol] 0.0 10 3/uL 0.0-0.1 [facility] Basophils/100 WBC Auto (Bld) on 10-06-2023 Basophils/100 WBC (Bld) 0.5 % 0.2-2.0 [facility] Eosinophils/100 WBC Auto (Bl d)on 10-06-2023 Eosinophils/100 WBC (Bld) 1.2 % 0.9-7.0 [facility] Erythrocyte distribution wid th Auto (RBC) [Ratio]on 10-06-2023 Erythrocyte distribution width (RBC) [Ratio] 12.4 % 11.0-15.0 [facility] Glucose mean value [Mass/vol ume] in Blood Estimated from glycated hemoglobinon 10-06-2023 Average glucose Estimated from glycated hemoglobin (Bld) [Mass/Vol] 94 mg/dL [facility] HBV surface Ag IA Qlon 10-05 Hepatitis B Surface Antigen Negative Negative [facility] Comment on above: Performed at: [facility] [id number] Director: Pieter Tyler PhD, Phone: [phone] Performed at: [employer] [place], [place] [id number] Director: Pieter Tyler PhD, Phone: [email or web address] HCV Ab Signal/Cutoff IA [Rel units/Vol]on 10-06-2023 Hepatitis C Antibody Non-Reactive Non Reactive [facility] HIV 1+2 Ab+HIV1 p24 Ag IA Ql on 10-06-2023 HIV (1&2) Antibody Screen Non-Reactive Non Reactive [facility] Comment on above: HIV-1/HIV-2 antibodi es and HIV-1 p24 antigen were NOTdetected. There is no laboratory evidence of HIV infection.HIV NegativePerformed at: [employer] [facility] [employer] [place], [place] [id number] Director: Pieter Tyler PhD, Phone: [phone] HIV-1/HIV-2 antibodi es and HIV-1 p24 antigen were NOTdetected. There is no laboratory evidence of HIV infection.HIV NegativePerformed at: [facility] [place], [place] [id number] Director: Pieter Tyler PhD, Phone: [phone] Hematocrit Auto (Bld) [Volum e fraction]on 10-06-2023 Hematocrit (Bld) [Volume fraction] 36.1 % 36.0-48.0 [facility] Hemoglobin [Mass/volume] in Bloodon 10-06-2023 Hemoglobin (Bld) [Mass/Vol] 12.6 g/dL 12.0-16.0 [facility] Laboratory - Hematology and Cell countson 10-06-2023 HbA1c (Bld) [Mass fraction] 4.9 % 4.5-6.2 [facility] Comment on above: ADA RECOMMENDED LIMI T 4.0 - 6.0ADA THERAPEUTIC TARGET < 7.0ACTION SUGGESTED> 7.0 Immature granulocytes/100 WBC (Bld) 0.1 % 0.0-0.5 [facility] Leukocytes [#/volume] correc marcia for nucleated erythrocytes in Blood by Automated counon 10-06-2023 WBC corrected for nucl RBC Auto (Bld) [#/Vol] 8.2 10 3/uL 4.0-11.0 [facility] Lymphocytes Auto (Bld) [#/Vo l]on 10-06-2023 Lymphocytes (Bld) [#/Vol] 2.1 10 3/uL 1.2-3.8 [facility] Lymphocytes/100 WBC Auto (Bl d)on 10-06-2023 Lymphocytes/100 WBC (Bld) 26.0 % 20.5-60.0 [facility] MCH Auto (RBC) [Entitic mass ]on 10-06-2023 MCH (RBC) [Entitic mass] 30.7 pg 26.7-34.0 [facility] MCHC Auto (RBC) [Mass/Vol]on 10-06-2023 MCHC (RBC) [Mass/Vol] 34.9 g/dL 29.9-35.2 [facility] MCV Auto (RBC) [Entitic vol] on 10-06-2023 MCV (RBC) [Entitic vol] 87.8 fL 81.0-99.0 [facility] Monocytes Auto (Bld) [#/Vol] on 10-06-2023 Monocytes (Bld) [#/Vol] 0.5 10 3/uL 0.3-0.8 [facility] Monocytes/100 WBC Auto (Bld) on 10-06-2023 Monocytes/100 WBC (Bld) 5.9 % 1.7-12.0 [facility] Neutrophils Auto (Bld) [#/Vo l]on 10-06-2023 Neutrophils (Bld) [#/Vol] 5.4 10 3/uL 1.4-6.5 [facility] Neutrophils/100 WBC Auto (Bl d)on 10-06-2023 Neutrophils/100 WBC (Bld) 66.3 % 43.0-75.0 [facility] No Panel Informationon 10-05 Eosinophils # (Auto) 0.1 10 3/uL 0.0-0.7 [facility] Hepatitis C Interpretation Comment . [facility] Comment on above: Not infected with HC V unless early or acute infection issuspected (which may be delayed in an immunocompromisedindividual), or other evidence exists to indicate HCVinfection.Performed at: [facility] [place] [id number] Director: Pieter Tyler PhD, Phone: [phone] Not infected with HC V unless early or acute infection issuspected (which may be delayed in an immunocompromisedindividual), or other evidence exists to indicate HCVinfection.Performed at: [facility] [place], [place] [id number] Director: Pieter Tyler PhD, Phone: [phone] Immature Granulocyte # (Auto) 0.01 10 3/uL 0.00-0.03 [facility] RPR Quantitative Confirmation Non Reactive titer NonRea<1:1 [facility] Comment on above: Please Note: This te st does not meet current guidelines forscreening and diagnosis of syphilis. This test isintended for following treatment response in patients beingtreated for syphilis infection. To screen for syphilisinfection, a reflex cascade that includes both RPR and atreponema-specific assay should be utilized, such asTreponema pallidum (Syphilis) Screening [place] (621711) orRapid Plasma Reagin (RPR) Test With Reflex to QuantitativeRPR and Confirmatory Treponema pallidum Antibodies(452699).Performed at: [facility] [id number] [place], [place] [id number] Director: Pieter Tyler PhD, Phone: [phone] Rubella IgG Antibody 2.39 index Immune >0.99 [facility] Comment on above: Non-immune <0.90 Equ ivocal 0.90 - 0.99 Immune >0.99Performed at: CB - [facility] [address] [id number] Director: Pieter Tyler PhD, Phone: [phone] Platelet mean volume Auto (B ld) [Entitic vol]on 10-06-2023 Platelet mean volume (Bld) [Entitic vol] 8.6 fL Low 9.5-13.5 [facility] Platelets Auto (Bld) [#/Vol] on 10-06-2023 Platelets (Bld) [#/Vol] 266 10 3/uL 150-450 [facility] RBC Auto (Bld) [#/Vol]on RBC (Bld) [#/Vol] 4.11 10 6/uL Low 4.20-5.40 [facility] No Panel Informationon 09-06 Human Chorionic Gonadotropin, Quant 5292 mIU/mL [facility] Comment on above: 5-50 0.2-1 UHOE95-48 0 1-2 YABOZ223-7,000 2-3 JEFKR309-56,000 3-4 WEEKS1,000-50,000 4-5 WEEKS10,000-100,000 5-6 WEEKS15,000-200,000 6-8 WEEKS10,000-100,000 2-3 MONTHS Vital Signs Date Time Vital Sign Value Performing Clinician Facility 04-30-2024 09:32-0500 Body mass index (BMI) [Ratio] 36.18 kg/m2 [employer] Work Phone: [facility] 04-30-2024 09:32-0500 Body weight 79.89 kg [employer] Work Phone: [facility] 04-30-2024 09:32-0500 Diastolic blood pressure 82 mm[Hg] [employer] Work Phone: [facility] 04-30-2024 09:32-0500 Systolic blood pressure 114 mm[Hg] Sanjuana Ivan DO Work Phone: [facility] 04-23-2024 09:42-0500 Body mass index (BMI) [Ratio] 36.32 kg/m2 Sanjuana Ivan DO Work Phone: [facility] 04-23-2024 09:42-0500 Body weight 80.2 kg Sanjuana Ivan DO Work Phone: [facility] 04-23-2024 09:42-0500 Diastolic blood pressure 62 mm[Hg] Sanjuana Ivan DO Work Phone: [facility] 04-23-2024 09:42-0500 Systolic blood pressure 106 mm[Hg] Sanjuana Ivan DO Work Phone: [facility] 04-16-2024 10:39-0500 Body mass index (BMI) [Ratio] 35.54 kg/m2 Sanjuana Ivan DO Work Phone: [facility] 04-16-2024 10:39-0500 Body weight 78.47 kg Sanjuana Ivan DO Work Phone: [facility] 04-16-2024 10:39-0500 Diastolic blood pressure 64 mm[Hg] Sanjuana Ivan DO Work Phone: [facility] 04-16-2024 10:39-0500 Systolic blood pressure 110 mm[Hg] Sanjuana Ivan DO Work Phone: [facility] 04-10-2024 11:15-0500 Body mass index (BMI) [Ratio] 35.57 kg/m2 Natacha DENNEY Work Phone: [facility] 04-10-2024 11:15-0500 Body weight 78.53 kg Natacha DENNEY Work Phone: [facility] 04-10-2024 11:15-0500 Diastolic blood pressure 70 mm[Hg] Natacha DENNEY Work Phone: [facility] 04-10-2024 11:15-0500 Systolic blood pressure 112 mm[Hg] Natacha DENNEY Work Phone: [facility] 04-02-2024 09:35-0500 Body mass index (BMI) [Ratio] 34.95 kg/m2 Sanjuana Ivan DO Work Phone: [facility] 04-02-2024 09:35-0500 Body weight 77.17 kg Sanjuana Ivan DO Work Phone: [facility] 04-02-2024 09:35-0500 Diastolic blood pressure 72 mm[Hg] Sanjuana Ivan DO Work Phone: [facility] 04-02-2024 09:35-0500 Systolic blood pressure 98 mm[Hg] Sanjuana Ivan DO Work Phone: [facility] 03-20-2024 09:29-0500 Body mass index (BMI) [Ratio] 34.31 kg/m2 Natacha DENNEY Work Phone: [facility] 03-20-2024 09:29-0500 Body weight 75.75 kg Natacha DENNEY Work Phone: [facility] 03-20-2024 09:29-0500 Diastolic blood pressure 72 mm[Hg] Natacha DENNEY Work Phone: [facility] 03-20-2024 09:29-0500 Systolic blood pressure 120 mm[Hg] Natacha DENNEY Work Phone: [facility] 03-05-2024 14:00-0500 Body mass index (BMI) [Ratio] 34.27 kg/m2 Sanjuana Ivan DO Work Phone: [facility] 03-05-2024 14:00-0500 Body weight 75.66 kg Sanjuana Ivan DO Work Phone: [facility] 03-05-2024 14:00-0500 Diastolic blood pressure 68 mm[Hg] Sanjuana Ivan DO Work Phone: [facility] 03-05-2024 14:00-0500 Systolic blood pressure 110 mm[Hg] Sanjuana Ivan DO Work Phone: [facility] 02-14-2024 12:48-0500 Body mass index (BMI) [Ratio] 32.87 kg/m2 Sanjuana Ivan DO Work Phone: [facility] 02-14-2024 12:48-0500 Body weight 72.58 kg Sanjuana Ivan DO Work Phone: [facility] 02-14-2024 12:48-0500 Diastolic blood pressure 60 mm[Hg] Sanjuana Ivan DO Work Phone: [facility] 02-14-2024 12:48-0500 Systolic blood pressure 100 mm[Hg] Sanjuana Ivan DO Work Phone: [facility] 01-30-2024 09:03-0500 Body mass index (BMI) [Ratio] 32.07 kg/m2 Naatcha DENNEY Work Phone: [facility] 01-30-2024 09:03-0500 Body weight 70.82 kg Natacha DENNEY Work Phone: [facility] 01-30-2024 09:03-0500 Diastolic blood pressure 68 mm[Hg] Natacha DENNEY Work Phone: [facility] 01-30-2024 09:03-0500 Systolic blood pressure 108 mm[Hg] Natacha DENNEY Work Phone: [facility] 01-03-2024 10:23-0500 Body mass index (BMI) [Ratio] 31.39 kg/m2 Sanjuana Ivan DO Work Phone: [facility] 01-03-2024 10:23-0500 Body weight 69.31 kg Sanjuana Ivan DO Work Phone: [facility] 01-03-2024 10:23-0500 Diastolic blood pressure 68 mm[Hg] Sanjuana Ivan DO Work Phone: [facility] 01-03-2024 10:23-0500 Systolic blood pressure 102 mm[Hg] Sanjuana Ivan DO Work Phone: [facility] 12-05-2023 09:41-0400 Body mass index (BMI) [Ratio] 29.33 kg/m2 Natacha Alston PA Work Phone: [facility] 12-05-2023 09:41-0400 Body weight 64.75 kg Natacha Alston PA Work Phone: [facility] 12-05-2023 09:41-0400 Diastolic blood pressure 66 mm[Hg] Natacha Alston PA Work Phone: [facility] 12-05-2023 09:41-0400 Systolic blood pressure 100 mm[Hg] Natacha Alston PA Work Phone: [facility] 11-07-2023 09:53-0400 Body mass index (BMI) [Ratio] 28.45 kg/m2 Sanjuana Ivan DO Work Phone: [facility] 11-07-2023 09:53-0400 Body weight 62.82 kg Sanjuana Ivan DO Work Phone: [facility] 11-07-2023 09:53-0400 Diastolic blood pressure 64 mm[Hg] Sanjuana Ivan DO Work Phone: [facility] 11-07-2023 09:53-0400 Systolic blood pressure 106 mm[Hg] Sanjuana Ivan DO Work Phone: [facility] 07-07-2021 11:00-0400 Body height 151.13 cm Dionne Miller Other [facility] Other 07-07-2021 11:00-0400 Body mass index (BMI) [Ratio] 25.18 kg/m2 Dionne Miller Other [facility] Other 07-07-2021 11:00-0400 Body temperature 97 [degF] Dionne Miller Other [facility] Other 07-07-2021 11:00-0400 Body weight 57.52 kg Dionne Miller Other [facility] Other 07-07-2021 11:00-0400 Diastolic blood pressure 60 mm[Hg] Dionne Angela Other [facility] Other 07-07-2021 11:00-0400 Respiratory rate 18 /min Dionne Angela Other [facility] Other 07-07-2021 11:00-0400 SaO2% (BldA) [Mass fraction] 99 % Dionne Angela Other [facility] Other 07-07-2021 11:00-0400 Systolic blood pressure 100 mm[Hg] Dionne Angela Other [facility] Other Encounters Encounter Date Encounter Type Care [...] Clinisync Result Encounter Natacha DENNEY Work Phone: [facility] External Department Unsolicited Start: 04-10-2024 End: [...] flow sheet Sanjuana Ivan DO Work Phone: [facility] Comment on above: Second trimester pre gnancy; 22 weeks gestation of ; Diabetes mellitus screening Start: 12-05-2023 End: 12-05-2023 Bamboo flowsheet Natacha DENNEY Work Phone: [facility] Start: 12-05-2023 End: 12-10-2023 Bamboo flowsheet Natacha DENNEY Work Phone: [facility] Start: 12-05-2023 End: 12-10-2023 Clinisync Result Encounter Natacha DENNEY Work Phone: [facility] External Department Unsolicited Start: 12-05-2023 End: 12-06-2023 External Result Encounter Natacha DENNEY Work Phone: [facility] External Department Unsolicited Start: 12-05-2023 End: 12-05-2023 Patient encounter procedure DO Alexandra Kemp Work Phone: [facility] Start: 12-05-2023 End: 12-05-2023 ambulatory DO Alexandra Kemp Work Phone: [facility] Work Phone: Start: 12-05-2023 End: 12-05-2023 Patient encounter procedure Natacha DENNEY Work Phone: [facility] Start: 12-05-2023 End: 12-05-2023 Periodic preventive med est patient 18-39 yrs Natacha DENNEY Work Phone: [facility] Comment on above: Screening, , [...] Start: 10-06-2023 Non-patient / Non-visit DO Morena [employer] Work Phone: [facility] Physician [facility] Work Phone: Start: 10-06-2023 End: 10-06-2023 ambulatory NATACHA ALECIA Not Available Start: 09-07-2023 Non-patient / Non-visit DO Morena Kemp Work Phone: [facility] Work Phone: Start: 06-29-2023 End: 06-29-2023 ambulatory SANJUANA IVAN Not Available Start: 05-30-2023 End: 05-30-2023 ambulatory NATACHA ALECIA Not Available Start: 07-07-2021 End: 07-07-2021 ambulatory Dionne Miller Other [facility] [employer] Other Start: 07-07-2021 Encounter for genera l adult medical examination without abnormal findings Dionne Miller [facility] [place] Start: 07-07-2021 Periodic preventive med est patient 18-39 yrs Dionne Miller [facility] [place] Procedures Date Procedure Procedure Detail Performing Clinician [...] dip stick/tabl et rgnt non-auto w/o micrscp Sanjunaa Ivan DO Work Phone: Start: 02-14-2024 Urnls [...] AM EDT Routine [facility] [address] [place] [address] Natacha Alston PA [address] [place], [place] [id number] [facility] Start: 04-30-2024 End: 04-30-2024 [...] AM EST Routine [facility] [address] [place] [address] Sanjuana Love, DO [address] [place], [place] [id number] [facility] Start: 04-16-2024 End: 04-16-2024 Professional / ancillary services management 04/16/2024 8:30 AM EST Ancillary Procedure [facility] [address] [place] [address] [facility] Start: 04-11-2024 End: 04-11-2024 Professional / ancillary services management 04/11/2024 9:00 AM EST Ancillary Procedure [facility] [address] [place] [id number] [facility] Start: 04-10-2024 End: 04-10-2025 CULTURE, GROUP B STREP WITH SUSCEPTIBLITY CULTURE, GROUP B STREP WITH SUSCEPTIBLITY Lab Routine Third trimester Expected: 04/10/2024, Expires: 04/10/2025 [facility] Work Phone: Comment on above: Expected: 04/10/2024 , Expires: 04/10/2025 Start: 04-10-2024 End: 04-10-2024 Patient encounter procedure 04/10/2024 11:20 AM EST Routine [facility] [address] [place] [id number] Natacha Alston PA [address] [place] [address] Arrived [facility] Comment on above: Arrived Start: 04-02-2024 End: 04-02-2024 Patient encounter procedure [facility] Comment on above: Arrived Start: 03-20-2024 End: 03-20-2024 Patient encounter procedure [facility] Comment on above: Arrived Start: 03-12-2024 End: 03-12-2024 Professional / ancillary services management 03/12/2024 10:00 AM EST Ancillary Procedure [facility] [address] [place] [address] [facility] Start: 03-05-2024 End: 03-05-2025 [...] [facility] [address] [place] [address] Sanjuana Love, DO [address] [place] [address] Arrived [facility] Comment on above: Arrived Start: 02-13-2024 End: 02-13-2024 Patient encounter procedure 02/13/2024 8:30 AM EST Routine [facility] [address] [place] [address] Sanjuana Love, DO [address] [place] [address] [facility] Start: 01-31-2024 End: 01-31-2024 Patient encounter procedure 01/31/2024 8:30 AM EST Routine [facility] [address] [place] [address] Natacha Alston PA [address] [place] [address] [facility] Start: 01-30-2024 End: 01-30-2024 Patient encounter procedure 01/30/2024 8:50 AM EST Routine [facility] [address] [place] [address] Natacha Alston, PA [address] [place] [address] [facility] Start: 01-24-2024 End: 01-24-2024 Professional / ancillary services management 01/24/2024 8:30 AM EST Ancillary Procedure [facility] [address] [place] [address] [facility] Start: 01-03-2024 End: 01-02-2025 CBC panel - Blood by Automated count CBC Lab Routine Diabetes mellitus screening Expected: 01/03/2024 (Approximate), Expires: 01/02/2025 [facility] Work Phone: Comment on above: Expected: 01/03/2024 (Approximate), Expires: 01/02/2025 Start: 01-03-2024 End: 01-02-2025 Measurement of glucose 1 hour after glucose challenge for glucose tolerance test Glucose tolerance, 1 hour Lab Routine Diabetes mellitus screening Expected: 01/03/2024 (Approximate), Expires: 01/02/2025 [facility] Comment on above: Expected: 01/03/2024 (Approximate), Expires: 01/02/2025 Start: 01-03-2024 End: 01-03-2024 Patient encounter procedure 01/03/2024 9:40 AM EST Routine [facility] [address] [place] [address] Sanjuana Love, DO [address] [place] [address] [facility] Start: 12-20-2023 End: 12-20-2023 Professional / ancillary services management 12/20/2023 10:00 AM EDT Ancillary Procedure [facility] [address] [place] [place] [address] [facility] Start: 12-05-2023 End: 12-04-2024 Alpha fetoprotein, maternal Alpha fetoprotein, maternal Lab Routine 18 weeks gestation of Second trimester Expected: 12/05/2023 (Approximate), Expires: 12/04/2024 [facility] Comment on above: Expected: 12/05/2023 (Approximate), Expires: 12/04/2024 Start: 12-05-2023 End: 12-04-2024 US for US OB ANATOMY SINGLE W US OB CERVICAL LENGTH Imaging Routine Screening, , for anatomic survey Expected: 12/05/2023 (Approximate), Expires: 12/04/2024 [facility] Comment on above: Expected: 12/05/2023 (Approximate), Expires: 12/04/2024 Start: 12-05-2023 [facility] Start: 12-05-2023 End: 12-05-2023 Patient encounter procedure [facility] Comment on above: Arrived Start: 11-07-2023 End: 11-07-2023 Patient encounter procedure 11/07/2023 9:40 AM EDT Routine [facility] [address] [place] [address] Sanjuana Love, DO [address] [place] [address] Arrived [facility] Comment on above: Arrived Start: 10-30-2023 Influenza vaccination Influenza Vacc ine (#1) [facility] Xehek-7-Kgkyqbilyam [Mass/volume] in Serum or Plasma [facility] Assessment of gestational age [facility] Body weight [facility] CHLAMYDIA TRACHOMATI S (GENITO/STI) CHLAMYDIA TRACHOMATIS (GENITO/STI) Lab Routine Vaginal discharge Screen for STD (sexually transmitted disease) Ordered: 12/05/2023 [facility] Comment on above: Ordered: 12/05/2023 Choriogonadotropin.i ntac t+Beta subunit [Units/volume] in Serum or Plasma [facility] Cytology Cervical or vaginal smear or scraping study Pap Smear Pathology and Cytology Routine Well woman exam with routine gynecological exam Ordered: 12/05/2023 [facility] Work Phone: Comment on above: Ordered: 12/05/2023 Diabetes mellitus screening [facility] Estriol (E3).unconjugated [Mass/volume] in Serum or Plasma [facility] Human chorionic gonadotropin measurement [facility] Inhibin A [Mass/volu me] in Serum or Plasma [facility] Inhibin measurement [facility] Laboratory data interpretation [facility] Neisseria gonorrhoea e DNA [Presence] in Unspecified specimen by ARMAND with probe detection Neisseria gonorrhea DNA probe, direct Lab Routine Vaginal discharge Screen for STD (sexually transmitted disease) Ordered: 12/05/2023 [facility] Comment on above: Ordered: 12/05/2023 Risk assessment [facility] Risk identification: genetic [facility] Serum alpha-fetoprot ein multiple of median measurement [facility] SURESWAB(R) ADVANCED VAGINITIS PLUS, TMA SURESWAB(R) ADVANCED VAGINITIS PLUS, TMA Pathology and Cytology Routine Vaginal discharge Screen for STD (sexually transmitted disease) Ordered: 12/05/2023 [facility] Comment on above: Ordered: 12/05/2023 Unconjugated estriol measurement [facility] Immunizations Immunization Date Immunization Notes Care Provider Cordell pandey 08[birth year]2010 tetanus toxoid, redu bobby diphtheria toxoid, and acellular pertussis vaccine, adsorbed Dionne Miller Other [facility] Payers Date Payer Category Payer Self-pay [id number] 2022 Private Health Insurance [employer] [id number] 2022 Unknown [employer] [id number] 2022-Present [address] [place] [address] [id number]. [id number] 2021 Unknown [id number] 2.16.840.1.116695.19 1997 Unknown [id number] 2.16.840.1.354176.3.579.2. 1259 1997 Unknown [id number] 2.16.840.1.015534.3.579.2. 9 1997 Unknown [id number] 2.16.840.1.296490.3.579.2. 1258 1997 Unknown [id number] 2.16.840.1.480416.3.579.2. 1258 1997 Unknown [id number] 2.16.840.1.023511.3.579.2. 1258 1997 Unknown [id number] 2.16.840.1.675833.3.579.2. 1258 1997 Unknown [id number] 2.16.840.1.348837.3.579.2. 1258 1997 Unknown [id number] 2.16.840.1.740496.3.579.2. 1258 1997 Unknown [id number] 2.16.840.1.722173.3.579.2. 1258 1997 Unknown [id number] 2.16.840.1.534943.3.579.2. 1258 1997 Unknown [id number] 2.16.840.1.156693.3.579.2. 1258 1997 Unknown [id number] 2.16.840.1.207158.3.579.2. 1258 1997 Unknown [id number] 2.16.840.1.825677.3.579.2. 1258 1997 Unknown [id number] 2.16.840.1.094646.3.579.2. 1258 1997 Unknown [id number] 2.16.840.1.547647.3.579.2. 1258 1997 Unknown [id number] 2.16.840.1.307831.3.579.2. 1258 1997 Unknown [id number] 2.16.840.1.959539.3.579.2. 1259 Unknown [id number] 2.16.840.1.433462.3.579.2. 531 Social History Date Type Detail Facility Start: 05-30-2023 Sex Assigned At [facility] Other Start: 03-29-2018 End: 05-30-2023 Tobacco smoking [...] nursing note reviewed. Exam conducted with a fire technology instructor present. Vitals: Estimated body mass index is [...] Sanjuana Love DO documented in this encounter [facility] 04-23-2024 History of Presen t illness Narrative [...] nursing note reviewed. Exam conducted with a fire technology instructor present. Vitals: Estimated body mass index is [...] twice weekly until delivery. Orders sent to [facility] scheduling and [facility] FBC Documented by Yris Jacobs LPN on behalf of: Sanjuana Love DO documented in this encounter [facility] 04-16-2024 History of Presen t illness Narrative [...] nursing note reviewed. Exam conducted with a fire technology instructor present. Vitals: Estimated body mass index is [...] Sanjuana Love DO documented in this encounter [facility] 04-10-2024 History of Presen t illness Narrative [...] of: JUMANA Trotter documented in this encounter [facility] 04-02-2024 History of Presen t illness Narrative [...] nursing note reviewed. Exam conducted with a fire technology instructor present. Vitals: Estimated body mass index is [...] Sanjuana Love DO documented in this encounter [facility] 03-20-2024 History of Presen t illness Narrative [...] of: JUMANA Trotter documented in this encounter [facility] 03-05-2024 History of Presen t illness Narrative [...] Sanjuana Love DO documented in this encounter [facility] 02-14-2024 History of Presen t illness Narrative [...] nursing note reviewed. Exam conducted with a fire technology instructor present. Vitals: Estimated body mass index is [...] of Delivery: 05/07/24. Patient is going to [facility] for her Rhogam injection. Patient to return to clinic 2-3 weeks. Documented by Yris Jacobs LPN on behalf of: Natacha Alston PA-C/Jazzy Root NP documented in this encounter [facility] 01-30-2024 History of Presen t illness Narrative [...] of: JUMANA Trotter documented in this encounter [facility] 01-03-2024 History of Presen t illness Narrative [...] nursing note reviewed. Exam conducted with a fire technology instructor present. Vitals: Estimated body mass index is [...] by Shira Villa LPN on behalf of: Sajnuana Love DO documented in this encounter [facility] 12-05-2023 History of Presen t illness Narrative [...] obtained without difficulty [facility]. [facility] [...] of: JUMANA Trotter documented in this encounter [facility] 11-07-2023 History of Presen t illness Narrative [...] nursing note reviewed. Exam conducted with a fire technology instructor present. Vitals: Estimated body mass index is [...] or undercooked meat, and stay away from [facility]. Patient has been consulted regarding any further do's and don'ts of . Patient voiced understanding and all questions and concerns were answered. Discussed that patient is NEGATIVE blood type and will require Rhogam injection at 28 weeks gestation, order has already been faxed to [facility] Scheduling dept. Discussed Tdap and scheduling for that is they desire to have obtained. Orders Placed This Encounter Procedures POCT urinalysis dipstick manually resulted Follow Up: Patient is to return in 4 weeks for routine OB/ANNUAL appointment. Documented by Yris Jacobs LPN on behalf of: Sanjuana Love DO documented in this encounter [facility] 07-07-2021 Evaluation note Encounter Date Diagnosis Assessment Notes June, Well adult exam (ICD-10 - Z00.00) Routine lab work ordered today. Continue to follow with eye doctor and dentist, [employer]STRUCTION LIBRARIAN. Patient is advised to work on healthy [...] treatment pending results of testing. June, Other [employer] INSTRUCTION LIBRARIAN referral sent today so that she is able to discuss control options with them. Discussed referral process with patient. [facility] Other Evaluation note* Diagnosis Screening, , for anatomic survey Encounter for anatomic survey 18 weeks gestation of Second trimester state, incidental Vaginal discharge Leukorrhea, not specified as infective Screen for STD (sexually transmitted disease) Screening examination for venereal disease Well woman exam with routine gynecological exam Routine gynecological examination documented [facility] information available[facility] Work Phone: Evaluation note* Diagnosis Second [...] history Hospitalization History No know Hospitalization history [facility] Other Chief Complaint and Reason for Visit [...] Care Teams (unrecognized sec tion and content) Tar Roofer Relationship Specialty Start Date End Date Dionne Miller NP [address] [facility] [place] [address] PCP - General 05/29/23 Tar Roofer Relationship Specialty Start Date End Date Dionne Miller NP [address] [facility] [facility] [place] [address] PCP - General 05/29/23 Team Status: Active [...] December 05, 2023 End: December 05, 2023 Tar Roofer Relationship Specialty Start Date End Date Dionne Miller NP [address] [facility] [facility] [place] [address] PCP - General 05/29/23 Tar Roofer Relationship Specialty Start Date End Date Dionne Miller NP [address] [facility] [facility] [place] [id number] PCP - General 05/29/23 Tar Roofer Relationship Specialty Start Date End Date Dionne Miller NP [address] [facility] [facility] [place] [address] PCP - General 05/29/23 Tar Roofer Relationship Specialty Start Date End Date Dionne Miller NP [address] [facility] [facility] [place] [address] PCP - General 05/29/23 Natacha Alston PA [address] [place] [address] [place] [address] PCP - Medical [place] [facility] 02/28/22 02/27/99 Tar Roofer Relationship Specialty Start Date End Date Dionne Miller CERTIFICATION ENGINEER [address] [facility] [place] [id number] PCP - General 05/29/23 Natacha Alston PA [address] [place] [address] [place] [address] PCP - Medical [place] [facility] 02/28/22 02/27/99 Tar Roofer Relationship Specialty Start Date End Date Dionne Miller NP [address] [place] [id number] PCP - General 05/29/23 Tar Roofer Relationship Specialty Start Date End Date Dionne Miller NP [address] [place] [address] PCP - General 05/29/23 Natacha Alston PA [address] [place] [address] [place] [address] PCP - Medical [place] [facility] 02/28/22 02/27/99 Tar Roofer Relationship Specialty Start Date End Date Dionne Miller NP [address] [place] [address] PCP - General 05/29/23 Natacha Alston PA [address] [place] [address] [place] [address] PCP - Medical [place] [facility] 02/28/22 02/27/99 Tar Roofer Relationship Specialty Start Date End Date Dionne Miller NP [address] [place] [address] PCP - General 05/29/23 Natacha Alston PA [address] [place] [address] [place] [address] PCP - Medical [place] [employer] 02/28/22 02/27/99 Goals (unrecognized section and content) Goals may be documented in a n alternate section INFORMATION SOURCE (unrecogn ized section and content) DATE CREATED AUTHOR 12/30/2023 [facility] DATE CREATED AUTHOR AUTHOR'S ORGANIZ ATION 05/01/2024 [facility] FOR RECORDS PERTAINING TO PATIENTS WHO [...] BE BASED ON THE PRIMARY CLINICAL RECORDS. [employer] provides no warranty or guarantee of the accuracy or completeness of information in this document.
== END 2024-05-07 12:40 | disposition home or self-care (01) ==
LOC: FBCO 12:10 → FBC 12:11
PROVIDERS: PCP Nurse Practitioner Family; Visit Provider Obstetrics & Gynecology
DX: O26.893 Other specified pregnancy related conditions, third trimester (principal); Z3A.40 40 weeks gestation of pregnancy
CPT/HCPCS: 59025

== ENCOUNTER 2024-05-14 04:40 | Inpatient (IN) | payer OTHER, SELFPAY ==
[2024-05-14] VITALS (17 sets, daily range): BP systolic 112–143; BP diastolic 58–88; PULSE 64–94; TEMP 35.9–37.1
--- OUTSIDE RECORDS SUMMARY | 2024-05-14 04:44 | XMS_ITS | CCD ---
Author Organization [facility] Care Team Providers Care High Pressure Boiler Operator Name Role Phone Dionne Miller Unavailable DO Alexandra Kemp Primary Care Provider PAT Alston Attending Provider Dionne Miller NP Primary Care Provider Alexandra Kemp Primary Care Unavailable Natacha Alston Attending Unavailable Natacha Alston Admitting Unavailable Natacha Stafford Unavailable NATACHA ALSTON Attending Unavailable IVAN, SANJUANA Attending Unavailable ALECIA, NATACHA Attending Unavailable IVAN, SANJUANA Referring Unavailable IVAN, [...] sources) Amoxicillin Drug Allergy 05-30-2023 rash, Hives [facility] (1 source) Amoxicillin Drug Allergy 07-07-2021 [facility] Repository Medications Current Medications Medication Drug [...] UA Negative Negative - 4(70) +++ mg/dL [facility] Blood, UA Negative Negative - 50 Jeremiah/mcL [facility] Clarity, UA Clear [facility] Color, UA Yellow [facility] Glucose, UA Negative Negative - 2000(110) ++++ mg/dL [facility] Interpretation and review of laboratory results Abnormal [facility] re Ketones, UA Negative Negative - 160(16) ++++ mg/dL [facility] Leukocytes, UA Negative Negative - 500+++ Hitesh/mcL [facility] Nitrite, UA Negative Negative - Positive [facility] pH, UA 6.5 5 - 9 [facility] Health[facility] e Protein, UA Trace Negative - 2000(20) ++++ mg/dL [facility] Spec Grav, UA 1.025 1 - 1.03 [facility] care Urobilinogen, UA 0.2 0.2 - 12 mg/dL [facility] e US OB BPP W NON-STRESS on 04-26-2024 [place] [address] Ultrasound Report Signed Patient: SARAHI MONTENEGRO MR#: [id number] : 1995 Acct:[id number] Age/Sex: 29 / F ADM Date: 04/26/24 Loc: [facility] 254-[address]: Sanjuana Love D.O. Ordering Physician: Sanjuana Love D.O. Date of Service: 04/26/24 Procedure(s): US OB BPP w non-stress Accession Number(s): [id number] cc: Sanjuana Love D.O.; DIONNE MILLER [address] [address] Patient Name: SARAHI MONTENEGRO MRN: [id number] date: 1995 Sex: F Assigned Patient Location: [facility] Current Patient Location: [facility] Accession/Order Number: [id number] Exam Date: 04/26/2024 11:28 Report Date: 04/26/2024 11:32 At the request of: SANJUANA LOVE DO Procedure: US OB BPP w non-stress BIOPHYSICAL PROFILE: CLINICAL INFORMATION: hydronephrosis during O35.EXX1 COMPARISON: OB anatomy scan 12/20/2023 There is a single live intrauterine gestation in cephalic presentation. The reported gestational age is 38 weeks 3 days. The heart rate [id number] beats per minute. Dilatation of the renal [...] M.D.04/26/2024 11:32 AM Dictation Location: [place] [address] Electronically authenticated by: [id number] Y Date: 04/26/2024 11:32 Dictated By: Shira Bradley M.D. Signed By: 04/26/24 1134 DD/ 1132 TD/TT: Manager Game: [facility] Radiology, Radiologist, MD - 04/26/2024 [place] [address] Ultrasound Report Signed Patient: SARAHI MONTENEGRO MR#: [id number] : 1995 Acct:[id number] Age/Sex: 29 / F ADM Date: 04/26/24 Loc: [facility] 254-[address]: Sanjuana Love D.O. Ordering Physician: Sanjuana Love D.O. Date of Service: 04/26/24 Procedure(s): US OB BPP w non-stress Accession Number(s): [id number] cc: Sanjuana Love D.O.; DIONNE MILLER The [address] [address] Patient Name: SARAHI MONTENEGRO MRN: [facility]:[id number] date: 1995 Sex: F Assigned Patient Location: [facility] Current Patient Location: [facility] Accession/Order Number: [id number] Exam Date: 04/26/2024 11:28 Report Date: 04/26/2024 11:32 At the request of: SANJUANA LOVE DO Procedure: US OB BPP w non-stress BIOPHYSICAL PROFILE: CLINICAL INFORMATION: hydronephrosis during O35.EXX1 COMPARISON: OB anatomy scan 12/20/2023 There is a single live intrauterine gestation in cephalic presentation. The reported gestational age is 38 weeks 3 days. The heart rate [id number] beats per minute. Dilatation of the renal [...] M.D.04/26/2024 11:32 AM Dictation Location: [place] [address] Electronically authenticated by: [id number] Y Date: 04/26/2024 11:32 Dictated By: Shira Bradley M.D. Signed By: 04/26/24 1134 DD/ 1132 TD/TT: Manager Game: [facility] Radiology Study observation (narrative) [facility] OB BPP W NON-STRESS Ordered By: Radiologist Radiology on 04-26-2024 [facility] [employer] Work Phone: US OB FOLLOW UP [...] 3170 gm / 6 lbs, 15 oz (3833-1745 gm) Hadlock Normal: 3236 gm (6982-9853 gm) Hadlock Wt%: 44% for 38.0 wks [...] UA Negative Negative - 4(70) +++ mg/dL [facility] Blood, UA Negative Negative - 50 Jeremiah/mcL [facility] Clarity, UA Clear [facility] re Color, UA Yellow [facility] e Glucose, UA Negative Negative - 1999(110) ++++ mg/dL [facility] Interpretation and review of laboratory results Abnormal [facility] re Ketones, UA Negative Negative - 160(16) ++++ mg/dL [facility] Leukocytes, UA Trace Negative - 500+++ Hitesh/mcL [facility] Nitrite, UA Negative Negative - Positive [facility] pH, UA 7 5 - 9 [facility] e Protein, UA Negative Negative - 1999(20) ++++ mg/dL [facility] Spec Grav, UA 1.015 1 - 1.03 [facility] Urobilinogen, UA 0.2 0.2 - 12 mg/dL [facility] Health[facility] e ALL MISCELLANEOUS TESTon MISCELLANEOUS TEST COMMENT . [facility] Comment on above: Test Ordered: [id number] Strep Gp B Culture+Rflx Strep Gp B Culture+Rflx Negative CB Reference Range: Negative Centers for Disease Control and Prevention (CDC) and [place] [employer] of Obstetricians and Gynecologists (ACOG) guidelines [...] resistance to clindamycin is noted. Performed at: [facility] [address] [id number] Pick Out Hand: Pieter Tyler PhD, Phone: [phone] Group B Streptococcus Colonization Detection Culture With Re [facility] Health[facility] e Urinalysis macro (dipstick) panel (U)on 04-10-2024 Bilirubin, UA Negative Negative - 4(70) +++ mg/dL [facility] Blood, UA Positive Negative - 50 Jeremiah/mcL [facility] Clarity, UA Clear [facility] re Color, UA Yellow [facility] Health[facility] e Glucose, UA Negative Negative - 1999(110) ++++ mg/dL [facility] Interpretation and review of laboratory results Abnormal [facility] re Ketones, UA Negative Negative - 160(16) ++++ mg/dL [facility] Leukocytes, UA Trace Negative - 500+++ Hitesh/mcL [facility] Nitrite, UA Negative Negative - Positive [facility] pH, UA 7 5 - 9 [facility] Health[facility] e Protein, UA Negative Negative - 1999(20) ++++ mg/dL [facility] Spec Grav, UA 1.015 1 - 1.03 [facility] Urobilinogen, UA 0.2 0.2 - 12 mg/dL [facility] Urinalysis macro (dipstick) panel (U)on 04-02-2024 Bilirubin, UA Negative Negative - 4(70) +++ mg/dL [facility] Healthcare Blood, UA Negative Negative - 50 Jeremiah/mcL [facility] Healthcare Clarity, UA Clear [facility] re Color, UA Yellow [facility] Glucose, UA Negative Negative - 1999(110) ++++ mg/dL [facility] Interpretation and review of laboratory results Abnormal [facility] re Ketones, UA Negative Negative - 160(16) ++++ mg/dL [facility] Leukocytes, UA Trace Negative - 500+++ Hitesh/mcL [facility] Healthcare Nitrite, UA Negative Negative - Positive [facility] pH, UA 7 5 - 9 [facility] Protein, UA Negative Negative - 1999(20) ++++ mg/dL [facility] Healthcare Spec Grav, UA 1.015 1 - 1.03 [facility] care Urobilinogen, UA 0.2 0.2 - 12 mg/dL [facility] Urinalysis macro (dipstick) panel (U)on 03-20-2024 Bilirubin, UA Negative Negative - 4(70) +++ mg/dL [facility] Blood, UA Negative Negative - 50 Jeremiah/mcL [facility] Healthcare Clarity, UA Clear [facility] re Color, UA Yellow [facility] Healthcar e Glucose, UA Negative Negative - 1999(110) ++++ mg/dL [facility] Interpretation and review of laboratory results Abnormal [facility] re Ketones, UA Negative Negative - 160(16) ++++ mg/dL [facility] Leukocytes, UA Trace Negative - 500+++ Hitesh/mcL [facility] Healthcare Nitrite, UA Negative Negative - Positive [facility] pH, UA 7.5 5 - 9 [facility] Protein, UA Negative Negative - 1999(20) ++++ mg/dL [facility] Healthcare Spec Grav, UA 1.015 1 - 1.03 [facility] care Urobilinogen, UA 0.2 0.2 - 12 mg/dL [facility] US OB FOLLOW [...] 1956 gm / 4 lbs, 5 oz (6906-1542 gm) Hadlock Normal: 2162 gm (0282-8141 gm) Hadlock Wt%: 23% for 33.0 wks [...] UA Negative Negative - 4(70) +++ mg/dL [facility] Blood, UA Negative Negative - 50 Jeremiah/mcL [facility] Clarity, UA Clear [facility] re Color, UA Yellow [facility] e Glucose, UA Negative Negative - 1999(110) ++++ mg/dL [facility] Interpretation and review of laboratory results Abnormal [facility] re Ketones, UA Positive Negative - 160(16) ++++ mg/dL [facility] Leukocytes, UA Negative Negative - 500+++ Hitesh/mcL [facility] Nitrite, UA Negative Negative - Positive [facility] pH, UA 6.5 5 - 9 [facility] e Protein, UA Negative Negative - 1999(20) ++++ mg/dL [facility] Spec Grav, UA 1.015 1 - 1.03 [facility] care Urobilinogen, UA 0.2 0.2 - 12 mg/dL [facility] Health[facility] e Urinalysis macro (dipstick) panel (U)on 02-14-2024 Bilirubin, UA Negative Negative - 4(70) +++ mg/dL [facility] Healthcare Blood, UA Negative Negative - 50 Jeremiah/mcL [facility] Healthcare Clarity, UA Clear [facility] Color, UA Yellow [facility] Glucose, UA Negative Negative - 1999(110) ++++ mg/dL [facility] Interpretation and review of laboratory results Normal [facility] re Ketones, UA Negative Negative - 160(16) ++++ mg/dL [facility] Leukocytes, UA Negative Negative - 500+++ Hitesh/mcL [facility] Healthcare Nitrite, UA Negative Negative - Positive [facility] pH, UA 7 5 - 9 [facility] Healthcar e Protein, UA Negative Negative - 1999(20) ++++ mg/dL [facility] Spec Grav, UA 1.02 1 - 1.03 [facility] Urobilinogen, UA 0.2 0.2 - 12 mg/dL [facility] Urinalysis macro (dipstick) panel (U)on 01-30-2024 Bilirubin, UA Negative Negative - 4(70) +++ mg/dL [facility] Blood, UA Negative Negative - 50 Jeremiah/mcL [facility] Healthcare Clarity, UA Clear [facility] re Color, UA Yellow [facility] Health[facility] e Glucose, UA Negative Negative - 1999(110) ++++ mg/dL [facility] Interpretation and review of laboratory results Normal [facility] Health[facility] re Ketones, UA Negative Negative - 160(16) ++++ mg/dL [facility] Healthcare Leukocytes, UA Negative Negative - 500+++ Hitesh/mcL [facility] Healthcare Nitrite, UA Negative Negative - Positive [facility] pH, UA 7 5 - 9 [facility] Healthcar e Protein, UA Negative Negative - 1999(20) ++++ mg/dL [facility] Spec Grav, UA 1.015 1 - 1.03 [facility] care Urobilinogen, UA 0.2 0.2 - 12 mg/dL [facility] GLUCOSE 1 HOURon 01-23-2024 Glucose [Mass/Vol] 98 mg/dL NINF - 13 0 mg/dL [facility] Healthcar e Urinalysis macro (dipstick) panel (U)on 01-03-2024 Bilirubin, UA Negative Negative - 4(70) +++ mg/dL [facility] Blood, UA Negative Negative - 50 Jeremiah/mcL [facility] Clarity, UA Clear [facility] [employer] re Color, UA Yellow [facility] [employer] Glucose, UA Negative Negative - 1999(110) ++++ mg/dL [facility] Interpretation and review of laboratory results Normal [facility] re Ketones, UA Negative Negative - 160(16) ++++ mg/dL [facility] Leukocytes, UA Negative Negative - 500+++ Hitesh/mcL [facility] Nitrite, UA Negative Negative - Positive [facility] pH, UA 6.5 5 - 9 [facility] e Protein, UA Negative Negative - 1999(20) ++++ mg/dL [facility] Spec Grav, UA 1.02 1 - 1.03 [facility] Urobilinogen, UA 1.0 0.2 - 12 mg/dL [facility] e IGP,APTIMA HPV,AGE GDLNon AGE GDLN ACOG TESTING Note . [facility] Comment on above: TESTS RESULT FLAG U NITS REF RANGE LAB Clinician Provided Cytology Information Source.............Cervix Other.............. No. of containers..01 ThinPrep Vial Age Algo ACOG Seble... -28 03 FLAG LEGEND: L-Low Normal,H-High Normal,LL-Alert Low,HH-Alert High <-Panic Low,>-Panic High,A-Abnormal,AA-Critical Abnormal Performed at: 01 =G [facility] [address] [place] [address] Norah Samuels MD, IGP, RFX APTIMA HPV ASCU Note . [facility] Comment on above: TESTS RESULT FLAG UN ITS REF RANGE LAB DIAGNOSIS: 02 NEGATIVE FOR INTRAEPITHELIAL LESION OR MALIGNANCY. Specimen adequacy: 02 Satisfactory for evaluation. No endocervical component is identified. An endocervical component is not commonly seen in the patient. Performed by: 02 Denise Watson, Meters Superintendent ([facility]) . 02 Note: Note 02 The [...] High,A-Abnormal,AA-Critical Abnormal Performed at: 02 WB [facility] [address] [id number] Norah Samuels MD, Performed at: = - [facility] [address] [id number] Pick Out Hand: Norah Samuels MD, Phone: [phone] Performed at: - [facility] [id number] Pick Out Hand: Norah Samuels MD, Phone: [phone] SPATULA-ALONE CERVIX [facility] URETHRITIS/DISCHARGE [...] 12-05-2023 AFP Comments: Comment Normal . [facility] Comment on above: Order Comment: 18 WE EKS. JKW Is patient >15 week ?: Y Is extra paperwork completed?: Y Result Comment: Iona Carpio, Ph.D., DABCC Director References: Available Upon Request. Multiples Of Median Cutoffs Abbreviation Definitions For AFP Elevations IDD- Insulin Dep Diabetes Newton 2.5 Black 2.8 OSBR- Open Spina Bifida IDD 2.0 Twins 4.5 Risk DSR Cutoff 1:270 DSR- Down Syndrome Risk T18 Cutoff 1:100 T18- Trisomy 18 For further inquiries contact [employer] [facility] at [phone]-HSAA. This test was developed and its performance characteristics determined by [employer]. It has not been cleared or approved by the Food and Drug Administration. Performed at: - [facility] [address], [place], [place] [id number] Pick Out Hand: Jenniffer Veliz [facility], Phone: [phone] PERFORMED BY: [address] [place] [address] PATHOLOGIST RACK MAKER PERCY ROSEN M.D. Performed By: #### A FPQUAD #### [facility] , AFP Interpretation Comment Normal . [facility] Comment on above: Order [...] identifies 60% of Trisomy 18 pregnancies. The [place] [employer]stetricians and Gynecologists recommends amniocentesis [...] AFP Mom 0.94 Normal . [facility] Comment on above: Order Comment: 18 WE EKS. ShadiaKW Is patient >15 week ?: Y Is extra paperwork completed?: Y Result Comment: --- 12/28/23 1508 --- AFP Mom previously reported as: See interpretation. Performed By: #### A FPQUAD #### [facility] , AFP Test Results: Negative Normal . The [facility] Comment on above: Order Comment: 18 WE EKS. JKW Is patient >15 week ?: Y Is extra paperwork completed?: Y Result Comment: --- 12/28/231507 --- Test Results: previously reported as: See interpretation. Performed By: #### A FPQUAD #### [facility] , AFP Value 41.5 ng/mL Normal . [facility] Comment on above: Order Comment: 18 WE EKS. JKW Is patient >15 week ?: Y Is extra paperwork completed?: Y Performed By: #### A FPQUAD #### [facility] , SHAHBAZ Mom 1.27 Normal . [facility] Comment on above: Order Comment: 18 WE EKS. JKW Is patient >15 week ?: Y Is extra paperwork completed?: Y Result Comment: --- 12/28/231507 --- SHAHBAZ Mom previously reported as: See interpretation. Performed By: #### A FPQUAD #### [facility] , SHAHBAZ Value 213.50 pg/mL Normal . The [facility] Comment on above: Order Comment: 18 WE EKS. ShadiaKW Is patient >15 week ?: Y Is extra paperwork completed?: Y Performed By: #### A FPQUAD #### [facility] , DSR 2nd Trimester 1 In 1706 Normal . [facility] Comment on above: Order Comment: 18 WE EKS. ShadiaKW Is patient >15 week ?: Y Is extra paperwork completed?: Y Result Comment: --- 12/28/231507 --- DSR2nd Tri 1 In previously reported as: See interpretation. Performed By: #### A FPQUAD #### [facility] , DSR By Age 1 In 911 Normal . The [facility] Comment on above: Order Comment: 18 WE EKS. ShadiaKW Is patient >15 week ?: Y Is extra paperwork completed?: Y Result Comment: --- 12/28/231507 --- DSR By Age 1 In previously reported as: See interpretation. Performed By: #### A FPQUAD #### [facility] , Gest. Age Based On MICHELLE Normal . [facility] Comment on above: Order Comment: 18 WE EKS. ShadiaKW Is patient >15 week ?: Y Is extra paperwork completed?: Y Result Comment: 04/28 --- 12/28/23 1508 --- Gest Age Based previously reported as: As provided Performed By: #### A FPQUAD #### [facility] , Gest. Age On Collection Date 18.0 Normal . [facility] Comment on above: Order Comment: 18 WE EKS. JKW Is patient >15 week ?: Y Is extra paperwork completed?: Y Performed By: #### A FPQUAD #### [facility] , HCG Mom 1.09 Normal . [facility] Comment on above: Order Comment: 18 WE EKS. ShadiaKW Is patient >15 week ?: Y Is extra paperwork completed?: Y Result Comment: --- 12/28/23 1508 --- HCG Mom previously reported as: See interpretation. Performed By: #### A FPQUAD #### [facility] , HCG Value 09994 m[iU]/mL Normal . The [facility] Comment on above: Order Comment: 18 WE EKS. ShadiaKW Is patient >15 week ?: Y Is extra paperwork completed?: Y Performed By: #### A FPQUAD #### [facility] , Insulin Dependent Diabetes No Normal . [facility] Comment on above: Order Comment: 18 WE EKS. ShadiaKW Is patient >15 week ?: Y Is extra paperwork completed?: Y Result Comment: Not provided. --- 12/28/23 1508 --- Insulin Dep Shahbaz previously reported as: Comment Not provided. Performed By: #### A FPQUAD #### [facility] , Maternal Age At MICHELLE 27.2 Normal . The [facility] Comment on above: Order Comment: 18 WE EKS. ShadiaKW Is patient >15 week ?: Y Is extra paperwork completed?: Y Performed By: #### A FPQUAD #### [facility] , Multiple Gestation No Normal . [facility] Comment on above: Order Comment: 18 WE EKS. RenoKW Is patient >15 week ?: Y Is extra paperwork completed?: Y Result Comment: Not provided. --- 12/28/23 1508 --- Mult Gest previously reported as: Comment Not provided. Performed By: #### A FPQUAD #### [facility] , OSBR Risk 1 In [address] Normal . The [facility] Comment on above: Order Comment: 18 WE EKJeremiah SOTELOW Is patient >15 week ?: Y Is extra paperwork completed?: Y Result Comment: --- 12/28/23 1508 --- OSBR Risk 1 In previously reported as: See interpretation. Performed By: #### A FPQUAD #### [facility] , Race Normal . [facility] Comment on above: Order Comment: 18 WE EKJeremiah SOTELOW Is patient >15 week ?: Y Is extra paperwork completed?: Y Result Comment: Not provided. --- 12/28/23 1508 --- Race previously reported as: Comment Not provided. Performed By: #### A FPQUAD #### [facility] , Results Comment Normal . [facility] Comment on above: Order Comment: 18 WE EKS. SOTELOW Is patient >15 week ?: Y Is extra paperwork completed?: Y Result Comment: The MOM and risk factors of this report have been modified based on new information supplied to us by the client or their designated route service representative. Note that the gestational ages on [...] By Age 1:3551 Normal . [facility] Comment on above: Order Comment: 18 WE EKS. JKW Is patient >15 week ?: Y Is extra paperwork completed?: Y Performed By: #### A FPQUAD #### [facility] , T18 Risk Not increased Normal . [facility] Comment on above: Order Comment: 18 WE EKS. JKW Is patient >15 week ?: Y Is extra paperwork completed?: Y Result Comment: --- 12/28/23 1508 --- T18 Risk previously reported as: See interpretation. Performed By: #### A FPQUAD #### [facility] , UE3 Mom 0.77 Normal . [facility] Comment on above: Order Comment: 18 WE EKS. JKW Is patient >15 week ?: Y Is extra paperwork completed?: Y Result Comment: --- 12/28/23 150 --- UE3 Mom previously reported as: See interpretation. Performed By: #### A FPQUAD #### [facility] , UE3 Value 1.05 ng/mL Normal . [facility] Comment on above: Order Comment: 18 WE EKS. ShadiaKW Is patient >15 week ?: Y Is extra paperwork completed?: Y Performed By: #### A FPQUAD #### [facility] , Weight 143 Normal . [facility] Comment on above: Order Comment: 18 WE EKS. JKW Is patient >15 week ?: Y Is extra paperwork completed?: Y Result Comment: Not provided. --- 12/28/23 1508 --- Weight previously reported as: Comment lbs Not provided. Performed By: #### A FPQUAD #### [facility] , Urinalysis macro (dipstick) panel (U)on 10-07-2024 Bilirubin, UA Negative Negative - 4(70) +++ mg/dL [facility] Blood, UA Negative Negative - 50 Jeremiah/mcL [facility] Healthcare Clarity, UA Clear [facility] Color, UA Yellow [facility] Glucose, UA Negative Negative - 1999(110) ++++ mg/dL [facility] Interpretation and review of laboratory results Normal [facility] Ketones, UA Negative Negative - 160(16) ++++ mg/dL [facility] Leukocytes, UA Negative Negative - 500+++ Hitesh/mcL [facility] Nitrite, UA Negative Negative - Positive [facility] pH, UA 7.5 5 - 9 [facility] Healthcar e Protein, UA Negative Negative - 1999(20) ++++ mg/dL [facility] Spec Grav, UA 1.020 1 - 1.03 [facility] care Urobilinogen, UA 0.2 0.2 - 12 mg/dL [facility] macro (dipstick) panel (U)on 11-07-2023 Bilirubin, UA Negative Negative - 4(70) +++ mg/dL [facility] Blood, UA Positive Negative - 50 Jeremiah/mcL [facility] Comment on above: trace-intact Clarity, UA Clear [facility] Color, UA Yellow [facility] Glucose, UA Negative Negative - 1999(110) ++++ mg/dL [facility] Interpretation and review of laboratory results Abnormal [facility] Ketones, UA Negative Negative - 160(16) ++++ mg/dL [facility] Leukocytes, UA Trace Negative - 500+++ Hitesh/mcL [facility] Nitrite, UA Negative Negative - Positive [facility] pH, UA 7.0 5 - 9 [facility] Protein, UA Negative Negative - 1999(20) ++++ mg/dL [facility] Spec Grav, UA 1.020 1 - 1.03 [facility] care Urobilinogen, UA 0.2 0.2 - 12 mg/dL [facility] Basophils Auto (Bld) [#/Vol] on 10-06-2023 Basophils (Bld) [#/Vol] 0.0 10 3/uL 0.0-0.1 [facility] Basophils/100 WBC Auto (Bld) on 10-06-2023 Basophils/100 WBC (Bld) 0.5 % 0.2-2.0 [facility] Eosinophils/100 WBC Auto (Bl d)on 10-06-2023 Eosinophils/100 WBC (Bld) 1.2 % 0.9-7.0 [facility] Erythrocyte distribution wid th Auto (RBC) [Ratio]on 10-06-2023 Erythrocyte distribution width (RBC) [Ratio] 12.4 % 11.0-15.0 [facility] Glucose mean value [Mass/vol ume] in Blood Estimated from glycated hemoglobinon 10-06-2023 Average glucose Estimated from glycated hemoglobin (Bld) [Mass/Vol] 94 mg/dL [facility] HBV surface Ag IA Qlon 10-05 Hepatitis B Surface Antigen Negative Negative [facility] Comment on above: Performed at: [employer] [place] [id number] Director: Pieter Tyler PhD, Phone: [phone] Performed at: [employer] [place], [place] [id number] Director: Pieter Tyler PhD, Phone: [employer] HCV Ab Signal/Cutoff IA [Rel units/Vol]on 10-06-2023 Hepatitis C Antibody Non-Reactive Non Reactive [facility] HIV 1+2 Ab+HIV1 p24 Ag IA Ql on 10-06-2023 HIV (1&2) Antibody Screen Non-Reactive Non Reactive [facility] Comment on above: HIV-1/HIV-2 antibodi es and HIV-1 p24 antigen were NOTdetected. There is no laboratory evidence of HIV infection.HIV NegativePerformed at: [employer] [place], [place] [id number] Director: Pieter Tyler PhD, Phone: [phone] HIV-1/HIV-2 antibodi es and HIV-1 p24 antigen were NOTdetected. There is no laboratory evidence of HIV infection.HIV NegativePerformed at: [employer] [place], [place] [id number] Director: Pieter Tyler PhD, Phone: [phone] Hematocrit Auto (Bld) [Volum e fraction]on 10-06-2023 Hematocrit (Bld) [Volume fraction] 36.1 % 36.0-48.0 [facility] Hemoglobin [Mass/volume] in Bloodon 10-06-2023 Hemoglobin (Bld) [Mass/Vol] 12.6 g/dL 12.0-16.0 [facility] Laboratory - Hematology and Cell countson 10-06-2023 HbA1c (Bld) [Mass fraction] 4.9 % 4.5-6.2 [facility] Comment on above: ADA RECOMMENDED LIMI T 4.0 - 6.0ADA THERAPEUTIC TARGET < 7.0ACTION SUGGESTED> 7.0 Immature granulocytes/100 WBC (Bld) 0.1 % 0.0-0.5 [facility] Leukocytes [#/volume] correc mracia for nucleated erythrocytes in Blood by Automated counon 10-06-2023 WBC corrected for nucl RBC Auto (Bld) [#/Vol] 8.2 10 3/uL 4.0-11.0 [facility] Lymphocytes Auto (Bld) [#/Vo l]on 10-06-2023 Lymphocytes (Bld) [#/Vol] 2.1 10 3/uL 1.2-3.8 [facility] Lymphocytes/100 WBC Auto (Bl d)on 10-06-2023 Lymphocytes/100 WBC (Bld) 26.0 % 20.5-60.0 [facility] MCH Auto (RBC) [Entitic mass ]on 10-06-2023 MCH (RBC) [Entitic mass] 30.7 pg 26.7-34.0 [facility] MCHC Auto (RBC) [Mass/Vol]on 10-06-2023 MCHC (RBC) [Mass/Vol] 34.9 g/dL 29.9-35.2 [facility] MCV Auto (RBC) [Entitic vol] on 10-06-2023 MCV (RBC) [Entitic vol] 87.8 fL 81.0-99.0 [facility] Monocytes Auto (Bld) [#/Vol] on 10-06-2023 Monocytes (Bld) [#/Vol] 0.5 10 3/uL 0.3-0.8 [facility] Monocytes/100 WBC Auto (Bld) on 10-06-2023 Monocytes/100 WBC (Bld) 5.9 % 1.7-12.0 [facility] Neutrophils Auto (Bld) [#/Vo l]on 10-06-2023 Neutrophils (Bld) [#/Vol] 5.4 10 3/uL 1.4-6.5 [facility] Neutrophils/100 WBC Auto (Bl d)on 10-06-2023 Neutrophils/100 WBC (Bld) 66.3 % 43.0-75.0 [facility] No Panel Informationon 10-05 Eosinophils # (Auto) 0.1 10 3/uL 0.0-0.7 [facility] Hepatitis C Interpretation Comment . [facility] Comment on above: Not infected with HC V unless early or acute infection issuspected (which may be delayed in an immunocompromisedindividual), or other evidence exists to indicate HCVinfection.Performed at: [facility] [place] [id number] Director: Pieter Tyler PhD, Phone: [phone] Not infected with HC V unless early or acute infection issuspected (which may be delayed in an immunocompromisedindividual), or other evidence exists to indicate HCVinfection.Performed at: [employer] [id number] [place] [id number] Director: Pieter Tyler PhD, Phone: [phone] Immature Granulocyte # (Auto) 0.01 10 3/uL 0.00-0.03 [facility] RPR Quantitative Confirmation Non Reactive titer NonRea<1:1 [facility] Comment on above: Please Note: This te st does not meet current guidelines forscreening and diagnosis of syphilis. This test isintended for following treatment response in patients beingtreated for syphilis infection. To screen for syphilisinfection, a reflex cascade that includes both RPR and atreponema-specific assay should be utilized, such asTreponema pallidum (Syphilis) Screening Rough And Ready (917452) orRapid Plasma Reagin (RPR) Test With Reflex to QuantitativeRPR and Confirmatory Treponema pallidum Antibodies(219572).Performed at: [employer] [address] [place] [id number] Director: Pieter Tyler PhD, Phone: [phone] Rubella IgG Antibody 2.39 index Immune >0.99 [facility] Comment on above: Non-immune <0.90 Equ ivocal 0.90 - 0.99 Immune >0.99Performed at: CB - [facility] [address] [place], [place] [id number] Director: Pieter Tyler PhD, Phone: [phone] Platelet mean volume Auto (B ld) [Entitic vol]on 10-06-2023 Platelet mean volume (Bld) [Entitic vol] 8.6 fL Low 9.5-13.5 [facility] Platelets Auto (Bld) [#/Vol] on 10-06-2023 Platelets (Bld) [#/Vol] 266 10 3/uL 150-450 [facility] RBC Auto (Bld) [#/Vol]on RBC (Bld) [#/Vol] 4.11 10 6/uL Low 4.20-5.40 [facility] No Panel Informationon 09-06 Human Chorionic Gonadotropin, Quant 5292 mIU/mL [facility] Comment on above: 5-50 0.2-1 LTIF32-49 0 1-2 LGAVT598-0,000 2-3 UDTOS928-79,000 3-4 WEEKS1,000-50,000 4-5 WEEKS10,000-100,000 5-6 WEEKS15,000-200,000 6-8 WEEKS10,000-100,000 2-3 MONTHS Vital Signs Date Time Vital Sign Value Performing Clinician Facility 04-30-2024 09:32-0500 Body mass index (BMI) [Ratio] 36.18 kg/m2 [employer] Work Phone: [facility] 04-30-2024 09:32-0500 Body weight 79.89 kg [employer] Work Phone: [facility] 04-30-2024 09:32-0500 Diastolic blood pressure 82 mm[Hg] [employer] Work Phone: [facility] 04-30-2024 09:32-0500 Systolic blood pressure 114 mm[Hg] Sanjuana Ivan DO Work Phone: [facility] 04-23-2024 09:42-0500 Body mass index (BMI) [Ratio] 36.32 kg/m2 Sanjuana Ivan DO Work Phone: [facility] 04-23-2024 09:42-0500 Body weight 80.2 kg Sanjuana Ivan DO Work Phone: [facility] 04-23-2024 09:42-0500 Diastolic blood pressure 62 mm[Hg] Sanjuana Ivan DO Work Phone: [facility] 04-23-2024 09:42-0500 Systolic blood pressure 106 mm[Hg] Sanjuana Ivan DO Work Phone: [facility] 04-16-2024 10:39-0500 Body mass index (BMI) [Ratio] 35.54 kg/m2 Sanjuana Ivan DO Work Phone: [facility] 04-16-2024 10:39-0500 Body weight 78.47 kg Sanjuana Ivan DO Work Phone: [facility] 04-16-2024 10:39-0500 Diastolic blood pressure 64 mm[Hg] Sanjuana Ivan DO Work Phone: [facility] 04-16-2024 10:39-0500 Systolic blood pressure 110 mm[Hg] Sanjuana Ivan DO Work Phone: [facility] 04-10-2024 11:15-0500 Body mass index (BMI) [Ratio] 35.57 kg/m2 Natacha DENNEY Work Phone: [facility] 04-10-2024 11:15-0500 Body weight 78.53 kg Natacha DENNEY Work Phone: [facility] 04-10-2024 11:15-0500 Diastolic blood pressure 70 mm[Hg] Natacha DENNEY Work Phone: [facility] 04-10-2024 11:15-0500 Systolic blood pressure 112 mm[Hg] Natacha DENNEY Work Phone: [facility] 04-02-2024 09:35-0500 Body mass index (BMI) [Ratio] 34.95 kg/m2 Sanjuana Ivan DO Work Phone: [facility] 04-02-2024 09:35-0500 Body weight 77.17 kg Sanjuana Ivan DO Work Phone: [facility] 04-02-2024 09:35-0500 Diastolic blood pressure 72 mm[Hg] Sanjuana Ivan DO Work Phone: [facility] 04-02-2024 09:35-0500 Systolic blood pressure 98 mm[Hg] Sanjuana Ivan DO Work Phone: [facility] 03-20-2024 09:29-0500 Body mass index (BMI) [Ratio] 34.31 kg/m2 Natacha DENNEY Work Phone: [facility] 03-20-2024 09:29-0500 Body weight 75.75 kg Natacha DENNEY Work Phone: [facility] 03-20-2024 09:29-0500 Diastolic blood pressure 72 mm[Hg] Natacha DENNEY Work Phone: [facility] 03-20-2024 09:29-0500 Systolic blood pressure 120 mm[Hg] Natacha Alston PA Work Phone: [facility] 03-05-2024 14:00-0500 Body mass index (BMI) [Ratio] 34.27 kg/m2 Sanjuana Ivan DO Work Phone: [facility] 03-05-2024 14:00-0500 Body weight 75.66 kg Sanjuana Ivan DO Work Phone: [facility] 03-05-2024 14:00-0500 Diastolic blood pressure 68 mm[Hg] Sanjuana Ivan DO Work Phone: [facility] 03-05-2024 14:00-0500 Systolic blood pressure 110 mm[Hg] Sanjuana Ivan DO Work Phone: [facility] 02-14-2024 12:48-0500 Body mass index (BMI) [Ratio] 32.87 kg/m2 Sanjuana Ivan DO Work Phone: [facility] 02-14-2024 12:48-0500 Body weight 72.58 kg Sanjuana Ivan DO Work Phone: [facility] 02-14-2024 12:48-0500 Diastolic blood pressure 60 mm[Hg] Sanjuana Ivan DO Work Phone: [facility] 02-14-2024 12:48-0500 Systolic blood pressure 100 mm[Hg] Sanjuana Ivan DO Work Phone: [facility] 01-30-2024 09:03-0500 Body mass index (BMI) [Ratio] 32.07 kg/m2 Natacha Lincoln PA Work Phone: [facility] 01-30-2024 09:03-0500 Body weight 70.82 kg Natacha Alecia PA Work Phone: [facility] 01-30-2024 09:03-0500 Diastolic blood pressure 68 mm[Hg] Natacha Alecia PA Work Phone: [facility] 01-30-2024 09:03-0500 Systolic blood pressure 108 mm[Hg] Natacha Alecia PA Work Phone: [facility] 01-03-2024 10:23-0500 Body mass index (BMI) [Ratio] 31.39 kg/m2 Sanjuana Ivan DO Work Phone: [facility] 01-03-2024 10:23-0500 Body weight 69.31 kg Sanjuana Ivan DO Work Phone: [facility] 01-03-2024 10:23-0500 Diastolic blood pressure 68 mm[Hg] Sanjuana Ivan DO Work Phone: [facility] 01-03-2024 10:23-0500 Systolic blood pressure 102 mm[Hg] Sanjuana Ivan DO Work Phone: [facility] 12-05-2023 09:41-0400 Body mass index (BMI) [Ratio] 29.33 kg/m2 Natacha Alston PA Work Phone: [facility] 12-05-2023 09:41-0400 Body weight 64.75 kg Natacha Alston PA Work Phone: [facility] 12-05-2023 09:41-0400 Diastolic blood pressure 66 mm[Hg] Natacha Alston PA Work Phone: [facility] 12-05-2023 09:41-0400 Systolic blood pressure 100 mm[Hg] Natacha Alston PA Work Phone: [facility] 11-07-2023 09:53-0400 Body mass index (BMI) [Ratio] 28.45 kg/m2 Sanjuana Ivan DO Work Phone: [facility] 11-07-2023 09:53-0400 Body weight 62.82 kg Sanjuana Ivan DO Work Phone: [facility] 11-07-2023 09:53-0400 Diastolic blood pressure 64 mm[Hg] Sanjuana Ivan DO Work Phone: [facility] 11-07-2023 09:53-0400 Systolic blood pressure 106 mm[Hg] Sanjuana Ivan DO Work Phone: [facility] 07-07-2021 11:00-0400 Body height 151.13 cm Dionne Miller Other [employer] Other 07-07-2021 11:00-0400 Body mass index (BMI) [Ratio] 25.18 kg/m2 Dionne Miller Other [employer] Other 07-07-2021 11:00-0400 Body temperature 97 [degF] Dionne Miller Other [employer] Other 07-07-2021 11:00-0400 Body weight 57.52 kg Dionne Miller Other [employer] Other 07-07-2021 11:00-0400 Diastolic blood pressure 60 mm[Hg] Dionne Miller Other [employer] Other 07-07-2021 11:00-0400 Respiratory rate 18 /min Dionne Miller Other [employer] Other 07-07-2021 11:00-0400 SaO2% (BldA) [Mass fraction] 99 % Dionne Miller Other [employer] Other 07-07-2021 11:00-0400 Systolic blood pressure 100 mm[Hg] Dionne Miller Other [employer] Other Encounters Encounter Date Encounter Type Care Provider Facility Start: 05-07-2024 End: 05-07-2024 ambulatory NATACHA ALECIA Not Available Start: 04-30-2024 End: 04-30-2024 Bamboo flowsheet Sanjuana Ivan DO Work Phone: [facility] Start: 04-30-2024 End: 04-30-2024 Bamboo flowsheet Sanjuana Ivan DO Work Phone: [facility] Start: 04-30-2024 End: 04-30-2024 flow sheet Sanjuana Ivan DO Work Phone: [facility] Comment on above: Third trimester [...] Clinisync Result Encounter Natacha DENNEY Work Phone: [facility] External Department Unsolicited Start: 04-10-2024 End: [...] OB Start: 01-03-2024 End: 01-03-2024 ambulatory SANJUANA LOVE Not Available Start: 01-03-2024 End: 01-03-2024 flow sheet Sanjuana Love DO Work Phone: [facility] Comment on above: Second trimester pre gnancy; 22 weeks gestation of ; Diabetes mellitus screening Start: 12-05-2023 End: 12-05-2023 Bamboo flowsheet Natacha DENNEY Work Phone: [facility] Start: 12-05-2023 End: 12-10-2023 Bamboo flowsheet Natacha DENNEY Work Phone: [facility] Start: 12-05-2023 End: 12-10-2023 Clinisync Result Encounter Natacha DENNEY Work Phone: [facility] External Department Unsolicited Start: 12-05-2023 End: 12-06-2023 External Result Encounter Natacha DENNEY Work Phone: [facility] External Department Unsolicited Start: 12-05-2023 End: 12-05-2023 Patient encounter procedure DO Alexandra Kemp Work Phone: [facility] Start: 12-05-2023 End: 12-05-2023 ambulatory DO Alexandra Kemp Work Phone: [facility] Work Phone: Start: 12-05-2023 End: 12-05-2023 Patient encounter procedure Natacha DENNEY Work Phone: [facility] Healthcare Start: 12-05-2023 End: 12-05-2023 Periodic preventive med est patient 18-39 yrs Natacha DENNEY Work Phone: [facility] Comment on above: Screening, , for [...] Non-visit DO Morena Kemp Work Phone: [facility] Work Phone: Start: 10-06-2023 End: 10-06-2023 ambulatory NATACHA ALSTON Not Available Start: 09-07-2023 Non-patient / Non-visit DO Morena Kemp Work Phone: [facility] Work Phone: Start: 06-29-2023 End: 06-29-2023 ambulatory SANJUANA IVAN Not Available Start: 05-30-2023 End: 05-30-2023 ambulatory NATACHA ALSTON Not Available Start: 07-07-2021 End: 07-07-2021 ambulatory Dionne Miller Other [facility] [employer] Other Start: 07-07-2021 Encounter for genera l adult medical examination without abnormal findings Dionne Miller [facility] Start: 07-07-2021 Periodic preventive med est patient 18-39 yrs Dionne Miller [facility] Procedures Date Procedure Procedure Detail Performing Clinician Start: 04-30-2024 Urnls dip stick/tabl et rgnt non-auto w/o micrscp Sanjuana Ivan DO Work Phone: Start: 04-26-2024 US OB BPP W NON-STRESS [...] AM EDT Routine [facility] [address] [place] [address] Natacha Alston PA [address] [place], [place] [id number] [facility] Start: 04-30-2024 End: 04-30-2024 [...] AM EST Routine [facility] [address] [address] Sanjuana Love DO [address] [place], [place] [id number] [facility] Start: 04-16-2024 End: 04-16-2024 Professional / ancillary services management 04/16/2024 8:30 AM EST Ancillary Procedure [facility] [address] [phone] [facility] Start: 04-11-2024 End: 04-11-2024 Professional / ancillary services management 04/11/2024 9:00 AM EST Ancillary Procedure [facility] [address] [phone] [facility] Start: 04-10-2024 End: 04-10-2025 CULTURE, GROUP B STREP WITH SUSCEPTIBLITY CULTURE, GROUP B STREP WITH SUSCEPTIBLITY Lab Routine Third trimester Expected: 04/10/2024, Expires: 04/10/2025 [facility] Work Phone: Comment on above: Expected: 04/10/2024 , Expires: 04/10/2025 Start: 04-10-2024 End: 04-10-2024 Patient encounter procedure 04/10/2024 11:20 AM EST Routine [facility] [address] [phone] Natacha Alston PA [address] [place] [address] Arrived [facility] Comment on above: Arrived Start: 04-02-2024 End: 04-02-2024 Patient encounter procedure [facility] Comment on above: Arrived Start: 03-20-2024 End: 03-20-2024 Patient encounter procedure [facility] Comment on above: Arrived Start: 03-12-2024 End: 03-12-2024 Professional / ancillary services management 03/12/2024 10:00 AM EST Ancillary Procedure [facility] [address] [phone] [facility] Start: 03-05-2024 End: 03-05-2025 [...] [facility] [address] [place] [address] Sanjuana Love, DO [address] [place] [address] Arrived [facility] Comment on above: Arrived Start: 02-13-2024 End: 02-13-2024 Patient encounter procedure 02/13/2024 8:30 AM EST Routine [facility] [address] [place] [address] Sanjuana Love, [address] [place] [address] [facility] Start: 01-31-2024 End: 01-31-2024 Patient encounter procedure 01/31/2024 8:30 AM EST Routine [facility] [address] [place] [address] Natacha Alston PA [address] [place] [address] [facility] Start: 01-30-2024 End: 01-30-2024 Patient encounter procedure 01/30/2024 8:50 AM EST Routine [facility] [address] [place] [phone] Natacha Alston, PA [address] [place] [address] [facility] Start: 01-24-2024 End: 01-24-2024 Professional / ancillary services management 01/24/2024 8:30 AM EST Ancillary Procedure [facility] [address] [place] [address] [facility] Start: 01-03-2024 End: 01-02-2025 CBC panel - Blood by Automated count CBC Lab Routine Diabetes mellitus screening Expected: 01/03/2024 (Approximate), Expires: 01/02/2025 [facility] Work Phone: Comment on above: Expected: 01/03/2024 (Approximate), Expires: 01/02/2025 Start: 01-03-2024 End: 01-02-2025 Measurement of glucose 1 hour after glucose challenge for glucose tolerance test Glucose tolerance, 1 hour Lab Routine Diabetes mellitus screening Expected: 01/03/2024 (Approximate), Expires: 01/02/2025 [facility] Comment on above: Expected: 01/03/2024 (Approximate), Expires: 01/02/2025 Start: 01-03-2024 End: 01-03-2024 Patient encounter procedure 01/03/2024 9:40 AM EST Routine [facility] [address] [place] [phone] Sanjuana Love, DO [address] [address] [facility] Start: 12-20-2023 End: 12-20-2023 Professional / ancillary services management 12/20/2023 10:00 AM EDT Ancillary Procedure [facility] [address] [place] [phone] [facility] Start: 12-05-2023 End: 12-04-2024 Alpha fetoprotein, maternal Alpha fetoprotein, maternal Lab Routine 18 weeks gestation of Second trimester Expected: 12/05/2023 (Approximate), Expires: 12/04/2024 [facility] Comment on above: Expected: 12/05/2023 (Approximate), Expires: 12/04/2024 Start: 12-05-2023 End: 12-04-2024 US for US OB ANATOMY SINGLE W US OB CERVICAL LENGTH Imaging Routine Screening, , for anatomic survey Expected: 12/05/2023 (Approximate), Expires: 12/04/2024 [facility] Comment on above: Expected: 12/05/2023 (Approximate), Expires: 12/04/2024 Start: 12-05-2023 [facility] Start: 12-05-2023 End: 12-05-2023 Patient encounter procedure [facility] Comment on above: Arrived Start: 11-07-2023 End: 11-07-2023 Patient encounter procedure 11/07/2023 9:40 AM EDT Routine [facility] [address] [place] [phone] Sanjuana Love DO [address] [place] [address] [facility] Comment on above: Arrived Start: 10-30-2023 Influenza vaccination Influenza Vacc ine (#1) [facility] Qxsac-2-Oasucfxmddn [Mass/volume] in Serum or Plasma [facility] Assessment of gestational age [facility] Body weight [facility] CHLAMYDIA TRACHOMATI S (GENITO/STI) CHLAMYDIA TRACHOMATIS (GENITO/STI) Lab Routine Vaginal discharge Screen for STD (sexually transmitted disease) Ordered: 12/05/2023 [facility] Comment on above: Ordered: 12/05/2023 Choriogonadotropin.i ntac t+Beta subunit [Units/volume] in Serum or Plasma [facility] Cytology Cervical or vaginal smear or scraping study Pap Smear Pathology and Cytology Routine Well woman exam with routine gynecological exam Ordered: 12/05/2023 [facility] Work Phone: Comment on above: Ordered: 12/05/2023 Diabetes mellitus screening [facility] Estriol (E3).unconjugated [Mass/volume] in Serum or Plasma [facility] Human chorionic gonadotropin measurement [facility] Inhibin A [Mass/volu me] in Serum or Plasma [facility] Inhibin measurement [facility] Laboratory data interpretation [facility] Neisseria gonorrhoea e DNA [Presence] in Unspecified specimen by ARMAND with probe detection Neisseria gonorrhea DNA probe, direct Lab Routine Vaginal discharge Screen for STD (sexually transmitted disease) Ordered: 12/05/2023 [facility] Comment on above: Ordered: 12/05/2023 Risk assessment [facility] Risk identification: genetic [facility] Serum alpha-fetoprot ein multiple of median measurement [facility] SURESWAB(R) ADVANCED VAGINITIS PLUS, TMA SURESWAB(R) ADVANCED VAGINITIS PLUS, TMA Pathology and Cytology Routine Vaginal discharge Screen for STD (sexually transmitted disease) Ordered: 12/05/2023 [facility] Healthcare Comment on above: Ordered: 12/05/2023 Unconjugated estriol measurement [facility] Immunizations Immunization Date Immunization Notes Care Provider Fa dannie 08-05-2010 tetanus toxoid, redu bobby diphtheria toxoid, and acellular pertussis vaccine, adsorbed Dionne Miller Other [facility] Payers Date Payer Category Payer Self-pay [id number] 2022 Private Health Insurance [employer] [id number] 2022 Unknown [employer] [id number] 2022-Present [address] [place] [address] [id number]. [id number] 2021 Unknown [id number] 2.16.840.1.405452.19 1997 Unknown [id number] 2.16.840.1.236283.3.579.2. 1258 1997 Unknown [id number] 2.16.840.1.912635.3.579.2. 1258 1997 Unknown [id number] 2.16.840.1.305761.3.579.2. 1258 1997 Unknown [id number] 2.16.840.1.175956.3.579.2. 1258 1997 Unknown [id number] 2.16.840.1.811756.3.579.2. 1258 1997 Unknown [id number] 2.16.840.1.102410.3.579.2. 1258 1997 Unknown [id number] 2.16.840.1.252452.3.579.2. 1258 1997 Unknown [id number] 2.16.840.1.536713.3.579.2. 1258 1997 Unknown [id number] 2.16.840.1.458455.3.579.2. 1258 1997 Unknown [id number] 2.16.840.1.272659.3.579.2. 1258 1997 Unknown [id number] 2.16.840.1.253716.3.579.2. 1258 1997 Unknown [id number] 2.16.840.1.753946.3.579.2. 1258 1997 Unknown [id number] 2.16.840.1.555021.3.579.2. 1258 1997 Unknown [id number] 2.16.840.1.613924.3.579.2. 1258 1997 Unknown [id number] 2.16.840.1.795148.3.579.2. 1258 1997 Unknown [id number] 2.16.840.1.989900.3.579.2. 1258 1997 Unknown [id number] 2.16.840.1.486678.3.579.2. 9 1997 Unknown [id number] 2.16.840.1.844545.3.579.2. 1259 Unknown [id number] 2.16.840.1.030103.3.579.2. 531 Social History Date Type Detail Facility Start: 05-30-2023 Sex Assigned At [id number] Other Start: 03-29-2018 End: 05-30-2023 Tobacco smoking [...] goal Clinical Notes 07-07-2021 to 04-30-2024 Sanjuana Love DO - 04/30/2024 9:30 AM Mee Jacobs LPN - 04/23/2024 9:30 AM Aidee Love DO - 04/16/2024 10:20 AM JUMANA Gonzalez [...] nursing note reviewed. Exam conducted with a lining cleaner present. Vitals: Estimated body mass index is [...] Sanjuana Love DO documented in this encounter [facility] 04-23-2024 History of Presen t illness [...] nursing note reviewed. Exam conducted with a lining cleaner present. Vitals: Estimated body mass index is [...] twice weekly until delivery. Orders sent to [facility] scheduling and [facility] Documented by Yris Jacobs LPN on behalf of: Sanjuana Love DO documented in this encounter [facility] 04-16-2024 History of Presen t [...] nursing note reviewed. Exam conducted with a lining cleaner present. Vitals: Estimated body mass index is [...] Sanjuana Love DO documented in this encounter [facility] 04-10-2024 History of Presen t [...] of: JUMANA Trotter documented in this encounter [facility] 04-02-2024 History of Presen t [...] nursing note reviewed. Exam conducted with a lining cleaner present. Vitals: Estimated body mass index is [...] Sanjuana Love DO documented in this encounter [facility] 03-20-2024 History of Presen t [...] of: JUMANA Trotter documented in this encounter [facility] 03-05-2024 History of Presen t [...] Sanjuana Love DO documented in this encounter [facility] 02-14-2024 History of Presen t [...] nursing note reviewed. Exam conducted with a lining cleaner present. Vitals: Estimated body mass index is [...] of Delivery: 05/07/24. Patient is going to [facility] for her Rhogam injection. Patient to return to clinic 2-3 weeks. Documented by Yris Jacobs LPN on behalf of: Natacha Alston PA-C/Jazzy Root NP documented in this encounter [facility] 01-30-2024 History of Presen t [...] of: JUMANA Trotter documented in this encounter [facility] 01-03-2024 History of Presen t [...] nursing note reviewed. Exam conducted with a lining cleaner present. Vitals: Estimated body mass index is [...] Sanjuana Love DO documented in this encounter [facility] 12-05-2023 History of Presen t [...] of: JUMANA Trotter documented in this encounter [facility] 11-07-2023 History of Presen t [...] nursing note reviewed. Exam conducted with a lining cleaner present. Vitals: Estimated body mass index is [...] or undercooked meat, and stay away from [facility]. Patient has been consulted regarding any further do's and don'ts of . Patient voiced understanding and all questions and concerns were answered. Discussed that patient is NEGATIVE blood type and will require Rhogam injection at 28 weeks gestation, order has already been faxed to [facility] Scheduling dept. Discussed Tdap and scheduling for that is they desire to have obtained. Orders Placed This Encounter Procedures POCT urinalysis dipstick manually resulted Follow Up: Patient is to return in 4 weeks for routine OB/ANNUAL appointment. Documented by Yris Jacobs LPN on behalf of: Sanjuana Love DO documented in this encounter [facility] 07-07-2021 Evaluation note Encounter Date Diagnosis Assessment Notes June, Well adult exam (ICD-10 - Z00.00) Routine lab work ordered today. Continue to follow with eye doctor and dentist, [employer]. Patient is advised to work on healthy [...] treatment pending results of testing. June, Other [employer] referral sent today so that she is able to discuss control options with them. Discussed referral process with patient. [facility] Other Evaluation note* Diagnosis Screening, , for anatomic survey Encounter for anatomic survey 18 weeks gestation of Second trimester state, incidental Vaginal discharge Leukorrhea, not specified as infective Screen for STD (sexually transmitted disease) Screening examination for venereal disease Well woman exam with routine gynecological exam Routine gynecological examination documented in this encounter [facility] HealthcareEvaluation noteNo assessment information availablePremier [facility] Work Phone: Evaluation note* Diagnosis Second trimester state, incidental 22 weeks gestation of Diabetes mellitus screening Screening for diabetes mellitus documented in this encounter [facility] HealthcareEvaluation note* Diagnosis 26 weeks gestation of Second trimester state, incidental documented in this encounter [facility] HealthcareEvaluation note* Diagnosis 28 weeks gestation of Third trimester state, incidental Rh negative state in antepartum period documented in this encounter [facility] HealthcareEvaluation note* Diagnosis Second trimester state, [...] history Hospitalization History No know Hospitalization history [id number] Other Chief Complaint and Reason for Visit [...] Care Teams (unrecognized sec tion and content) High Pressure Boiler Operator Relationship Specialty Start Date End Date Dionne Miller NP [address] [place] [address] PCP - General 05/29/23 High Pressure Boiler Operator Relationship Specialty Start Date End Date Dionne Miller NP [address] [facility] [place] [address] PCP - General 05/29/23 Team Status: Active [...] December 05, 2023 End: December 05, 2023 High Pressure Boiler Operator Relationship Specialty Start Date End Date Dionne Miller NP [address] [facility] [place] [address] PCP - General 05/29/23 High Pressure Boiler Operator Relationship Specialty Start Date End Date Dionne Miller NP [address] [facility] [place] [address] PCP - General 05/29/23 High Pressure Boiler Operator Relationship Specialty Start Date End Date Dionne Miller NP [address] [facility] [place] [address] PCP - General 05/29/23 High Pressure Boiler Operator Relationship Specialty Start Date End Date Dionne Miller INSULATION HELPER [address] [facility] [place] [address] PCP - General 05/29/23 Natacha Alston PA [address] [place] [address] [place] [address] PCP - Medical [place] [facility] 02/28/22 02/27/99 High Pressure Boiler Operator Relationship Specialty Start Date End Date Dionne Miller INSULATION HELPER [address] [place] [id number] PCP - General 05/29/23 Natacha Alston PA [address] [place] [address] [place] [address] PCP - Medical [place] [facility] 02/28/22 02/27/99 High Pressure Boiler Operator Relationship Specialty Start Date End Date Dionne Miller NP [address] [place] [address] PCP - General 05/29/23 High Pressure Boiler Operator Relationship Specialty Start Date End Date Dionne Miller INSULATION HELPER [address] [place] [address] PCP - General 05/29/23 Natacha Alston PA [address] [place] [address] [place] [address] PCP - Medical [place] [facility] 02/28/22 02/27/99 High Pressure Boiler Operator Relationship Specialty Start Date End Date Dionne Miller INSULATION HELPER [address] [place] [address] PCP - General 05/29/23 Natacha Alston PA [address] [place] [address] [place] [address] PCP - Medical [place] [facility] 02/28/22 02/27/99 High Pressure Boiler Operator Relationship Specialty Start Date End Date Dionne Miller, INSULATION HELPER [address] [place] [address] PCP - General 05/29/23 Natacha Alston PA [address] [place] [address] [place] [address] PCP - Medical [place] [facility] 02/28/22 02/27/99 Goals (unrecognized section and content) Goals may be documented in a n alternate section INFORMATION SOURCE (unrecogn ized section and content) DATE CREATED AUTHOR 12/30/2023 [facility] DATE CREATED AUTHOR 'S FABIOLA PÉREZ 05/08/2024 [facility] d[facility] Specialists [facility] FOR RECORDS PERTAINING TO PATIENTS WHO [...] BE BASED ON THE PRIMARY CLINICAL RECORDS. [employer] provides no warranty or guarantee of the accuracy or completeness of information in this document.
[2024-05-14 05:23] LABS: Hematocrit 38.1 % (36.0-48.0); Hemoglobin 13.6 g/dL (12.0-16.0); Mean Corpuscular HGB Conc 35.7 g/dL (29.9-35.2); Mean Corpuscular Hemoglobin 31.8 pg (26.7-34.0); Mean Platelet Volume 9.6 fL (9.5-13.5); Platelet Count 183 10^3/uL (150-450); Red Blood Count 4.28 10^6/uL (4.20-5.40); Red Cell Distribution Width 13.7 % (11.0-15.0); White Blood Count 7.3 10^3/uL (4.0-11.0)
[2024-05-14 05:35] LABS: Amphetamine Screen Urine NEGATIVE (NEGATIVE); Barbiturates Screen Urine NEGATIVE (NEGATIVE); Benzodiazepines Screen Urine NEGATIVE (NEGATIVE); Buprenorphine Screen Urine NEGATIVE (NEGATIVE); Cannabinoid Screen Urine NEGATIVE (NEGATIVE); Cocaine Screen Urine NEGATIVE (NEGATIVE); Methadone Screen Urine NEGATIVE (NEGATIVE); Methamphetamines Screen Urine NEGATIVE (NEGATIVE); Opiate Screen Urine NEGATIVE (NEGATIVE); Oxycodone Screen Urine NEGATIVE (NEGATIVE); Phencyclidine Screen Urine NEGATIVE (NEGATIVE); Tricyclic Antidepressant Urine NEGATIVE (NEGATIVE)
[2024-05-14] MEDS: 0.9 % SODIUM CHLORIDE 1,000 ML 125 ML IV ×2 (05:40→13:25)
[2024-05-14] MEDS: OXYTOCIN/0.9 % SODIUM CHLORIDE 10 UNITS/500 ML PLAST..BAG 6 UNIT IV (05:52)
[2024-05-14] MEDS: ONDANSETRON PF 4 MG/2 ML VIAL IV ×2 (15:41→21:15)
[2024-05-14] MEDS: OXYTOCIN/0.9 % SODIUM CHLORIDE 10 UNITS/500 ML PLAST..BAG 60 UNIT IV (18:12)
[2024-05-14] MEDS: 0.9 % SODIUM CHLORIDE 1,000 ML 1000 ML IV (22:15)
[2024-05-14] MEDS: METOCLOPRAMIDE HCL 10 MG/2 ML VIAL IVP (22:30)
[2024-05-14] MEDS: CEFAZOLIN SODIUM/DEXTROSE,ISO 2 GM/50 ML PIGGYBACK IV (22:30)
[2024-05-14] MEDS: CITRIC ACID/SODIUM CITRATE 30 ML SOLUTION ORACIT SHOHL'S SOLN PO (22:30)
[2024-05-14] MEDS: FAMOTIDINE/PF 20 MG/2 ML VIAL IV (22:30)
[2024-05-14] MEDS: LACTATED RINGER'S SOLUTION 1,000 ML 50 ML IV ×2 (23:00→23:20)
--- NOTE | 2024-05-14 23:37 | PM.ONB ---
Brief Operative Note Date of procedure: 05/14/24 Pre-op diagnosis general: failure to progess, failure to dilate, iup at 41wks Post-op diagnosis: same as pre-op Procedure: NAME OF PROCEDURE: [ section ] PROCEDURE: Patient was taken back to the Operating Room where she was given a spinal anesthesia with Duramorph without difficulty. She was prepped and draped in the normal sterile fashion. A Pfannenstiel skin incision was then made 2 cm above the symphysis pubis and carried down to underlying rectus fascia using a Bovie. The fascia was incised in the midline and extended laterally using Menjivar scissors. Two Olesya clamps were placed on the superior aspect of the fascia and dissected off the underlying rectus muscles. The same was performed on the inferior aspect as well. The muscles were then in the midline. Peritoneum was identified and entered bluntly. The peritoneum was then extended superiorly and inferiorly with good visualization of the bladder. The bladder blade was inserted. A low transverse incision was made on the patient's uterus and extended laterally digitally. The was then delivered atraumatically after the bladder blade was removed in the cephalic position. The cord was clamped and cut. Cord blood was obtained. The was handed off to awaiting team. The patient's placenta was spontaneously delivered. The uterus was then exteriorized. The uterus was cleared of all clots and debris. The bladder blade was reinserted. The patient's uterine incision was closed using #0 Vicryl in a running lock fashion. Excellent hemostasis was assured. The uterus was then returned to the patient's abdomen. The patient's abdomen was copiously irrigated using warm saline. Peritoneal gutters were cleared of all clots and debris. Again excellent hemostasis was assured. The patient's peritoneum was closed using 3-0 Vicryl in a running fashion. The patient's fascia was closed using #0 Vicryl in a running fashion. The patient's skin was closed using 4-0 Vicryl subcuticularly. The patient tolerated the procedure well. Sponge, lap, and needle counts were correct x2. The patient was taken to the Recovery Room in stable condition. Anesthesia: spinal Surgeon: Westley Love Self Propelled Dredge Operator: Gissell Severino Estimated blood loss (mL): 575 Pathology: none sent Condition: stable Disposition: PACU Urinary Catheter Management Urinary Catheter Management Urethral: Cath placed during this visit: no
--- NOTE | 2024-05-14 23:38 | PM.OBPRCCS ---
Procedure Pre-op/Post-op diagnoses: Pre-Op/Post-Op Diagnoses Operation Date: 05/14/24 22:45 <No data on this case meets the specified criteria> Procedure: Procedures Operation Date: 05/14/24 22:45 Actual Procedure Side Surgeon p Not Applicable Westley Love DO Chief Digital Media Officer: Gissell Severino Estimated blood loss (mL): 575 Disposition: PACU Anesthesia type: Spinal
[2024-05-15] VITALS (28 sets, daily range): BP systolic 95–125; BP diastolic 60–94; PULSE 61–104; TEMP 36.3–37.2; O2SAT 96–98
[2024-05-15] MEDS: CEFAZOLIN SODIUM/DEXTROSE,ISO 2 GM/50 ML PIGGYBACK IV (05:49)
[2024-05-15] MEDS: KETOROLAC TROMETHAMINE 30 MG/ML VIAL IVP ×3 (06:01→18:42)
[2024-05-15 06:24] LABS: Basophils Percent Auto 0.1 % (0.2-2.0); Hematocrit 27.9 % (36.0-48.0); Hemoglobin 10.1 g/dL (12.0-16.0); Immature Granulocytes Abs Auto 0.05 10^3/uL (0.00-0.03); Immature Granulocytes Pct Auto 0.4 % (0.0-0.5); Lymphocytes Absolute Auto 0.7 10^3/uL (1.2-3.8); Lymphocytes Percent Auto 5.2 % (20.5-60.0); Mean Corpuscular HGB Conc 36.2 g/dL (29.9-35.2); Mean Corpuscular Hemoglobin 32.4 pg (26.7-34.0); Mean Corpuscular Volume 89.4 fL (81.0-99.0); Mean Platelet Volume 9.4 fL (9.5-13.5); Monocytes Absolute Auto 0.4 10^3/uL (0.3-0.8); Monocytes Percent Auto 2.7 % (1.7-12.0); Neutrophils Absolute Auto 11.9 10^3/uL (1.4-6.5); Neutrophils Percent Auto 91.6 % (43.0-75.0); Platelet Count 153 10^3/uL (150-450); Red Blood Count 3.12 10^6/uL (4.20-5.40); Red Cell Distribution Width 13.7 % (11.0-15.0)
[2024-05-15] MEDS: ACETAMINOPHEN 500 MG TABLET 1000 MG PO ×3 (07:42→23:51)
--- NOTE | 2024-05-15 12:14 | PM.OBPN ---
OB - PN: Subj Subjective Patient comments: no complaints and pain well controlled [place] status: doing well Exam Constitutional Vital Signs, click to edit/add: Last Vital Signs Temp 99 F 05/15/24 09:10 Pulse 101 H 05/15/24 01:05 Resp 16 05/15/24 09:10 BP 95/65 05/15/24 09:10 Pulse Ox 96 05/15/24 01:05 O2 Del Method Room Air 05/15/24 06:10 Documenting provider has reviewed patient's vital signs: yes Common normals: no apparent distress Respiratory Common normals: normal respiratory effort and clear to auscultation bilaterally Cardio Common normals: regular rate and regular rhythm GI Common normals: Normal to inspection, nondistended, normoactive bowel sounds present Extremity Common normals: no clubbing, cyanosis or edema and no calf tenderness Results Labs Labs: Short CBC 05/15/24 Range/Units 06:10 WBC 13.0 H (4.0-11.0) 10^3/uL Hgb 10.1 L (12.0-16.0) g/dL Hct 27.9 L (36.0-48.0) % Plt Count 153 (150-450) 10^3/uL Urinary Catheter Management Urinary Catheter Management Urethral: Cath placed during this visit: yes, but has since been removed by the nurse Insertion date: 05/15/24 Insertion time: 22:25 Removal date: 05/15/24 Removal time: 09:40 OB - PN: A/P Plan - day: 1 Plan: routine postop care Time Spent with Patient Time: Total time spent is greater than 50% in coordination of care (as documented) at patient's floor/unit and/or counseling patient: Total time spent with greater than 50% in coordination of care (as documented) at patient's floor/unit and/or counseling patient: less than 15 minutes
[2024-05-15] MEDS: ENOXAPARIN SODIUM 40 MG/0.4 ML SYRINGE SUBQ (12:48)
[2024-05-15] MEDS: RHO(D) IMMUNE GLOBULIN 1,500 UNIT SYRINGE 1500 UNIT IV (18:43)
--- NOTE | 2024-05-15 22:49 | PC.NURSE ---
1030 patient up to shower.
[2024-05-15] MEDS: IBUPROFEN 400 MG TABLET 800 MG PO (23:51)
[2024-05-16] VITALS: BP 120/83; TEMP 36.6
[2024-05-16] MEDS: IBUPROFEN 400 MG TABLET 800 MG PO ×2 (07:24→19:43)
[2024-05-16] MEDS: ACETAMINOPHEN 500 MG TABLET 1000 MG PO ×2 (07:24→15:47)
--- NOTE | 2024-05-16 07:50 | P.OBPN_ITS ---
OB - PN: Subj Subjective Patient comments: no complaints and pain well controlled [place] status: doing well Exam Constitutional Vital Signs, click to edit/add: Last Vital Signs Temp 97.8 F 05/16/24 00:00 Pulse 101 H 05/15/24 01:05 Resp 18 05/15/24 20:00 BP 120/83 05/16/24 00:00 Pulse Ox 96 05/15/24 01:05 O2 Del Method Room Air 05/16/24 00:00 Documenting provider has reviewed patient's vital signs: yes Common normals: no apparent distress Respiratory Common normals: normal respiratory effort and clear to auscultation bilaterally Cardio Common normals: regular rate and regular rhythm GI Common normals: Normal to inspection, nondistended, normoactive bowel sounds present Extremity Common normals: no clubbing, cyanosis or edema Urinary Catheter Management Urinary Catheter Management Urethral: Cath placed during this visit: yes, but has since been removed by the nurse Insertion date: 05/15/24 Insertion time: 22:25 Removal date: 05/15/24 Removal time: 09:40 OB - PN: A/P Plan - day: 2 Plan: routine postop care, discharge home and other (fu 1wk) Time Spent with Patient Time: Total time spent is greater than 50% in coordination of care (as documented) at patient's floor/unit and/or counseling patient: Total time spent with greater than 50% in coordination of care (as documented) at patient's floor/unit and/or counseling patient: less than 15 minutes
[2024-05-16 09:36] VITALS: BP 124/72; TEMP 36.6
[2024-05-16] MEDS: DOCUSATE SODIUM 100 MG CAPSULE PO ×2 (09:38→22:24)
[2024-05-16 16:38] VITALS: BP 110/71
[2024-05-17 00:30] VITALS: TEMP 36.5
[2024-05-17] MEDS: ACETAMINOPHEN 500 MG TABLET 1000 MG PO (00:30)
[2024-05-17 00:31] VITALS: BP 127/70
[2024-05-17] MEDS: IBUPROFEN 400 MG TABLET 800 MG PO (03:36)
[2024-05-17] MEDS: DOCUSATE SODIUM 100 MG CAPSULE PO (08:19)
[2024-05-17 08:20] VITALS: PULSE 92; TEMP 36.6
[2024-05-17 08:23] VITALS: BP 116/73
--- NOTE | 2024-05-17 09:16 | PM.OBPN ---
OB - PN: Subj Subjective Patient comments: no complaints [place] status: doing well feeding status: exclusively Exam Constitutional Vital Signs, click to edit/add: Last Vital Signs Temp 97.7 F 05/17/24 00:30 Pulse 101 H 05/15/24 01:05 Resp 16 05/17/24 00:30 BP 127/70 05/17/24 00:31 Pulse Ox 96 05/15/24 01:05 O2 Del Method Room Air 05/17/24 00:30 Documenting provider has reviewed patient's vital signs: yes Common normals: oriented x3 General appearance: cooperative Orientation/consciousness: Yes awake, Yes oriented to person, Yes oriented to place and Yes oriented to time HENMT Common normals: normocephalic Eye Common normals: EOMs intact bilaterally Neck & C-Spine Common normals: full ROM Lymph Lymphatic: no lymphadenopathy noted Chest Common normals: inspection of chest normal Respiratory Common normals: normal respiratory effort, no retractions, no use of accessory muscles, clear to auscultation bilaterally and percussion normal Effort & inspection: able to speak in complete sentences Cardio Common normals: regular rate and regular rhythm Rate: regular rate Rhythm: regular rhythm GI Common normals: Normal to inspection, nondistended, normoactive bowel sounds present Inspection: normal to inspection Auscultation: normoactive bowel sounds Palpation: soft and firm Common normals: no CVA tenderness Back & Pelvis Common normals: no CVA tenderness Extremity Common normals: normal to inspection and full ROM General: normal exam except as noted Neuro Common normals: oriented x3 Psych Common normals: mental status grossly normal, thought process normal, cooperative, affect normal, speech normal, activity/motor behavior normal, denies hallucinations, denies homicidal ideation and denies suicidal ideation Appearance: grossly normal Attitude: calm Activity/motor behavior: appropriate eye contact Speech: normal speech Urinary Catheter Management Urinary Catheter Management Urethral: Cath placed during this visit: yes, but has since been removed by the nurse Insertion date: 05/15/24 Insertion time: 22:25 Removal date: 05/15/24 Removal time: 09:40 OB - PN: A/P Time Spent with Patient Time: Total time spent is greater than 50% in coordination of care (as documented) at patient's floor/unit and/or counseling patient: Total time spent with greater than 50% in coordination of care (as documented) at patient's floor/unit and/or counseling patient: less than 15 minutes
== END 2024-05-17 15:40 | disposition home or self-care (01) | DRG 788 ==
PROVIDERS: Admitting Provider Obstetrics & Gynecology; PCP Nurse Practitioner Family; Visit Provider Obstetrics & Gynecology
PROC: 10D00Z1 Extraction of Products of Conception, Low, Open Approach (ICD-10-PCS; CPT 59514; principal; 2024-05-14 22:45)
DX: O48.0 Post-term pregnancy (principal); O62.0 Primary inadequate contractions; Z3A.41 41 weeks gestation of pregnancy; Z37.0 Single live birth; Z88.1 Allergy status to other antibiotic agents; Z23 Encounter for immunization
CPT/HCPCS: 36415; 51702; 59050; 64488; 80307; 85025; 85027; 85461; 86850; 86900; 86901; 94667; 94668; J0131; J0665; J0690; J1100; J1650; J1885; J2274; J2405; J2590; J2765; J2791; J3490

== ENCOUNTER 2024-05-22 08:57 | Outpatient (OUT) | payer OTHER, SELFPAY ==
--- NOTE | 2024-05-22 11:11 | PC.NURSE ---
patient, spouse and present for follow up visit. pt states is feeding well, occasional pinching noted but does try to re latch infant unless it's not too bad . Educated pt on even if pinching is tolerable infant should be re latched as it is still causing nipple trauma. pt verbalizes understanding, questions answered about pumping and proper positioning of for nursing infant. Infant weight 8 pounds, 4.5 ounces. 3750 gms. pt weight has increased since per parents. weight was 3.675gms on 05/14/24. pt states nurses every 1-1.5 hours in the day time for approximately 30 minutes and takes both breasts most feedings. states will nurse every 2-3 hours at night for 30 minutes and usually only nurses on one breast. Multiple voids and stools noted. while here voided twice and had one small yellow seedy stool. Infant pink in color with normal respirations and nurses at breast well on left breast. With right breast infant wants to slurp nipple into mouth causing pinching, re latched to breast X3 once in deep latch no pinching noted nurses well for 15 minutes without difficulty. patient denies needing another follow up at this time, states, i feel good you helped me a lot. i just wanted to make sure everything was going ok and we were worried about weight loss for the baby. Parents encouraged that they are doing a fantastic job and if any concerns or questions arise they can call [facility] or schedule a follow up if needed. Both agree. Parents and go home infant strapped in car seat with straps snug and in appropriate position.
== END 2024-05-22 08:58 | disposition home or self-care (01) ==
LOC: FBCO 08:58
PROVIDERS: PCP Nurse Practitioner Family; Visit Provider Obstetrics & Gynecology
DX: Z39.1 Encounter for care and examination of lactating mother (principal)
CPT/HCPCS: G0463